=== PATIENT | female | born 1955 | race Caucasian/White ===

== ENCOUNTER 2017-07-07 08:53 | Emergency (ER) | payer OTHER, MEDICAID ==
[~2017-07-07] VITALS: Ht 167.6 cm; Wt 81.6 kg
[~2017-07-07 08:53] MED LIST: ARIP15TA6; GABA-497; QUET100T46; TRAZ100T2; [UNRECOGNIZED DRUG - CODE]; [UNRECOGNIZED DRUG - CODE]
[2017-07-07 09:41] VITALS: BP 127/76
[2017-07-07] MEDS ORDERED: methylPREDNISolone SOD SUCC 125 MG/2 ML VL IM ONE (10:00)
[2017-07-07] MEDS ORDERED: ONDANSETRON HCL 4 MG/2 ML VIAL IM ONE (10:00)
[2017-07-07] MEDS ORDERED: MORPHINE SULF INJ 2 MG/ML SYRINGE 1ML IM ONE (10:00)
== END 2017-07-07 10:43 | disposition home or self-care (01) ==
LOC: ER 08:53
DX: M16.12 Unilateral primary osteoarthritis, left hip (principal); G62.9 Polyneuropathy, unspecified; J45.909 Unspecified asthma, uncomplicated; Z86.73 Personal history of transient ischemic attack (TIA), and cerebral infarction without residual deficits; Z88.0 Allergy status to penicillin; Z88.6 Allergy status to analgesic agent
CPT/HCPCS: 73502; 96372; 99284; J2270; J2405; J2930

== ENCOUNTER 2017-07-11 10:37 | Inpatient (IN) | payer OTHER, MEDICAID ==
[~2017-07-11] VITALS: Ht 167.6 cm; Wt 81.6 kg
[2017-07-11 11:52] LABS: Hematocrit 36.7 % (36.0-46.0); Hemoglobin 12.3 g/dL (12.2-16.2); Mean Corpuscular Hemoglobin 31.4 pg (28.0-32.0); Mean Corpuscular Hgb Conc. 33.4 g/dL (32.0-36.0); Mean Corpuscular Volume 93.9 fL (80.0-100.0); Platelet Count (auto) 219 10^3/uL (140-450); Red Cell Distribution Width 13.1 % (11.8-14.3); White Blood Cell 20.5 10^3/uL (4.4-10.8)
[2017-07-11 11:58] LABS: Metamyelocytes % 0; Myelocytes % 0; Promyelocytes % 0; Reactive Lymphocytes 0
[2017-07-11 12:04] LABS: Platelet Estimate Adequate
[2017-07-11 12:05] LABS: RBC Morphology Normal
[2017-07-11 12:10] LABS: Albumin 2.8 g/dL (3.4-5.0); Alkaline Phosphatase 109 U/L (45-117); Anion Gap 12 (5-15); Aspartate Aminotransferase 51 U/L (15-37); BUN/Creatinine Ratio 17.1; Bilirubin, Total 0.5 mg/dL (0.2-1.0); Blood Urea Nitrogen 12 mg/dL (7-18); Calcium 7.9 mg/dL (8.5-10.1); Carbon Dioxide 22 mmol/L (21-32); Chloride 106 mmol/L (98-107); GFR African American 109 mL/min; GFR Non-African American 90 mL/min; Glucose 118 mg/dL (74-106); Magnesium 2.3 mg/dL (1.6-2.6); Potassium 3.3 mmol/L (3.5-5.1); Sodium 140 mmol/L (136-145); Total Protein 6.5 g/dL (6.4-8.2)
[2017-07-11] MEDS ORDERED: ALBUTEROL SULF 2.5 MG/0.5ML(0.5%) NEB SOLN HHN ONE (12:15)
[2017-07-11] MEDS ORDERED: IPRATROPIUM BROM 0.5 MG/2.5ML INH SOL HHN ONE (12:15)
[2017-07-11] MEDS ORDERED: methylPREDNISolone SOD SUCC 125 MG/2 ML VL IV ONE (12:15)
[2017-07-11] MEDS ORDERED: cefTRIAXone 1GM/10ml IVPUSH 10 ML IV ONE (12:45)
[2017-07-11] MEDS ORDERED: POTASSIUM CHL 20 Meq TABLET PO ONE (13:15)
[2017-07-11] MEDS ORDERED: AZITHROMYCIN 500MG/ 250ML 250 ML IV ONE (13:15)
[2017-07-11 13:20] LABS: Lactic Acid w/Reflex 2.9 mmol/L (0.4-2.0)
[2017-07-11 13:24] LABS: REFLEX LACTIC ACID YES OR NO YES
[2017-07-11 13:47] LABS: Temperature: 23.1 C (20.0-25.0)
[2017-07-11 14:44] LABS: Urine RBC None Seen /hpf (0 - 4)
[2017-07-11 14:57] LABS: Urine Bilirubin Negative (Negative); Urine Blood Negative /uL (Negative); Urine Color Yellow (Yellow); Urine Glucose Normal (Normal); Urine Ketone Negative (Negative); Urine Nitrite POSITIVE (Negative); Urine Squamous Epithelial Cell FEW /hpf (<5); Urine Urobilinogen Normal (Negative); Urine pH 5.5 (5.0-8.0)
[2017-07-11] MEDS ORDERED: IPRATROPIUM BROM 0.5 MG/2.5ML INH SOL ONE (15:54)
[2017-07-11] MEDS ORDERED: ALBUTEROL SULF 2.5 MG/0.5ML(0.5%) NEB SOLN ONE (15:54)
[2017-07-11] MEDS ORDERED: ALBUTEROL SULF 2.5 MG/0.5ML(0.5%) NEB SOLN NEB ONE (16:00)
[2017-07-11] MEDS ORDERED: IPRATROPIUM BROM 0.5 MG/2.5ML INH SOL NEB ONE (16:00)
[2017-07-11] MEDS ORDERED: SODIUM CHLORIDE 0.9% 1,000 ML IV ONE ×2 (16:15)
[2017-07-11] MEDS ORDERED: LORazepam 2MG/ML-1ML VIAL IV ONE (16:30)
[2017-07-11] MEDS ORDERED: TEMAZEPAM 15 MG CAP PO PRN (17:30)
[2017-07-11] MEDS ORDERED: ONDANSETRON HCL 4 MG/2 ML VIAL IV PRN (17:30)
[2017-07-11] MEDS ORDERED: MORPHINE SULF INJ 2 MG/ML SYRINGE 1ML IV PRN ×2 (17:30)
[2017-07-11] MEDS ORDERED: NITROGLYCERIN 0.4 MG SL TAB SL PRN (17:30)
[2017-07-11] MEDS ORDERED: DOCUSATE SOD 100 MG CAP PO PRN (17:30)
[2017-07-11] MEDS ORDERED: VANCOMYCIN PER PHARMACY 0 MG IV SCH (17:30)
[2017-07-11] MEDS ORDERED: ACETAMINOPHEN 325 MG TAB PO PRN (17:30)
[2017-07-11] MEDS ORDERED: HYDROcodone-ACET 5/325MG TAB PO PRN (17:30)
[2017-07-11] MEDS: IPRATROPIUM BROM 0.5 MG/2.5ML INH SOL NEB SCH ×2 (18:15→22:15)
[2017-07-11] MEDS: ALBUTEROL SULF 2.5 MG/0.5ML(0.5%) NEB SOLN NEB SCH ×2 (18:15→22:15)
[2017-07-11] MEDS: methylPREDNISolone SOD SUCC 40 MG/ML VL IV SCH (18:16)
[2017-07-11] MEDS ORDERED: VANCOMYCIN 1,250 MG in SODIUM CHL 0.9% 250 ML IV ONE (18:30)
[2017-07-11] MEDS: BOOST PLUS 8 ounce PO SCH (18:34)
[2017-07-11] MEDS ORDERED: LORazepam 0.5 MG TAB PO PRN (18:45)
[2017-07-11] MEDS ORDERED: ETOMIDATE (2MG/ML) 20ML VIAL IV ONE (21:22)
[2017-07-11] MEDS ORDERED: SUCCINYLCHOLINE CHLORIDE 20 MG/ML 10ML VIAL IV ONE (21:22)
[2017-07-11] MEDS ORDERED: PROPOFOL 100 ML IV ONE ×2 (21:24→23:31)
[2017-07-11 22:00] VITALS: BP 163/109
[2017-07-11] MEDS: fentaNYL Drip 2500mCg/250mlNS 250 ML IV SCH (22:35)
[2017-07-11] MEDS: PROPOFOL 100 ML IV SCH (22:35)
[2017-07-11] MEDS: MIDAZOLAM DRIP 50 mg/50mL 50 ML IV SCH (22:52)
[2017-07-11] MEDS: SODIUM CHLOR 0.9% PF (SALINE LOCK) 10ML VIAL IV SCH (23:01)
[2017-07-11] MEDS: VENLAFAXINE HCL 37.5mg XR cap PO SCH (23:16)
[2017-07-11] MEDS: MORPHINE SULF 30 mg ER tab PO SCH (23:16)
[2017-07-11 23:37] LABS: Allen Test Modified; Base Excess -2.1 mmol/L (-2.0-2.0); Blood 02Sat 88.3 % (96-100); Blood COHb 1.2 % (0.5-1.5); HCO3 23.5 mmol/L (22-26.0); HHb 11.6 % (0.0-5.0); MODE VENT - A/C; O2Hb 87.2 % (94.0-97.0); PCO2 43.4 mmHg (35.0-45.0); PCO2(T) 45.3 mmHg (35.0-45.0); PO2 58.1 mmHg (80.0-100.0); PO2(T) 62.3 mmHg (80.0-100.0); Room 1014-ERT; Sample Type Arterial; pH 7.352 (7.350-7.450)
[2017-07-12] VITALS (13 sets, daily range): BP systolic 103–140; BP diastolic 61–79
[2017-07-12] MEDS: GABAPENTIN 300 MG CAP PO SCH ×4 (00:22→22:06)
[2017-07-12] MEDS: FAMOTIDINE 20 MG TAB PO SCH ×3 (00:22→22:06)
[2017-07-12] MEDS: QUEtiapine FUMARATE 100 MG TAB PO SCH ×2 (00:22→22:06)
[2017-07-12] MEDS: methylPREDNISolone SOD SUCC 40 MG/ML VL IV SCH ×4 (00:27→18:03)
[2017-07-12] MEDS: traZODone HCL 50 MG TAB PO SCH ×2 (00:32→22:06)
[2017-07-12] MEDS: IPRATROPIUM BROM 0.5 MG/2.5ML INH SOL NEB SCH ×6 (02:15→22:25)
[2017-07-12] MEDS: ALBUTEROL SULF 2.5 MG/0.5ML(0.5%) NEB SOLN NEB SCH ×6 (02:15→22:25)
[2017-07-12] MEDS: SODIUM CHLOR 0.9% PF (SALINE LOCK) 10ML VIAL IV SCH ×3 (06:16→22:05)
[2017-07-12 06:18] LABS: Basophils # (auto) 0 uL; Basophils % (auto) 0.1 % (0.0-2.0); Eosinophils # (auto) 0 uL; Hematocrit 34.1 % (36.0-46.0); Hemoglobin 11.4 g/dL (12.2-16.2); Lymphocytes # (auto) 0.4 uL; Lymphocytes % (auto) 2.1 % (10.0-50.0); Mean Corpuscular Hemoglobin 31.4 pg (28.0-32.0); Mean Corpuscular Hgb Conc. 33.3 g/dL (32.0-36.0); Mean Corpuscular Volume 94.3 fL (80.0-100.0); Mean Platelet Volume 10.7 fL (6.9-10.8); Monocytes # (auto) 0.7 uL; Monocytes % (auto) 3.6 % (0.0-12.0); Neutrophils # (auto) 18.5 uL; Neutrophils % (auto) 94.2 % (37.0-80.0); Platelet Count (auto) 217 10^3/uL (140-450); Red Cell Distribution Width 13.2 % (11.8-14.3); White Blood Cell 19.6 10^3/uL (4.4-10.8)
[2017-07-12 06:50] LABS: Albumin 2.4 g/dL (3.4-5.0); Bilirubin, Total 0.3 mg/dL (0.2-1.0); Calcium 7.9 mg/dL (8.5-10.1); Potassium 3.9 mmol/L (3.5-5.1); Total Protein 5.8 g/dL (6.4-8.2)
[2017-07-12 07:36] LABS: Allen Test Yes; Base Excess -0.5 mmol/L (-2.0-2.0); Blood 02Sat 96.2 % (96-100); Blood COHb 0.2 % (0.5-1.5); HCO3 23.5 mmol/L (22-26.0); HHb 3.8 % (0.0-5.0); MODE VENT - PCV; PCO2 36.5 mmHg (35.0-45.0); PCO2(T) 36.5 mmHg (35.0-45.0); PO2 89.4 mmHg (80.0-100.0); PO2(T) 89.4 mmHg (80.0-100.0); Room 1014-ERT; Sample Type Arterial; pH 7.427 (7.350-7.450)
[2017-07-12] MEDS: BOOST PLUS 8 ounce PO SCH ×3 (08:00→18:47)
[2017-07-12] MEDS: cefTRIAXone 1GM/10ml IVPUSH 10 ML IV SCH (09:00)
[2017-07-12] MEDS: VENLAFAXINE HCL 37.5mg XR cap PO SCH ×2 (09:40→21:33)
[2017-07-12] MEDS: MORPHINE SULF 30 mg ER tab PO SCH ×2 (09:41→21:33)
[2017-07-12] MEDS ORDERED: VANCOMYCIN 1GM/250ML 250 ML IV ONE (10:30)
[2017-07-12] MEDS ORDERED: VANCOMYCIN PER PHARMACY 0 MG IV SCH (10:30)
[2017-07-12] MEDS ORDERED: MIDAZOLAM DRIP 50 mg/50mL 50 ML IV ONE (10:57)
[2017-07-12] MEDS: MULTIPLE VITAMIN TAB PO SCH (11:12)
[2017-07-12] MEDS ORDERED: AZITHROMYCIN 500MG/ 250ML 250 ML IV ONE (15:30)
[2017-07-12] MEDS: SODIUM CHLORIDE 0.9% 1,000 ML IV SCH (15:33)
[2017-07-12] MEDS ORDERED: VANCOMYCIN 1,250 MG in SODIUM CHL 0.9% 250 ML IV SCH (20:00)
[2017-07-12] MEDS: fentaNYL Drip 2500mCg/250mlNS 250 ML IV SCH (21:28)
[2017-07-12] MEDS ORDERED: QUEtiapine FUMARATE 100 MG TAB ONE (21:37)
[2017-07-12] MEDS: MIDAZOLAM DRIP 50 mg/50mL 50 ML IV SCH (22:41)
[2017-07-12] MEDS: PROPOFOL 100 ML IV SCH (23:27)
[2017-07-13] VITALS (12 sets, daily range): BP systolic 108–162; BP diastolic 58–87
[2017-07-13] MEDS: methylPREDNISolone SOD SUCC 40 MG/ML VL IV SCH ×4 (00:16→18:21)
[2017-07-13] MEDS: SODIUM CHLORIDE 0.9% 1,000 ML IV SCH ×3 (01:30→15:45)
[2017-07-13] MEDS: IPRATROPIUM BROM 0.5 MG/2.5ML INH SOL NEB SCH ×6 (02:20→22:10)
[2017-07-13] MEDS: ALBUTEROL SULF 2.5 MG/0.5ML(0.5%) NEB SOLN NEB SCH ×6 (02:20→22:10)
[2017-07-13 05:58] LABS: Base Excess -1.7 mmol/L (-2.0-2.0); Blood 02Sat 95.3 % (96-100); Blood COHb 0.3 % (0.5-1.5); Blood MetHb 0.3 % (0.0-1.5); HCO3 22.6 mmol/L (22-26.0); HHb 4.7 % (0.0-5.0); MODE VENT - PCV; O2Hb 94.7 % (94.0-97.0); PCO2 36.6 mmHg (35.0-45.0); PCO2(T) 36.6 mmHg (35.0-45.0); PIP 34; PO2 79.8 mmHg (80.0-100.0); PO2(T) 79.8 mmHg (80.0-100.0); Room 1014-ERT; Sample Type Arterial; pH 7.408 (7.350-7.450)
[2017-07-13] MEDS: SODIUM CHLOR 0.9% PF (SALINE LOCK) 10ML VIAL IV SCH ×3 (06:05→22:14)
[2017-07-13] MEDS: GABAPENTIN 300 MG CAP PO SCH ×3 (06:16→22:26)
[2017-07-13 06:28] LABS: Basophils # (auto) 0 uL; Basophils % (auto) 0.1 % (0.0-2.0); Eosinophils # (auto) 0 uL; Hematocrit 32.3 % (36.0-46.0); Hemoglobin 10.9 g/dL (12.2-16.2); Lymphocytes # (auto) 0.4 uL; Lymphocytes % (auto) 2.9 % (10.0-50.0); Mean Corpuscular Hemoglobin 31.7 pg (28.0-32.0); Mean Corpuscular Hgb Conc. 33.6 g/dL (32.0-36.0); Mean Corpuscular Volume 94.3 fL (80.0-100.0); Monocytes # (auto) 0.6 uL; Monocytes % (auto) 4.5 % (0.0-12.0); Neutrophils # (auto) 12.8 uL; Neutrophils % (auto) 92.5 % (37.0-80.0); Platelet Count (auto) 223 10^3/uL (140-450); Red Cell Distribution Width 13.3 % (11.8-14.3); White Blood Cell 13.8 10^3/uL (4.4-10.8)
[2017-07-13 06:46] LABS: Albumin 2.3 g/dL (3.4-5.0); Potassium 3.2 mmol/L (3.5-5.1)
[2017-07-13 06:49] LABS: Bilirubin, Total 0.3 mg/dL (0.2-1.0); Total Protein 5.9 g/dL (6.4-8.2)
[2017-07-13 07:10] LABS: B-Type Natriuretic Peptide 169.72 pg/mL (0-100)
[2017-07-13 07:30] LABS: Temperature: 22.7 C (20.0-25.0)
[2017-07-13] MEDS: BOOST PLUS 8 ounce PO SCH ×3 (08:30→18:19)
[2017-07-13] MEDS: cefTRIAXone 1GM/10ml IVPUSH 10 ML IV SCH (09:15)
[2017-07-13] MEDS: MORPHINE SULF 30 mg ER tab PO SCH (10:00)
[2017-07-13] MEDS: VENLAFAXINE HCL 37.5mg XR cap PO SCH (10:00)
[2017-07-13] MEDS: MULTIPLE VITAMIN TAB PO SCH (10:00)
[2017-07-13] MEDS: AZITHROMYCIN 500MG/ 250ML 250 ML IV SCH (10:30)
[2017-07-13] MEDS: FAMOTIDINE 20 MG TAB PO SCH ×2 (10:30→22:26)
[2017-07-13] MEDS: POTASSIUM CHL 20MEQ/50ML 50 ML IV SCH ×2 (16:45→18:19)
[2017-07-13] MEDS ORDERED: VANCOMYCIN 1,250 MG in D5W 5% 250 ML IV SCH (20:00)
[2017-07-13] MEDS: fentaNYL Drip 2500mCg/250mlNS 250 ML IV SCH (22:15)
[2017-07-14] VITALS (12 sets, daily range): BP systolic 113–140; BP diastolic 61–80
[2017-07-14] MEDS: methylPREDNISolone SOD SUCC 40 MG/ML VL IV SCH ×2 (00:24→06:22)
[2017-07-14] MEDS: PROPOFOL 100 ML IV SCH ×2 (01:30→21:45)
[2017-07-14] MEDS: IPRATROPIUM BROM 0.5 MG/2.5ML INH SOL NEB SCH ×5 (02:00→18:30)
[2017-07-14] MEDS: ALBUTEROL SULF 2.5 MG/0.5ML(0.5%) NEB SOLN NEB SCH ×5 (02:00→18:30)
[2017-07-14] MEDS: MIDAZOLAM DRIP 50 mg/50mL 50 ML IV SCH ×2 (02:48→19:54)
[2017-07-14] MEDS: SODIUM CHLOR 0.9% PF (SALINE LOCK) 10ML VIAL IV SCH ×2 (06:11→15:15)
[2017-07-14] MEDS: SODIUM CHLORIDE 0.9% 1,000 ML IV SCH (06:11)
[2017-07-14 06:21] LABS: Allen Test Modified; Base Excess -2.2 mmol/L (-2.0-2.0); Blood COHb 0.2 % (0.5-1.5); HCO3 22.8 mmol/L (22-26.0); MODE VENT - PCV; O2Hb 94.8 % (94.0-97.0); PCO2 39.8 mmHg (35.0-45.0); PCO2(T) 39.8 mmHg (35.0-45.0); PO2 81.6 mmHg (80.0-100.0); PO2(T) 81.6 mmHg (80.0-100.0); Room 1014-ERT; Sample Type Arterial; pH 7.376 (7.350-7.450)
[2017-07-14] MEDS: GABAPENTIN 300 MG CAP PO SCH (06:22)
[2017-07-14 06:27] LABS: Hemoglobin 10.4 g/dL (12.2-16.2); Mean Corpuscular Hemoglobin 30.8 pg (28.0-32.0); Mean Corpuscular Hgb Conc. 32.4 g/dL (32.0-36.0); Mean Corpuscular Volume 95.2 fL (80.0-100.0); Mean Platelet Volume 10.8 fL (6.9-10.8); Platelet Count (auto) 251 10^3/uL (140-450); Red Cell Distribution Width 13.4 % (11.8-14.3); White Blood Cell 17.2 10^3/uL (4.4-10.8)
[2017-07-14 06:44] LABS: Metamyelocytes % 0; Myelocytes % 0; Promyelocytes % 0; Reactive Lymphocytes 0
[2017-07-14 06:52] LABS: Albumin 2.3 g/dL (3.4-5.0); BUN/Creatinine Ratio 35.7; Calcium 8.1 mg/dL (8.5-10.1)
[2017-07-14 06:56] LABS: Bilirubin, Total 0.3 mg/dL (0.2-1.0); Total Protein 5.8 g/dL (6.4-8.2)
[2017-07-14] MEDS: FAMOTIDINE 20 MG TAB PO SCH (10:07)
[2017-07-14] MEDS: AZITHROMYCIN 500MG/ 250ML 250 ML IV SCH (10:07)
[2017-07-14] MEDS: cefTRIAXone 1GM/10ml IVPUSH 10 ML IV SCH (10:07)
[2017-07-14] MEDS: MULTIPLE VITAMIN TAB PO SCH (10:07)
[2017-07-14] MEDS: BOOST PLUS 8 ounce PO SCH ×3 (10:08→19:21)
[2017-07-14 13:20] LABS: Hypersegmented Neutrophils Present; Platelet Estimate Adequate; Stomatocytes Few
[2017-07-14] MEDS ORDERED: MEROPENEM 1GM IVPB 100 ML IV SCH (14:00)
[2017-07-14] MEDS ORDERED: methylPREDNISolone SOD SUCC 40 MG/ML VL IV SCH (22:00)
== END 2017-07-14 21:20 | disposition short-term general hospital (02) | DRG 871 ==
LOC: ER 10:37 → EDBD 10:37 → TELE 10:38
PROVIDERS: ADMIT Internal Medicine; ATTEND Internal Medicine
PROC: 5A09357 Assistance with Respiratory Ventilation, Less than 24 Consecutive Hours, Continuous Positive Airway Pressure (ICD-10-PCS; 2017-07-11)
PROC: 0BH17EZ Insertion of Endotracheal Airway into Trachea, Via Natural or Artificial Opening (ICD-10-PCS; principal; 2017-07-12)
PROC: 5A1945Z Respiratory Ventilation, 24-96 Consecutive Hours (ICD-10-PCS; 2017-07-12)
DX: A41.9 Sepsis, unspecified organism (principal); J96.01 Acute respiratory failure with hypoxia; Z99.11 Dependence on respirator [ventilator] status; J44.0 Chronic obstructive pulmonary disease with (acute) lower respiratory infection; J84.9 Interstitial pulmonary disease, unspecified; E44.0 Moderate protein-calorie malnutrition; J44.1 Chronic obstructive pulmonary disease with (acute) exacerbation; J45.901 Unspecified asthma with (acute) exacerbation; I50.32 Chronic diastolic (congestive) heart failure; N39.0 Urinary tract infection, site not specified; E87.5 Hyperkalemia; E83.51 Hypocalcemia; E88.09 Other disorders of plasma-protein metabolism, not elsewhere classified; G62.9 Polyneuropathy, unspecified; N18.2 Chronic kidney disease, stage 2 (mild); F17.210 Nicotine dependence, cigarettes, uncomplicated; E87.6 Hypokalemia; Z16.12 Extended spectrum beta lactamase (ESBL) resistance; B96.20 Unspecified Escherichia coli [E. coli] as the cause of diseases classified elsewhere; M81.0 Age-related osteoporosis without current pathological fracture; M19.90 Unspecified osteoarthritis, unspecified site; Z98.84 Bariatric surgery status; Z88.0 Allergy status to penicillin; Z88.8 Allergy status to other drugs, medicaments and biological substances; Z68.29 Body mass index [BMI] 29.0-29.9, adult
CPT/HCPCS: 36415; 36600; 51702; 71010; 80053; 81001; 82805; 83605; 83735; 83880; 84484; 85007; 85025; 85027; 87040; 87070; 87086; 87088; 87186; 87205; 94002; 94003; 94640; 94660; 96365; 96368; 96375; 99291; J0330; J2185; J2250; J2704; J3010; J7060

== ENCOUNTER 2018-04-21 10:32 | Inpatient (IN) | payer OTHER ==
[~2018-04-21] VITALS: Ht 167.6 cm; Wt 84.9 kg
[~2018-04-21 10:32] MED LIST changes: -GABA-497; +GABA300C10
[2018-04-21] MEDS ORDERED: SODIUM CHLORIDE 0.9% 1,000 ML IVB ONE (11:22)
[2018-04-21 12:51] LABS: Basophils # (auto) 0 uL; Basophils % (auto) 0.2 % (0.0-2.0); Eosinophils # (auto) 0 uL; Hematocrit 49.8 % (36.0-46.0); Hemoglobin 16.2 g/dL (12.2-16.2); Lymphocytes # (auto) 0.6 uL; Lymphocytes % (auto) 2.4 % (10.0-50.0); Mean Corpuscular Hemoglobin 31.2 pg (28.0-32.0); Mean Corpuscular Hgb Conc. 32.5 g/dL (32.0-36.0); Monocytes # (auto) 1.4 uL; Monocytes % (auto) 5.5 % (0.0-12.0); Neutrophils # (auto) 22.9 uL; Neutrophils % (auto) 91.9 % (37.0-80.0); Platelet Count (auto) 243 10^3/uL (140-450); Red Blood Cells 5.19 10^6/uL (4.0-5.20); Red Cell Distribution Width 13.1 % (11.8-14.3); White Blood Cell 24.9 10^3/uL (4.4-10.8)
[2018-04-21 13:05] LABS: Urine Bacteria MANY /hpf (None Seen); Urine Blood 3+ /uL (Negative); Urine Hyaline Cast FEW /lpf (0 - 2); Urine Mucus FEW (None Seen); Urine Specific Gravity 1.023 (1.001-1.035); Urine WBC 10 /hpf (0 - 5)
[2018-04-21 13:08] LABS: INR 1.07 (0.9-1.15); Partial Thromboplastin Time 28.2 sec (23.78-33.04); Prothrombin Time 11.4 sec (9.27-12.13)
[2018-04-21 13:10] LABS: Alcohol, Urine < 3.0 mg/dL (0-5); Amphetamine Screen, Urine NEGATIVE (NEGATIVE); Barbiturate Scree,Urine NEGATIVE (NEGATIVE); Benzodiazephine Screen, Urine POSITIVE (NEGATIVE); Cannabinoid Screen, Urine NEGATIVE (NEGATIVE); Cocaine Screen, Urine NEGATIVE (NEGATIVE); Opiate Scree,Urine POSITIVE (NEGATIVE); Phencyclidine Screen, Urine NEGATIVE (NEGATIVE)
[2018-04-21 13:11] LABS: Lactic Acid w/Reflex 4.1 mmol/L (0.4-2.0)
[2018-04-21 13:13] LABS: BUN/Creatinine Ratio 22.9; Calcium 8.5 mg/dL (8.5-10.1); Potassium 3.9 mmol/L (3.5-5.1)
[2018-04-21 13:24] LABS: Bilirubin, Total 0.8 mg/dL (0.2-1.0); Total Protein 7.1 g/dL (6.4-8.2)
[2018-04-21] MEDS ORDERED: cefTRIAXone 1GM/10ml IVPUSH 10 ML IV ONE (13:30)
[2018-04-21] MEDS ORDERED: SODIUM CHLORIDE 0.9% 1,000 ML IV ONE ×2 (13:45)
[2018-04-21] MEDS ORDERED: VANCOMYCIN PER PHARMACY 0 MG IV SCH ×2 (13:45→15:15)
[2018-04-21] MEDS ORDERED: AZITHROMYCIN 500MG/ 250ML 250 ML IV ONE (15:15)
[2018-04-21] MEDS ORDERED: ONDANSETRON HCL 4 MG/2 ML VIAL IV PRN (15:15)
[2018-04-21] MEDS ORDERED: MORPHINE SULF INJ 2 MG/ML SYRINGE 1ML IV PRN (15:15)
[2018-04-21] MEDS ORDERED: PANTOPRAZOLE 40 MG/10 ML VIAL IV ONE (15:15)
[2018-04-21] MEDS ORDERED: NITROGLYCERIN 0.4 MG SL TAB SL PRN (15:15)
[2018-04-21] MEDS ORDERED: HYDROcodone-ACET 5/325MG TAB PO PRN (15:15)
[2018-04-21] MEDS ORDERED: LORazepam 0.5 MG TAB PO PRN (15:15)
[2018-04-21] MEDS ORDERED: ERTAPENEM SOD INJ 1 GM in SODIUM CHL 0.9% 50 ML IV ONE (15:15)
[2018-04-21] MEDS ORDERED: ALBUTEROL SULF 2.5 MG/0.5ML(0.5%) NEB SOLN NEB PRN (15:15)
[2018-04-21] MEDS ORDERED: LACTULOSE 20Gm/30ML SOLN PO PRN (15:15)
[2018-04-21] MEDS ORDERED: TEMAZEPAM 15 MG CAP PO PRN (15:15)
[2018-04-21] MEDS: SODIUM CHLORIDE 0.9% 1,000 ML IV SCH (15:46)
[2018-04-21] MEDS ORDERED: VANCOMYCIN 1GM/250ML 250 ML IV ONE (16:00)
[2018-04-21] MEDS ORDERED: LORazepam 2MG/ML-1ML VIAL IV ONE (16:30)
[2018-04-21] MEDS ORDERED: SUCCINYLCHOLINE CHLORIDE 20 MG/ML 10ML VIAL IV ONE ×3 (17:38→18:30)
[2018-04-21] MEDS ORDERED: ETOMIDATE (2MG/ML) 20ML VIAL IV ONE ×2 (17:38→18:00)
[2018-04-21] MEDS: PROPOFOL 100 ML IV SCH (17:55)
[2018-04-21] MEDS ORDERED: MIDAZOLAM DRIP 50 mg/50mL 50 ML IV ONE (18:36)
[2018-04-21] MEDS: MIDAZOLAM DRIP 50 mg/50mL 50 ML IV SCH (18:45)
[2018-04-21] MEDS: MEROPENEM 1GM IVPB 100 ML IV SCH (18:56)
[2018-04-21 19:40] VITALS: BP 170/84
[2018-04-21] MEDS: IPRATROPIUM BROM 0.5 MG/2.5ML INH SOL NEB SCH (19:40)
[2018-04-21] MEDS: ALBUTEROL SULF 2.5 MG/0.5ML(0.5%) NEB SOLN NEB SCH (19:40)
[2018-04-21 20:06] VITALS: BP 108/78
[2018-04-21 20:24] LABS: Magnesium 1.8 mg/dL (1.6-2.6)
[2018-04-21] MEDS ORDERED: ENOXAPARIN SOD 80 MG/0.8ML SYRINGE SC ONE (20:30)
[2018-04-21] MEDS ORDERED: IOHEXOL 350 MG/ML 100ML IJ ONE (20:53)
[2018-04-21] MEDS: MORPHINE SULF INJ 2 MG/ML SYRINGE 1ML IV PRN (21:38)
[2018-04-21 21:43] VITALS: BP 127/72
[2018-04-22] VITALS (12 sets, daily range): BP systolic 92–127; BP diastolic 55–91
[2018-04-22] MEDS: IPRATROPIUM BROM 0.5 MG/2.5ML INH SOL NEB SCH ×5 (00:05→21:31)
[2018-04-22] MEDS: ALBUTEROL SULF 2.5 MG/0.5ML(0.5%) NEB SOLN NEB SCH ×4 (00:05→18:28)
[2018-04-22] MEDS: MEROPENEM 1GM IVPB 100 ML IV SCH ×3 (00:40→17:27)
[2018-04-22] MEDS: SODIUM CHLORIDE 0.9% 1,000 ML IV SCH ×3 (00:41→21:31)
[2018-04-22] MEDS: ACETAMINOPHEN 500 MG TAB PO PRN (01:27)
[2018-04-22] MEDS: MORPHINE SULF INJ 2 MG/ML SYRINGE 1ML IV PRN ×2 (01:31→05:26)
[2018-04-22] MEDS: VANCOMYCIN 1GM/250ML 250 ML IV SCH ×2 (04:30→15:13)
[2018-04-22 06:16] LABS: Basophils # (auto) 0 uL; Basophils % (auto) 0.1 % (0.0-2.0); Eosinophils # (auto) 0 uL; Hemoglobin 12.6 g/dL (12.2-16.2); Lymphocytes # (auto) 0.7 uL; Lymphocytes % (auto) 3.8 % (10.0-50.0); Mean Corpuscular Hemoglobin 32.1 pg (28.0-32.0); Mean Corpuscular Hgb Conc. 33.3 g/dL (32.0-36.0); Mean Corpuscular Volume 96.4 fL (80.0-100.0); Monocytes # (auto) 1.2 uL; Monocytes % (auto) 6.5 % (0.0-12.0); Neutrophils # (auto) 16.2 uL; Neutrophils % (auto) 89.6 % (37.0-80.0); Platelet Count (auto) 194 10^3/uL (140-450); Red Blood Cells 3.94 10^6/uL (4.0-5.20); Red Cell Distribution Width 13.6 % (11.8-14.3); White Blood Cell 18.1 10^3/uL (4.4-10.8)
[2018-04-22 06:54] LABS: Albumin 2.2 g/dL (3.4-5.0); BUN/Creatinine Ratio 25.4; Bilirubin, Total 0.4 mg/dL (0.2-1.0); Calcium 7.3 mg/dL (8.5-10.1); Potassium 3.1 mmol/L (3.5-5.1); Total Protein 5.5 g/dL (6.4-8.2)
[2018-04-22] MEDS: PROPOFOL 100 ML IV SCH ×4 (07:45→18:59)
[2018-04-22] MEDS: PANTOPRAZOLE 40 MG/10 ML VIAL IV SCH (08:41)
[2018-04-22] MEDS: AZITHROMYCIN 500MG/ 250ML 250 ML IV SCH (08:41)
[2018-04-22] MEDS: ENOXAPARIN SOD 40 MG/0.4 ML SYRINGE SC SCH (08:41)
[2018-04-22] MEDS ORDERED: ERTAPENEM SOD INJ 1 GM in SODIUM CHL 0.9% 50 ML IV SCH (10:00)
[2018-04-22] MEDS: MIDAZOLAM DRIP 50 mg/50mL 50 ML IV SCH ×3 (10:54→18:26)
[2018-04-22] MEDS ORDERED: POTASSIUM EFFERVESENT TAB 25 MEQ PO ONE (12:00)
[2018-04-22] MEDS ORDERED: POTASSIUM EFFERVESENT TAB 25 MEQ ONE (12:10)
[2018-04-22] MEDS: fentaNYL Drip 2500mCg/250mlNS 250 ML IV SCH (14:37)
[2018-04-22] MEDS: NOREPINEPHRINE 8 MG/250ML KIT 250 ML IV SCH (16:38)
[2018-04-22] MEDS ORDERED: PROPOFOL 100 ML IV ONE (21:10)
[2018-04-23] VITALS (82 sets, daily range): BP systolic 67–126; BP diastolic 37–68
[2018-04-23] MEDS: IPRATROPIUM BROM 0.5 MG/2.5ML INH SOL NEB SCH ×3 (00:29→18:12)
[2018-04-23] MEDS: ALBUTEROL SULF 2.5 MG/0.5ML(0.5%) NEB SOLN NEB SCH ×4 (00:29→18:12)
[2018-04-23] MEDS: MEROPENEM 1GM IVPB 100 ML IV SCH ×3 (01:57→17:28)
[2018-04-23] MEDS: ACETAMINOPHEN 500 MG TAB PO PRN (02:04)
[2018-04-23 03:08] LABS: Basophils # (auto) 0.1 uL; Basophils % (auto) 0.4 % (0.0-2.0); Eosinophils # (auto) 0.1 uL; Eosinophils % (auto) 0.4 % (0.0-7.0); Hematocrit 31.7 % (36.0-46.0); Hemoglobin 10.5 g/dL (12.2-16.2); Lymphocytes % (auto) 7.5 % (10.0-50.0); Mean Corpuscular Hemoglobin 31.5 pg (28.0-32.0); Mean Corpuscular Volume 95.5 fL (80.0-100.0); Monocytes # (auto) 0.9 uL; Monocytes % (auto) 6.7 % (0.0-12.0); Neutrophils # (auto) 11.2 uL; Platelet Count (auto) 176 10^3/uL (140-450); Red Blood Cells 3.33 10^6/uL (4.0-5.20); Red Cell Distribution Width 12.9 % (11.8-14.3); White Blood Cell 13.2 10^3/uL (4.4-10.8)
[2018-04-23 03:42] LABS: Albumin 1.7 g/dL (3.4-5.0); BUN/Creatinine Ratio 28.9; Calcium 7.1 mg/dL (8.5-10.1); Potassium 3.7 mmol/L (3.5-5.1)
[2018-04-23 03:44] LABS: Bilirubin, Total 0.3 mg/dL (0.2-1.0); Total Protein 4.8 g/dL (6.4-8.2)
[2018-04-23] MEDS: VANCOMYCIN 1GM/250ML 250 ML IV SCH ×3 (04:13→20:23)
[2018-04-23] MEDS ORDERED: PROPOFOL 100 ML IV ONE (04:41)
[2018-04-23] MEDS: SODIUM CHLORIDE 0.9% 1,000 ML IV SCH (09:19)
[2018-04-23] MEDS: MIDAZOLAM DRIP 50 mg/50mL 50 ML IV SCH ×2 (09:20→13:38)
[2018-04-23] MEDS: PROPOFOL 100 ML IV SCH ×3 (09:20→17:35)
[2018-04-23] MEDS: fentaNYL Drip 2500mCg/250mlNS 250 ML IV SCH ×2 (09:20→22:09)
[2018-04-23] MEDS: ENOXAPARIN SOD 40 MG/0.4 ML SYRINGE SC SCH (09:51)
[2018-04-23] MEDS: ALBUMIN 25% 100 ML IV SCH ×2 (09:51→17:28)
[2018-04-23] MEDS: PANTOPRAZOLE 40 MG/10 ML VIAL IV SCH (09:51)
[2018-04-23] MEDS: AZITHROMYCIN 500MG/ 250ML 250 ML IV SCH (09:51)
[2018-04-23] MEDS ORDERED: Nutren Pulmonary 1 Liter GT SCH (10:45)
[2018-04-23] MEDS ORDERED: MORPHINE SULFATE 4 MG/ML SYR/VIAL IV PRN (16:00)
[2018-04-23] MEDS ORDERED: SODIUM CHLORIDE 0.9% 1,000 ML IV SCH (16:15)
[2018-04-23] MEDS: NOREPINEPHRINE 8 MG/250ML KIT 250 ML IV SCH (16:38)
[2018-04-24] VITALS (98 sets, daily range): BP systolic 108–145; BP diastolic 38–74
[2018-04-24] MEDS: IPRATROPIUM BROM 0.5 MG/2.5ML INH SOL NEB SCH ×4 (00:26→18:01)
[2018-04-24] MEDS: ALBUTEROL SULF 2.5 MG/0.5ML(0.5%) NEB SOLN NEB SCH ×4 (00:26→18:01)
[2018-04-24] MEDS: ALBUMIN 25% 100 ML IV SCH (00:30)
[2018-04-24] MEDS: PROPOFOL 100 ML IV SCH ×3 (01:02→21:30)
[2018-04-24] MEDS: MEROPENEM 1GM IVPB 100 ML IV SCH ×3 (01:30→16:48)
[2018-04-24] MEDS: MIDAZOLAM DRIP 50 mg/50mL 50 ML IV SCH ×2 (01:41→21:00)
[2018-04-24 04:20] LABS: Basophils # (auto) 0.1 uL; Basophils % (auto) 0.5 % (0.0-2.0); Eosinophils # (auto) 0.2 uL; Eosinophils % (auto) 2.2 % (0.0-7.0); Hematocrit 28.7 % (36.0-46.0); Hemoglobin 9.5 g/dL (12.2-16.2); Lymphocytes # (auto) 0.8 uL; Lymphocytes % (auto) 7.5 % (10.0-50.0); Mean Corpuscular Hemoglobin 31.8 pg (28.0-32.0); Mean Corpuscular Hgb Conc. 33.2 g/dL (32.0-36.0); Mean Corpuscular Volume 95.9 fL (80.0-100.0); Monocytes # (auto) 0.8 uL; Monocytes % (auto) 7.3 % (0.0-12.0); Neutrophils # (auto) 8.8 uL; Neutrophils % (auto) 82.5 % (37.0-80.0); Platelet Count (auto) 150 10^3/uL (140-450); Red Cell Distribution Width 12.8 % (11.8-14.3); White Blood Cell 10.7 10^3/uL (4.4-10.8)
[2018-04-24] MEDS: VANCOMYCIN 1GM/250ML 250 ML IV SCH ×3 (04:22→20:02)
[2018-04-24 04:34] LABS: Albumin 2.6 g/dL (3.4-5.0); BUN/Creatinine Ratio 16.2; Bilirubin, Total 0.5 mg/dL (0.2-1.0); Calcium 7.8 mg/dL (8.5-10.1); Potassium 3.5 mmol/L (3.5-5.1); Total Protein 5.6 g/dL (6.4-8.2)
[2018-04-24] MEDS ORDERED: POTASSIUM EFFERVESENT TAB 25 MEQ GT ONE (10:15)
[2018-04-24] MEDS ORDERED: FUROSEMIDE 20 MG/2 ML VIAL IV ONE (10:30)
[2018-04-24] MEDS: PANTOPRAZOLE 40 MG/10 ML VIAL IV SCH (10:45)
[2018-04-24] MEDS: AZITHROMYCIN 500MG/ 250ML 250 ML IV SCH (10:47)
[2018-04-24] MEDS: ENOXAPARIN SOD 40 MG/0.4 ML SYRINGE SC SCH (10:48)
[2018-04-24] MEDS ORDERED: Jevity 1.2 Cal/Fiber 1 Liter GT SCH (14:00)
[2018-04-24] MEDS: fentaNYL Drip 2500mCg/250mlNS 250 ML IV SCH (15:55)
[2018-04-24] MEDS: NOREPINEPHRINE 8 MG/250ML KIT 250 ML IV SCH (16:38)
[2018-04-25] VITALS (98 sets, daily range): BP systolic 100–146; BP diastolic 48–96
[2018-04-25] MEDS: IPRATROPIUM BROM 0.5 MG/2.5ML INH SOL NEB SCH ×4 (00:09→18:08)
[2018-04-25] MEDS: ALBUTEROL SULF 2.5 MG/0.5ML(0.5%) NEB SOLN NEB SCH ×4 (00:09→18:08)
[2018-04-25] MEDS: MEROPENEM 1GM IVPB 100 ML IV SCH ×3 (01:00→17:00)
[2018-04-25 04:05] LABS: Basophils # (auto) 0 uL; Basophils % (auto) 0.2 % (0.0-2.0); Eosinophils # (auto) 0.4 uL; Eosinophils % (auto) 4.4 % (0.0-7.0); Hematocrit 28.8 % (36.0-46.0); Hemoglobin 9.6 g/dL (12.2-16.2); Lymphocytes # (auto) 0.7 uL; Lymphocytes % (auto) 7.7 % (10.0-50.0); Mean Corpuscular Hemoglobin 31.9 pg (28.0-32.0); Mean Corpuscular Hgb Conc. 33.3 g/dL (32.0-36.0); Mean Corpuscular Volume 95.8 fL (80.0-100.0); Monocytes # (auto) 0.8 uL; Monocytes % (auto) 9.1 % (0.0-12.0); Neutrophils # (auto) 6.8 uL; Neutrophils % (auto) 78.6 % (37.0-80.0); Platelet Count (auto) 156 10^3/uL (140-450); Red Cell Distribution Width 13.2 % (11.8-14.3); White Blood Cell 8.7 10^3/uL (4.4-10.8)
[2018-04-25] MEDS: VANCOMYCIN 1GM/250ML 250 ML IV SCH ×3 (04:06→20:00)
[2018-04-25 04:19] LABS: Albumin 2.1 g/dL (3.4-5.0); Calcium 7.5 mg/dL (8.5-10.1); Potassium 3.8 mmol/L (3.5-5.1)
[2018-04-25 04:22] LABS: Bilirubin, Total 0.5 mg/dL (0.2-1.0); Total Protein 5.4 g/dL (6.4-8.2)
[2018-04-25] MEDS: fentaNYL Drip 2500mCg/250mlNS 250 ML IV SCH ×2 (07:10→14:27)
[2018-04-25] MEDS: PANTOPRAZOLE 40 MG/10 ML VIAL IV SCH (10:00)
[2018-04-25] MEDS: ENOXAPARIN SOD 40 MG/0.4 ML SYRINGE SC SCH (10:03)
[2018-04-25] MEDS: AZITHROMYCIN 500MG/ 250ML 250 ML IV SCH (10:03)
[2018-04-25] MEDS: ACETAMINOPHEN 500 MG TAB PO PRN (15:00)
[2018-04-25] MEDS: FUROSEMIDE 40 MG/4 ML VIAL IV SCH (15:01)
[2018-04-25] MEDS: NOREPINEPHRINE 8 MG/250ML KIT 250 ML IV SCH (16:38)
[2018-04-25] MEDS: MIDAZOLAM DRIP 50 mg/50mL 50 ML IV SCH (18:29)
[2018-04-25] MEDS: PROPOFOL 100 ML IV SCH (20:00)
[2018-04-25] MEDS: SENNA 8.6 MG TAB PO SCH (21:49)
[2018-04-25] MEDS ORDERED: SENNA 8.6 MG TAB PO SCH (22:00)
[2018-04-26] VITALS (102 sets, daily range): BP systolic 132–182; BP diastolic 41–99
[2018-04-26] MEDS: IPRATROPIUM BROM 0.5 MG/2.5ML INH SOL NEB SCH ×4 (00:02→18:20)
[2018-04-26] MEDS: ALBUTEROL SULF 2.5 MG/0.5ML(0.5%) NEB SOLN NEB SCH ×4 (00:02→18:20)
[2018-04-26] MEDS: MEROPENEM 1GM IVPB 100 ML IV SCH ×2 (00:40→08:29)
[2018-04-26 04:20] LABS: Hematocrit 29.5 % (36.0-46.0); Hemoglobin 9.9 g/dL (12.2-16.2); Mean Corpuscular Hemoglobin 31.8 pg (28.0-32.0); Mean Corpuscular Hgb Conc. 33.5 g/dL (32.0-36.0); Mean Corpuscular Volume 94.9 fL (80.0-100.0); Platelet Count (auto) 209 10^3/uL (140-450); Red Blood Cells 3.11 10^6/uL (4.0-5.20); Red Cell Distribution Width 12.6 % (11.8-14.3); White Blood Cell 6.1 10^3/uL (4.4-10.8)
[2018-04-26] MEDS: VANCOMYCIN 1GM/250ML 250 ML IV SCH ×2 (04:25→08:31)
[2018-04-26 04:30] LABS: BUN/Creatinine Ratio 26.7; Calcium 7.8 mg/dL (8.5-10.1); Potassium 3.4 mmol/L (3.5-5.1)
[2018-04-26 04:31] LABS: Basophils % (manual) 0 (0.0-2.0); Blast Cells 0; Metamyelocytes % 0; Myelocytes % 0; Promyelocytes % 0; Reactive Lymphocytes 0
[2018-04-26 04:33] LABS: Bilirubin, Total 0.4 mg/dL (0.2-1.0); Total Protein 5.6 g/dL (6.4-8.2)
[2018-04-26 04:53] LABS: Band Neutrophils % (manual) 1; Eosinophils % (manual) 4 (0-7)
[2018-04-26 04:54] LABS: Lymphocytes % (manual) 12 (10.0-50.0); Monocytes % (manual) 7 (0-12)
[2018-04-26] MEDS ORDERED: POTASSIUM CHL 20MEQ/100ML 100 ML IV ONE (05:30)
[2018-04-26] MEDS: hydrALAZINE HCL 20 MG/ML VL IV PRN (08:15)
[2018-04-26] MEDS: FUROSEMIDE 40 MG/4 ML VIAL IV SCH (10:28)
[2018-04-26] MEDS: PANTOPRAZOLE 40 MG/10 ML VIAL IV SCH (10:28)
[2018-04-26] MEDS: ENOXAPARIN SOD 40 MG/0.4 ML SYRINGE SC SCH (10:29)
[2018-04-26] MEDS ORDERED: LEVOFLOXACIN 750MG 150 ML IV ONE (11:00)
[2018-04-26] MEDS ORDERED: cefTRIAXone 1GM/10ml IVPUSH 10 ML IV ONE (11:30)
[2018-04-26] MEDS ORDERED: AZITHROMYCIN 500MG/ 250ML 250 ML IV ONE (12:00)
[2018-04-26] MEDS: METOCLOPRAMIDE HCL 5MG/ml INJ 2ml VIAL IV SCH ×2 (12:01→18:00)
[2018-04-26] MEDS: ACETAMINOPHEN 500 MG TAB PO PRN (12:36)
[2018-04-26] MEDS: DEXMEDETOMIDINE HCL 400 MCG in D5W 5% 96 ML IV SCH (14:45)
[2018-04-26] MEDS: fentaNYL Drip 2500mCg/250mlNS 250 ML IV SCH (15:57)
[2018-04-26] MEDS: NOREPINEPHRINE 8 MG/250ML KIT 250 ML IV SCH (16:38)
[2018-04-26] MEDS: PROPOFOL 100 ML IV SCH (17:53)
[2018-04-26] MEDS: MIDAZOLAM DRIP 50 mg/50mL 50 ML IV SCH (18:29)
[2018-04-26] MEDS: SENNA 8.6 MG TAB PO SCH (21:53)
[2018-04-27] VITALS (102 sets, daily range): BP systolic 128–174; BP diastolic 51–102
[2018-04-27] MEDS: IPRATROPIUM BROM 0.5 MG/2.5ML INH SOL NEB SCH ×4 (00:22→17:32)
[2018-04-27] MEDS: ALBUTEROL SULF 2.5 MG/0.5ML(0.5%) NEB SOLN NEB SCH ×4 (00:22→17:32)
[2018-04-27 04:00] LABS: Basophils # (auto) 0 uL; Basophils % (auto) 0.6 % (0.0-2.0); Eosinophils # (auto) 0.1 uL; Hematocrit 32.6 % (36.0-46.0); Lymphocytes # (auto) 0.8 uL; Lymphocytes % (auto) 11.4 % (10.0-50.0); Mean Corpuscular Hemoglobin 31.8 pg (28.0-32.0); Mean Corpuscular Hgb Conc. 33.6 g/dL (32.0-36.0); Mean Corpuscular Volume 94.8 fL (80.0-100.0); Monocytes % (auto) 14.6 % (0.0-12.0); Neutrophils % (auto) 71.4 % (37.0-80.0); Platelet Count (auto) 297 10^3/uL (140-450); Red Blood Cells 3.44 10^6/uL (4.0-5.20); Red Cell Distribution Width 12.7 % (11.8-14.3)
[2018-04-27 04:11] LABS: Albumin 2.3 g/dL (3.4-5.0); Potassium 3.2 mmol/L (3.5-5.1)
[2018-04-27 04:13] LABS: BUN/Creatinine Ratio 32.4
[2018-04-27 04:15] LABS: Bilirubin, Total 0.4 mg/dL (0.2-1.0); Total Protein 6.3 g/dL (6.4-8.2)
[2018-04-27] MEDS: METOCLOPRAMIDE HCL 5MG/ml INJ 2ml VIAL IV SCH ×2 (06:29)
[2018-04-27] MEDS ORDERED: POTASSIUM EFFERVESENT TAB 25 MEQ GT ONE (09:30)
[2018-04-27] MEDS: cefTRIAXone 1GM/10ml IVPUSH 10 ML IV SCH (09:38)
[2018-04-27] MEDS: DEXMEDETOMIDINE HCL 400 MCG in D5W 5% 96 ML IV SCH (09:38)
[2018-04-27] MEDS: FUROSEMIDE 40 MG/4 ML VIAL IV SCH (09:39)
[2018-04-27] MEDS: PANTOPRAZOLE 40 MG/10 ML VIAL IV SCH (09:39)
[2018-04-27] MEDS: ENOXAPARIN SOD 40 MG/0.4 ML SYRINGE SC SCH (09:39)
[2018-04-27] MEDS ORDERED: LABETALOL HCL 5 MG/ML ML 20ML VIAL IV PRN (09:45)
[2018-04-27] MEDS ORDERED: METOCLOPRAMIDE HCL 5MG/ml INJ 2ml VIAL IV PRN (10:00)
[2018-04-27] MEDS ORDERED: HYDROcodone-ACET 5/325MG TAB PO PRN (10:00)
[2018-04-27] MEDS ORDERED: LEVOFLOXACIN 750MG 150 ML IV SCH (10:00)
[2018-04-27] MEDS ORDERED: AZITHROMYCIN 500MG/ 250ML 250 ML IV SCH (10:00)
[2018-04-27] MEDS ORDERED: MORPHINE SULFATE 4 MG/ML SYR/VIAL IV PRN (10:00)
[2018-04-27] MEDS ORDERED: MORPHINE SULF INJ 2 MG/ML SYRINGE 1ML IV PRN (10:00)
[2018-04-27] MEDS: fentaNYL Drip 2500mCg/250mlNS 250 ML IV SCH (14:27)
[2018-04-27] MEDS: NOREPINEPHRINE 8 MG/250ML KIT 250 ML IV SCH (16:38)
[2018-04-27] MEDS: PROPOFOL 100 ML IV SCH (17:53)
[2018-04-27] MEDS: MIDAZOLAM DRIP 50 mg/50mL 50 ML IV SCH (18:23)
[2018-04-27] MEDS: hydrALAZINE HCL 20 MG/ML VL IV PRN (18:24)
[2018-04-27] MEDS: SENNA 8.6 MG TAB PO SCH (22:00)
[2018-04-28] VITALS (62 sets, daily range): BP systolic 126–193; BP diastolic 64–104
[2018-04-28] MEDS: IPRATROPIUM BROM 0.5 MG/2.5ML INH SOL NEB SCH ×5 (00:12→23:48)
[2018-04-28] MEDS: ALBUTEROL SULF 2.5 MG/0.5ML(0.5%) NEB SOLN NEB SCH ×5 (00:12→23:48)
[2018-04-28 04:10] LABS: Hematocrit 35.6 % (36.0-46.0); Hemoglobin 11.8 g/dL (12.2-16.2); Mean Corpuscular Hemoglobin 31.4 pg (28.0-32.0); Mean Corpuscular Hgb Conc. 33.1 g/dL (32.0-36.0); Mean Corpuscular Volume 94.9 fL (80.0-100.0); Platelet Count (auto) 380 10^3/uL (140-450); Red Blood Cells 3.75 10^6/uL (4.0-5.20); Red Cell Distribution Width 13.1 % (11.8-14.3); White Blood Cell 6.2 10^3/uL (4.4-10.8)
[2018-04-28 04:13] LABS: Basophils % (manual) 0 (0.0-2.0); Blast Cells 0; Metamyelocytes % 0; Myelocytes % 0; Promyelocytes % 0; Reactive Lymphocytes 0
[2018-04-28 04:27] LABS: Albumin 2.5 g/dL (3.4-5.0); BUN/Creatinine Ratio 46.2; Calcium 8.5 mg/dL (8.5-10.1); Potassium 3.3 mmol/L (3.5-5.1)
[2018-04-28 04:30] LABS: Bilirubin, Total 0.5 mg/dL (0.2-1.0); Total Protein 6.7 g/dL (6.4-8.2)
[2018-04-28 04:58] LABS: Band Neutrophils % (manual) 2; Eosinophils % (manual) 2 (0-7); Lymphocytes % (manual) 13 (10.0-50.0); Monocytes % (manual) 10 (0-12)
[2018-04-28] MEDS ORDERED: POTASSIUM EFFERVESENT TAB 25 MEQ GT ONE ×2 (05:00→09:15)
[2018-04-28] MEDS: LEVOTHYROXINE SODIUM 100 MCG TAB PO SCH (06:51)
[2018-04-28] MEDS: DEXMEDETOMIDINE HCL 400 MCG in D5W 5% 96 ML IV SCH ×2 (06:51→23:36)
[2018-04-28] MEDS: ENOXAPARIN SOD 40 MG/0.4 ML SYRINGE SC SCH (09:20)
[2018-04-28] MEDS: FUROSEMIDE 40 MG/4 ML VIAL IV SCH (09:21)
[2018-04-28] MEDS: PANTOPRAZOLE 40 MG/10 ML VIAL IV SCH (09:21)
[2018-04-28] MEDS: cefTRIAXone 1GM/10ml IVPUSH 10 ML IV SCH (09:21)
[2018-04-28] MEDS: hydrALAZINE HCL 20 MG/ML VL IV PRN (09:22)
[2018-04-28] MEDS: PROPOFOL 100 ML IV SCH (12:08)
[2018-04-28] MEDS: fentaNYL Drip 2500mCg/250mlNS 250 ML IV SCH (12:08)
[2018-04-28] MEDS: NOREPINEPHRINE 8 MG/250ML KIT 250 ML IV SCH (12:08)
[2018-04-28] MEDS: LABETALOL HCL 5 MG/ML ML 20ML VIAL IV PRN (13:57)
[2018-04-28] MEDS: MIDAZOLAM DRIP 50 mg/50mL 50 ML IV SCH (18:03)
[2018-04-28] MEDS: SENNA 8.6 MG TAB PO SCH (22:17)
[2018-04-29] VITALS (76 sets, daily range): BP systolic 125–164; BP diastolic 46–102
[2018-04-29 04:00] LABS: Hemoglobin 11.8 g/dL (12.2-16.2); White Blood Cell 6.4 10^3/uL (4.4-10.8)
[2018-04-29 04:02] LABS: Hematocrit 35.9 % (36.0-46.0); Mean Corpuscular Hemoglobin 31.3 pg (28.0-32.0); Mean Corpuscular Hgb Conc. 32.8 g/dL (32.0-36.0); Mean Corpuscular Volume 95.5 fL (80.0-100.0); Platelet Count (auto) 473 10^3/uL (140-450); Red Blood Cells 3.76 10^6/uL (4.0-5.20)
[2018-04-29 04:05] LABS: Basophils % (manual) 0 (0.0-2.0); Blast Cells 0; Metamyelocytes % 0; Myelocytes % 0; Promyelocytes % 0; Reactive Lymphocytes 0
[2018-04-29 04:26] LABS: Albumin 2.8 g/dL (3.4-5.0); BUN/Creatinine Ratio 65.3; Bilirubin, Total 0.4 mg/dL (0.2-1.0); Calcium 8.7 mg/dL (8.5-10.1); Potassium 3.8 mmol/L (3.5-5.1); Total Protein 6.8 g/dL (6.4-8.2)
[2018-04-29 04:46] LABS: Band Neutrophils % (manual) 2; Eosinophils % (manual) 2 (0-7); Lymphocytes % (manual) 18 (10.0-50.0); Monocytes % (manual) 16 (0-12)
[2018-04-29] MEDS: ALBUTEROL SULF 2.5 MG/0.5ML(0.5%) NEB SOLN NEB SCH ×4 (06:24→23:57)
[2018-04-29] MEDS: IPRATROPIUM BROM 0.5 MG/2.5ML INH SOL NEB SCH ×4 (06:24→23:57)
[2018-04-29] MEDS: LEVOTHYROXINE SODIUM 100 MCG TAB PO SCH (06:45)
[2018-04-29] MEDS: PANTOPRAZOLE 40 MG/10 ML VIAL IV SCH (09:20)
[2018-04-29] MEDS: cefTRIAXone 1GM/10ml IVPUSH 10 ML IV SCH (09:20)
[2018-04-29] MEDS: ENOXAPARIN SOD 40 MG/0.4 ML SYRINGE SC SCH ×2 (09:20→12:16)
[2018-04-29] MEDS: fentaNYL Drip 2500mCg/250mlNS 250 ML IV SCH (09:21)
[2018-04-29] MEDS ORDERED: LORazepam 0.5 MG TAB PO PRN (09:45)
[2018-04-29] MEDS ORDERED: TEMAZEPAM 15 MG CAP PO PRN (09:45)
[2018-04-29] MEDS ORDERED: MIDAZOLAM DRIP 50 mg/50mL 50 ML IV SCH (18:29)
[2018-04-29] MEDS: LABETALOL HCL 5 MG/ML ML 20ML VIAL IV PRN (20:00)
[2018-04-29] MEDS: SENNA 8.6 MG TAB PO SCH (21:42)
[2018-04-30] VITALS (33 sets, daily range): BP systolic 129–156; BP diastolic 49–99
[2018-04-30 04:33] LABS: Mean Corpuscular Volume 95.8 fL (80.0-100.0)
[2018-04-30 04:36] LABS: Hematocrit 35.2 % (36.0-46.0); Hemoglobin 11.8 g/dL (12.2-16.2); Mean Corpuscular Hemoglobin 32.2 pg (28.0-32.0); Mean Corpuscular Hgb Conc. 33.6 g/dL (32.0-36.0); Platelet Count (auto) 500 10^3/uL (140-450); Red Blood Cells 3.68 10^6/uL (4.0-5.20); Red Cell Distribution Width 13.3 % (11.8-14.3); White Blood Cell 7.3 10^3/uL (4.4-10.8)
[2018-04-30 04:38] LABS: Band Neutrophils % (manual) 0; Basophils % (manual) 0 (0.0-2.0); Blast Cells 0; Metamyelocytes % 0; Myelocytes % 0; Promyelocytes % 0; Reactive Lymphocytes 0
[2018-04-30 04:43] LABS: BUN/Creatinine Ratio 68.8; Calcium 8.3 mg/dL (8.5-10.1); Potassium 3.7 mmol/L (3.5-5.1)
[2018-04-30 05:17] LABS: Eosinophils % (manual) 1 (0-7); Lymphocytes % (manual) 17 (10.0-50.0); Monocytes % (manual) 13 (0-12)
[2018-04-30] MEDS: LEVOTHYROXINE SODIUM 100 MCG TAB PO SCH (06:40)
[2018-04-30] MEDS: ALBUTEROL SULF 2.5 MG/0.5ML(0.5%) NEB SOLN NEB SCH ×3 (06:57→19:22)
[2018-04-30] MEDS: IPRATROPIUM BROM 0.5 MG/2.5ML INH SOL NEB SCH ×3 (06:57→19:22)
[2018-04-30] MEDS: ENOXAPARIN SOD 40 MG/0.4 ML SYRINGE SC SCH (10:38)
[2018-04-30] MEDS: PANTOPRAZOLE 40 MG/10 ML VIAL IV SCH (10:38)
[2018-04-30] MEDS: cefTRIAXone 1GM/10ml IVPUSH 10 ML IV SCH (10:38)
[2018-04-30] MEDS: SENNA 8.6 MG TAB PO SCH (22:19)
[2018-05-01] MEDS: ALBUTEROL SULF 2.5 MG/0.5ML(0.5%) NEB SOLN NEB SCH ×5 (00:41→23:28)
[2018-05-01] MEDS: IPRATROPIUM BROM 0.5 MG/2.5ML INH SOL NEB SCH ×5 (00:42→23:28)
[2018-05-01 06:08] VITALS: BP 116/68
[2018-05-01] MEDS: LEVOTHYROXINE SODIUM 100 MCG TAB PO SCH (06:55)
[2018-05-01 09:00] VITALS: BP 126/55
[2018-05-01] MEDS: ENOXAPARIN SOD 40 MG/0.4 ML SYRINGE SC SCH (09:53)
[2018-05-01] MEDS: cefTRIAXone 1GM/10ml IVPUSH 10 ML IV SCH (09:53)
[2018-05-01] MEDS ORDERED: MORPHINE SULFATE 4 MG/ML SYR/VIAL IV PRN (12:15)
[2018-05-01] MEDS ORDERED: MULTIPLE VITAMINS W/ MINERALS TAB PO ONE (12:15)
[2018-05-01] MEDS ORDERED: MORPHINE SULF INJ 2 MG/ML SYRINGE 1ML IV PRN (12:15)
[2018-05-01 13:00] VITALS: BP 147/66
[2018-05-01 17:00] VITALS: BP 133/69
[2018-05-01] MEDS: Ensure Enlive Chocolate 8oz Bottle PO SCH (18:23)
[2018-05-01 22:00] VITALS: BP 124/75
[2018-05-01] MEDS: SENNA 8.6 MG TAB PO SCH (22:14)
[2018-05-02 05:29] VITALS: BP 127/51
[2018-05-02] MEDS: IPRATROPIUM BROM 0.5 MG/2.5ML INH SOL NEB SCH ×4 (05:47→23:57)
[2018-05-02] MEDS: ALBUTEROL SULF 2.5 MG/0.5ML(0.5%) NEB SOLN NEB SCH ×4 (05:47→23:58)
[2018-05-02] MEDS: LEVOTHYROXINE SODIUM 100 MCG TAB PO SCH (07:12)
[2018-05-02 09:00] VITALS: BP 114/58
[2018-05-02] MEDS: ENOXAPARIN SOD 40 MG/0.4 ML SYRINGE SC SCH (09:34)
[2018-05-02] MEDS: cefTRIAXone 1GM/10ml IVPUSH 10 ML IV SCH (09:34)
[2018-05-02] MEDS: MULTIPLE VITAMINS W/ MINERALS TAB PO SCH (09:34)
[2018-05-02] MEDS: Ensure Enlive Chocolate 8oz Bottle PO SCH ×3 (09:35→18:52)
[2018-05-02 13:00] VITALS: BP 111/49
[2018-05-02 17:00] VITALS: BP 119/65
[2018-05-02] MEDS: HYDROcodone-ACET 5/325MG TAB PO PRN (19:56)
[2018-05-02] MEDS: SENNA 8.6 MG TAB PO SCH (21:29)
[2018-05-02] MEDS: NITROFURANTOIN (MONO) 100 mg CAP PO SCH (21:29)
[2018-05-03] MEDS: HYDROcodone-ACET 5/325MG TAB PO PRN (04:44)
[2018-05-03 05:39] VITALS: BP 106/62
[2018-05-03] MEDS: IPRATROPIUM BROM 0.5 MG/2.5ML INH SOL NEB SCH ×2 (05:54→11:51)
[2018-05-03] MEDS: ALBUTEROL SULF 2.5 MG/0.5ML(0.5%) NEB SOLN NEB SCH ×2 (05:54→11:51)
[2018-05-03] MEDS: LEVOTHYROXINE SODIUM 100 MCG TAB PO SCH (07:04)
[2018-05-03] MEDS: Ensure Enlive Chocolate 8oz Bottle PO SCH ×2 (08:06→12:13)
[2018-05-03 08:34] VITALS: BP 106/62
[2018-05-03 09:00] VITALS: BP 108/55
[2018-05-03] MEDS ORDERED: MULT-351 PO (11:09)
[2018-05-03] MEDS: NITROFURANTOIN (MONO) 100 mg CAP PO SCH (12:12)
[2018-05-03] MEDS: MULTIPLE VITAMINS W/ MINERALS TAB PO SCH (12:13)
[2018-05-03] MEDS: ENOXAPARIN SOD 40 MG/0.4 ML SYRINGE SC SCH (12:13)
[2018-05-03 13:00] VITALS: BP 135/66
[2018-05-03 13:16] VITALS: BP 108/55
== END 2018-05-03 15:40 | disposition home or self-care (01) | DRG 870 ==
LOC: ER 10:32 → EDUNIT# 10:32 → TELE 10:33 → ICU WEST 04-23 06:00 → TELE-CENTR 04-30 16:12 → CENTRAL 05-02 10:05
PROVIDERS: ADMIT Internal Medicine; ATTEND Internal Medicine
PROC: 5A1955Z Respiratory Ventilation, Greater than 96 Consecutive Hours (ICD-10-PCS; principal; 2018-04-21)
PROC: 0BH17EZ Insertion of Endotracheal Airway into Trachea, Via Natural or Artificial Opening (ICD-10-PCS; 2018-04-21)
PROC: 02HV33Z Insertion of Infusion Device into Superior Vena Cava, Percutaneous Approach (ICD-10-PCS; 2018-04-21)
DX: A41.9 Sepsis, unspecified organism (principal); G93.41 Metabolic encephalopathy; J96.00 Acute respiratory failure, unspecified whether with hypoxia or hypercapnia; E43 Unspecified severe protein-calorie malnutrition; N39.0 Urinary tract infection, site not specified; E87.3 Alkalosis; B96.20 Unspecified Escherichia coli [E. coli] as the cause of diseases classified elsewhere; J44.9 Chronic obstructive pulmonary disease, unspecified; E87.6 Hypokalemia; E86.0 Dehydration; F17.200 Nicotine dependence, unspecified, uncomplicated; G20 Parkinson's disease; G25.81 Restless legs syndrome; M81.0 Age-related osteoporosis without current pathological fracture; R65.20 Severe sepsis without septic shock; S00.83XA Contusion of other part of head, initial encounter; I50.9 Heart failure, unspecified; E66.9 Obesity, unspecified; F32.9 Major depressive disorder, single episode, unspecified; G47.00 Insomnia, unspecified; G62.9 Polyneuropathy, unspecified; L98.9 Disorder of the skin and subcutaneous tissue, unspecified; M19.90 Unspecified osteoarthritis, unspecified site; W19.XXXA Unspecified fall, initial encounter; Z88.0 Allergy status to penicillin; Z88.8 Allergy status to other drugs, medicaments and biological substances; I25.2 Old myocardial infarction; Z87.820 Personal history of traumatic brain injury; Z98.84 Bariatric surgery status; Z79.899 Other long term (current) drug therapy; Y92.89 Other specified places as the place of occurrence of the external cause; Z68.30 Body mass index [BMI] 30.0-30.9, adult
CPT/HCPCS: 31500; 36415; 36556; 36600; 51702; 70450; 70486; 71045; 71275; 72125; 80048; 80053; 80202; 80307; 81001; 82040; 82550; 82805; 82962; 83605; 83735; 83880; 84443; 84484; 85007; 85025; 85027; 85379; 85610; 85652; 85730; 87040; 87070; 87077; 87081; 87086; 87088; 87186; 87205; 87804; 93005; 93306; 94002; 94003; 94640; 96365; 96372; 96375; 99291; A4565; A6257; C9113; J0330; J0696; J2185; J2250; J2405; J2704; J3480; J7060; P9047

== ENCOUNTER 2018-07-11 07:55 | Emergency (ER) | payer OTHER ==
[~2018-07-11] VITALS: Ht 162.6 cm; Wt 77.1 kg
[~2018-07-11 07:55] MED LIST changes: +MULT-351 PO
[2018-07-11] MEDS ORDERED: SODIUM CHLORIDE 0.9% 500 ML IVB ONE ×2 (08:17→08:40)
[2018-07-11] MEDS ORDERED: SODIUM CHLORIDE 0.9% 1,000 ML IV ONE ×2 (08:17→08:40)
[2018-07-11 09:13] LABS: Basophils # (auto) 0.1 uL; Basophils % (auto) 0.8 % (0.0-2.0); Eosinophils # (auto) 0.1 uL; Eosinophils % (auto) 1.4 % (0.0-7.0); Hematocrit 44.3 % (36.0-46.0); Hemoglobin 14.5 g/dL (12.2-16.2); Lymphocytes # (auto) 0.6 uL; Lymphocytes % (auto) 6.4 % (10.0-50.0); Mean Corpuscular Hemoglobin 31.9 pg (28.0-32.0); Mean Corpuscular Hgb Conc. 32.7 g/dL (32.0-36.0); Mean Corpuscular Volume 97.6 fL (80.0-100.0); Monocytes # (auto) 0.7 uL; Monocytes % (auto) 7.3 % (0.0-12.0); Neutrophils # (auto) 7.9 uL; Neutrophils % (auto) 84.1 % (37.0-80.0); Platelet Count (auto) 191 10^3/uL (140-450); Red Blood Cells 4.54 10^6/uL (4.0-5.20); Red Cell Distribution Width 13.8 % (11.8-14.3); White Blood Cell 9.3 10^3/uL (4.4-10.8)
[2018-07-11 09:30] LABS: Albumin 3.5 g/dL (3.4-5.0); Anion Gap 8 (5-15); BUN/Creatinine Ratio 22.1; Blood Alcohol < 3.0 mg/dL (0-5); Blood Urea Nitrogen 17 mg/dL (7-18); Calcium 8.1 mg/dL (8.5-10.1); Carbon Dioxide 23 mmol/L (21-32); Chloride 110 mmol/L (98-107); GFR African American 97 mL/min; GFR Non-African American 80 mL/min; Glucose 109 mg/dL (74-106); Magnesium 2.5 mg/dL (1.6-2.6); Potassium 4.4 mmol/L (3.5-5.1); Sodium 141 mmol/L (136-145)
[2018-07-11 09:35] LABS: Alanine Aminotransferase 16 U/L (13-56); Alkaline Phosphatase 90 U/L (45-117); Aspartate Aminotransferase 14 U/L (15-37); Bilirubin, Total 0.2 mg/dL (0.2-1.0); Total Protein 6.8 g/dL (6.4-8.2)
[2018-07-11 13:50] LABS: Urine WBC None Seen /hpf (0 - 5)
[2018-07-11 14:33] LABS: Urine Bacteria NONE SEEN /hpf (None Seen); Urine Blood Negative /uL (Negative); Urine Specific Gravity 1.009 (1.001-1.035)
[2018-07-11 14:43] LABS: Alcohol, Urine < 3.0 mg/dL (0-5); Amphetamine Screen, Urine NEGATIVE (NEGATIVE); Barbiturate Scree,Urine NEGATIVE (NEGATIVE); Benzodiazephine Screen, Urine NEGATIVE (NEGATIVE); Cannabinoid Screen, Urine NEGATIVE (NEGATIVE); Cocaine Screen, Urine NEGATIVE (NEGATIVE); Opiate Scree,Urine POSITIVE (NEGATIVE); Phencyclidine Screen, Urine NEGATIVE (NEGATIVE)
[2018-07-11 15:10] VITALS: BP 137/74
== END 2018-07-11 17:53 | disposition home or self-care (01) ==
LOC: EDBD 07:55 → ER 07:55
DX: G92 Toxic encephalopathy (principal); G89.29 Other chronic pain; M25.562 Pain in left knee; M25.561 Pain in right knee; I10 Essential (primary) hypertension; J44.9 Chronic obstructive pulmonary disease, unspecified; K21.9 Gastro-esophageal reflux disease without esophagitis; F11.10 Opioid abuse, uncomplicated; Z88.0 Allergy status to penicillin; Z88.6 Allergy status to analgesic agent
CPT/HCPCS: 36415; 70450; 71045; 80053; 80307; 80320; 81001; 83735; 84443; 84484; 85025; 93005; 94761; 96360; 96361; 99284; J7030

== ENCOUNTER 2018-09-03 13:53 | Inpatient (IN) | payer OTHER ==
[~2018-09-03] VITALS: Ht 167.6 cm; Wt 89.0 kg
[2018-09-03 15:43] LABS: Basophils # (auto) 0 uL; Basophils % (auto) 0.1 % (0.0-2.0); Eosinophils # (auto) 0 uL; Hematocrit 42.3 % (36.0-46.0); Hemoglobin 14.1 g/dL (12.2-16.2); Lymphocytes # (auto) 0.7 uL; Lymphocytes % (auto) 4.4 % (10.0-50.0); Mean Corpuscular Hgb Conc. 33.4 g/dL (32.0-36.0); Mean Corpuscular Volume 95.6 fL (80.0-100.0); Monocytes % (auto) 6.2 % (0.0-12.0); Neutrophils # (auto) 14.2 uL; Neutrophils % (auto) 89.3 % (37.0-80.0); Nucleated Red Blood Cells % 0.1 %; Platelet Count (auto) 256 10^3/uL (140-450); Red Blood Cells 4.42 10^6/uL (4.0-5.20); Red Cell Distribution Width 15.2 % (11.8-14.3)
[2018-09-03 16:00] LABS: Albumin 3.1 g/dL (3.4-5.0); Anion Gap 8 (5-15); Blood Urea Nitrogen 10 mg/dL (7-18); Calcium 8.7 mg/dL (8.5-10.1); Carbon Dioxide 23 mmol/L (21-32); Chloride 110 mmol/L (98-107); Glucose 98 mg/dL (74-106); Magnesium 2.3 mg/dL (1.6-2.6); Potassium 3.5 mmol/L (3.5-5.1); Sodium 141 mmol/L (136-145)
[2018-09-03 16:05] LABS: Alanine Aminotransferase 7 U/L (13-56); Alkaline Phosphatase 98 U/L (45-117); Aspartate Aminotransferase 20 U/L (15-37); BUN/Creatinine Ratio 15.6; Bilirubin, Total 0.4 mg/dL (0.2-1.0); GFR African American 120 mL/min; GFR Non-African American 99 mL/min; Total Protein 7.3 g/dL (6.4-8.2)
[2018-09-03] MEDS ORDERED: SODIUM CHLORIDE 0.9% 1,000 ML IV ONE (16:24)
[2018-09-03] MEDS ORDERED: ALBUTEROL SULF 2.5 MG/0.5ML(0.5%) NEB SOLN HHN ONE (16:30)
[2018-09-03] MEDS ORDERED: LEVOFLOXACIN 500MG 100 ML IV ONE (16:30)
[2018-09-03] MEDS ORDERED: IPRATROPIUM BROM 0.5 MG/2.5ML INH SOL HHN ONE (16:30)
[2018-09-03] MEDS ORDERED: NITROGLYCERIN 0.4 MG SL TAB SL PRN (17:30)
[2018-09-03] MEDS ORDERED: MORPHINE SULFATE 4 MG/ML SYR/VIAL IV PRN ×2 (17:30)
[2018-09-03] MEDS ORDERED: VANCOMYCIN PER PHARMACY 0 MG IV SCH (17:30)
[2018-09-03] MEDS ORDERED: ALBUTEROL SULF 2.5 MG/0.5ML(0.5%) NEB SOLN NEB PRN (17:30)
[2018-09-03] MEDS ORDERED: OSELTAMIVIR 75 MG CAP PO ONE (17:30)
[2018-09-03] MEDS ORDERED: ACETAMINOPHEN 500 MG TAB PO PRN (17:30)
[2018-09-03] MEDS ORDERED: LACTULOSE 20Gm/30ML SOLN PO PRN (17:30)
[2018-09-03] MEDS ORDERED: PROMETHAZINE HCL 25 MG/ML 1ML IV PRN (17:30)
[2018-09-03] MEDS ORDERED: VANCOMYCIN 1GM/250ML 250 ML IV ONE (18:00)
[2018-09-03] MEDS: SODIUM CHLORIDE 0.9% 1,000 ML IV SCH (18:51)
[2018-09-03] MEDS: IPRATROPIUM BROM 0.5 MG/2.5ML INH SOL NEB SCH (19:00)
[2018-09-03] MEDS: ALBUTEROL SULF 2.5 MG/0.5ML(0.5%) NEB SOLN NEB SCH (19:00)
[2018-09-03] MEDS: traZODone HCL 50 MG TAB PO SCH (22:13)
[2018-09-03] MEDS: FEXOFENADINE HCL 60 MG TAB PO SCH (22:13)
[2018-09-03] MEDS: QUEtiapine FUMARATE 100 MG TAB PO SCH (22:13)
[2018-09-03] MEDS: GABAPENTIN 100 MG CAP PO SCH (22:13)
[2018-09-03] MEDS: methylPREDNISolone SOD SUCC 40 MG/ML VL IV SCH (23:22)
[2018-09-04] MEDS: IPRATROPIUM BROM 0.5 MG/2.5ML INH SOL NEB SCH ×5 (00:05→23:21)
[2018-09-04] MEDS: ALBUTEROL SULF 2.5 MG/0.5ML(0.5%) NEB SOLN NEB SCH ×5 (00:05→23:21)
[2018-09-04] MEDS: HYDROcodone-ACET 5/325MG TAB PO PRN ×3 (00:51→17:35)
[2018-09-04 06:09] LABS: Basophils # (auto) 0 uL; Basophils % (auto) 0.1 % (0.0-2.0); Eosinophils # (auto) 0 uL; Hematocrit 37.1 % (36.0-46.0); Hemoglobin 12.5 g/dL (12.2-16.2); Lymphocytes # (auto) 0.3 uL; Mean Corpuscular Hemoglobin 32.1 pg (28.0-32.0); Mean Corpuscular Hgb Conc. 33.6 g/dL (32.0-36.0); Mean Corpuscular Volume 95.5 fL (80.0-100.0); Monocytes # (auto) 0.3 uL; Monocytes % (auto) 1.8 % (0.0-12.0); Neutrophils # (auto) 15.3 uL; Neutrophils % (auto) 96.1 % (37.0-80.0); Platelet Count (auto) 237 10^3/uL (140-450); Red Blood Cells 3.88 10^6/uL (4.0-5.20); Red Cell Distribution Width 15.2 % (11.8-14.3); White Blood Cell 15.9 10^3/uL (4.4-10.8)
[2018-09-04 06:39] LABS: Cholesterol 126 mg/dL (< 200); Triglycerides 61 mg/dL (< 150)
[2018-09-04 06:41] LABS: HDL Cholesterol 74 mg/dL (40-59); LDL Cholesterol 51 mg/dL (< 100)
[2018-09-04] MEDS: methylPREDNISolone SOD SUCC 40 MG/ML VL IV SCH ×4 (08:01→23:43)
[2018-09-04] MEDS: GABAPENTIN 100 MG CAP PO SCH ×3 (08:01→21:33)
[2018-09-04] MEDS: VANCOMYCIN 1GM/250ML 250 ML IV SCH ×2 (08:01→19:00)
[2018-09-04] MEDS: LEVOTHYROXINE SODIUM 100 MCG TAB PO SCH (08:02)
[2018-09-04] MEDS: SODIUM CHLORIDE 0.9% 1,000 ML IV SCH ×2 (08:02→20:18)
[2018-09-04] MEDS ORDERED: LEVOFLOXACIN 500MG 100 ML IV SCH (10:00)
[2018-09-04] MEDS ORDERED: OSELTAMIVIR 75 MG CAP PO SCH (10:00)
[2018-09-04] MEDS ORDERED: LOPERAMIDE HCL 2 MG CAP PO ONE (10:45)
[2018-09-04] MEDS: PANTOPRAZOLE 40 MG TAB PO SCH (10:48)
[2018-09-04] MEDS: ENOXAPARIN SOD 40 MG/0.4 ML SYRINGE SC SCH (10:48)
[2018-09-04] MEDS: ABILIFY 15 MG PO SCH (10:51)
[2018-09-04] MEDS: FEXOFENADINE HCL 60 MG TAB PO SCH ×2 (10:53→21:33)
[2018-09-04] MEDS: LORazepam 0.5 MG TAB PO PRN (12:56)
[2018-09-04] MEDS: Ensure Enlive Strawberry 8oz Bottle PO SCH ×2 (12:56→19:01)
[2018-09-04] MEDS: CARBIDOPA W LEVODOPA 10/100mg TABLET PO SCH ×2 (14:01→21:33)
[2018-09-04 19:35] VITALS: BP 147/88
--- NOTE | 2018-09-04 19:45 | NUR ---
Telemetry admit from DOROTA العراقيLAMBERTO admitted to Telemetry unit after SBAR received. Patient oriented to Kitty aguilar RN, unit, room, bed, and unit policies regarding patient care and visiting hours. Patient now on continuous telemetry monitoring, tele box # 17 and telemetry reading on arrival to unit is SINUS TACHYCARDIA. Patient placed on bedside oxygen, weighed by bedscale and encouraged to call if they need something. All questions and concerns addressed, patient verbalized understanding. PATIENT IS A/OX4, ABLE TO ANSWER ALL QUESTIONS APPROPRIATELY. PATIENT ON 2L NC, WITH SPO2 AT 93%, WHEEZING NOTED TO UPPER LOBES AND DIMINISHED BREATH SOUNDS TO BILATERAL LOWER LOBES. PATIENT ABLE TO TURN AND REPOSITION SELF IN BED. BEDSIDE COMMODE AVAILABLE TO PATIENT. PATIENT HAS AN OPEN HOLE TO RIGHT ELBOW. PATIENT STATES, "I DON'T KNOW WHAT IT IS. I HAVE AN APPOINTMENT TO SEE A WINDOWS SERVER SUPPORT TECHNICIAN". WILL TAKE WOUND PHOTO FOR REFERENCE.. NO DRAINAGE NOTED TO SITE. POC DISCUSSED WITH PATIENT AND ALL QUESTIONS ANSWERED. WILL MONITOR Q1H PRN THROUGHOUT SHIFT, CALL LIGHT WITHIN REACH.
--- NOTE | 2018-09-04 19:50 | NUR ---
FEET PTS FEET VERY DIRTY. PATIENT STATES SHE HAS NOT SHOWERED IN 2 WEEKS DUE TO NOT FEELING WELL. VISIBLE DIRT ON FEET. NOTED CALLOUSES TO BILATERAL FEET. PATIENT GIVEN WASH TOWELS TO CLEAN UP
--- NOTE | 2018-09-04 21:30 | NUR ---
PHOTO OF RIGHT ELBOW TAKEN FOR REFERENCE WOUND FORM FILLED OUT AND PLACE IN WOUND BASKET
[2018-09-04] MEDS: QUEtiapine FUMARATE 100 MG TAB PO SCH (21:33)
[2018-09-04] MEDS: traZODone HCL 50 MG TAB PO SCH (21:33)
--- NOTE | 2018-09-04 21:50 | NUR ---
MRSA SWAB OF NARES TAKEN SENT TO LAB
[2018-09-04 22:00] VITALS: BP 138/84
[2018-09-04] MEDS: TEMAZEPAM 15 MG CAP PO PRN (23:55)
[2018-09-05] MEDS: HYDROcodone-ACET 5/325MG TAB PO PRN ×4 (00:48→20:33)
[2018-09-05] MEDS ORDERED: HYDR-531 PO (03:31)
[2018-09-05] MEDS ORDERED: VENL75CA3 PO (03:31)
[2018-09-05] MEDS ORDERED: LURA80TA PO (03:32)
[2018-09-05 05:00] VITALS: BP 137/71
[2018-09-05 05:59] LABS: Basophils # (auto) 0 uL; Basophils % (auto) 0.1 % (0.0-2.0); Eosinophils # (auto) 0 uL; Hematocrit 35.7 % (36.0-46.0); Lymphocytes # (auto) 0.4 uL; Mean Corpuscular Hemoglobin 32.6 pg (28.0-32.0); Mean Corpuscular Hgb Conc. 33.7 g/dL (32.0-36.0); Monocytes # (auto) 0.8 uL; Monocytes % (auto) 4.3 % (0.0-12.0); Neutrophils # (auto) 17.5 uL; Neutrophils % (auto) 93.6 % (37.0-80.0); Platelet Count (auto) 256 10^3/uL (140-450); Red Blood Cells 3.68 10^6/uL (4.0-5.20); Red Cell Distribution Width 15.4 % (11.8-14.3); White Blood Cell 18.7 10^3/uL (4.4-10.8)
[2018-09-05 06:20] LABS: BUN/Creatinine Ratio 28.6; Calcium 8.3 mg/dL (8.5-10.1); Potassium 3.6 mmol/L (3.5-5.1)
[2018-09-05] MEDS: methylPREDNISolone SOD SUCC 40 MG/ML VL IV SCH ×3 (06:23→18:57)
[2018-09-05] MEDS: GABAPENTIN 100 MG CAP PO SCH ×3 (06:24→22:12)
[2018-09-05] MEDS: LEVOTHYROXINE SODIUM 100 MCG TAB PO SCH (06:24)
[2018-09-05] MEDS: CARBIDOPA W LEVODOPA 10/100mg TABLET PO SCH ×3 (06:24→22:12)
--- NOTE | 2018-09-05 06:38 | NUR ---
CALLED LAB RE: PT HAD 0600 VANCO ORDERED PER PROTOCOL, "0700 VANCO TROUGH, IF GREATER THAN 20 HOLD VANCO FOR 0800 DOSE" NO 0800 DOSE ORDERED, ONLY A 0600 DOSE CALLED PHARM TO CHANGE VANCO SCHEDULED TIME
--- NOTE | 2018-09-05 07:19 | NUR ---
CLOSING NOTE REPORT ENDORSED TO DAY SHIFT RN PT SLEEPING. NO S/S OF DISTRESS NOTED CALL LIGHT WITHIN REACH
--- NOTE | 2018-09-05 07:20 | NUR ---
Open Shift Note Received report on patient, awake and lying in bed. Patient shows no signs of distress at this time. Discussed POC. Bed in lowest locked position, side rails up x2, and call light within reach. Will continue to monitor.
[2018-09-05] MEDS: IPRATROPIUM BROM 0.5 MG/2.5ML INH SOL NEB SCH ×4 (07:45→22:43)
[2018-09-05] MEDS: ALBUTEROL SULF 2.5 MG/0.5ML(0.5%) NEB SOLN NEB SCH ×4 (07:45→22:43)
[2018-09-05] MEDS ORDERED: VANCOMYCIN 1GM/250ML 250 ML IV SCH (08:00)
[2018-09-05] MEDS: Ensure Enlive Strawberry 8oz Bottle PO SCH ×3 (08:03→18:00)
[2018-09-05 08:57] VITALS: BP 149/85
[2018-09-05] MEDS: ABILIFY 15 MG PO SCH (10:00)
[2018-09-05] MEDS ORDERED: LEVOFLOXACIN 750MG 150 ML IV SCH (10:00)
[2018-09-05] MEDS: ENOXAPARIN SOD 40 MG/0.4 ML SYRINGE SC SCH (10:44)
[2018-09-05] MEDS: PANTOPRAZOLE 40 MG TAB PO SCH (10:44)
[2018-09-05] MEDS: FEXOFENADINE HCL 60 MG TAB PO SCH ×2 (10:44→22:12)
[2018-09-05] MEDS: NICOTINE 21MG/24 HR TOPICAL PATCH TD SCH (10:44)
[2018-09-05] MEDS ORDERED: AZITHROMYCIN 500MG/ 250ML 250 ML IV ONE (11:45)
[2018-09-05 12:44] VITALS: BP 147/86
--- NOTE | 2018-09-05 12:55 | NUR ---
RT NOTE: PT PLACED ONTO 6L MASK DUE TO C/O SOB AND SPO2 AT 88% ON 2L NC. PT C/O NOSE BEING TOO CONGESTED TO WEAR NC. RN WAS BEDSIDE. ALSO ASKED TO HAVE DR CAMPO PAGED TO SEE IF MUCOLYTICS COULD BE ORDERED FOR PT THICKENED SECRETIONS AND DIFFICULTY COUGHING THEM UP. ALSO FOR TXS TO BE CHANGED FROM Q6 TO Q4 DUE TO PT DISTRESS. WILL CONTINUE TO MONITOR.
[2018-09-05] MEDS: MEROPENEM 1GM IVPB 100 ML IV SCH ×2 (16:24→22:14)
[2018-09-05 17:01] VITALS: BP 144/84
[2018-09-05] MEDS: LATUDA 80 MG PO SCH (18:00)
[2018-09-05] MEDS: VANCOMYCIN 1GM/250ML 250 ML IV SCH (18:57)
[2018-09-05] MEDS: ACETYLCYSTEINE 10 %(100MG/ML) SOL 4ML NEB SCH ×2 (19:22→22:43)
--- NOTE | 2018-09-05 19:28 | NUR ---
End of Shift Endorsed care to [facility] nurse Tang.
--- NOTE | 2018-09-05 19:30 | NUR ---
OPENING NOTE REPORT RECEIVED FROM DAY SHIFT RN PATIENT IS A/OX4, AWAKE AT THIS TIME. PATIENT NOW ON 6L SIMPLE FACE MASK WITH SPO2 AT 90%. PATIENT NON COMPLIANT AND KEEPS REMOVING MASK TO GET UP AND USE COMMODE. EDUCATED PATIENT THAT THE OXYGEN LINE REACHES TO THE BEDSIDE COMMODE AND THERE IS NO NEED TO REMOVE THE MASK. PT VERBALIZED UNDERSTANDING. POC FOR TONIGHT DISCUSSED, ALL QUESTIONS ANSWERED. WILL MONITOR CLOSELY. CALL LIGHT WITHIN REACH.
--- NOTE | 2018-09-05 20:00 | NUR ---
SPUTUM SAMPLE OBTAINED AND SENT TO LAB PT STATES SHE FEELS "BETTER" AFTER HER BREATHING TREATMENT AND CAN NOW "COUGH UP" HER PHLEGM
[2018-09-05 22:00] VITALS: BP 131/74
[2018-09-05] MEDS: QUEtiapine FUMARATE 100 MG TAB PO SCH (22:12)
[2018-09-05] MEDS: traZODone HCL 50 MG TAB PO SCH (22:12)
[2018-09-05] MEDS: SODIUM CHLORIDE 0.9% 1,000 ML IV SCH (22:19)
--- NOTE | 2018-09-05 22:40 | NUR ---
TACHYCARDIA THONY TECH CALLED, PT HEART RATE SUSTAINING IN 130'S WENT TO CHECK ON PATIENT. PATIENT HAD JUST COME BACK FROM BEDSIDE COMMODE. PATIENT FOUND WITH FACE MASK OFF AND SHORT OF BREATH. PATIENT SATURATION IN 70'S. PATIENT IMMEDIATELY PLACED BACK ON FACE MASK AT 8L. RT ARRIVED TO BEGIN BREATHING TREATMENT AT THIS TIME. AFTER A FEW MINUTES, SPO2 UP TO 92%, HEART RATE IN 110'S. PT RE-EDUCATED TO KEEP FACE MASK ON AT ALL TIMES, PT VERBALIZED UNDERSTANDING.
[2018-09-05] MEDS: TEMAZEPAM 15 MG CAP PO PRN (22:57)
[2018-09-06] VITALS (13 sets, daily range): BP systolic 95–164; BP diastolic 55–111
[2018-09-06] MEDS: LORazepam 0.5 MG TAB PO PRN ×3 (00:55→14:45)
[2018-09-06] MEDS: ALBUTEROL SULF 2.5 MG/0.5ML(0.5%) NEB SOLN NEB SCH ×5 (02:32→18:25)
[2018-09-06] MEDS: IPRATROPIUM BROM 0.5 MG/2.5ML INH SOL NEB SCH ×5 (02:32→18:25)
[2018-09-06] MEDS: ACETYLCYSTEINE 10 %(100MG/ML) SOL 4ML NEB SCH ×5 (02:32→18:25)
[2018-09-06] MEDS: HYDROcodone-ACET 5/325MG TAB PO PRN ×3 (02:35→15:26)
[2018-09-06] MEDS: VANCOMYCIN 1GM/250ML 250 ML IV SCH ×2 (03:45→13:43)
--- NOTE | 2018-09-06 04:48 | NUR ---
TACHYCARDIA RECEIVED CALL FROM THONY TEST DESK OPERATOR. PATIENTS HEART RATE SUSTAINING 130'S WENT TO CHECK ON PATIENT. PATIENT JUST COMING BACK FROM BEDSIDE COMMODE. FACE MASK OFF AGAIN. RE-EDUCATED PATIENT TO LEAVE MASK ON AT ALL TIMES PT PLACED BACK ON MASK, EDUCATED TO TAKE DEEP BREATHS. HEART RATE BACK DOWN TO 110'S RANGE. SPO2 AT 92% ON 8L FACE MASK
[2018-09-06] MEDS: CARBIDOPA W LEVODOPA 10/100mg TABLET PO SCH ×3 (06:21→22:00)
[2018-09-06] MEDS: MEROPENEM 1GM IVPB 100 ML IV SCH ×3 (06:21→23:19)
[2018-09-06] MEDS: GABAPENTIN 100 MG CAP PO SCH (06:21)
[2018-09-06] MEDS: methylPREDNISolone SOD SUCC 40 MG/ML VL IV SCH ×3 (06:21→11:26)
[2018-09-06] MEDS: LEVOTHYROXINE SODIUM 100 MCG TAB PO SCH (06:21)
--- NOTE | 2018-09-06 07:15 | NUR ---
CLOSING NOTE REPORT ENDORSED TO DAY SHIFT RN PATIENT IS RESTING IN BED, EYES CLOSED, RR EVEN/EQUAL/UNLABORED. PT ON 10L SIMPLE FACE MASK. NO S/S OF DISTRESS NOTED AT THIS TIME. CALL LIGHT WITHIN REACH.
[2018-09-06] MEDS: Ensure Enlive Strawberry 8oz Bottle PO SCH ×3 (07:25→17:13)
--- NOTE | 2018-09-06 08:00 | NUR ---
Opening Shift Note Assumed care of patient, awake and alert. No S/S of distress/SOB or pain. Instructed on POC and to call for assist PRN, will continue to monitor for changes Q1hr and PRN. Face mask present and on patient at 10L. Patient instructed to continue to keep face mask on. Patient verbalizes understanding. Bed is in the lowest position and call light within reach.
[2018-09-06] MEDS: PANTOPRAZOLE 40 MG TAB PO SCH (09:20)
[2018-09-06] MEDS: ENOXAPARIN SOD 40 MG/0.4 ML SYRINGE SC SCH (09:21)
[2018-09-06] MEDS: FEXOFENADINE HCL 60 MG TAB PO SCH ×2 (09:21→22:00)
[2018-09-06] MEDS: NICOTINE 21MG/24 HR TOPICAL PATCH TD SCH (09:22)
[2018-09-06] MEDS: PATIENTS OWN MEDICATION (Venlafaxine Hydrochloride (Effexor Xr) 1 CAP) PO SCH (09:27)
[2018-09-06] MEDS: ABILIFY 15 MG PO SCH (09:27)
--- NOTE | 2018-09-06 09:30 | NUR ---
Patient instructed to have family bring in Venlafaxine Hydrochloride (Effexor) Patient verbalizes understanding
[2018-09-06] MEDS ORDERED: AZITHROMYCIN 500MG/ 250ML 250 ML IV SCH (10:00)
[2018-09-06] MEDS: SODIUM CHLORIDE 0.9% 1,000 ML IV SCH (11:26)
--- NOTE | 2018-09-06 12:10 | NUR ---
Dr. Corrales called Dr. Corrales notified of p02 level of 48 Dr. Corrales aware of ordered Gabapentin is different than home medication dose Lasix recommended to Dr. Corrales for patient
--- NOTE | 2018-09-06 13:30 | NUR ---
Respiratory note: BIPAP MASK TAKEN OFF BY DR. TAPIA DUE TO PATIENT HAVING HIGH ANXIETY. PT PLACED BACK ON NON REBREATHER MASK. SPO2 90% HR 122 B/S COARSE BILATERALLY. WILL CONTINUE TO MONITOR. RN AT BEDSIDE.
[2018-09-06] MEDS: GABAPENTIN 300 MG CAP PO SCH ×2 (13:56→22:00)
[2018-09-06] MEDS ORDERED: HYDROcodone-ACET 5/325MG TAB PO PRN (17:00)
[2018-09-06] MEDS ORDERED: MORPHINE SULFATE 4 MG/ML SYR/VIAL IV PRN ×2 (17:00)
[2018-09-06] MEDS ORDERED: cloNIDine HCL 0.1 MG TAB PO PRN (17:00)
[2018-09-06] MEDS: LATUDA 80 MG PO SCH (17:14)
--- NOTE | 2018-09-06 18:30 | NUR ---
RT NOTE PT RECEIVED ON A NRB. PT SPO2 88%. ABG WAS DRAWN AND RESULTS WE GIVEN TO ОЛЬГА CONNELLY AND KAVIN COLEMAN. PO2 WAS CRITICAL AT 48. PT HAS A BIPAP AT BEDSIDE BUT REFUSES TO WEAR IT. FOR PT SAFETY THEY SHOULD NOT STAY ON THE NRB FOR LONG PERIODS BUT DROPS IN SATS DRASTICALLY WHEN OFF. KAVIN COLEMAN TRYING TO FIND A BED FOR THE PT IN ICU OR [facility].
--- NOTE | 2018-09-06 18:45 | NUR ---
Kana VALE aware of [facility] p02 level of 48.2
--- NOTE | 2018-09-06 19:00 | NUR ---
Respiratory assessment Entered room with RT, KAVIN Rubin and primary day shift RN. Patient is currently on NRB mask at 15L, oxygen level ranging from 84-90%. Updated hospitalist on patients current condition. KAVIN Rubin educated patient on POC to administer Ativan IV to assist in patients anxiety level and patient will be placed on bipap. Patient verbalized understanding and agreed to POC. KAVIN Rubin left room with primary day shift RN. Patient states "I need to be fully sedated". Educated patient that Ativan is not to sedate but to assist in anxiety level. Patient verbalized understanding and still agrees to POC.
--- NOTE | 2018-09-06 19:10 | NUR ---
Order received from Kana DAIRY PROCESSING EQUIPMENT OPERATOR 1mg IV ativan [id number] PRN [place] 10 mg PO [id number] PRN
[2018-09-06] MEDS ORDERED: HYDROcodone-ACET 10/325MG TAB PO PRN (19:15)
[2018-09-06] MEDS ORDERED: LORazepam 2MG/ML-1ML VIAL IV PRN ×2 (19:15→19:30)
--- NOTE | 2018-09-06 19:22 | NUR ---
Clarifying IV order from Kana Roger NP clarifies order: 1mg Ativan Q6hrs PRN
--- NOTE | 2018-09-06 19:35 | NUR ---
OPENING SHIFT NOTE RECEIVED REPORT FROM DAYSHIFT RN. PATIENT LYING IN BED, APPEARS EXTREMELY ANXIOUS AND IS REQUESTING ATIVAN. PATIENT IN RESPIRATORY DISTRESS, ON NON REBREATHER MASK, O2 SATURATION AT 86%. WILL MEDICATE PER MEDICATION ORDERS. PATIENT STATES " I AM ANXIOUS AND CANNOT CATCH MY BREATH. I CANT WEAR THE MASK BECAUSE OF HOW ANXIOUS I GET." BREATH SOUNDS COURSE BILATERALLY. WILL INFORM MANAGER DIGITAL AND CONTINUE TO MONITOR PATIENT. BED LOCKED IN LOW POSITION, CALL LIGHT WITHIN REACH.
--- NOTE | 2018-09-06 19:42 | NUR ---
ATIVAN ADMINISTERED 1MG ATIVAN IV ADMINISTERED PER MEDICATION ORDER. WILL CONTINUE TO MONITOR PATIENT.
--- NOTE | 2018-09-06 20:15 | NUR ---
PATIENT REQUESTING ATIVAN PATIENT STATES "I CANNOT DO THIS ALL NIGHT I STILL FEEL VERY ANXIOUS, THE ATIVAN YOU GAVE ME DID NOT WORK. I STILL CANNOT BREATHE VERY WELL" INFORMED PATIENT ATIVAN CANNOT BE ADMINISTERED AGAIN IT WAS ADMINISTERED LESS THAN ONE HOUR AGO. VITAL SIGNS TAKEN. 02 84% ON NON RE BREATHER MASK. WILL INFORM TABULATING MACHINE MECHANIC AND CONTINUE TO MONITOR.
--- NOTE | 2018-09-06 20:22 | NUR ---
PATIENT REFUSING BIPAP INFORMED PATIENT BIPAP NEEDS TO BE APPLIED TO HELP WITH OXYGENATION. PATIENT REFUSING STATING "I AM NOT GOING TO PUT THAT ON, I AM TOO ANXIOUS AND NOT SEDATED ENOUGH" EDUCATED PATIENT ON IMPORTANCE OF BIPAP, CONTINUES TO REFUSE. ROTATING EQUIPMENT SPECIALIST FRITZ AND RT AT BEDSIDE WELL. WILL CONTINUE TO MONITOR.
--- NOTE | 2018-09-06 20:22 | NUR ---
RT NOTE PT WAS GIVEN MEDS TO HELP HER CALM DOWN. PT WAS TOLD THEY NEED TO GO ON BIPAP. PT IS STILL REFUSING. IF PT WILL NOT WEAR THE BIPAP, PT NEEDS TO BE INTUBATED. PT IS NOT OXYGENATING PROPERLY AND IS BREATHING AT AN INCREASINGLY HIGH RATE. PT IS AT RISK OF GOING INTO COMPLETE RESP FAILURE. FLOOR CHARGE KAVIN HU AND DIANA SUP AWARE AND ARE TRYING TO GET THE PT UPGRADED TO ICU OR [facility].
--- NOTE | 2018-09-06 20:22 | NUR ---
PT refusing Bipap Entered room with RT, primary RN at bedside obtained VS. Informed patient that bipap will now be applied as previously discussed. Patient is refusing stating "I am not going on that. I am not ready. I am not sedated enough". Educated patient that Ativan IV is used for anxiety to help with bipap and the medication is not to fully sedate her. Patient verbalized understanding and continues to refuse bipap. Educated patient again on importance of compliance with bipap due to her current respiratory effort and to avoid intubation. Patient remains non-complaint with POC and states "no I am not putting that thing on. I told you I am not sedated. Go ahead and intubate me".
[2018-09-06] MEDS ORDERED: ETOMIDATE (2MG/ML) 20ML VIAL IV ONE ×2 (20:54→21:15)
[2018-09-06] MEDS ORDERED: SUCCINYLCHOLINE CHLORIDE 20 MG/ML 10ML VIAL IV ONE ×2 (20:54→21:15)
--- NOTE | 2018-09-06 21:01 | NUR ---
HOSPITALIST AT BEDSIDE ASSESSING PATIENT, PREPARING FOR INTUBATION. CONTINUE CARE.
--- NOTE | 2018-09-06 21:03 | NUR ---
MEDS: Etomidate 20mg IVP & Succinylcholine 100mg IVP given for intubation.
--- NOTE | 2018-09-06 21:04 | NUR ---
INTUBATION: Pt intubated w/ 8.0 ETT, 23cm at lip by Yonis Monroe N.P. Xray paged for STAT CXR to confirm tube placement.
[2018-09-06] MEDS: NOREPINEPHRINE 8 MG/250ML KIT 250 ML IV SCH (21:14)
[2018-09-06] MEDS ORDERED: MIDAZOLAM DRIP 50 mg/50mL 50 ML IV ONE (21:14)
[2018-09-06] MEDS: MIDAZOLAM DRIP 50 mg/50mL 50 ML IV SCH ×2 (21:20→23:19)
--- NOTE | 2018-09-06 21:20 | NUR ---
SEDATION: Versed gtt started at 10mg/hr for sedation as pt becoming restless, bucking vent s/p intubation.
--- NOTE | 2018-09-06 21:24 | NUR ---
SEDATION: Versed gtt increased to 15mg/hr as pt continues to be restless, reaching for ETT.
--- NOTE | 2018-09-06 21:25 | NUR ---
NGT: 16 Fr NGT inserted into pt's right nare by Vilma Marrufo R.N. Positive placement confirmed via auscultation and aspiration of gastric contents. NGT secured at 65cm.
--- NOTE | 2018-09-06 21:29 | NUR ---
PARKER: 16 Fr parker catheter placed by Juani Jiménez R.N. as per order. Clear, yellow urine draining to gravity.
--- NOTE | 2018-09-06 21:33 | NUR ---
IV: 22 gauge IV inserted into pt's right inner arm. Good blood return noted and line flushes well. Line secured as occlusive dressing.
--- NOTE | 2018-09-06 21:39 | NUR ---
IVF: NS at 75 ml/hr infusion begun into pt's new 22 gauge IV in right inner arm.
[2018-09-06] MEDS: traZODone HCL 50 MG TAB PO SCH (22:00)
[2018-09-06] MEDS: QUEtiapine FUMARATE 100 MG TAB PO SCH (22:00)
--- NOTE | 2018-09-06 22:25 | NUR ---
TRANSFER: Pt transferred to ICU 107 using ACLS protocol. Pt's primary R.N., Diya Marrufo, provided report to Dora Marrufo R.N. following transport and settling of pt into room.
[2018-09-06] MEDS: PROPOFOL 100 ML IV SCH (22:35)
[2018-09-07] VITALS (98 sets, daily range): BP systolic 82–129; BP diastolic 40–75
[2018-09-07] MEDS: ALBUTEROL SULF 2.5 MG/0.5ML(0.5%) NEB SOLN NEB SCH ×7 (00:03→22:16)
[2018-09-07] MEDS: ACETYLCYSTEINE 10 %(100MG/ML) SOL 4ML NEB SCH ×7 (00:03→22:17)
[2018-09-07] MEDS: IPRATROPIUM BROM 0.5 MG/2.5ML INH SOL NEB SCH ×7 (00:03→22:16)
[2018-09-07] MEDS: methylPREDNISolone SOD SUCC 40 MG/ML VL IV SCH ×4 (00:18→23:31)
[2018-09-07] MEDS: VANCOMYCIN 1GM/250ML 250 ML IV SCH ×3 (00:18→19:41)
[2018-09-07] MEDS: fentaNYL Drip 2500mCg/250mlNS 250 ML IV SCH (01:21)
[2018-09-07] MEDS: MIDAZOLAM DRIP 50 mg/50mL 50 ML IV SCH ×3 (03:43→12:12)
[2018-09-07 04:12] LABS: Basophils # (auto) 0 uL; Basophils % (auto) 0.1 % (0.0-2.0); Eosinophils # (auto) 0 uL; Hematocrit 35.3 % (36.0-46.0); Hemoglobin 11.8 g/dL (12.2-16.2); Lymphocytes # (auto) 0.4 uL; Lymphocytes % (auto) 1.9 % (10.0-50.0); Mean Corpuscular Hemoglobin 32.4 pg (28.0-32.0); Mean Corpuscular Hgb Conc. 33.5 g/dL (32.0-36.0); Mean Corpuscular Volume 96.8 fL (80.0-100.0); Monocytes # (auto) 1.2 uL; Monocytes % (auto) 5.4 % (0.0-12.0); Neutrophils # (auto) 21.1 uL; Neutrophils % (auto) 92.6 % (37.0-80.0); Platelet Count (auto) 227 10^3/uL (140-450); Red Blood Cells 3.65 10^6/uL (4.0-5.20); Red Cell Distribution Width 14.6 % (11.8-14.3); White Blood Cell 22.8 10^3/uL (4.4-10.8)
[2018-09-07 04:23] LABS: Potassium 3.6 mmol/L (3.5-5.1)
[2018-09-07 04:25] LABS: BUN/Creatinine Ratio 26.7; Calcium 8.1 mg/dL (8.5-10.1)
[2018-09-07] MEDS: LEVOTHYROXINE SODIUM 100 MCG TAB PO SCH (05:36)
[2018-09-07] MEDS: GABAPENTIN 300 MG CAP PO SCH (05:36)
[2018-09-07] MEDS: CARBIDOPA W LEVODOPA 10/100mg TABLET PO SCH (05:36)
[2018-09-07] MEDS: PROPOFOL 100 ML IV SCH ×3 (06:13→16:16)
[2018-09-07] MEDS: MEROPENEM 1GM IVPB 100 ML IV SCH ×3 (06:41→23:31)
[2018-09-07] MEDS: Ensure Enlive Strawberry 8oz Bottle PO SCH (07:53)
[2018-09-07] MEDS: NICOTINE 21MG/24 HR TOPICAL PATCH TD SCH (07:54)
[2018-09-07] MEDS: ABILIFY 15 MG PO SCH (07:54)
[2018-09-07] MEDS: PANTOPRAZOLE 40 MG/10 ML VIAL IV SCH (07:54)
[2018-09-07] MEDS: ENOXAPARIN SOD 40 MG/0.4 ML SYRINGE SC SCH (07:54)
[2018-09-07] MEDS: PATIENTS OWN MEDICATION (Venlafaxine Hydrochloride (Effexor Xr) 1 CAP) PO SCH (07:54)
[2018-09-07] MEDS: AZITHROMYCIN 500MG/ 250ML 250 ML IV SCH (09:02)
[2018-09-07] MEDS ORDERED: POTASSIUM EFFERVESENT TAB 25 MEQ GT ONE (09:30)
[2018-09-07] MEDS ORDERED: FUROSEMIDE 40 MG/4 ML VIAL IV ONE (09:30)
[2018-09-07] MEDS: FEXOFENADINE HCL 60 MG TAB PO SCH ×2 (10:11→21:49)
[2018-09-07 10:45] LABS: INR 0.94 (0.9-1.15); Prothrombin Time 10.1 sec (9.27-12.13)
--- NOTE | 2018-09-07 11:17 | NUR ---
Dr. Corrales at bedside.
[2018-09-07] MEDS: ACETAMINOPHEN 650 mg PER 20 mL UD GT PRN ×2 (11:29→16:15)
--- NOTE | 2018-09-07 11:51 | NUR ---
PICC consent given by patient's nephew, Edy Galan [phone], over the phone and verified by ОЛЬГА Ayers and Dr. Corrales. Risk and benefit regarding the PICC line was discussed with the patient's nephew, Edy Galan by Dr. Corrales. Edy Galan verbalized understanding.
--- NOTE | 2018-09-07 11:54 | NUR ---
PASSWORD and contact information Edy Galan (neph) [phone] Password: Edith
--- NOTE | 2018-09-07 12:15 | NUR ---
NUTRITION ASSESSMENT NOTES Please refer to link notes of nutrition screen form filed under the intervention section of the plan of care for further details. Est. Needs: 1700 kcal to 2150 kcal (20-25 kcal/kgBW), 69 gms to 86 gms pro (0.8-1.0 gms/kgBW). Will continue to monitor pertinent labs and reassess nutrient needs prn Thank you. Addendum: 09/07/18 at [address] Amended: Links added.
--- NOTE | 2018-09-07 12:20 | NUR ---
Patient's nephew, Edy Galan at bedside. PICC line consent updated and signed by patient's nephew. POC reviewed with the patient's family member. Patient's family member verbalized understanding.
--- NOTE | 2018-09-07 13:04 | NUR ---
Respiratory note: VENTILATOR CHANGES MADE PER DR. UPTON. PATIENT'S VENTILATOR SETTINGS ARE NOW AC 14/550/+6/60%. PATIENT SPO2 IS MAINTAINING ABOVE 92%, RR 25, HR 84. WILL DRAW ABG WITHIN ONE HOUR OF VENTILATOR SETTING CHANGES, AND WILL CONTINUE TO MONITOR PATIENT.
--- NOTE | 2018-09-07 13:12 | NUR ---
Dr. Reyna at bedside.
[2018-09-07] MEDS: Jevity 1.2 Cal/Fiber 1 Liter GT SCH (13:21)
--- NOTE | 2018-09-07 13:22 | NUR ---
Jevity tube feeding initiated at 20ml/hr, goal is 45ml.
--- NOTE | 2018-09-07 14:11 | NUR ---
Radiology nurse at bedside for PICC line insertion.
--- NOTE | 2018-09-07 14:43 | NUR ---
PICC line placement Patient/Patient significant other educated on need for PICC line placement. All risks and benefits explained and all questions and concerns addressed prior to procedure. Noted past medical history and allergies with no contraindications. INR and Plt counts within acceptable range. 5 fr PICC line inserted via left basilic vein using [employer] US and Tip Location System. Sterile technique with maximum barrier precautions utilized. Blood return obtained from each of 3 lumens and each flushed easily with NS using proper technique. PICC secured with Stat-lock; biodisc and occlusive dressing applied. Stat portable chest x-ray obtained for PICC tip placement and 3CG technology used. *Baseline Arm Circumference 39cm. Internal length 46cm. External length 1cm. PICC lot # [id number]. Note: Placed easily
[2018-09-07] MEDS ORDERED: LIDOCAINE 1% (LOCAL ANESTH.) PF 5ml SDV ID ONE (14:45)
--- NOTE | 2018-09-07 15:47 | NUR ---
OK to use PICC line Xray completed. OK to use PICC line.
[2018-09-07] MEDS: NOREPINEPHRINE 8 MG/250ML KIT 250 ML IV SCH (21:14)
[2018-09-07] MEDS: SODIUM CHLOR 0.9% PF (SALINE LOCK) 10ML VIAL/SYR IV SCH (21:28)
[2018-09-08] VITALS (104 sets, daily range): BP systolic 93–132; BP diastolic 48–73
[2018-09-08] MEDS: PROPOFOL 100 ML IV SCH ×4 (01:10→23:35)
[2018-09-08] MEDS: ALBUTEROL SULF 2.5 MG/0.5ML(0.5%) NEB SOLN NEB SCH ×6 (02:27→22:30)
[2018-09-08] MEDS: ACETYLCYSTEINE 10 %(100MG/ML) SOL 4ML NEB SCH ×6 (02:27→22:29)
[2018-09-08] MEDS: IPRATROPIUM BROM 0.5 MG/2.5ML INH SOL NEB SCH ×6 (02:27→22:30)
[2018-09-08] MEDS: fentaNYL Drip 2500mCg/250mlNS 250 ML IV SCH (02:52)
[2018-09-08 03:52] LABS: Hematocrit 32.9 % (36.0-46.0); Hemoglobin 11.1 g/dL (12.2-16.2); Mean Corpuscular Hemoglobin 32.6 pg (28.0-32.0); Mean Corpuscular Hgb Conc. 33.8 g/dL (32.0-36.0); Mean Corpuscular Volume 96.5 fL (80.0-100.0); Platelet Count (auto) 228 10^3/uL (140-450); Red Blood Cells 3.41 10^6/uL (4.0-5.20); Red Cell Distribution Width 14.4 % (11.8-14.3); White Blood Cell 13.2 10^3/uL (4.4-10.8)
--- NOTE | 2018-09-08 04:00 | NUR ---
Patient bathe/linen change Patient given complete chlorhexidine bath. Skin integrity assessed for any changes. Linens changed. Patient repositioned for comfort.
[2018-09-08 04:07] LABS: Basophils % (manual) 0 (0.0-2.0); Blast Cells 0; Eosinophils % (manual) 0 (0-7); Lymphocytes % (manual) 0 (10.0-50.0); Metamyelocytes % 0; Myelocytes % 0; Promyelocytes % 0; Reactive Lymphocytes 0
[2018-09-08 04:22] LABS: BUN/Creatinine Ratio 35.8; Potassium 3.8 mmol/L (3.5-5.1)
[2018-09-08 05:26] LABS: Band Neutrophils % (manual) 1; Monocytes % (manual) 5 (0-12)
[2018-09-08] MEDS: VANCOMYCIN 1GM/250ML 250 ML IV SCH ×2 (06:19→15:59)
[2018-09-08] MEDS: LEVOTHYROXINE SODIUM 100 MCG TAB PO SCH (06:56)
[2018-09-08] MEDS: MEROPENEM 1GM IVPB 100 ML IV SCH ×3 (06:57→23:00)
[2018-09-08] MEDS: methylPREDNISolone SOD SUCC 40 MG/ML VL IV SCH ×2 (09:35→15:59)
[2018-09-08] MEDS: SODIUM CHLOR 0.9% PF (SALINE LOCK) 10ML VIAL/SYR IV SCH ×2 (09:35→21:39)
[2018-09-08] MEDS: AZITHROMYCIN 500MG/ 250ML 250 ML IV SCH (09:35)
[2018-09-08] MEDS: PANTOPRAZOLE 40 MG/10 ML VIAL IV SCH (09:35)
[2018-09-08] MEDS: ENOXAPARIN SOD 40 MG/0.4 ML SYRINGE SC SCH (09:36)
[2018-09-08] MEDS ORDERED: POTASSIUM EFFERVESENT TAB 25 MEQ GT ONE (10:45)
[2018-09-08] MEDS ORDERED: FUROSEMIDE 40 MG/4 ML VIAL IV ONE (10:45)
--- NOTE | 2018-09-08 11:00 | NUR ---
DR. TAPIA AT BEDSIDE MD UPDATED ON PATIENT STATUS. SEE NEW ORDERS.
--- NOTE | 2018-09-08 14:00 | NUR ---
CASH APPLICATIONS ASSOCIATE AT BEDSIDE MD UPDATED ON PATIENTS STATUS. NO NEW ORDERS AT THIS TIME.
--- NOTE | 2018-09-08 18:00 | NUR ---
Family updated on pt status Family of LAMBERTO العراقي updated on patient's status and condition. All questions and concerns addressed. Nephew verbalized understanding after pw obtained.
--- NOTE | 2018-09-08 18:36 | NUR ---
PATIENT REMAINS ON MECHANICAL VENTILATOR, TOLERATING WELL, ON FENT AND PROP GTT. SEE IV SPREADSHEET. NO OCCURRENCES THROUGHOUT SHIFT. REPORT TO BE GIVEN TO NOC NURSE.
[2018-09-08] MEDS: Jevity 1.2 Cal/Fiber 1 Liter GT SCH (19:02)
[2018-09-08] MEDS: NOREPINEPHRINE 8 MG/250ML KIT 250 ML IV SCH (21:14)
[2018-09-08] MEDS: MIDAZOLAM DRIP 50 mg/50mL 50 ML IV SCH (21:14)
[2018-09-09] VITALS (94 sets, daily range): BP systolic 94–148; BP diastolic 50–85
[2018-09-09] MEDS: methylPREDNISolone SOD SUCC 40 MG/ML VL IV SCH ×3 (00:10→16:04)
[2018-09-09] MEDS: ACETYLCYSTEINE 10 %(100MG/ML) SOL 4ML NEB SCH ×6 (02:10→22:00)
[2018-09-09] MEDS: ALBUTEROL SULF 2.5 MG/0.5ML(0.5%) NEB SOLN NEB SCH ×6 (02:10→22:16)
[2018-09-09] MEDS: IPRATROPIUM BROM 0.5 MG/2.5ML INH SOL NEB SCH ×6 (02:10→22:16)
[2018-09-09] MEDS: VANCOMYCIN 1GM/250ML 250 ML IV SCH ×3 (02:19→22:02)
[2018-09-09] MEDS: PROPOFOL 100 ML IV SCH ×5 (02:58→18:59)
[2018-09-09] MEDS: fentaNYL Drip 2500mCg/250mlNS 250 ML IV SCH ×2 (03:01→15:15)
[2018-09-09 04:05] LABS: Hematocrit 33.4 % (36.0-46.0); Hemoglobin 11.1 g/dL (12.2-16.2); Mean Corpuscular Hemoglobin 32.2 pg (28.0-32.0); Mean Corpuscular Hgb Conc. 33.3 g/dL (32.0-36.0); Mean Corpuscular Volume 96.6 fL (80.0-100.0); Platelet Count (auto) 282 10^3/uL (140-450); Red Blood Cells 3.46 10^6/uL (4.0-5.20); Red Cell Distribution Width 14.7 % (11.8-14.3); White Blood Cell 12.3 10^3/uL (4.4-10.8)
[2018-09-09 04:14] LABS: Band Neutrophils % (manual) 0; Basophils % (manual) 0 (0.0-2.0); Blast Cells 0; Eosinophils % (manual) 0 (0-7); Promyelocytes % 0; Reactive Lymphocytes 0
[2018-09-09 04:29] LABS: BUN/Creatinine Ratio 38.9; Calcium 7.7 mg/dL (8.5-10.1); Potassium 3.8 mmol/L (3.5-5.1)
[2018-09-09] MEDS: MIDAZOLAM DRIP 50 mg/50mL 50 ML IV SCH (04:43)
--- NOTE | 2018-09-09 05:00 | NUR ---
VERSED DRIP STARTED DIPRIVAN DRIP 50 MCG AND FENTANYL 200MCG INFUSING. PATIENT IS STILL AGITATED AND TRYING TO PULL OUT ETT. VERSED DRIP STARTED 2MG/HR FOR SEDATION
[2018-09-09 05:10] LABS: Lymphocytes % (manual) 4 (10.0-50.0); Metamyelocytes % 1; Monocytes % (manual) 4 (0-12); Myelocytes % 2
[2018-09-09] MEDS: MEROPENEM 1GM IVPB 100 ML IV SCH ×2 (06:37→15:05)
[2018-09-09] MEDS: LEVOTHYROXINE SODIUM 100 MCG TAB PO SCH (06:38)
--- NOTE | 2018-09-09 07:30 | NUR ---
REPORT REPORT RECEIVED FROM JENARO RNAROLDO.
--- NOTE | 2018-09-09 08:05 | NUR ---
ASSESSMENT PT RESTING IN BED WITH EYES CLOSED, SEDATED WHILE ON THE VENTILATOR. NO SPONTANEOUS MOVEMENT NOTED. PUPILS 3 AND BRISK. ETT 03/25 AT THE LIP, TV 550, AC 14, 40% FIO2 AND PEEP OF 6. LUNGS WITH WHEEZING THROUGHOUT. TELE SR WITH ELEVATED ST IN LEAD V. PALPABLE PULSES TO ALL EXTREMITIES. NON PITTING EDEMA NOTED TO BOTH HANDS. SCDS TO BLE. ABD SOFT WITH + BOWEL SOUNDS. RIGHT NARES NGT AT 66, WITH PLACEMENT VERIFIED AND NO RESIDUAL NOTED. JEVITY 1.2 AT 45 ML/HR, GOAL RATE. SOSA CATHETER DRAINING CLEAR YELLOW URINE. BANDAID TO RIGHT ELBOW OVER SKIN TEAR. DRY FLAKY SKIN NOTED TO FEET AND TOES. OPTIFOAM IN PLACE TO SACRUM AND SKIN UNDER IS CLEAR. TURNED TO THE LEFT.
[2018-09-09] MEDS: AZITHROMYCIN 500MG/ 250ML 250 ML IV SCH (08:39)
--- NOTE | 2018-09-09 10:15 | NUR ---
MD VISIT PT SEEN BY DR TAPIA. FIO2 DOWN TO 35%.
[2018-09-09] MEDS: SODIUM CHLOR 0.9% PF (SALINE LOCK) 10ML VIAL/SYR IV SCH ×2 (10:40→22:00)
[2018-09-09] MEDS: PANTOPRAZOLE 40 MG/10 ML VIAL IV SCH (10:40)
[2018-09-09] MEDS: ENOXAPARIN SOD 40 MG/0.4 ML SYRINGE SC SCH (10:40)
--- NOTE | 2018-09-09 11:33 | NUR ---
Nutrition Follow-up Notes Wt.: 86.5 kg as of yesterday. Pt's intubated, no immediate family member at bedside except for RT during rounds earlier. Pt's sedated with Propofol @ 25.83 ml/hr providing 683 kcal from Fat. Pt's currently NPO with EN support of Jevity 1.2 Esau @ 45 ml/hr providing 1296 kcal, 60 gms pro and 871 ml free water, tolerates feeding with 10 ml residuals noted by RN this morning. Pt with adequate EN support d/t mod initiation rate delivery of concentrated formula aeb 92% to 116% of est caloric needs (with Propofol on board) and 70% to 87% of est protein needs. Est. Needs: 1700 kcal to 2150 kcal (20-25 kcal/kgBW), 69 gms to 86 gms pro (0.8-1.0 gms/kgBW). Will continue to monitor pertinent labs and reassess nutrient needs prn Labs: Gluc 164 H, Cr 0.54 L, Ca 7.7 L; Alb 3.1 L Skin: Nate scale 13, mod risk, skin intact per rice farmer. GI: Pt had 5x 09/05/18 per rice farmer. PES: Increased nutrient needs r/t current/chronic medical condition aeb intubated, sedated, mild hypoalbuminemia, NPO with EN support. Altered nutrition related lab values r/t current/chronic medical condition aeb hyperchloremia, low Cr, elev. HDL, hypocalcemia and mild hypoalbuminemia Will continue to monitor NPO status, EN tolerance, skin status, pertinent labs and weight trend. F/u in 2 to 3 days. Rec.: 1.) If still NPO with EN support, consider gradual increase on feeding rate of Jevity 1.2 Esau to 65 ml/hr goal rate as tolerated if no longer on Propofol when medically appropriate. 2.) If Albumin level continues trending down, consider Prostat 1 pkt BID. 3.) Advance gradually to oral diet when medically appropriate. 4.) Refer to RD for further nutrition educ. and weight monitoring upon discharge. 5.) Continue current plan of care.
--- NOTE | 2018-09-09 17:30 | NUR ---
RECEIVED REPORT FROM JOSEFINA MCCONNELL, PT. IN BED ORALLY INTUBATED WITH ETT #8.0@ 23 CM LIP LEVEL, CONNECTED TO A MECHANICAL VENT @ ORDERED SETTINGS. NGT TORT NARE INTACT, ON CONTINUOUS FEEDS OF JEVITY 1.2 @ 45 ML/HR, TOLERATING WELL WITH LOW GT RESIDUALS. LT UPPER ARM TLC PICC INTACT, FENTANYL, VERSED AND PROPOFOL INFUSING WELL. SOSA INTACT AND DRAINING WELL.
--- NOTE | 2018-09-09 19:48 | NUR ---
REPORT REPORT GIVEN TO CAITLYN EASON RN.
--- NOTE | 2018-09-09 19:59 | NUR ---
MD/CT RESULTS CALLED AND NOTIFIED DR Frank UPTON OF CT CHEST RESULTS. CONTINUE PT ON MUCOMYST TREATMENTS.
--- NOTE | 2018-09-09 21:00 | NUR ---
VANCO THROUGH SPECIMEN SENT TO LAB, WITH RESULTS OF 15.6, 10 PM VANCO DOSE WAS GIVEN.
[2018-09-09] MEDS: NOREPINEPHRINE 8 MG/250ML KIT 250 ML IV SCH (21:14)
[2018-09-10] VITALS (104 sets, daily range): BP systolic 105–147; BP diastolic 56–83
--- NOTE | 2018-09-10 | NUR ---
REPORT GIVEN TO DIANA ROLON.
--- NOTE | 2018-09-10 00:05 | NUR ---
ASSUMED CARE, FULL ASSESSMENT DONE; SEE INTERVENTIONS. VITAL SIGNS STABLE. REPOSITIONING AND ORAL CARE DONE.
[2018-09-10] MEDS: MEROPENEM 1GM IVPB 100 ML IV SCH ×4 (00:07→23:00)
[2018-09-10] MEDS: MIDAZOLAM DRIP 50 mg/50mL 50 ML IV SCH (00:15)
[2018-09-10] MEDS: methylPREDNISolone SOD SUCC 40 MG/ML VL IV SCH ×3 (00:18→15:41)
[2018-09-10] MEDS: ALBUTEROL SULF 2.5 MG/0.5ML(0.5%) NEB SOLN NEB SCH ×6 (02:37→22:21)
[2018-09-10] MEDS: IPRATROPIUM BROM 0.5 MG/2.5ML INH SOL NEB SCH ×6 (02:38→22:21)
[2018-09-10] MEDS: ACETYLCYSTEINE 10 %(100MG/ML) SOL 4ML NEB SCH ×6 (02:38→22:21)
--- NOTE | 2018-09-10 03:00 | NUR ---
CARES FULL BATH AND LINEN CHANGE DONE, HAIR WASHED. NO NEW SKIN ISSUES ASSESSED. PT TOLERATING TUBE FEEDINGS WELL WITH NO RESIDUALS NOTED, CONTINUE AT GOAL RATE 45 ML/HR. TITRATING SEDATION TOLERATED. VITAL SIGNS STABLE. CONTINUE CARE.
[2018-09-10 03:52] LABS: Hematocrit 33.4 % (36.0-46.0); Hemoglobin 11.2 g/dL (12.2-16.2); Mean Corpuscular Hemoglobin 32.1 pg (28.0-32.0); Mean Corpuscular Hgb Conc. 33.5 g/dL (32.0-36.0); Platelet Count (auto) 269 10^3/uL (140-450); Red Blood Cells 3.48 10^6/uL (4.0-5.20); Red Cell Distribution Width 14.7 % (11.8-14.3); White Blood Cell 11.6 10^3/uL (4.4-10.8)
[2018-09-10] MEDS: PROPOFOL 100 ML IV SCH ×2 (04:01→18:23)
[2018-09-10] MEDS: fentaNYL Drip 2500mCg/250mlNS 250 ML IV SCH ×2 (04:01→22:21)
[2018-09-10 04:09] LABS: BUN/Creatinine Ratio 54.8; Calcium 7.7 mg/dL (8.5-10.1); Potassium 4.5 mmol/L (3.5-5.1)
[2018-09-10 04:12] LABS: Basophils % (manual) 0 (0.0-2.0); Blast Cells 0; Eosinophils % (manual) 0 (0-7); Promyelocytes % 0; Reactive Lymphocytes 0
[2018-09-10 04:54] LABS: Band Neutrophils % (manual) 1; Lymphocytes % (manual) 6 (10.0-50.0); Metamyelocytes % 2; Monocytes % (manual) 8 (0-12); Myelocytes % 2
[2018-09-10] MEDS: LEVOTHYROXINE SODIUM 100 MCG TAB PO SCH (06:45)
--- NOTE | 2018-09-10 07:11 | NUR ---
REPORT CARE ENDORSED TO ОЛЬГА GRAY.
[2018-09-10] MEDS: VANCOMYCIN 1GM/250ML 250 ML IV SCH ×2 (07:46→18:23)
[2018-09-10] MEDS ORDERED: HYDROcodone-ACET 10/325MG TAB PO PRN (08:30)
[2018-09-10] MEDS ORDERED: MORPHINE SULFATE 4 MG/ML SYR/VIAL IV PRN ×2 (08:30)
--- NOTE | 2018-09-10 09:03 | NUR ---
DR TAPIA AND DR UPTON AT BEDSIDE DRS EXAMINED PATIENT. DRS AWARE OF ABG, LABS, VS, IV DRIPS AND VENT SETTINGS. NEW ORDER TO CPAP PATIENT, GIVE LASIX PRIOR TO CPAP. DIPRIVAN TITRATED DOWN AT THIS TIME WELL FENTANYL.
[2018-09-10] MEDS ORDERED: FUROSEMIDE 40 MG/4 ML VIAL IV ONE (09:15)
--- NOTE | 2018-09-10 09:45 | NUR ---
DIPRIVAN AND FENTANYL OFF AT THIS TIME PATIENT AWAKE FOLLOWS COMMANDS
[2018-09-10] MEDS: AZITHROMYCIN 500MG/ 250ML 250 ML IV SCH (09:46)
[2018-09-10] MEDS: ENOXAPARIN SOD 40 MG/0.4 ML SYRINGE SC SCH (09:47)
[2018-09-10] MEDS: PANTOPRAZOLE 40 MG/10 ML VIAL IV SCH (09:47)
[2018-09-10] MEDS: SODIUM CHLOR 0.9% PF (SALINE LOCK) 10ML VIAL/SYR IV SCH ×2 (09:48→21:53)
[2018-09-10] MEDS ORDERED: ACETYLCYSTEINE 20%(200MG/ML) SOL 4ML ONE (10:25)
--- NOTE | 2018-09-10 11:03 | NUR ---
CPAP TRIAL INITIATED BY RT PER DR ORDER AT 1015, RT AT BEDSIDE DRAWING ABG NOW. PATIENT TOLERATING CPAP WELL, AWAKE, ALERT AND FOLLOWS COMMANDS.
--- NOTE | 2018-09-10 11:07 | NUR ---
DR TAPIA AWARE PATIENT ON CPAP AND AWARE RT IS AT BEDSIDE COMPLETING ABG, OK TO CALL DR UPTON WITH RESULTS
--- NOTE | 2018-09-10 11:30 | NUR ---
PAGED DR Frank UPTON REGARDING ABG RESULTS AWAITING CALL BACK
--- NOTE | 2018-09-10 11:58 | NUR ---
RN ASSESSING PATIENT AND NOTICED VENT ON AC MODE. RN CALLED RT AND PER RT, PATIENT WAS PLACED ON AC MODE. PATIENT AWAKE/ALERT FOLLOWING COMMANDS, RR MID 20'S, HR 90-105 SINUS. SPO2 92% AND TEMP WNL. WILL NOTIFY
--- NOTE | 2018-09-10 12:00 | NUR ---
PAGED DR UPTON SECOND TIME AWAITING CALL BACK
--- NOTE | 2018-09-10 12:05 | NUR ---
PAGED DR TAPIA, AWARE DR UPTON HAS NOT CALLED BACK, AWARE OF ABG RESULTS, VS AND THAT RT PLACED PATIENT ON AC MODE. FENTANYL ON AT 25 MCG/HR.
--- NOTE | 2018-09-10 12:57 | NUR ---
MD/ABG SPOKE WITH DR Frank UPTON AND MADE AWARE OF PT'S CPAP ABG AND THAT WHEN UNABLE TO CONTACT HIM, MARINA CONTACTED DR TAPIA. DR TAPIA STATED TO RE-SEDATE PT. DR UPTON ORDERS FOR CPAP TRIAL TOMORROW,.
--- NOTE | 2018-09-10 14:43 | NUR ---
assessment Patient is a 62 year old female on a vent. Per patients brother Abram prior to admission patient lived [place] [address]. [phone]. Patient has a fww and a cane for home use. I contacted patients brother Abram [phone] and notified him of patients admission. Patient has a history of drug use per Abram. I informed Abram he has a right to speak to a elementary school social worker regarding all care. I informed Abram he has a right to participate in any and all discharge planning. Abram is aware of visiting hours on the hospital floor. I informed Abram he has a right to privacy. Patient does not have a POA and advanced directive. I have offered Abram information on POA and advanced directives. I informed Abram the advantages and benefits of having an Advanced Directive. I informed Abrma patients post discharge needs to be determined prior to discharge and after extubation. Abram verbalized understanding. Addendum: 09/10/18 at 1445 by Dotty JOHN Amended: Links added.
--- NOTE | 2018-09-10 19:29 | NUR ---
REPORT GIVEN TO KALE ROLON
--- NOTE | 2018-09-10 19:59 | NUR ---
ASSESSMENT: ALERT AND ORIENTED TO NAME, NODES APPROPRIATELY, INTUBATED AND PN SEDATIVES, DIPRIVAN AT 30 MCG/KG/MIN, AND FENTANYL AT 150 MCG/HR. MOVES ALL EXTREMITIES EQUALLY AND REPOSITIONS SELF IN BED FREQUENTLY AT THIS TIME. APPEARS RESTLESS. VENT : AC 14/550/+5/30% FIO2 WITH SATS 94%. LUNGS CLEAR BILATERALLY. ETT 8 FR AT 21 CM AT LIP SINUS RHYTHM 86, NO ECTOPY. ABDOMEN - ROUND SOFT WITH B.S (+), OGT AT 65 AT LIP SOSA TO DD WITH CLEAR, YELLOW DRAINAGE. SKIN WARM AND DRY, SCD'S BILATERALLY. DISCUSSED PLAN OF CARE FOR THE NIGHT AND THE PLANS FOR CPAP AND EXTUBATION TOMORROW, NODES.
[2018-09-10] MEDS: NOREPINEPHRINE 8 MG/250ML KIT 250 ML IV SCH (21:14)
--- NOTE | 2018-09-10 22:00 | NUR ---
CALL RECEIVED FROM PT'S BROTHER ANGEL, STATES WILL VISIT WITH PT. IN A.M.
--- NOTE | 2018-09-10 23:00 | NUR ---
VERY RESTLESS, KICKING LEGS OUT OF BED, ATTEMPTING TO PULL ON TUBES. DIPRIVAN INCREASED TO 40 MCG/KG/MIN.
[2018-09-11] VITALS (88 sets, daily range): BP systolic 107–159; BP diastolic 52–95
--- NOTE | 2018-09-11 | NUR ---
RESTING QUIETLY AND CALMLY AT THIS TIME.
[2018-09-11] MEDS: methylPREDNISolone SOD SUCC 40 MG/ML VL IV SCH ×3 (00:14→17:07)
[2018-09-11] MEDS: ACETYLCYSTEINE 10 %(100MG/ML) SOL 4ML NEB SCH ×6 (02:23→22:26)
[2018-09-11] MEDS: IPRATROPIUM BROM 0.5 MG/2.5ML INH SOL NEB SCH ×6 (02:23→22:25)
[2018-09-11] MEDS: ALBUTEROL SULF 2.5 MG/0.5ML(0.5%) NEB SOLN NEB SCH ×6 (02:23→22:25)
[2018-09-11] MEDS: ACETYLCYSTEINE 20%(200MG/ML) SOL 4ML ONE ×2 (02:24→02:25)
--- NOTE | 2018-09-11 04:00 | NUR ---
COMPLETE BED BATH GIVEN
[2018-09-11 04:27] LABS: Hematocrit 33.8 % (36.0-46.0); Hemoglobin 11.4 g/dL (12.2-16.2); Mean Corpuscular Hemoglobin 32.1 pg (28.0-32.0); Mean Corpuscular Hgb Conc. 33.8 g/dL (32.0-36.0); Mean Corpuscular Volume 94.9 fL (80.0-100.0); Platelet Count (auto) 299 10^3/uL (140-450); Red Blood Cells 3.57 10^6/uL (4.0-5.20); Red Cell Distribution Width 14.3 % (11.8-14.3); White Blood Cell 9.2 10^3/uL (4.4-10.8)
[2018-09-11] MEDS: VANCOMYCIN 1GM/250ML 250 ML IV SCH ×2 (04:27→14:52)
[2018-09-11 04:29] LABS: Basophils % (manual) 0 (0.0-2.0); Blast Cells 0; Eosinophils % (manual) 0 (0-7); Metamyelocytes % 0; Myelocytes % 0; Promyelocytes % 0; Reactive Lymphocytes 0
[2018-09-11 04:35] LABS: BUN/Creatinine Ratio 59.1; Potassium 3.8 mmol/L (3.5-5.1)
[2018-09-11 05:30] LABS: Band Neutrophils % (manual) 3; Lymphocytes % (manual) 7 (10.0-50.0); Monocytes % (manual) 5 (0-12)
--- NOTE | 2018-09-11 06:08 | NUR ---
SEDATION: BOT PROPOFOL AND FENTANYL BEING WEAN DOWN FOR CPAP THIS AM, WAKES WHEN STIMULATED, FOLLOWS COMMANDS.
[2018-09-11] MEDS: LEVOTHYROXINE SODIUM 100 MCG TAB PO SCH (06:37)
[2018-09-11] MEDS: MEROPENEM 1GM IVPB 100 ML IV SCH ×3 (06:38→23:00)
[2018-09-11] MEDS: PROPOFOL 100 ML IV SCH (07:47)
[2018-09-11] MEDS: AZITHROMYCIN 500MG/ 250ML 250 ML IV SCH (10:02)
[2018-09-11] MEDS: PANTOPRAZOLE 40 MG/10 ML VIAL IV SCH (10:02)
[2018-09-11] MEDS: SODIUM CHLOR 0.9% PF (SALINE LOCK) 10ML VIAL/SYR IV SCH ×2 (10:04→22:00)
[2018-09-11] MEDS: ENOXAPARIN SOD 40 MG/0.4 ML SYRINGE SC SCH (10:04)
--- NOTE | 2018-09-11 10:14 | NUR ---
PT PLACED ON CPAP AT THIS TIME PER DR TAPIA'S ORDERS. PT IS ON PS 8 PEEP5, 35% FIO2. SPO2 95%, RR 20, vT >300ml. PT AWAKE AND FOLLOWS COMMANDS. NO RESPIRATORY DISTRESS NOTED.
--- NOTE | 2018-09-11 10:42 | NUR ---
HOSPITALIST AT BEDSIDE DR TAPIA UPDATED ON PATIENT'S STATUS AND CPAP IN PROCESS. ORDERS FOR LASIX 40 MG IV X1 RECEIVED AND WILL BE CARRIED OUT.
[2018-09-11] MEDS ORDERED: FUROSEMIDE 40 MG/4 ML VIAL IV ONE (10:45)
--- NOTE | 2018-09-11 11:10 | NUR ---
WEANING PARAMETERS ON CPAP : NIF -31 VC 1000ml RSBI 39 LEAK TEST 295 ABG OBTAINED AND RESULTS IN [facility]
--- NOTE | 2018-09-11 11:23 | NUR ---
pt extubated at this time and placed on 40% cool mist aerosol mask. no stridor or respiratory distress noted. spo2 95%.
[2018-09-11] MEDS: NOREPINEPHRINE 8 MG/250ML KIT 250 ML IV SCH (21:14)
[2018-09-11] MEDS: MIDAZOLAM DRIP 50 mg/50mL 50 ML IV SCH (21:14)
[2018-09-12] VITALS (36 sets, daily range): BP systolic 118–147; BP diastolic 53–77
[2018-09-12] MEDS: fentaNYL Drip 2500mCg/250mlNS 250 ML IV SCH (00:38)
[2018-09-12] MEDS: ACETYLCYSTEINE 10 %(100MG/ML) SOL 4ML NEB SCH ×7 (02:12→22:52)
[2018-09-12] MEDS: IPRATROPIUM BROM 0.5 MG/2.5ML INH SOL NEB SCH ×7 (02:12→22:52)
[2018-09-12] MEDS: ALBUTEROL SULF 2.5 MG/0.5ML(0.5%) NEB SOLN NEB SCH ×7 (02:12→22:52)
[2018-09-12 04:31] LABS: Hematocrit 35.9 % (36.0-46.0); Hemoglobin 11.8 g/dL (12.2-16.2); Mean Corpuscular Hemoglobin 31.9 pg (28.0-32.0); Mean Corpuscular Volume 96.7 fL (80.0-100.0); Platelet Count (auto) 348 10^3/uL (140-450); Red Blood Cells 3.71 10^6/uL (4.0-5.20); Red Cell Distribution Width 14.1 % (11.8-14.3); White Blood Cell 10.4 10^3/uL (4.4-10.8)
[2018-09-12 04:45] LABS: Basophils % (manual) 0 (0.0-2.0); Blast Cells 0; Eosinophils % (manual) 0 (0-7); Metamyelocytes % 0; Promyelocytes % 0; Reactive Lymphocytes 0
[2018-09-12 04:51] LABS: Potassium 3.3 mmol/L (3.5-5.1)
[2018-09-12 04:57] LABS: BUN/Creatinine Ratio 61.5; Calcium 8.1 mg/dL (8.5-10.1)
[2018-09-12] MEDS: LORazepam 0.5 MG TAB PO PRN (05:11)
[2018-09-12 05:45] LABS: Band Neutrophils % (manual) 1; Lymphocytes % (manual) 19 (10.0-50.0); Monocytes % (manual) 6 (0-12); Myelocytes % 1
[2018-09-12] MEDS: MEROPENEM 1GM IVPB 100 ML IV SCH (06:30)
[2018-09-12] MEDS: LEVOTHYROXINE SODIUM 100 MCG TAB PO SCH (06:30)
--- NOTE | 2018-09-12 07:49 | NUR ---
PHONE CALL RECEIVED FROM HOSPITALIST DR TAPIA UPDATED ON PATIENT'S STATUS AND MORNING LABS. ORDERS RECEIVED AND CARRIED OUT.
[2018-09-12] MEDS ORDERED: POTASSIUM CHL 20 Meq TABLET PO ONE (08:00)
--- NOTE | 2018-09-12 08:00 | NUR ---
DR TANNER AT BEDSIDE UPDATED ON PATIENT'S STATUS. "OK TO DOWNGRADE", NO OTHER ORDERS PROVIDED - WILL NOTIFY HOSPITALIST.
[2018-09-12] MEDS: methylPREDNISolone SOD SUCC 40 MG/ML VL IV SCH ×2 (08:07)
[2018-09-12] MEDS: AZITHROMYCIN 500MG/ 250ML 250 ML IV SCH (08:08)
[2018-09-12] MEDS: ENOXAPARIN SOD 40 MG/0.4 ML SYRINGE SC SCH (09:26)
[2018-09-12] MEDS: VANCOMYCIN 1GM/250ML 250 ML IV SCH ×2 (09:26)
[2018-09-12] MEDS: PANTOPRAZOLE 40 MG/10 ML VIAL IV SCH (09:26)
[2018-09-12] MEDS: SODIUM CHLOR 0.9% PF (SALINE LOCK) 10ML VIAL/SYR IV SCH ×2 (09:27→22:28)
--- NOTE | 2018-09-12 09:55 | NUR ---
BM/COMFORT PATIENT CLEANSED OF LARGE AMOUNT SOFT BROWN STOOL. COMPLETE BEDDING CHANGED AND GOWN. PATIENT TOLERATED WELL.
--- NOTE | 2018-09-12 10:02 | NUR ---
Family updated on pt status Family of LAMBERTO العراقي updated on patient's status and condition after password verification. All questions and concerns addressed. Sami verbalized understanding.
--- NOTE | 2018-09-12 10:37 | NUR ---
BM/COMFORT/HOSPITALIST PATIENT CLEANSED OF MODERATE SIZE SOFT BROWN BOWEL MOVEMENT. PATIENT TOLERATED WELL. HOSPITALIST AT BEDSIDE, UPDATED ON PATIENT'S STATUS. ORDERS WILL BE PLACED BY DR TAPIA.
[2018-09-12] MEDS ORDERED: TEMAZEPAM 15 MG CAP PO PRN (11:00)
[2018-09-12] MEDS ORDERED: VENLAFAXINE HCL 37.5mg XR cap PO ONE (11:00)
[2018-09-12] MEDS ORDERED: LORazepam 0.5 MG TAB PO PRN (11:00)
[2018-09-12] MEDS ORDERED: NICOTINE 21MG/24 HR TOPICAL PATCH TD ONE (11:00)
--- NOTE | 2018-09-12 11:37 | NUR ---
BM/COMFORT PATIENT INCONTINENT OF STOOL, ATTEMPT TO PLACE ON BEDPAN UNSUCCESSFUL - PATIENT PULLED BEDPAN OUT AND SMEARED STOOL ALL OVER HERSELF. BEDDING CHANGED - PATIENT HELPED WITH TURNING AND TOLERATED WELL. FALL PRECAUTIONS IN PLACE.
--- NOTE | 2018-09-12 12:24 | NUR ---
Family at bedside and updated on patient's status and condition. Patient sitting up in bed and conversing appropriately.
--- NOTE | 2018-09-12 12:52 | NUR ---
RECEIVED REPORT FROM MISTY ROLON IN ICU. WILL AWAIT PATIENT.
--- NOTE | 2018-09-12 12:52 | NUR ---
REPORT CALLED IN TO RECEIVING RN SPOKE WITH ОЛЬГА BARTH.
[2018-09-12] MEDS: GABAPENTIN 300 MG CAP PO SCH ×2 (12:59→22:28)
--- NOTE | 2018-09-12 13:00 | NUR ---
PT IS BEING TRANSFERRED TO MED SURG. ATTEMPT P.T. LATER.
--- NOTE | 2018-09-12 13:13 | NUR ---
ICU patient trans to floor LAMBERTO العراقي transferred to room 288B via gurney on cardiac sonographer and portable 02. All patient medications and personal belongings transferred with patient to receiving floor including one pair of glasses, dentures, purse and some clothing. Patient care transferred to ОЛЬГА Crane. All ordered medications prior to transfer given to patient with the exception of Effexor - spoke with pharmacists who will send it up to [facility]. Endorsed continued care and Effexor administration to receiving RNRosa Maria notified. Patient accompanied by family member Sami.
--- NOTE | 2018-09-12 13:29 | NUR ---
RECEIVED PATIENT TO THE FLOOR FROM ICU. PATIENT IS ACCOMPANIED BY NEPHEW, SHE IS AWAKE ALERT AND ORIENTED. NO SIGNS AND SYMPTOMS OF DISTRESS NOTED.
--- NOTE | 2018-09-12 17:00 | NUR ---
RECEIVED PATIENT FROM LARY (RN), SHE IS AWAKE ALERT AND ORIENTED. NO RESPIRATORY DISTRESS NOTED..
--- NOTE | 2018-09-12 19:47 | NUR ---
RECEIVED PATIENT FROM DAY SHIFT RN. PATIENT RESTING IN BED. NO S/S OF DISTRESS NOTED. DENIED PAIN FOR NOW. PATIENT HAD BM. CLEANED PATIENT, TOTAL BED LINEN CHANGED. PATIENT TOLERATED WELL. RT CAME FOR BREATHING TREATMENT. POC INSTRUCTED AND ENCOURAGED PATIENT TO CALL FOR SENIOR TAX MANAGER IF NEEDED. BED IN LOWEST POSITION WITH SIDE RAILS UP X 2. CALL RODAS WITHIN REACH. ALARM ON. CONTINUE TO MONITOR FOR CHANGES Q1H AND PRN.
--- NOTE | 2018-09-12 20:52 | NUR ---
PATIENT HAD SOFT AND SMALL BROWN BM. PARTIAL LINEN AND PATIENT GOWN CHANGED. PATIENT TOLERATED WELL. NO S/S OF DISTRESS NOTED. CONTINUE TO MONITOR.
--- NOTE | 2018-09-12 21:16 | NUR ---
PATIENT HAD BM AGAIN, STOOL SAMPLE COLLECTED AND SENT FOR C-DIFF PER PROTOCOL. CONTINUE TO MONITOR.
[2018-09-12] MEDS ORDERED: traZODone HCL 50 MG TAB PO SCH (22:00)
[2018-09-12] MEDS ORDERED: QUEtiapine FUMARATE 100 MG TAB PO SCH (22:00)
--- NOTE | 2018-09-12 22:28 | NUR ---
PATIENT HAD LOOSE BM AGAIN. CLEANED PATIENT, PARTIAL LINEN AND PATIENT GOWN CHANGED. PATIENT TOLERATED WELL. CONTINUE CARE.
--- NOTE | 2018-09-12 22:52 | NUR ---
Respiratory note: PT REFUSE NEXT SCHEDULED MED NEB AT THIS TIME
--- NOTE | 2018-09-13 02:40 | NUR ---
PATIENT SLEEPING. NO S/S OF DISTRESS NOTED. BED IN LOWEST POSITION. ALARM ON. SOSA CATH IN PLACE DRAINING GRAVITY. CALL RODAS WITHIN REACH. CONTINUE TO MONITOR.
[2018-09-13 05:00] VITALS: BP 131/76
--- NOTE | 2018-09-13 05:01 | NUR ---
PATIENT HAD BM. CLEANED PATIENT. PARTIAL LINEN CHANGED. PATIENT TOLERATED WELL. CONTINUE CARE.
[2018-09-13] MEDS: ACETYLCYSTEINE 10 %(100MG/ML) SOL 4ML NEB SCH ×3 (05:45→14:12)
[2018-09-13] MEDS: ALBUTEROL SULF 2.5 MG/0.5ML(0.5%) NEB SOLN NEB SCH ×3 (05:45→14:12)
[2018-09-13] MEDS: IPRATROPIUM BROM 0.5 MG/2.5ML INH SOL NEB SCH ×3 (05:45→14:12)
[2018-09-13] MEDS: GABAPENTIN 300 MG CAP PO SCH ×2 (06:00→13:33)
[2018-09-13] MEDS: LEVOTHYROXINE SODIUM 100 MCG TAB PO SCH (06:00)
[2018-09-13 06:19] LABS: Hematocrit 37.7 % (36.0-46.0); Hemoglobin 12.7 g/dL (12.2-16.2); Mean Corpuscular Hemoglobin 32.5 pg (28.0-32.0); Mean Corpuscular Hgb Conc. 33.6 g/dL (32.0-36.0); Mean Corpuscular Volume 96.5 fL (80.0-100.0); Platelet Count (auto) 381 10^3/uL (140-450); Red Cell Distribution Width 14.9 % (11.8-14.3); White Blood Cell 8.9 10^3/uL (4.4-10.8)
[2018-09-13 06:24] LABS: Band Neutrophils % (manual) 0; Basophils % (manual) 0 (0.0-2.0); Blast Cells 0; Myelocytes % 0; Promyelocytes % 0; Reactive Lymphocytes 0
--- NOTE | 2018-09-13 07:30 | NUR ---
Opening Shift Note Assumed care of patient, awake and alert, oriented x 4 and verbally responsive. Respiratory even and unlabored. No S/S of distress/SOB or pain. Skin is warm and dry to touch. Instructed on POC and to call for assist PRN, will continue to monitor for changes Q1hr and PRN.
[2018-09-13 08:11] LABS: Eosinophils % (manual) 2 (0-7); Lymphocytes % (manual) 31 (10.0-50.0); Metamyelocytes % 1; Monocytes % (manual) 12 (0-12)
[2018-09-13 09:00] VITALS: BP 109/74
[2018-09-13] MEDS: SODIUM CHLOR 0.9% PF (SALINE LOCK) 10ML VIAL/SYR IV SCH (09:09)
[2018-09-13] MEDS: ENOXAPARIN SOD 40 MG/0.4 ML SYRINGE SC SCH (09:11)
--- NOTE | 2018-09-13 09:22 | NUR ---
Parker catheter dc'd Order to discontinue parker catheter. Parker dc'd with clean technique following deflation of balloon. Patient tolerated well with no complaints of pain. Continue care.
[2018-09-13] MEDS ORDERED: LEVOFLOXACIN 500 MG TAB PO SCH (10:00)
[2018-09-13] MEDS ORDERED: VENLAFAXINE HCL 37.5mg XR cap PO SCH (10:00)
[2018-09-13] MEDS ORDERED: predniSONE 20 MG TAB PO SCH (10:00)
[2018-09-13] MEDS ORDERED: NICOTINE 21MG/24 HR TOPICAL PATCH TD SCH (10:00)
[2018-09-13] MEDS ORDERED: PANTOPRAZOLE 40 MG TAB PO SCH (10:00)
[2018-09-13 13:00] VITALS: BP 115/71
--- NOTE | 2018-09-13 13:30 | NUR ---
Patient urinated clear yellow urine.
--- NOTE | 2018-09-13 14:30 | NUR ---
Patient wants to go AMA, Dr. Corrales notified.
--- NOTE | 2018-09-13 14:35 | NUR ---
Charge nurse (Amaya) made aware of patient wants to leave AMA.
--- NOTE | 2018-09-13 14:59 | NUR ---
Patient wants to sign AMA explained the risks of going AMA that may lead to but not limited to worsening of condition and possibly . Patient is alert and oriented x 4 and verbally responsive and verbalized understanding.
== END 2018-09-13 14:40 | disposition left against medical advice (07) | DRG 870 ==
LOC: ER 13:53 → TELE 17:30 → TELE-WESTW 09-04 19:31 → ICU WEST 09-06 22:25 → TELE-WESTW 09-12 13:29
PROVIDERS: ADMIT Internal Medicine; ATTEND Internal Medicine
PROC: 5A09357 Assistance with Respiratory Ventilation, Less than 24 Consecutive Hours, Continuous Positive Airway Pressure (ICD-10-PCS; 2018-09-06)
PROC: 5A1955Z Respiratory Ventilation, Greater than 96 Consecutive Hours (ICD-10-PCS; principal; 2018-09-07)
PROC: 0BH17EZ Insertion of Endotracheal Airway into Trachea, Via Natural or Artificial Opening (ICD-10-PCS; 2018-09-07)
PROC: 02HV33Z Insertion of Infusion Device into Superior Vena Cava, Percutaneous Approach (ICD-10-PCS; 2018-09-07)
DX: A41.9 Sepsis, unspecified organism (principal); J18.1 Lobar pneumonia, unspecified organism; J96.01 Acute respiratory failure with hypoxia; I50.33 Acute on chronic diastolic (congestive) heart failure; J44.1 Chronic obstructive pulmonary disease with (acute) exacerbation; E44.0 Moderate protein-calorie malnutrition; J44.0 Chronic obstructive pulmonary disease with (acute) lower respiratory infection; K21.9 Gastro-esophageal reflux disease without esophagitis; M19.90 Unspecified osteoarthritis, unspecified site; E78.5 Hyperlipidemia, unspecified; E03.9 Hypothyroidism, unspecified; E66.9 Obesity, unspecified; G25.81 Restless legs syndrome; G62.9 Polyneuropathy, unspecified; I10 Essential (primary) hypertension; Z72.0 Tobacco use; F41.8 Other specified anxiety disorders; R45.1 Restlessness and agitation; F41.9 Anxiety disorder, unspecified; I11.0 Hypertensive heart disease with heart failure; T38.0X5A Adverse effect of glucocorticoids and synthetic analogues, initial encounter; Y92.89 Other specified places as the place of occurrence of the external cause; F32.9 Major depressive disorder, single episode, unspecified; Z96.653 Presence of artificial knee joint, bilateral; Z68.31 Body mass index [BMI] 31.0-31.9, adult; Z88.0 Allergy status to penicillin; Z88.8 Allergy status to other drugs, medicaments and biological substances
CPT/HCPCS: 36415; 36569; 36600; 71045; 71046; 71250; 80048; 80053; 80061; 80202; 82805; 83605; 83735; 83880; 84443; 84484; 85007; 85025; 85027; 85610; 87040; 87070; 87081; 87205; 87493; 87804; 93005; 94002; 94003; 94640; 94645; 94660; 96365; 96366; 96367; 96368; A4618; A6257; C9113; G0378; J0330; J1956; J2185; J2250; J2704

== ENCOUNTER 2019-02-16 21:37 | Emergency (ER) | payer OTHER ==
[~2019-02-16] VITALS: Ht 167.6 cm; Wt 81.6 kg
[~2019-02-16 21:37] MED LIST changes: +BACL10TA PO; +HYDR-531 PO; +LISI-275 PO; +LURA80TA PO; +SUMA100T2 PO; +VARE1TAB PO; +VENL75CA3 PO
[2019-02-16 22:14] LABS: Basophils # (auto) 0.1 uL; Basophils % (auto) 1.1 % (0.0-2.0); Eosinophils # (auto) 0.1 uL; Eosinophils % (auto) 1.5 % (0.0-7.0); Hemoglobin 13.1 g/dL (12.2-16.2); Lymphocytes # (auto) 0.9 uL; Mean Corpuscular Hemoglobin 32.4 pg (28.0-32.0); Mean Corpuscular Hgb Conc. 33.5 g/dL (32.0-36.0); Mean Corpuscular Volume 96.9 fL (80.0-100.0); Monocytes # (auto) 0.6 uL; Monocytes % (auto) 6.4 % (0.0-12.0); Neutrophils # (auto) 8.3 uL; Platelet Count (auto) 180 10^3/uL (140-450); Red Blood Cells 4.03 10^6/uL (4.0-5.20); Red Cell Distribution Width 12.8 % (11.8-14.3); White Blood Cell 10.1 10^3/uL (4.4-10.8)
[2019-02-16 22:32] LABS: Alanine Aminotransferase 21 U/L (13-56); Albumin 3.6 g/dL (3.4-5.0); Anion Gap 10 (5-15); Aspartate Aminotransferase 14 U/L (15-37); Blood Urea Nitrogen 14 mg/dL (7-18); Calcium 7.9 mg/dL (8.5-10.1); Carbon Dioxide 22 mmol/L (21-32); Chloride 113 mmol/L (98-107); GFR African American 108 mL/min; GFR Non-African American 89 mL/min; Glucose 106 mg/dL (74-106); Potassium 4.4 mmol/L (3.5-5.1); Sodium 145 mmol/L (136-145)
[2019-02-16 22:35] LABS: Alkaline Phosphatase 86 U/L (45-117); Bilirubin, Total 0.2 mg/dL (0.2-1.0); Total Protein 6.4 g/dL (6.4-8.2)
[2019-02-17 03:33] LABS: Urine Bacteria FEW /hpf (None Seen); Urine Blood Negative /uL (Negative); Urine Specific Gravity 1.005 (1.001-1.035); Urine WBC 2 /hpf (0 - 5)
[2019-02-17] MEDS ORDERED: methylPREDNISolone SOD SUCC 125 MG/2 ML VL IV ONE (04:00)
[2019-02-17] MEDS ORDERED: ALBUTEROL SULF 2.5 MG/0.5ML(0.5%) NEB SOLN NEB ONE (04:00)
[2019-02-17] MEDS ORDERED: IPRATROPIUM BROM 0.5 MG/2.5ML INH SOL NEB ONE (04:00)
[2019-02-17] MEDS ORDERED: ONDANSETRON HCL 4 MG/2 ML VIAL IV ONE (04:30)
[2019-02-17 06:35] VITALS: BP 142/91
== END 2019-02-17 07:16 | disposition home or self-care (01) ==
LOC: EDBD 21:37 → ER 21:39
DX: J44.1 Chronic obstructive pulmonary disease with (acute) exacerbation (principal); R10.9 Unspecified abdominal pain; K21.9 Gastro-esophageal reflux disease without esophagitis; E78.5 Hyperlipidemia, unspecified; I10 Essential (primary) hypertension; F17.210 Nicotine dependence, cigarettes, uncomplicated; Z86.39 Personal history of other endocrine, nutritional and metabolic disease; Z90.49 Acquired absence of other specified parts of digestive tract; Z87.440 Personal history of urinary (tract) infections; Z88.0 Allergy status to penicillin; Z79.899 Other long term (current) drug therapy
CPT/HCPCS: 36415; 71045; 80053; 81001; 84484; 85025; 93005; 94640; 94761; 96374; 96375; 99284; J2405; J2930; J7611; J7644

== ENCOUNTER 2019-05-19 16:05 | Inpatient (IN) | payer OTHER ==
[~2019-05-19] VITALS: Ht 167.6 cm; Wt 76.9 kg
[2019-05-19 16:48] LABS: Basophils # (auto) 0 uL; Basophils % (auto) 0.5 % (0.0-2.0); Eosinophils # (auto) 0.1 uL; Eosinophils % (auto) 1.6 % (0.0-7.0); Hematocrit 41.9 % (36.0-46.0); Hemoglobin 13.8 g/dL (12.2-16.2); Lymphocytes # (auto) 0.7 uL; Lymphocytes % (auto) 9.3 % (10.0-50.0); Mean Corpuscular Hemoglobin 30.7 pg (28.0-32.0); Mean Corpuscular Hgb Conc. 32.9 g/dL (32.0-36.0); Mean Corpuscular Volume 93.4 fL (80.0-100.0); Monocytes # (auto) 0.5 uL; Monocytes % (auto) 6.3 % (0.0-12.0); Neutrophils # (auto) 6.6 uL; Neutrophils % (auto) 82.3 % (37.0-80.0); Platelet Count (auto) 218 10^3/uL (140-450); Red Blood Cells 4.49 10^6/uL (4.0-5.20); Red Cell Distribution Width 13.8 % (11.8-14.3)
[2019-05-19 16:56] LABS: Albumin 3.6 g/dL (3.4-5.0); Anion Gap 9 (5-15); Blood Urea Nitrogen 13 mg/dL (7-18); Calcium 8.7 mg/dL (8.5-10.1); Carbon Dioxide 24 mmol/L (21-32); Chloride 107 mmol/L (98-107); Glucose 100 mg/dL (74-106); Magnesium 2.2 mg/dL (1.6-2.6); Potassium 3.8 mmol/L (3.5-5.1); Sodium 140 mmol/L (136-145)
[2019-05-19 17:00] LABS: Alanine Aminotransferase 27 U/L (13-56); Alkaline Phosphatase 91 U/L (45-117); Aspartate Aminotransferase 25 U/L (15-37); Bilirubin, Total 0.2 mg/dL (0.2-1.0); GFR African American 132 mL/min; GFR Non-African American 109 mL/min
[2019-05-19] MEDS ORDERED: NITROGLYCERIN 0.4 MG SL TAB SL PRN (19:45)
[2019-05-19 20:57] LABS: Urine Bacteria NONE SEEN /hpf (None Seen); Urine Blood Negative /uL (Negative); Urine Specific Gravity 1.016 (1.001-1.035); Urine WBC <1 /hpf (0 - 5)
[2019-05-19] MEDS ORDERED: ALBUTEROL SULF 2.5 MG/0.5ML(0.5%) NEB SOLN NEB PRN (21:00)
[2019-05-19] MEDS ORDERED: ONDANSETRON HCL 4 MG/2 ML VIAL IV PRN (21:00)
[2019-05-19] MEDS: ACETAMINOPHEN 325 MG TAB PO PRN (21:43)
[2019-05-19 22:10] VITALS: BP 156/71
--- NOTE | 2019-05-19 22:24 | NUR ---
Telemetry admit from LAMBERTO BOWER admitted to Telemetry unit after SBAR received. Patient oriented to MARIANA CHOU, primary RN, unit, room, bed, and unit policies regarding patient care and visiting hours. Patient now on continuous telemetry monitoring, tele box #73 and telemetry reading on arrival to unit is SR 80. Patient weighed by bedscale and encouraged to call if they need something. Bed locked in lowest position, side rails upx2, call light within reach. All questions and concerns addressed, patient verbalized understanding.
[2019-05-19] MEDS: HYDROcodone-ACET 5/325MG TAB PO PRN (22:35)
[2019-05-19] MEDS: LEVOFLOXACIN 750MG 150 ML IV SCH (22:35)
[2019-05-19] MEDS: GABAPENTIN 300 MG CAP PO SCH (22:36)
[2019-05-19] MEDS: LEVETIRACETAM 500 MG TAB PO SCH (22:36)
[2019-05-19] MEDS: QUEtiapine FUMARATE 100 MG TAB PO SCH (22:36)
[2019-05-19] MEDS: FAMOTIDINE 20 MG TAB PO SCH (22:36)
[2019-05-19] MEDS: MONTELUKAST SODIUM 10 MG TAB PO SCH (22:36)
[2019-05-19 23:35] VITALS: BP 156/73
[2019-05-20] MEDS ORDERED: TRAZ100T2 PO (00:52)
[2019-05-20] MEDS ORDERED: MORP15TA PO (00:52)
[2019-05-20] MEDS ORDERED: BACL20TA PO (00:52)
[2019-05-20] MEDS ORDERED: GABA-339 PO (00:52)
[2019-05-20] MEDS ORDERED: VENL150C2 PO (00:52)
[2019-05-20] MEDS ORDERED: QUET100T46 PO (00:52)
[2019-05-20] MEDS: HYDROcodone-ACET 5/325MG TAB PO PRN ×5 (03:22→20:25)
[2019-05-20 05:41] VITALS: BP 120/72
[2019-05-20] MEDS: GABAPENTIN 300 MG CAP PO SCH ×3 (06:07→21:58)
--- NOTE | 2019-05-20 06:16 | NUR ---
EKG completed as ordered, placed in chart.
[2019-05-20 06:50] LABS: Basophils # (auto) 0 uL; Basophils % (auto) 0.9 % (0.0-2.0); Eosinophils # (auto) 0.2 uL; Eosinophils % (auto) 3.8 % (0.0-7.0); Hematocrit 38.9 % (36.0-46.0); Hemoglobin 12.9 g/dL (12.2-16.2); Lymphocytes # (auto) 1.1 uL; Lymphocytes % (auto) 20.7 % (10.0-50.0); Mean Corpuscular Hemoglobin 30.7 pg (28.0-32.0); Mean Corpuscular Hgb Conc. 33.1 g/dL (32.0-36.0); Mean Corpuscular Volume 92.9 fL (80.0-100.0); Monocytes # (auto) 0.6 uL; Monocytes % (auto) 12.2 % (0.0-12.0); Neutrophils # (auto) 3.3 uL; Neutrophils % (auto) 62.4 % (37.0-80.0); Platelet Count (auto) 214 10^3/uL (140-450); Red Blood Cells 4.19 10^6/uL (4.0-5.20); Red Cell Distribution Width 13.9 % (11.8-14.3); White Blood Cell 5.3 10^3/uL (4.4-10.8)
[2019-05-20 06:54] LABS: INR 0.99 (0.9-1.15); Partial Thromboplastin Time 27.7 sec (23.64-32.05)
[2019-05-20] MEDS: LEVOTHYROXINE SODIUM 50 MCG TAB PO SCH (07:00)
[2019-05-20 07:03] LABS: Albumin 3.2 g/dL (3.4-5.0); Calcium 8.3 mg/dL (8.5-10.1); Potassium 3.3 mmol/L (3.5-5.1)
[2019-05-20 07:07] LABS: BUN/Creatinine Ratio 18.9; Bilirubin, Total 0.3 mg/dL (0.2-1.0); Phosphorus 3.2 mg/dL (2.5-4.90); Total Protein 6.5 g/dL (6.4-8.2)
--- NOTE | 2019-05-20 07:45 | NUR ---
PT AWAKE, ALERT, ORIENTED x4 REPORTS PAIN TO BLE, BACK, MEDICATED PER EMAR, TOLERATED WELL. PT DENIES SOB, CP. BED LOCKED, AND IN LOWEST POSITION, CALL LIGHT WITHIN REACH. WILL CONTINUE TO MONITOR.
--- NOTE | 2019-05-20 07:50 | NUR ---
Respiratory note: ASSESSED PT FOR PRN MEDNEB TX. HR 93, RR 14, POX 95% ON ROOM AIR. BREATH SOUNDS CLEAR THROUGHOUT. NO S/S OF RESPIRATORY DISTRESS NOTED. PT DENIES ANY SOB AT THIS TIME. MEDNEB TX NOT INDICATED. ADVISED PT TO CALL FOR RT IF NEEDED.
[2019-05-20 09:00] VITALS: BP 152/87
[2019-05-20] MEDS ORDERED: LISINOPRIL 5 MG TAB PO SCH (10:00)
[2019-05-20] MEDS: FAMOTIDINE 20 MG TAB PO SCH ×2 (10:02→21:58)
[2019-05-20] MEDS: LEVETIRACETAM 500 MG TAB PO SCH ×2 (10:02→21:57)
[2019-05-20] MEDS: ENOXAPARIN SOD 40 MG/0.4 ML SYRINGE SC SCH (10:02)
[2019-05-20 13:00] VITALS: BP 135/62
[2019-05-20] MEDS ORDERED: POTASSIUM CHL 20 Meq TABLET PO ONE (14:00)
[2019-05-20] MEDS ORDERED: hydrALAZINE HCL 20 MG/ML VL IV PRN (14:00)
[2019-05-20] MEDS ORDERED: ALBUTEROL SULF 2.5 MG/0.5ML(0.5%) NEB SOLN NEB PRN (14:00)
[2019-05-20] MEDS ORDERED: IPRATROPIUM BROM 0.5 MG/2.5ML INH SOL NEB PRN (14:00)
[2019-05-20] MEDS: SODIUM CHLORIDE 0.9% 1,000 ML IV SCH (15:11)
--- NOTE | 2019-05-20 15:41 | NUR ---
assessment re: high readmission and multiple falls Patient is a 63 year old female who is alert and oriented. Prior to admission patient lived at a room and board and was independent. Patient informed me she has a fww for home use. Patient informed me her PCP is Dr Hung. I informed patient she has a ss consult stating multiple admissions and frequent falls. Patient informed me she woke up and got out of bed fast and fell on her buttocks feeling light headed. Patients post discharge needs to be determined prior to discharge. Patient informed me she feels safe returning home on discharge. Patient did inform me she wants to return home on discharge. I informed patient she has a right to privacy. Patient does not have a POA and advanced directive. I have offered patient information on POA and advanced directives. I informed the patient the advantages and benefits of having an Advanced Directive. Patient refused advanced directive at this time. Patient verbalized understanding and agreed to discharge plan. Addendum: 05/20/19 at 1546 by Dotty JOHN Amended: Links added.
[2019-05-20 17:06] VITALS: BP 137/67
--- NOTE | 2019-05-20 18:30 | NUR ---
FLU A&B SPECIMEN COLLECTED; SENT TO LAB.
[2019-05-20] MEDS: LEVOFLOXACIN 750MG 150 ML IV SCH (21:57)
[2019-05-20] MEDS: MONTELUKAST SODIUM 10 MG TAB PO SCH (21:58)
[2019-05-20] MEDS: QUEtiapine FUMARATE 100 MG TAB PO SCH (22:04)
[2019-05-20] MEDS: TEMAZEPAM 15 MG CAP PO PRN (22:48)
[2019-05-20 22:54] VITALS: BP 99/56
[2019-05-21] VITALS (7 sets, daily range): BP systolic 98–123; BP diastolic 50–76
[2019-05-21] MEDS: HYDROcodone-ACET 5/325MG TAB PO PRN ×6 (00:25→21:53)
[2019-05-21 06:15] LABS: Basophils # (auto) 0.1 uL; Basophils % (auto) 1.5 % (0.0-2.0); Eosinophils # (auto) 0.2 uL; Eosinophils % (auto) 4.6 % (0.0-7.0); Hematocrit 39.2 % (36.0-46.0); Hemoglobin 13.1 g/dL (12.2-16.2); Lymphocytes # (auto) 1.5 uL; Lymphocytes % (auto) 31.5 % (10.0-50.0); Mean Corpuscular Hgb Conc. 33.3 g/dL (32.0-36.0); Mean Corpuscular Volume 93.2 fL (80.0-100.0); Monocytes # (auto) 0.5 uL; Monocytes % (auto) 11.3 % (0.0-12.0); Neutrophils # (auto) 2.4 uL; Neutrophils % (auto) 51.1 % (37.0-80.0); Nucleated Red Blood Cells % 0.1 %; Platelet Count (auto) 219 10^3/uL (140-450); Red Blood Cells 4.21 10^6/uL (4.0-5.20); Red Cell Distribution Width 14.1 % (11.8-14.3); White Blood Cell 4.7 10^3/uL (4.4-10.8)
[2019-05-21] MEDS: LEVOTHYROXINE SODIUM 50 MCG TAB PO SCH (06:32)
[2019-05-21] MEDS: GABAPENTIN 300 MG CAP PO SCH ×3 (06:32→21:54)
[2019-05-21 07:08] LABS: BUN/Creatinine Ratio 20.3; Calcium 8.2 mg/dL (8.5-10.1); Potassium 3.8 mmol/L (3.5-5.1)
[2019-05-21] MEDS: FAMOTIDINE 20 MG TAB PO SCH ×2 (09:29→21:54)
[2019-05-21] MEDS: LEVETIRACETAM 500 MG TAB PO SCH ×2 (09:29→21:54)
[2019-05-21] MEDS: LISINOPRIL 20 MG TAB PO SCH (09:30)
[2019-05-21] MEDS: ENOXAPARIN SOD 40 MG/0.4 ML SYRINGE SC SCH (09:30)
[2019-05-21] MEDS: SODIUM CHLORIDE 0.9% 1,000 ML IV SCH (09:30)
--- NOTE | 2019-05-21 10:25 | NUR ---
PATIENT ALERT AND ORIENTED. BRUISING TO THE RIGHT FACE WITH SWOLLEN EYE AND BRUISING TO THE LOWER EXTREMITIES RESULTED FROM A FALL AT BOARD AND CARE PREVIOUS TO ADMISSION
--- NOTE | 2019-05-21 14:46 | NUR ---
SOSA CATHETER DISCONTINUED
--- NOTE | 2019-05-21 19:20 | NUR ---
Opening Shift Note Assumed care of patient, awake and alert. No S/S of distress/SOB or pain. Instructed on POC and to call for assist PRN, will continue to monitor for changes Q1hr and PRN. Bed in low position and call light within reach
[2019-05-21] MEDS: LEVOFLOXACIN 750MG 150 ML IV SCH (21:53)
[2019-05-21] MEDS: QUEtiapine FUMARATE 100 MG TAB PO SCH (21:54)
[2019-05-21] MEDS: MONTELUKAST SODIUM 10 MG TAB PO SCH (21:54)
--- NOTE | 2019-05-21 22:38 | NUR ---
Respiratory note: ASSESSED PT FOR PRN MED NEB AT THIS TIME, PT SLEEPING AT THIS TIME, NO RESP DISTRESS NOTED, NO TX INDICATED. PULSE OX 93% ON RA, HR 84, RR 18, BILATERAL BS CRACKLES.
[2019-05-21] MEDS: TEMAZEPAM 15 MG CAP PO PRN (22:54)
[2019-05-22] VITALS (7 sets, daily range): BP systolic 87–121; BP diastolic 41–62
[2019-05-22] MEDS: SODIUM CHLORIDE 0.9% 1,000 ML IV SCH ×3 (06:22→23:45)
[2019-05-22] MEDS: GABAPENTIN 300 MG CAP PO SCH ×3 (06:35→21:04)
[2019-05-22] MEDS: LEVOTHYROXINE SODIUM 50 MCG TAB PO SCH (06:35)
[2019-05-22] MEDS: HYDROcodone-ACET 5/325MG TAB PO PRN ×4 (06:41→20:59)
--- NOTE | 2019-05-22 06:55 | NUR ---
REPORT GIVEN TO CORI ROLON
[2019-05-22] MEDS: LISINOPRIL 20 MG TAB PO SCH (09:24)
[2019-05-22] MEDS: LEVETIRACETAM 500 MG TAB PO SCH ×2 (09:29→21:05)
[2019-05-22] MEDS: FAMOTIDINE 20 MG TAB PO SCH ×2 (09:30→21:04)
[2019-05-22] MEDS: ENOXAPARIN SOD 40 MG/0.4 ML SYRINGE SC SCH (09:30)
--- NOTE | 2019-05-22 19:17 | NUR ---
Respiratory note: ASSESSED PT FOR PRN MED NEB AT THIS TIME, PT DENIES SOB AT THIS TIME, NO RESP DISTRESS NOTED, NO TX INDICATED,PULSE OX 93% ON RA, HR 77, RR 20, BILATERAL BS CLEAR.
[2019-05-22] MEDS: LEVOFLOXACIN 750MG 150 ML IV SCH (21:00)
[2019-05-22] MEDS: MONTELUKAST SODIUM 10 MG TAB PO SCH (21:04)
[2019-05-22] MEDS: QUEtiapine FUMARATE 100 MG TAB PO SCH (21:05)
[2019-05-22] MEDS: TEMAZEPAM 15 MG CAP PO PRN (22:11)
[2019-05-23 05:20] VITALS: BP 92/61
[2019-05-23] MEDS: GABAPENTIN 300 MG CAP PO SCH (06:46)
[2019-05-23] MEDS: LEVOTHYROXINE SODIUM 50 MCG TAB PO SCH (06:46)
--- NOTE | 2019-05-23 06:54 | NUR ---
report given to dayshift rn. endorsed care to dayshift rn about b/p 94/68. all questions and concerns answered.
[2019-05-23 07:44] LABS: BUN/Creatinine Ratio 16.7; Calcium 8.4 mg/dL (8.5-10.1); Potassium 3.9 mmol/L (3.5-5.1)
[2019-05-23 08:00] VITALS: BP 94/49
[2019-05-23 08:36] VITALS: BP 97/56
[2019-05-23] MEDS: ACETAMINOPHEN 325 MG TAB PO PRN (09:22)
[2019-05-23] MEDS: SODIUM CHLORIDE 0.9% 1,000 ML IV SCH (09:27)
[2019-05-23] MEDS: LEVETIRACETAM 500 MG TAB PO SCH (09:37)
[2019-05-23] MEDS: FAMOTIDINE 20 MG TAB PO SCH (09:37)
[2019-05-23] MEDS: ENOXAPARIN SOD 40 MG/0.4 ML SYRINGE SC SCH (09:37)
--- NOTE | 2019-05-23 10:36 | NUR ---
0663 05/23/19 I called [facility] [phone] and spoke with Flory to request home health agencies to reach out to. She said we can use [facility] (phone [phone]), [facility] (phone [phone]) or [facility] (phone [phone]). I also contacted [facility] inpatient case management department to request authorization to be provided for patient's admission. Unable to connect with a disease case manager rn after 2 phone call attempts. Provided message stating the above on voicemail at [phone].
--- NOTE | 2019-05-23 11:30 | NUR ---
EEG NOT COMPLETED. PATIENT STATES THEY WILL HAVE EEG DONE AN OUTPATIENT. ОЛЬГА BARTH NOTIFIED.
[2019-05-23] MEDS ORDERED: LEVO750T2 PO (11:39)
[2019-05-23] MEDS: HYDROcodone-ACET 5/325MG TAB PO PRN (11:56)
[2019-05-23 12:34] VITALS: BP 97/56
[2019-05-23 12:48] VITALS: BP 120/75
--- NOTE | 2019-05-23 13:04 | NUR ---
PATIENT DISCHARGED HOME. ALL IV ACCESS DISCONTINUED AND TELEMETRY BOX RETURNED TO THE TELEMETRY DEPARTMENT. ALL DISCHARGE INSTRUCTIONS GIVEN. ALL DISCHARGE PAPERWORK SIGNED.
--- NOTE | 2019-05-23 16:21 | NUR ---
I called [facility] and left message asking for other contracted home health vendors-[facility] can not accept the patient and the other 2 agencies do not service this area.
== END 2019-05-23 14:40 | disposition home or self-care (01) | DRG 193 ==
LOC: ER 16:05 → EDBD 16:05 → TELE 16:06 → TELE-WESTW 22:34
PROVIDERS: ADMIT Hospitalist; ATTEND Internal Medicine
DX: J18.1 Lobar pneumonia, unspecified organism (principal); G93.41 Metabolic encephalopathy; J96.01 Acute respiratory failure with hypoxia; J90 Pleural effusion, not elsewhere classified; J44.1 Chronic obstructive pulmonary disease with (acute) exacerbation; J44.0 Chronic obstructive pulmonary disease with (acute) lower respiratory infection; M19.90 Unspecified osteoarthritis, unspecified site; I10 Essential (primary) hypertension; E03.9 Hypothyroidism, unspecified; F31.9 Bipolar disorder, unspecified; F41.9 Anxiety disorder, unspecified; E78.5 Hyperlipidemia, unspecified; F17.210 Nicotine dependence, cigarettes, uncomplicated; G40.909 Epilepsy, unspecified, not intractable, without status epilepticus; K21.9 Gastro-esophageal reflux disease without esophagitis; Z96.611 Presence of right artificial shoulder joint; E11.42 Type 2 diabetes mellitus with diabetic polyneuropathy; Z96.612 Presence of left artificial shoulder joint; Z96.653 Presence of artificial knee joint, bilateral; Z79.899 Other long term (current) drug therapy; Z82.49 Family history of ischemic heart disease and other diseases of the circulatory system; Z83.3 Family history of diabetes mellitus; Z86.73 Personal history of transient ischemic attack (TIA), and cerebral infarction without residual deficits; Z90.710 Acquired absence of both cervix and uterus; Z90.49 Acquired absence of other specified parts of digestive tract
CPT/HCPCS: 36415; 70450; 71045; 74176; 80048; 80053; 80061; 81001; 82962; 83036; 83735; 83880; 84100; 84443; 84484; 85025; 85610; 85730; 87040; 87081; 87804; 93005; 94761; 96361; 96365; 97116; 97530; G0378; J1956

== ENCOUNTER 2019-06-10 00:59 | Emergency (ER) | payer OTHER ==
[~2019-06-10] VITALS: Ht 167.6 cm; Wt 90.7 kg
[~2019-06-10 00:59] MED LIST changes: -ARIP15TA6; -BACL10TA PO; +BACL20TA PO; +GABA-339 PO; -GABA300C10; +LEVO750T2 PO; -LISI-275 PO; +MORP15TA PO; -QUET100T46; +QUET100T46 PO; -TRAZ100T2; +TRAZ100T2 PO; +VENL150C2 PO; -VENL75CA3 PO; -[UNRECOGNIZED DRUG - CODE]
[2019-06-10 02:39] LABS: Basophils # (auto) 0.1 uL; Basophils % (auto) 1.1 % (0.0-2.0); Eosinophils # (auto) 0.3 uL; Eosinophils % (auto) 3.6 % (0.0-7.0); Hematocrit 40.8 % (36.0-46.0); Hemoglobin 13.3 g/dL (12.2-16.2); Lymphocytes # (auto) 1.5 uL; Lymphocytes % (auto) 22.3 % (10.0-50.0); Mean Corpuscular Hemoglobin 31.1 pg (28.0-32.0); Mean Corpuscular Hgb Conc. 32.7 g/dL (32.0-36.0); Mean Corpuscular Volume 95.2 fL (80.0-100.0); Monocytes # (auto) 0.7 uL; Monocytes % (auto) 10.7 % (0.0-12.0); Neutrophils # (auto) 4.3 uL; Neutrophils % (auto) 62.3 % (37.0-80.0); Nucleated Red Blood Cells % 0.2 %; Platelet Count (auto) 196 10^3/uL (140-450); Red Blood Cells 4.29 10^6/uL (4.0-5.20); Red Cell Distribution Width 14.5 % (11.8-14.3)
[2019-06-10 02:52] LABS: Albumin 3.6 g/dL (3.4-5.0); Anion Gap 6 (5-15); BUN/Creatinine Ratio 22.4; Blood Urea Nitrogen 15 mg/dL (7-18); Calcium 8.4 mg/dL (8.5-10.1); Carbon Dioxide 22 mmol/L (21-32); Chloride 113 mmol/L (98-107); GFR African American 114 mL/min; GFR Non-African American 94 mL/min; Glucose 98 mg/dL (74-106); Potassium 3.9 mmol/L (3.5-5.1); Sodium 141 mmol/L (136-145)
[2019-06-10 02:57] LABS: Alanine Aminotransferase 9 U/L (13-56); Alkaline Phosphatase 103 U/L (45-117); Aspartate Aminotransferase 17 U/L (15-37); Bilirubin, Total < 0.1 mg/dL (0.2-1.0); Total Protein 7.1 g/dL (6.4-8.2)
[2019-06-10 06:01] VITALS: BP 163/86
== END 2019-06-10 06:19 | disposition home or self-care (01) ==
LOC: EDBD 00:59 → ER 01:01
DX: J44.1 Chronic obstructive pulmonary disease with (acute) exacerbation (principal); I10 Essential (primary) hypertension; F17.210 Nicotine dependence, cigarettes, uncomplicated; Z90.49 Acquired absence of other specified parts of digestive tract; Z88.0 Allergy status to penicillin; Z79.899 Other long term (current) drug therapy
CPT/HCPCS: 36415; 36600; 71045; 80053; 82805; 83880; 84484; 85025; 85379; 93005

== ENCOUNTER 2019-06-18 17:59 | Inpatient (IN) | payer OTHER ==
[~2019-06-18] VITALS: Ht 170.2 cm; Wt 82.7 kg
[2019-06-18] MEDS ORDERED: SODIUM CHLORIDE 0.9% 1,000 ML IVB ONE (19:49)
[2019-06-18 20:32] LABS: Basophils # (auto) 0.1 uL; Basophils % (auto) 0.9 % (0.0-2.0); Eosinophils # (auto) 0.1 uL; Eosinophils % (auto) 0.9 % (0.0-7.0); Hematocrit 41.3 % (36.0-46.0); Hemoglobin 13.5 g/dL (12.2-16.2); Lymphocytes # (auto) 0.7 uL; Lymphocytes % (auto) 9.9 % (10.0-50.0); Mean Corpuscular Hemoglobin 30.6 pg (28.0-32.0); Mean Corpuscular Hgb Conc. 32.7 g/dL (32.0-36.0); Mean Corpuscular Volume 93.7 fL (80.0-100.0); Monocytes # (auto) 0.5 uL; Neutrophils # (auto) 5.6 uL; Neutrophils % (auto) 81.3 % (37.0-80.0); Nucleated Red Blood Cells % 0.1 %; Platelet Count (auto) 219 10^3/uL (140-450); Red Blood Cells 4.41 10^6/uL (4.0-5.20); Red Cell Distribution Width 14.6 % (11.8-14.3); White Blood Cell 6.8 10^3/uL (4.4-10.8)
[2019-06-18 20:47] LABS: INR 0.98 (0.9-1.15)
[2019-06-18 20:49] LABS: Albumin 3.8 g/dL (3.4-5.0); Anion Gap 8 (5-15); BUN/Creatinine Ratio 21.7; Blood Alcohol < 3.0 mg/dL (0-5); Blood Urea Nitrogen 20 mg/dL (7-18); Calcium 8.9 mg/dL (8.5-10.1); Carbon Dioxide 26 mmol/L (21-32); Chloride 107 mmol/L (98-107); GFR African American 79 mL/min; GFR Non-African American 65 mL/min; Glucose 93 mg/dL (74-106); Potassium 3.8 mmol/L (3.5-5.1); Sodium 141 mmol/L (136-145)
[2019-06-18 20:52] LABS: Alanine Aminotransferase 12 U/L (13-56); Alkaline Phosphatase 110 U/L (45-117); Aspartate Aminotransferase 20 U/L (15-37); Bilirubin, Total 0.3 mg/dL (0.2-1.0); Total Protein 7.4 g/dL (6.4-8.2)
[2019-06-18 21:10] LABS: Magnesium 2.4 mg/dL (1.6-2.6)
[2019-06-18 21:24] LABS: Urine Bacteria FEW /hpf (None Seen); Urine Blood Negative /uL (Negative); Urine Hyaline Cast FEW /lpf (0 - 2); Urine Specific Gravity 1.017 (1.001-1.035); Urine WBC 2 /hpf (0 - 5)
[2019-06-18 21:35] LABS: Alcohol, Urine < 3.0 mg/dL (0-5); Amphetamine Screen, Urine NEGATIVE (NEGATIVE); Barbiturate Scree,Urine NEGATIVE (NEGATIVE); Benzodiazephine Screen, Urine NEGATIVE (NEGATIVE); Cannabinoid Screen, Urine NEGATIVE (NEGATIVE); Cocaine Screen, Urine NEGATIVE (NEGATIVE); Opiate Scree,Urine POSITIVE (NEGATIVE); Phencyclidine Screen, Urine NEGATIVE (NEGATIVE)
[2019-06-18] MEDS: SODIUM CHLORIDE 0.9% 1,000 ML IV SCH (22:28)
[2019-06-18] MEDS ORDERED: ACETAMINOPHEN 325 MG TAB PO PRN (22:30)
[2019-06-18] MEDS ORDERED: MORPHINE SULFATE 4 MG/ML SYR/VIAL IV PRN (22:30)
[2019-06-18] MEDS ORDERED: ONDANSETRON HCL 4 MG/2 ML VIAL IV PRN (22:30)
[2019-06-18] MEDS ORDERED: DOCUSATE SOD 100 MG CAP PO PRN (22:30)
[2019-06-19] VITALS (8 sets, daily range): BP systolic 140–159; BP diastolic 72–105
--- NOTE | 2019-06-19 00:41 | NUR ---
MS admit from LAMBERTO BOWER admitted to tele/MS after SBAR received. Patient oriented to SOREN COTTRELL, RN primary RN, [facility], 290 room, B bed, and unit policies regarding patient care and visiting hours. Patient weighed by bedscale and encouraged to call if they need something. All questions and concerns addressed, patient verbalized understanding. Sitter at bedside.
--- NOTE | 2019-06-19 05:20 | NUR ---
Patient nauseous. Patient wanted medication for nausea. will administer zofran prn.
[2019-06-19] MEDS ORDERED: LEVOTHYROXINE SODIUM 112 MCG TAB PO SCH (08:00)
--- NOTE | 2019-06-19 08:01 | NUR ---
PT RESTING IN BED AND REPORTS NO PAIN, SITTER AT BEDSIDE. PT REPORTS SHE DOES NOT RECALL HER LAST BM OR WHY SHE IS IN HOSPITAL. PT KNOWS NAME, , PRESIDENT AND WHEREABOUTS. PT REPORTS NO SUICIDAL THOUGHTS OR THOUGHTS OF SELF HARM BUT DID REPORT BEING BIPOLAR. CALL LIGHT IN REACH, WILL CONTINUE TO MONITOR. Addendum: 06/19/19 at 0805 by CHANDANA BURTON RN 175 MLS CLEAR YELLOW URINE NOTED IN SOSA.
[2019-06-19] MEDS: LEVOTHYROXINE SODIUM 50 MCG TAB PO SCH (09:27)
[2019-06-19] MEDS: cefTRIAXone 1GM/50ML D5W 50 ML IV SCH (09:28)
--- NOTE | 2019-06-19 12:28 | NUR ---
PT HAD MODERATE AMOUNT OF BROWN FORMED BM IN THE RESTROOM PER STEAMTABLE ATTENDANT RAILROAD.
[2019-06-19] MEDS: SODIUM CHLORIDE 0.9% 1,000 ML IV SCH (16:34)
--- NOTE | 2019-06-19 19:40 | NUR ---
Opening Shift Note Assumed care of patient, awake and alert. No S/S of distress/SOB. Patient complain of lower leg pain. Ask for prn pain med. will administer. Mejia intact and draining to gravity. Instructed on POC and to call for assist PRN, will continue to monitor for changes Q1hr and PRN.
[2019-06-19] MEDS: HYDROcodone-ACET 5/325MG TAB PO PRN (20:57)
[2019-06-20 05:00] VITALS: BP 144/71
[2019-06-20] MEDS: HYDROcodone-ACET 5/325MG TAB PO PRN (05:11)
--- NOTE | 2019-06-20 08:00 | NUR ---
Morning note patient resting in bed with even and unlabored respirations, no distress noted. Instructed patient on POC, fall precautions and to call for assistance as needed. Patient verbalized understanding. Fall precautions in place with bed in lowest locked position with call light within reach. Will continue to monitor q1hr & PRN.
[2019-06-20 09:00] VITALS: BP 136/67
[2019-06-20] MEDS: LEVOTHYROXINE SODIUM 50 MCG TAB PO SCH (12:17)
[2019-06-20] MEDS: cefTRIAXone 1GM/50ML D5W 50 ML IV SCH (12:17)
[2019-06-20 13:00] VITALS: BP 149/65
--- NOTE | 2019-06-20 13:38 | NUR ---
Order received and read back to verify Updated Dr. Corrales that a Mejia catheter is in place. Order received and read back to verify.
--- NOTE | 2019-06-20 14:45 | NUR ---
was at bedside - Dr. Corrales
--- NOTE | 2019-06-20 14:47 | NUR ---
Mejia catheter discontinued Order to discontinue Mejia catheter. Mejia discontinued with clean technique following deflation of balloon. Patient tolerated well with no complaints of pain. Continue care. 450ml clear yellow urine emptied from catheter bag.
--- NOTE | 2019-06-20 16:13 | NUR ---
Discharge Discharge education and paperwork provided to the patient. Patient stated "I just want to get the hell out of here. You can take that paperwork and throw it away." Instructed the patient on the educational information and follow up appointment information contained in the packet. Patient verbalized understanding and took the paperwork. IV removed with clean technique, catheter intact. Dressing applied. Patient tolerated well, no trauma to site. Patient reports having all personal belongings. Respirations even and unlabored, no distress noted. Patient states "I rent a room and I have a caregiver." This RN asked patient if patient felt safe to return home. Patient stated "yes." Taxi voucher being provided to patient for transportation.
--- NOTE | 2019-06-20 16:14 | NUR ---
[facility] [employer] contacted for order picker ETA 15 minutes.
--- NOTE | 2019-06-20 16:27 | NUR ---
Patient taken to ER waiting area to wait for taxi cab patient taken to ER via wheelchair by staff member. Respirations even and unlabored, no distress. Patient reports having all personal belongings.
--- NOTE | 2019-06-20 16:47 | NUR ---
assessment Per consult patient picked up by EMS. Unknown if there is help at home. Home health would be helpful. Patient discharge home prior to being assessed. Addendum: 06/20/19 at 1648 by Dotty Singh Amended: Links added.
== END 2019-06-20 16:27 | disposition home health service (06) | DRG 917 ==
LOC: EDBD 17:59 → ER 17:59 → OVERFLOW 18:00 → WEST WING 23:34
PROVIDERS: ADMIT Hospitalist; ATTEND Internal Medicine
DX: T40.2X1A Poisoning by other opioids, accidental (unintentional), initial encounter (principal); G92 Toxic encephalopathy; N39.0 Urinary tract infection, site not specified; Z88.0 Allergy status to penicillin; G62.9 Polyneuropathy, unspecified; E03.9 Hypothyroidism, unspecified; I10 Essential (primary) hypertension; F31.9 Bipolar disorder, unspecified; F41.9 Anxiety disorder, unspecified; G43.909 Migraine, unspecified, not intractable, without status migrainosus; Z90.49 Acquired absence of other specified parts of digestive tract; Z83.3 Family history of diabetes mellitus; Z82.49 Family history of ischemic heart disease and other diseases of the circulatory system; Z86.73 Personal history of transient ischemic attack (TIA), and cerebral infarction without residual deficits; Y92.89 Other specified places as the place of occurrence of the external cause
CPT/HCPCS: 36415; 51702; 70450; 71045; 80053; 80307; 80320; 81001; 82962; 83605; 83735; 84484; 85025; 85610; 85730; 87040; 87081; 87086; G0378; J0696; J2405

== ENCOUNTER 2019-09-09 03:54 | Emergency (ER) | payer OTHER ==
[~2019-09-09] VITALS: Ht 167.6 cm; Wt 90.7 kg
[~2019-09-09 03:54] MED LIST changes: -HYDR-531 PO; -LEVO750T2 PO; -TRAZ100T2 PO; +TRAZ100T3 PO
[2019-09-09 06:28] LABS: Alanine Aminotransferase 9 U/L (13-56); Albumin 3.9 g/dL (3.4-5.0); Alkaline Phosphatase 134 U/L (45-117); Anion Gap 5 (5-15); Aspartate Aminotransferase 34 U/L (15-37); Bilirubin, Total 0.2 mg/dL (0.2-1.0); Blood Urea Nitrogen 12 mg/dL (7-18); Calcium 8.5 mg/dL (8.5-10.1); Carbon Dioxide 27 mmol/L (21-32); Chloride 107 mmol/L (98-107); GFR African American 100 mL/min; GFR Non-African American 82 mL/min; Glucose 105 mg/dL (74-106); Magnesium 3.1 mg/dL (1.6-2.6); Potassium 4.6 mmol/L (3.5-5.1); Sodium 139 mmol/L (136-145); Total Protein 7.5 g/dL (6.4-8.2)
[2019-09-09 08:53] LABS: Basophils # (auto) 0.1 uL; Basophils % (auto) 1.3 % (0.0-2.0); Eosinophils # (auto) 0 uL; Eosinophils % (auto) 0.7 % (0.0-7.0); Hematocrit 44.4 % (36.0-46.0); Hemoglobin 14.7 g/dL (12.2-16.2); Lymphocytes # (auto) 0.8 uL; Lymphocytes % (auto) 15.3 % (10.0-50.0); Mean Corpuscular Hemoglobin 31.8 pg (28.0-32.0); Mean Corpuscular Hgb Conc. 33.2 g/dL (32.0-36.0); Mean Corpuscular Volume 95.7 fL (80.0-100.0); Monocytes # (auto) 0.9 uL; Monocytes % (auto) 17.9 % (0.0-12.0); Neutrophils # (auto) 3.3 uL; Neutrophils % (auto) 64.8 % (37.0-80.0); Nucleated Red Blood Cells % 0.1 %; Platelet Count (auto) 221 10^3/uL (140-450); Red Blood Cells 4.64 10^6/uL (4.0-5.20); Red Cell Distribution Width 15.9 % (11.8-14.3); White Blood Cell 5.1 10^3/uL (4.4-10.8)
[2019-09-09 09:34] LABS: Urine Bacteria NONE SEEN /hpf (None Seen); Urine Blood Negative /uL (Negative); Urine WBC 6 /hpf (0 - 5)
[2019-09-09 12:20] VITALS: BP 132/74
== END 2019-09-09 12:23 | disposition home or self-care (01) ==
LOC: EDBD 03:54 → ER 03:56
DX: S86.912A Strain of unspecified muscle(s) and tendon(s) at lower leg level, left leg, initial encounter (principal); S86.911A Strain of unspecified muscle(s) and tendon(s) at lower leg level, right leg, initial encounter; N39.0 Urinary tract infection, site not specified; I10 Essential (primary) hypertension; J45.909 Unspecified asthma, uncomplicated; Z86.73 Personal history of transient ischemic attack (TIA), and cerebral infarction without residual deficits; Z90.89 Acquired absence of other organs; Z90.49 Acquired absence of other specified parts of digestive tract; Z88.0 Allergy status to penicillin; W19.XXXA Unspecified fall, initial encounter; Y93.89 Activity, other specified; Y99.8 Other external cause status; Y92.89 Other specified places as the place of occurrence of the external cause
CPT/HCPCS: 36415; 70450; 71045; 72192; 80053; 81001; 83735; 83880; 84484; 85025; 93005

== ENCOUNTER → 2020-04-08 | Emergency (ER) | payer OTHER ==
[~2020-04-08] VITALS: Ht 165.1 cm; Wt 86.2 kg
[~2020-04-08] MED LIST changes: +KETAMINE 50mg/ML 10ml Vial (500mg/10ml) IV ONE; +MIDAZOLAM HCL 5 MG/ML-1ML VIAL IV ONE; +ONDANSETRON HCL 4 MG/2 ML VIAL IV ONE; +fentaNYL CITRATE 100 MCG/2 ML VL IV ONE
[2020-04-09 03:14] LABS: Basophils # (auto) 0.1 10 ^3/uL (0-0.2); Basophils % (auto) 0.7 % (0.0-2.0); Eosinophils # (auto) 0.3 10 ^3/uL (0-0.8); Eosinophils % (auto) 1.8 % (0.0-7.0); Hemoglobin 11.7 g/dL (12.2-16.2); Lymphocytes # (auto) 1.1 10 ^3/uL (0.4-5.4); Lymphocytes % (auto) 8.3 % (10.0-50.0); Mean Corpuscular Hemoglobin 32.2 pg (28.0-32.0); Mean Corpuscular Hgb Conc. 32.5 g/dL (32.0-36.0); Mean Corpuscular Volume 99.2 fL (80.0-100.0); Monocytes # (auto) 0.9 10 ^3/uL (0-1.3); Monocytes % (auto) 6.8 % (0.0-12.0); Neutrophils # (auto) 11.2 10 ^3/uL (1.6-8.6); Neutrophils % (auto) 82.4 % (37.0-80.0); Platelet Count (auto) 205 10^3/uL (140-450); Red Blood Cells 3.63 10^6/uL (4.0-5.20); Red Cell Distribution Width 12.6 % (11.8-14.3); White Blood Cell 13.6 10^3/uL (4.4-10.8)
[2020-04-09 03:26] LABS: INR 0.97 (0.9-1.15); Partial Thromboplastin Time 23.9 sec (23.0-31.2)
[2020-04-09 03:32] LABS: Potassium 4.4 mmol/L (3.5-5.1)
[2020-04-09 03:39] LABS: Albumin 3.2 g/dL (3.4-5.0); Bilirubin, Total 0.3 mg/dL (0.2-1.0); Calcium 7.5 mg/dL (8.5-10.1); Total Protein 5.8 g/dL (6.4-8.2)
[2020-04-09 05:29] LABS: Urine Bacteria MOD /hpf (None Seen); Urine Blood Negative /uL (Negative); Urine Hyaline Cast MOD /lpf (0 - 2); Urine Mucus FEW (None Seen); Urine Specific Gravity 1.022 (1.001-1.035); Urine WBC 18 /hpf (0 - 5)
[2020-04-09 06:23] VITALS: BP 125/71
== END | disposition home or self-care (01) ==
LOC: EDUNIT# 22:37 → EDBD 22:49 → ER 22:54
DX: S82.241A Displaced spiral fracture of shaft of right tibia, initial encounter for closed fracture (principal); R62.50 Unspecified lack of expected normal physiological development in childhood; R62.7 Adult failure to thrive; W18.30XA Fall on same level, unspecified, initial encounter; Y93.89 Activity, other specified; Y92.89 Other specified places as the place of occurrence of the external cause; Y99.8 Other external cause status
CPT/HCPCS: 36415; 73590; 80053; 81001; 82140; 85025; 85610; 85730; 93005; J2250

== ENCOUNTER 2020-06-27 11:28 | Emergency (ER) | payer OTHER, MEDICAID ==
[~2020-06-27] VITALS: Ht 170.2 cm; Wt 81.6 kg
[~2020-06-27 11:28] MED LIST changes: -KETAMINE 50mg/ML 10ml Vial (500mg/10ml) IV ONE; -MIDAZOLAM HCL 5 MG/ML-1ML VIAL IV ONE; -ONDANSETRON HCL 4 MG/2 ML VIAL IV ONE; -fentaNYL CITRATE 100 MCG/2 ML VL IV ONE
[2020-06-27] MEDS ORDERED: LIDOCAINE W/ EPINEPHRINE 2% INJ 20ML VIAL ID ONE (15:15)
[2020-06-27 16:36] LABS: Basophils # (auto) 0.1 10 ^3/uL (0-0.2); Basophils % (auto) 0.5 % (0.0-2.0); Eosinophils # (auto) 0.1 10 ^3/uL (0-0.8); Eosinophils % (auto) 0.7 % (0.0-7.0); Hematocrit 40.2 % (36.0-46.0); Hemoglobin 13.1 g/dL (12.2-16.2); Lymphocytes # (auto) 0.8 10 ^3/uL (0.4-5.4); Lymphocytes % (auto) 6.5 % (10.0-50.0); Mean Corpuscular Hemoglobin 30.1 pg (28.0-32.0); Mean Corpuscular Volume 92.4 fL (80.0-100.0); Monocytes # (auto) 0.6 10 ^3/uL (0-1.3); Monocytes % (auto) 4.8 % (0.0-12.0); Neutrophils # (auto) 10.4 10 ^3/uL (1.6-8.6); Neutrophils % (auto) 87.5 % (37.0-80.0); Red Blood Cells 4.35 10^6/uL (4.0-5.20); White Blood Cell 11.9 10^3/uL (4.4-10.8)
[2020-06-27 16:37] LABS: Mean Corpuscular Hgb Conc. 32.6 g/dL (32.0-36.0); Platelet Count (auto) 359 10^3/uL (140-450); Red Cell Distribution Width 14.1 % (11.8-14.3)
[2020-06-27 16:56] LABS: Albumin 3.4 g/dL (3.4-5.0); Anion Gap 9 (5-15); Blood Urea Nitrogen 12 mg/dL (7-18); Calcium 8.6 mg/dL (8.5-10.1); Carbon Dioxide 25 mmol/L (21-32); Chloride 100 mmol/L (98-107); Glucose 81 mg/dL (74-106); Potassium 4.2 mmol/L (3.5-5.1); Sodium 134 mmol/L (136-145)
[2020-06-27 17:01] LABS: Alanine Aminotransferase 27 U/L (13-56); Alkaline Phosphatase 161 U/L (45-117); Aspartate Aminotransferase 32 U/L (15-37); BUN/Creatinine Ratio 23.1; Bilirubin, Total 0.5 mg/dL (0.2-1.0); GFR African American 152 mL/min; GFR Non-African American 125 mL/min; Total Protein 7.4 g/dL (6.4-8.2)
[2020-06-27 18:42] VITALS: BP 136/82
== END 2020-06-27 21:16 | disposition home or self-care (01) ==
LOC: EDUNIT# 11:28 → ER 11:28 → EDBD 11:28 → ER 21:16
DX: S01.81XA Laceration without foreign body of other part of head, initial encounter (principal); R56.9 Unspecified convulsions; X58.XXXA Exposure to other specified factors, initial encounter; Y93.89 Activity, other specified; Y92.89 Other specified places as the place of occurrence of the external cause; Y99.8 Other external cause status
CPT/HCPCS: 36415; 70450; 72125; 80053; 83880; 84484; 85025; 93005

== ENCOUNTER 2020-07-04 11:13 | Inpatient (IN) | payer OTHER, MEDICAID ==
[~2020-07-04] VITALS: Ht 165.1 cm; Wt 90.7 kg
[2020-07-04 12:02] LABS: Basophils # (auto) 0 10 ^3/uL (0-0.2); Basophils % (auto) 0.3 % (0.0-2.0); Eosinophils # (auto) 0 10 ^3/uL (0-0.8); Eosinophils % (auto) 0.2 % (0.0-7.0); Hematocrit 41.6 % (36.0-46.0); Hemoglobin 13.4 g/dL (12.2-16.2); Lymphocytes # (auto) 0.9 10 ^3/uL (0.4-5.4); Lymphocytes % (auto) 6.1 % (10.0-50.0); Mean Corpuscular Hemoglobin 29.9 pg (28.0-32.0); Mean Corpuscular Hgb Conc. 32.1 g/dL (32.0-36.0); Mean Corpuscular Volume 93.2 fL (80.0-100.0); Monocytes # (auto) 0.8 10 ^3/uL (0-1.3); Monocytes % (auto) 5.7 % (0.0-12.0); Neutrophils # (auto) 12.5 10 ^3/uL (1.6-8.6); Neutrophils % (auto) 87.7 % (37.0-80.0); Platelet Count (auto) 405 10^3/uL (140-450); Red Blood Cells 4.46 10^6/uL (4.0-5.20); Red Cell Distribution Width 14.8 % (11.8-14.3); White Blood Cell 14.3 10^3/uL (4.4-10.8)
[2020-07-04] MEDS ORDERED: SODIUM CHLORIDE 0.9% 1,000 ML IVB ONE (12:15)
[2020-07-04 12:25] LABS: Albumin 3.5 g/dL (3.4-5.0); Anion Gap 6 (5-15); Blood Urea Nitrogen 22 mg/dL (7-18); Calcium 8.5 mg/dL (8.5-10.1); Carbon Dioxide 24 mmol/L (21-32); Chloride 112 mmol/L (98-107); Glucose 98 mg/dL (74-106); Potassium 3.6 mmol/L (3.5-5.1); Sodium 142 mmol/L (136-145)
[2020-07-04 12:29] LABS: Urine Bacteria NONE SEEN /hpf (None Seen); Urine Blood Negative /uL (Negative); Urine Hyaline Cast MANY /lpf (0 - 2); Urine Mucus FEW (None Seen); Urine Specific Gravity 1.023 (1.001-1.035); Urine WBC 4 /hpf (0 - 5)
[2020-07-04 12:33] LABS: Alanine Aminotransferase 20 U/L (13-56); Alkaline Phosphatase 161 U/L (45-117); Aspartate Aminotransferase 14 U/L (15-37); BUN/Creatinine Ratio 34.9; Bilirubin, Total 0.2 mg/dL (0.2-1.0); Blood Alcohol < 3.0 mg/dL (0-5); GFR African American 122 mL/min; GFR Non-African American 100 mL/min; Total Protein 7.5 g/dL (6.4-8.2)
[2020-07-04 12:36] LABS: Blood Alcohol < 3.0 mg/dL (0-5); Magnesium 2.6 mg/dL (1.6-2.6)
[2020-07-04 12:41] LABS: Alcohol, Urine < 3.0 mg/dL (0-10); Amphetamine Screen, Urine NEGATIVE (NEGATIVE); Barbiturate Scree,Urine NEGATIVE (NEGATIVE); Benzodiazephine Screen, Urine NEGATIVE (NEGATIVE); Cannabinoid Screen, Urine NEGATIVE (NEGATIVE); Cocaine Screen, Urine NEGATIVE (NEGATIVE); Opiate Scree,Urine POSITIVE (NEGATIVE); Phencyclidine Screen, Urine NEGATIVE (NEGATIVE)
[2020-07-04 15:29] LABS: INR 0.97 (0.9-1.15)
[2020-07-04] MEDS ORDERED: NITROGLYCERIN 0.4 MG SL TAB SL PRN ×2 (17:00→20:15)
[2020-07-04] MEDS ORDERED: MORPHINE SULF INJ 2 MG/ML SYRINGE 1ML IV PRN ×3 (17:00→20:15)
[2020-07-04] MEDS ORDERED: HYDROcodone-ACET 5/325MG TAB PO PRN (20:15)
[2020-07-04] MEDS ORDERED: ALUM & MAG HYDROX-SIMETH LIQ(MAALOX) 30 ML PO PRN (20:15)
[2020-07-04] MEDS ORDERED: ACETAMINOPHEN 325 MG TAB PO PRN (20:15)
[2020-07-04] MEDS ORDERED: ONDANSETRON HCL 4 MG/2 ML VIAL IV PRN (20:15)
[2020-07-04] MEDS ORDERED: LORazepam 0.5 MG TAB PO PRN (20:15)
[2020-07-04] MEDS ORDERED: DOCUSATE SOD 100 MG CAP PO PRN (20:15)
[2020-07-04] MEDS ORDERED: SODIUM CHLORIDE 0.9% 1,000 ML IV SCH (20:30)
[2020-07-04] MEDS ORDERED: CLINDAMYCIN 600MG IV 50 ML IV ONE (20:30)
[2020-07-04] MEDS ORDERED: AZTREONAM 1GM INJ 1 GM in D5W 5% 50 ML IV ONE (21:00)
[2020-07-04] MEDS ORDERED: FAMOTIDINE (10MG/ML) 2ML VL IV SCH (22:00)
[2020-07-04] MEDS ORDERED: QUEtiapine FUMARATE 100 MG TAB PO SCH (22:00)
[2020-07-04] MEDS ORDERED: CLINDAMYCIN 600MG IV 50 ML IV SCH (22:00)
[2020-07-04 22:47] VITALS: BP 131/77
[2020-07-05] MEDS ORDERED: AZTREONAM 1GM INJ 1 GM in D5W 5% 50 ML IV SCH (06:00)
[2020-07-05] MEDS ORDERED: LEVOTHYROXINE SODIUM 50 MCG TAB PO SCH (07:00)
[2020-07-05] MEDS ORDERED: MULTIPLE VITAMINS W/ MINERALS TAB PO SCH (10:00)
== END 2020-07-05 01:30 | disposition left against medical advice (07) | DRG 917 ==
LOC: EDBD 11:13 → ER 11:13 → TELE 16:59
PROVIDERS: ADMIT Hospitalist; ATTEND Internal Medicine
DX: T40.2X1A Poisoning by other opioids, accidental (unintentional), initial encounter (principal); G92 Toxic encephalopathy; J69.0 Pneumonitis due to inhalation of food and vomit; G25.9 Extrapyramidal and movement disorder, unspecified; N17.9 Acute kidney failure, unspecified; T40.601A Poisoning by unspecified narcotics, accidental (unintentional), initial encounter; S00.83XA Contusion of other part of head, initial encounter; Z79.891 Long term (current) use of opiate analgesic; E03.9 Hypothyroidism, unspecified; F32.9 Major depressive disorder, single episode, unspecified; G20 Parkinson's disease; G43.909 Migraine, unspecified, not intractable, without status migrainosus; G62.9 Polyneuropathy, unspecified; G89.4 Chronic pain syndrome; Z53.29 Procedure and treatment not carried out because of patient's decision for other reasons; I10 Essential (primary) hypertension; J44.9 Chronic obstructive pulmonary disease, unspecified; Z20.828 Contact with and (suspected) exposure to other viral communicable diseases; W18.39XA Other fall on same level, initial encounter; K21.9 Gastro-esophageal reflux disease without esophagitis; K29.70 Gastritis, unspecified, without bleeding; Z82.49 Family history of ischemic heart disease and other diseases of the circulatory system; Z86.73 Personal history of transient ischemic attack (TIA), and cerebral infarction without residual deficits; Z87.891 Personal history of nicotine dependence; Z90.49 Acquired absence of other specified parts of digestive tract; Y93.89 Activity, other specified; Y92.89 Other specified places as the place of occurrence of the external cause; Y99.8 Other external cause status; Z88.0 Allergy status to penicillin
CPT/HCPCS: 36415; 36600; 70450; 70486; 71045; 72125; 80053; 80307; 80320; 81001; 82805; 82962; 83735; 84484; 85025; 85610; 85730; 87086; 87426; 93005; 96365; 96367; 96375; G0378; J3490; J7060

== ENCOUNTER 2020-09-25 14:24 | Inpatient (IN) | payer OTHER, MEDICAID ==
[~2020-09-25] VITALS: Ht 160 cm; Wt 87.8 kg
[2020-09-25] MEDS ORDERED: NITROGLYCERIN 0.4 MG SL TAB SL PRN ×2 (15:45→19:45)
[2020-09-25] MEDS ORDERED: MORPHINE SULF INJ 2 MG/ML SYRINGE 1ML IV PRN ×3 (15:45→19:45)
[2020-09-25 16:17] LABS: Urine Bacteria FEW /hpf (None Seen); Urine Blood Negative /uL (Negative); Urine Specific Gravity 1.014 (1.001-1.035); Urine WBC 1 /hpf (0 - 5)
[2020-09-25 16:24] LABS: Basophils # (auto) 0 10 ^3/uL (0-0.2); Basophils % (auto) 0.3 % (0.0-2.0); Eosinophils # (auto) 0.1 10 ^3/uL (0-0.8); Hematocrit 40.7 % (36.0-46.0); Hemoglobin 12.9 g/dL (12.2-16.2); Lymphocytes # (auto) 0.9 10 ^3/uL (0.4-5.4); Lymphocytes % (auto) 7.4 % (10.0-50.0); Mean Corpuscular Hemoglobin 31.7 pg (28.0-32.0); Mean Corpuscular Hgb Conc. 31.7 g/dL (32.0-36.0); Mean Corpuscular Volume 99.9 fL (80.0-100.0); Monocytes # (auto) 1.1 10 ^3/uL (0-1.3); Monocytes % (auto) 9.3 % (0.0-12.0); Neutrophils # (auto) 9.5 10 ^3/uL (1.6-8.6); Platelet Count (auto) 237 10^3/uL (140-450); Red Blood Cells 4.07 10^6/uL (4.0-5.20); Red Cell Distribution Width 15.1 % (11.8-14.3); White Blood Cell 11.5 10^3/uL (4.4-10.8)
[2020-09-25 16:28] LABS: Amphetamine Screen, Urine NEGATIVE (NEGATIVE); Barbiturate Scree,Urine NEGATIVE (NEGATIVE); Benzodiazephine Screen, Urine NEGATIVE (NEGATIVE); Cannabinoid Screen, Urine NEGATIVE (NEGATIVE); Cocaine Screen, Urine NEGATIVE (NEGATIVE); Phencyclidine Screen, Urine POSITIVE (NEGATIVE)
[2020-09-25 16:37] LABS: Opiate Scree,Urine POSITIVE (NEGATIVE)
[2020-09-25] MEDS ORDERED: LEVO150T10 PO (16:42)
[2020-09-25] MEDS ORDERED: TRAZ1TAB12 PO (16:43)
[2020-09-25] MEDS ORDERED: VARE1PAK12 PO (16:43)
[2020-09-25 16:44] LABS: Albumin 3.5 g/dL (3.4-5.0); Calcium 8.2 mg/dL (8.5-10.1); Potassium 4.2 mmol/L (3.5-5.1)
[2020-09-25] MEDS ORDERED: QUET50TA25 PO (16:44)
[2020-09-25 16:47] LABS: Bilirubin, Total 0.3 mg/dL (0.2-1.0)
[2020-09-25] MEDS ORDERED: CARB25TA75 PO (16:47)
[2020-09-25] MEDS ORDERED: OMEP-260 PO (16:49)
[2020-09-25] MEDS ORDERED: LISI-648 PO (16:49)
[2020-09-25] MEDS ORDERED: HYDR-4798 PO (16:49)
[2020-09-25] MEDS ORDERED: AMIT10TA6 PO (16:49)
[2020-09-25] MEDS ORDERED: MONT10TA34 PO (16:49)
[2020-09-25] MEDS ORDERED: LACTATED RINGER'S 1,000 ML IV ONE ×2 (17:45→18:45)
[2020-09-25] MEDS ORDERED: CLINDAMYCIN 600MG IV 50 ML IV ONE (18:45)
[2020-09-25] MEDS ORDERED: cefTRIAXone 1GM/50ML D5W 50 ML IV SCH (18:50)
[2020-09-25] MEDS ORDERED: ETOMIDATE (2MG/ML) 20ML VIAL IV ONE (19:00)
[2020-09-25] MEDS ORDERED: NOREPINEPHRINE 8 MG/250ML KIT 250 ML IV SCH (19:00)
[2020-09-25] MEDS ORDERED: SUCCINYLCHOLINE CHLORIDE 20 MG/ML 10ML VIAL IV ONE (19:00)
[2020-09-25] MEDS ORDERED: MIDAZOLAM DRIP 50 mg/50mL 50 ML IV SCH (19:00)
[2020-09-25] MEDS: fentaNYL Drip 2500mCg/250mlNS 250 ML IV SCH (19:26)
[2020-09-25] MEDS: MIDAZOLAM DRIP 50 mg/50mL 50 ML IV SCH (19:26)
[2020-09-25] MEDS ORDERED: AZTREONAM 1GM INJ 1 GM in D5W 5% 50 ML IV ONE (19:30)
[2020-09-25] MEDS: SODIUM CHLORIDE 0.9% 1,000 ML IV SCH (19:30)
[2020-09-25] MEDS: AZTREONAM 1GM INJ 1 GM in D5W 5% 50 ML IV SCH (19:36)
[2020-09-25] MEDS ORDERED: ONDANSETRON HCL 4 MG/2 ML VIAL IV PRN (19:45)
[2020-09-25] MEDS ORDERED: ALUM & MAG HYDROX-SIMETH LIQ(MAALOX) 30 ML PO PRN (19:45)
[2020-09-25] MEDS ORDERED: DOCUSATE SOD 100 MG CAP PO PRN (19:45)
[2020-09-25] MEDS ORDERED: LORazepam 0.5 MG TAB PO PRN (19:45)
[2020-09-25] MEDS ORDERED: HYDROcodone-ACET 5/325MG TAB PO PRN (19:45)
[2020-09-25] MEDS: ENOXAPARIN SOD 40 MG/0.4 ML SYRINGE SC SCH (20:09)
[2020-09-25 20:14] LABS: Cholesterol 186 mg/dL (< 200); HDL Cholesterol 57 mg/dL (40-59); LDL Cholesterol 105 mg/dL (< 100); Triglycerides 177 mg/dL (< 150)
[2020-09-25] MEDS: FAMOTIDINE (10MG/ML) 2ML VL IV SCH (21:29)
[2020-09-25 22:00] VITALS: BP 157/82
[2020-09-25] MEDS: CARBIDOPA W LEVODOPA 25/100mg TABLET PO SCH (22:00)
[2020-09-25] MEDS ORDERED: AMITRIPTYLINE HCL 10 MG TAB PO SCH (22:00)
[2020-09-25] MEDS ORDERED: QUEtiapine FUMARATE 100 MG TAB PO SCH (22:00)
[2020-09-25 22:53] LABS: Amphetamine Screen, Urine NEGATIVE (NEGATIVE); Barbiturate Scree,Urine NEGATIVE (NEGATIVE); Benzodiazephine Screen, Urine NEGATIVE (NEGATIVE); Cannabinoid Screen, Urine NEGATIVE (NEGATIVE); Cocaine Screen, Urine NEGATIVE (NEGATIVE); Opiate Scree,Urine POSITIVE (NEGATIVE); Phencyclidine Screen, Urine NEGATIVE (NEGATIVE)
[2020-09-25 23:03] LABS: Urine Amorphous Crystal FEW /hpf (None Seen); Urine Bacteria FEW /hpf (None Seen); Urine Blood Negative /uL (Negative); Urine Hyaline Cast FEW /lpf (0 - 2); Urine Mucus FEW (None Seen); Urine Specific Gravity 1.014 (1.001-1.035); Urine WBC 7 /hpf (0 - 5)
[2020-09-25 23:40] VITALS: BP 147/80
[2020-09-26] VITALS (85 sets, daily range): BP systolic 103–170; BP diastolic 62–82
[2020-09-26] MEDS: CLINDAMYCIN 600MG IV 50 ML IV SCH ×2 (02:08→11:44)
[2020-09-26] MEDS ORDERED: hydrALAZINE HCL 20 MG/ML VL IV ONE (02:45)
[2020-09-26] MEDS: SODIUM CHLORIDE 0.9% 1,000 ML IV SCH ×3 (02:46→14:45)
[2020-09-26] MEDS: AZTREONAM 1GM INJ 1 GM in D5W 5% 50 ML IV SCH ×3 (02:46→19:56)
[2020-09-26] MEDS: CARBIDOPA W LEVODOPA 25/100mg TABLET PO SCH (05:58)
[2020-09-26 06:42] LABS: Basophils # (auto) 0 10 ^3/uL (0-0.2); Basophils % (auto) 0.3 % (0.0-2.0); Eosinophils # (auto) 0.1 10 ^3/uL (0-0.8); Eosinophils % (auto) 1.4 % (0.0-7.0); Hematocrit 35.5 % (36.0-46.0); Hemoglobin 12.2 g/dL (12.2-16.2); Lymphocytes # (auto) 0.6 10 ^3/uL (0.4-5.4); Lymphocytes % (auto) 5.8 % (10.0-50.0); Mean Corpuscular Hemoglobin 32.3 pg (28.0-32.0); Mean Corpuscular Hgb Conc. 34.2 g/dL (32.0-36.0); Mean Corpuscular Volume 94.3 fL (80.0-100.0); Monocytes # (auto) 0.8 10 ^3/uL (0-1.3); Monocytes % (auto) 7.9 % (0.0-12.0); Neutrophils # (auto) 8.3 10 ^3/uL (1.6-8.6); Neutrophils % (auto) 84.6 % (37.0-80.0); Platelet Count (auto) 227 10^3/uL (140-450); Red Blood Cells 3.77 10^6/uL (4.0-5.20); White Blood Cell 9.7 10^3/uL (4.4-10.8)
[2020-09-26 06:55] LABS: Chloride 110 mmol/L (98-107); Potassium 3.1 mmol/L (3.5-5.1); Sodium 140 mmol/L (136-145)
[2020-09-26] MEDS ORDERED: LEVOTHYROXINE SODIUM 50 MCG TAB PO SCH (07:00)
[2020-09-26 07:01] LABS: INR 0.99 (0.9-1.15); Partial Thromboplastin Time 27.8 sec (23.0-31.2)
[2020-09-26 07:05] LABS: Alanine Aminotransferase 23 U/L (13-56); Albumin 3.1 g/dL (3.4-5.0); Alkaline Phosphatase 116 U/L (45-117); Anion Gap 6 (5-15); Aspartate Aminotransferase 17 U/L (15-37); BUN/Creatinine Ratio 36.8; Bilirubin, Total 0.4 mg/dL (0.2-1.0); Blood Urea Nitrogen 14 mg/dL (7-18); Calcium 7.7 mg/dL (8.5-10.1); Carbon Dioxide 24 mmol/L (21-32); GFR African American 217 mL/min; GFR Non-African American 180 mL/min; Glucose 114 mg/dL (74-106); Magnesium 1.8 mg/dL (1.6-2.6); Phosphorus 3.4 mg/dL (2.5-4.90); Total Protein 6.2 g/dL (6.4-8.2)
[2020-09-26] MEDS: ENOXAPARIN SOD 40 MG/0.4 ML SYRINGE SC SCH (09:14)
[2020-09-26] MEDS: FAMOTIDINE (10MG/ML) 2ML VL IV SCH ×2 (09:15→22:16)
[2020-09-26] MEDS ORDERED: POTASSIUM CHL 20MEQ/100ML 100 ML IV ONE ×2 (09:15→14:45)
[2020-09-26] MEDS ORDERED: MAGNESIUM SULFATE 1GM/100ML 100 ML IV ONE (09:15)
[2020-09-26] MEDS ORDERED: MULTIPLE VITAMINS W/ MINERALS TAB PO SCH (10:00)
[2020-09-26] MEDS ORDERED: MONTELUKAST SODIUM 10 MG TAB PO SCH (10:00)
[2020-09-26] MEDS ORDERED: LISINOPRIL 10 MG TAB PO SCH (10:00)
[2020-09-26] MEDS: MIDAZOLAM DRIP 50 mg/50mL 50 ML IV SCH (11:00)
[2020-09-26] MEDS: fentaNYL Drip 2500mCg/250mlNS 250 ML IV SCH ×2 (12:25→23:44)
[2020-09-26 14:45] LABS: Magnesium 2.2 mg/dL (1.6-2.6); Potassium 3.5 mmol/L (3.5-5.1)
[2020-09-26] MEDS ORDERED: FUROSEMIDE 40 MG/4 ML VIAL IV ONE (14:45)
[2020-09-26] MEDS ORDERED: MIDAZOLAM DRIP 50 mg/50mL 50 ML IV SCH (19:15)
[2020-09-27] VITALS (94 sets, daily range): BP systolic 115–209; BP diastolic 57–110
[2020-09-27] MEDS: AZTREONAM 1GM INJ 1 GM in D5W 5% 50 ML IV SCH ×2 (03:23→11:44)
[2020-09-27] MEDS: SODIUM CHLORIDE 0.9% 1,000 ML IV SCH ×3 (05:06→15:47)
[2020-09-27 06:03] LABS: Basophils # (auto) 0 10 ^3/uL (0-0.2); Basophils % (auto) 0.5 % (0.0-2.0); Eosinophils # (auto) 0.2 10 ^3/uL (0-0.8); Eosinophils % (auto) 2.3 % (0.0-7.0); Hemoglobin 12.3 g/dL (12.2-16.2); Lymphocytes # (auto) 1.2 10 ^3/uL (0.4-5.4); Lymphocytes % (auto) 12.1 % (10.0-50.0); Mean Corpuscular Hemoglobin 32.9 pg (28.0-32.0); Mean Corpuscular Hgb Conc. 34.3 g/dL (32.0-36.0); Mean Corpuscular Volume 95.9 fL (80.0-100.0); Monocytes % (auto) 10.7 % (0.0-12.0); Neutrophils # (auto) 7.1 10 ^3/uL (1.6-8.6); Neutrophils % (auto) 74.4 % (37.0-80.0); Nucleated Red Blood Cells % 0.1 %; Platelet Count (auto) 239 10^3/uL (140-450); Red Blood Cells 3.75 10^6/uL (4.0-5.20); Red Cell Distribution Width 15.1 % (11.8-14.3); White Blood Cell 9.5 10^3/uL (4.4-10.8)
[2020-09-27 06:15] LABS: Albumin 2.9 g/dL (3.4-5.0); Calcium 7.8 mg/dL (8.5-10.1); Potassium 3.4 mmol/L (3.5-5.1)
[2020-09-27 06:18] LABS: BUN/Creatinine Ratio 21.3; Bilirubin, Total 0.3 mg/dL (0.2-1.0); Total Protein 6.2 g/dL (6.4-8.2)
[2020-09-27] MEDS ORDERED: LABETALOL HCL 5 MG/ML 4ML SYRINGE IV PRN (08:15)
[2020-09-27] MEDS: ENOXAPARIN SOD 40 MG/0.4 ML SYRINGE SC SCH (09:47)
[2020-09-27] MEDS: FAMOTIDINE (10MG/ML) 2ML VL IV SCH ×2 (09:47→22:00)
[2020-09-27] MEDS ORDERED: METOPROLOL TARTRATE 25 MG TAB PO ONE (11:00)
[2020-09-27] MEDS: LABETALOL HCL 5 MG/ML 4ML SYRINGE IV PRN (11:54)
[2020-09-27] MEDS: fentaNYL Drip 2500mCg/250mlNS 250 ML IV SCH (12:54)
[2020-09-27] MEDS: POTASSIUM CHL 20MEQ/100ML 100 ML IV SCH ×2 (15:47→17:45)
[2020-09-27] MEDS: METOPROLOL TARTRATE 25 MG TAB PO SCH ×2 (22:00→23:00)
[2020-09-28] VITALS (101 sets, daily range): BP systolic 116–173; BP diastolic 57–104
[2020-09-28 05:06] LABS: Potassium 3.8 mmol/L (3.5-5.1)
[2020-09-28 05:10] LABS: BUN/Creatinine Ratio 28.9; Calcium 8.4 mg/dL (8.5-10.1)
[2020-09-28] MEDS: ENOXAPARIN SOD 40 MG/0.4 ML SYRINGE SC SCH (11:16)
[2020-09-28] MEDS: FAMOTIDINE (10MG/ML) 2ML VL IV SCH ×2 (11:17→21:11)
[2020-09-28] MEDS ORDERED: PPN PER PHARMACY 0 ML IV SCH (11:30)
[2020-09-28] MEDS ORDERED: TPN PER PHARMACY 0 ML IV SCH (12:00)
[2020-09-28 12:03] LABS: Albumin 2.6 g/dL (3.4-5.0); Magnesium 1.9 mg/dL (1.6-2.6)
[2020-09-28 12:09] LABS: Alanine Aminotransferase 23 U/L (13-56); Alkaline Phosphatase 100 U/L (45-117); Aspartate Aminotransferase 25 U/L (15-37); Bilirubin, Direct < 0.1 mg/dL (0-0.2); Bilirubin, Total 0.3 mg/dL (0.2-1.0); Phosphorus 3.6 mg/dL (2.5-4.90); Pre Albumin 17.3 mg/dL (20.0-40.0); Total Protein 6.2 g/dL (6.4-8.2); Triglycerides 97 mg/dL (< 150)
[2020-09-28] MEDS: MIDAZOLAM DRIP 50 mg/50mL 50 ML IV SCH (13:53)
[2020-09-28] MEDS: SODIUM CHLORIDE 0.9% 1,000 ML IV SCH (15:40)
[2020-09-28] MEDS ORDERED: TPN PER PHARMACY IV NR ×8 (20:00)
[2020-09-28] MEDS: LABETALOL HCL 5 MG/ML 4ML SYRINGE IV PRN (20:21)
[2020-09-28] MEDS: ACETAMINOPHEN 650 mg PER 20.3 mL UD GT PRN (20:21)
[2020-09-28] MEDS: traZODone HCL 50 MG TAB PO SCH (21:11)
[2020-09-28] MEDS: METOPROLOL TARTRATE 25 MG TAB PO SCH (21:11)
[2020-09-28] MEDS: QUEtiapine FUMARATE 100 MG TAB PO SCH (21:12)
[2020-09-28] MEDS: fentaNYL Drip 2500mCg/250mlNS 250 ML IV SCH (22:15)
[2020-09-29] VITALS (95 sets, daily range): BP systolic 95–156; BP diastolic 54–93
[2020-09-29] MEDS ORDERED: DEXTROSE (50%) 50ML SYRG IV SCH
[2020-09-29] MEDS: ACCU-CHEK COMFORT CURVE STRIP VI SCH ×4 (00:07→17:21)
[2020-09-29] MEDS: InsuLIN REG 1unit/0.01ml Soln (100units/ml) SC SCH ×4 (00:08→17:21)
[2020-09-29] MEDS: MIDAZOLAM DRIP 50 mg/50mL 50 ML IV SCH ×2 (01:00→12:33)
[2020-09-29] MEDS: LEVOTHYROXINE SODIUM 50 MCG TAB PO SCH (06:51)
[2020-09-29 07:29] LABS: Basophils # (auto) 0.1 10 ^3/uL (0-0.2); Basophils % (auto) 1.2 % (0.0-2.0); Eosinophils # (auto) 0.3 10 ^3/uL (0-0.8); Eosinophils % (auto) 4.7 % (0.0-7.0); Hematocrit 33.6 % (36.0-46.0); Hemoglobin 11.5 g/dL (12.2-16.2); Lymphocytes # (auto) 1.7 10 ^3/uL (0.4-5.4); Lymphocytes % (auto) 23.8 % (10.0-50.0); Mean Corpuscular Hemoglobin 32.5 pg (28.0-32.0); Mean Corpuscular Hgb Conc. 34.3 g/dL (32.0-36.0); Mean Corpuscular Volume 94.7 fL (80.0-100.0); Monocytes # (auto) 0.9 10 ^3/uL (0-1.3); Monocytes % (auto) 12.6 % (0.0-12.0); Neutrophils # (auto) 4.1 10 ^3/uL (1.6-8.6); Neutrophils % (auto) 57.7 % (37.0-80.0); Nucleated Red Blood Cells % 0.1 %; Platelet Count (auto) 223 10^3/uL (140-450); Red Blood Cells 3.55 10^6/uL (4.0-5.20); White Blood Cell 7.1 10^3/uL (4.4-10.8)
[2020-09-29 07:47] LABS: Albumin 2.4 g/dL (3.4-5.0); Potassium 3.4 mmol/L (3.5-5.1)
[2020-09-29 07:50] LABS: BUN/Creatinine Ratio 28.9; Bilirubin, Total 0.3 mg/dL (0.2-1.0); Phosphorus 4.1 mg/dL (2.5-4.90)
[2020-09-29] MEDS ORDERED: POTASSIUM CHL 20MEQ/100ML 100 ML IV ONE (09:15)
[2020-09-29] MEDS: FAMOTIDINE (10MG/ML) 2ML VL IV SCH ×2 (09:19→22:00)
[2020-09-29] MEDS: ENOXAPARIN SOD 40 MG/0.4 ML SYRINGE SC SCH (09:20)
[2020-09-29] MEDS: METOPROLOL TARTRATE 25 MG TAB PO SCH ×2 (09:20→22:00)
[2020-09-29] MEDS: SODIUM CHLORIDE 0.9% 1,000 ML IV SCH (12:31)
[2020-09-29 18:32] LABS: BUN/Creatinine Ratio 33.3; Calcium 7.9 mg/dL (8.5-10.1); Potassium 4.1 mmol/L (3.5-5.1)
[2020-09-29] MEDS ORDERED: FAT EMULSION IV NR ×7 (20:00)
[2020-09-29] MEDS ORDERED: POTASSIUM CHLORIDE IV NR ×7 (20:00)
[2020-09-29] MEDS ORDERED: CALCIUM GLUC IV NR ×7 (20:00)
[2020-09-29] MEDS ORDERED: [UNRECOGNIZED DRUG - OTHER] IV NR ×7 (20:00)
[2020-09-29] MEDS: fentaNYL Drip 2500mCg/250mlNS 250 ML IV SCH (20:28)
[2020-09-29] MEDS: QUEtiapine FUMARATE 100 MG TAB PO SCH (22:00)
[2020-09-29] MEDS: traZODone HCL 50 MG TAB PO SCH (22:00)
[2020-09-30] VITALS (104 sets, daily range): BP systolic 68–168; BP diastolic 31–88
[2020-09-30] MEDS ORDERED: NOREPINEPHRINE 8 MG/250ML KIT 250 ML IV ONE (00:08)
[2020-09-30] MEDS: ACCU-CHEK COMFORT CURVE STRIP VI SCH ×4 (00:22→17:32)
[2020-09-30] MEDS: NOREPINEPHRINE 8 MG/250ML KIT 250 ML IV SCH (00:23)
[2020-09-30] MEDS: MIDAZOLAM DRIP 50 mg/50mL 50 ML IV SCH ×2 (03:30→11:50)
[2020-09-30] MEDS: SODIUM CHLORIDE 0.9% 1,000 ML IV SCH ×2 (03:58→23:30)
[2020-09-30] MEDS: InsuLIN REG 1unit/0.01ml Soln (100units/ml) SC SCH ×4 (06:00→17:32)
[2020-09-30] MEDS: LEVOTHYROXINE SODIUM 50 MCG TAB PO SCH (06:45)
[2020-09-30 08:57] LABS: Albumin 2.4 g/dL (3.4-5.0); Calcium 8.4 mg/dL (8.5-10.1); Magnesium 2.2 mg/dL (1.6-2.6); Potassium 4.2 mmol/L (3.5-5.1)
[2020-09-30 09:00] LABS: BUN/Creatinine Ratio 33.3; Bilirubin, Total 0.3 mg/dL (0.2-1.0); Phosphorus 4.1 mg/dL (2.5-4.90); Total Protein 6.2 g/dL (6.4-8.2)
[2020-09-30] MEDS: fentaNYL Drip 2500mCg/250mlNS 250 ML IV SCH (09:43)
[2020-09-30] MEDS: FAMOTIDINE (10MG/ML) 2ML VL IV SCH ×2 (09:44→21:24)
[2020-09-30] MEDS: ENOXAPARIN SOD 40 MG/0.4 ML SYRINGE SC SCH (09:44)
[2020-09-30] MEDS: METOPROLOL TARTRATE 25 MG TAB PO SCH ×2 (09:45→21:25)
[2020-09-30 09:54] LABS: Basophils # (auto) 0 10 ^3/uL (0-0.2); Basophils % (auto) 0.7 % (0.0-2.0); Eosinophils # (auto) 0.2 10 ^3/uL (0-0.8); Eosinophils % (auto) 3.1 % (0.0-7.0); Hematocrit 35.8 % (36.0-46.0); Hemoglobin 12.1 g/dL (12.2-16.2); Lymphocytes % (auto) 15.2 % (10.0-50.0); Mean Corpuscular Hemoglobin 32.5 pg (28.0-32.0); Mean Corpuscular Hgb Conc. 33.7 g/dL (32.0-36.0); Mean Corpuscular Volume 96.5 fL (80.0-100.0); Monocytes % (auto) 13.8 % (0.0-12.0); Neutrophils # (auto) 4.6 10 ^3/uL (1.6-8.6); Neutrophils % (auto) 67.2 % (37.0-80.0); Nucleated Red Blood Cells % 0.2 %; Platelet Count (auto) 215 10^3/uL (140-450); Red Blood Cells 3.71 10^6/uL (4.0-5.20); White Blood Cell 6.9 10^3/uL (4.4-10.8)
[2020-09-30] MEDS ORDERED: TPN PER PHARMACY IV NR ×6 (20:00)
[2020-09-30] MEDS: traZODone HCL 50 MG TAB PO SCH (21:25)
[2020-09-30] MEDS: QUEtiapine FUMARATE 100 MG TAB PO SCH (21:25)
[2020-10-01] VITALS (101 sets, daily range): BP systolic 76–156; BP diastolic 44–90
[2020-10-01] MEDS: NOREPINEPHRINE 8 MG/250ML KIT 250 ML IV SCH
[2020-10-01] MEDS: ACCU-CHEK COMFORT CURVE STRIP VI SCH ×4 (00:21→16:58)
[2020-10-01] MEDS: MIDAZOLAM DRIP 50 mg/50mL 50 ML IV SCH ×2 (01:38→22:32)
[2020-10-01 04:17] LABS: Basophils # (auto) 0.1 10 ^3/uL (0-0.2); Basophils % (auto) 1.1 % (0.0-2.0); Eosinophils # (auto) 0.5 10 ^3/uL (0-0.8); Eosinophils % (auto) 6.2 % (0.0-7.0); Hematocrit 35.8 % (36.0-46.0); Lymphocytes # (auto) 1.3 10 ^3/uL (0.4-5.4); Lymphocytes % (auto) 17.9 % (10.0-50.0); Mean Corpuscular Hemoglobin 32.5 pg (28.0-32.0); Mean Corpuscular Hgb Conc. 33.5 g/dL (32.0-36.0); Mean Corpuscular Volume 96.9 fL (80.0-100.0); Monocytes # (auto) 0.8 10 ^3/uL (0-1.3); Monocytes % (auto) 10.2 % (0.0-12.0); Neutrophils # (auto) 4.8 10 ^3/uL (1.6-8.6); Neutrophils % (auto) 64.6 % (37.0-80.0); Nucleated Red Blood Cells % 0.1 %; Platelet Count (auto) 205 10^3/uL (140-450); Red Blood Cells 3.69 10^6/uL (4.0-5.20); Red Cell Distribution Width 13.9 % (11.8-14.3); White Blood Cell 7.4 10^3/uL (4.4-10.8)
[2020-10-01 04:50] LABS: Calcium 8.1 mg/dL (8.5-10.1); Potassium 4.2 mmol/L (3.5-5.1)
[2020-10-01 04:56] LABS: Albumin 2.4 g/dL (3.4-5.0); BUN/Creatinine Ratio 27.9; Bilirubin, Total 0.3 mg/dL (0.2-1.0); Magnesium 2.1 mg/dL (1.6-2.6); Phosphorus 4.5 mg/dL (2.5-4.90); Total Protein 6.2 g/dL (6.4-8.2)
[2020-10-01] MEDS: InsuLIN REG 1unit/0.01ml Soln (100units/ml) SC SCH ×4 (06:00→16:58)
[2020-10-01] MEDS: LEVOTHYROXINE SODIUM 50 MCG TAB PO SCH (06:42)
[2020-10-01] MEDS: fentaNYL Drip 2500mCg/250mlNS 250 ML IV SCH (08:56)
[2020-10-01] MEDS: ENOXAPARIN SOD 40 MG/0.4 ML SYRINGE SC SCH (09:07)
[2020-10-01] MEDS: FAMOTIDINE (10MG/ML) 2ML VL IV SCH ×2 (09:07→21:43)
[2020-10-01] MEDS: METOPROLOL TARTRATE 25 MG TAB PO SCH ×2 (10:00→21:44)
[2020-10-01] MEDS ORDERED: VANCOMYCIN PER PHARMACY 0 MG IV SCH (14:30)
[2020-10-01] MEDS: VANCOMYCIN 1GM/250ML 250 ML IV SCH (16:58)
[2020-10-01] MEDS: SODIUM CHLORIDE 0.9% 1,000 ML IV SCH (19:54)
[2020-10-01] MEDS ORDERED: TPN PER PHARMACY IV NR ×8 (20:00)
[2020-10-01] MEDS: ACETAMINOPHEN 650 mg PER 20.3 mL UD GT PRN (21:43)
[2020-10-01] MEDS: traZODone HCL 50 MG TAB PO SCH (21:43)
[2020-10-01] MEDS: QUEtiapine FUMARATE 100 MG TAB PO SCH (21:44)
[2020-10-02] VITALS (100 sets, daily range): BP systolic 87–154; BP diastolic 48–86
[2020-10-02] MEDS: ACCU-CHEK COMFORT CURVE STRIP VI SCH ×5 (00:25→23:22)
[2020-10-02 05:10] LABS: Basophils # (auto) 0.1 10 ^3/uL (0-0.2); Basophils % (auto) 1.3 % (0.0-2.0); Eosinophils # (auto) 0.3 10 ^3/uL (0-0.8); Eosinophils % (auto) 4.4 % (0.0-7.0); Hematocrit 33.1 % (36.0-46.0); Hemoglobin 11.3 g/dL (12.2-16.2); Lymphocytes # (auto) 1.4 10 ^3/uL (0.4-5.4); Mean Corpuscular Hemoglobin 32.6 pg (28.0-32.0); Mean Corpuscular Hgb Conc. 34.1 g/dL (32.0-36.0); Mean Corpuscular Volume 95.5 fL (80.0-100.0); Monocytes # (auto) 0.9 10 ^3/uL (0-1.3); Monocytes % (auto) 12.3 % (0.0-12.0); Neutrophils # (auto) 4.5 10 ^3/uL (1.6-8.6); Nucleated Red Blood Cells % 0.1 %; Platelet Count (auto) 219 10^3/uL (140-450); Red Blood Cells 3.47 10^6/uL (4.0-5.20); Red Cell Distribution Width 13.6 % (11.8-14.3); White Blood Cell 7.3 10^3/uL (4.4-10.8)
[2020-10-02 05:26] LABS: Albumin 2.4 g/dL (3.4-5.0); Calcium 8.1 mg/dL (8.5-10.1); Potassium 3.7 mmol/L (3.5-5.1)
[2020-10-02] MEDS: VANCOMYCIN 1GM/250ML 250 ML IV SCH ×2 (05:26→16:22)
[2020-10-02 05:29] LABS: BUN/Creatinine Ratio 31.1; Bilirubin, Total 0.3 mg/dL (0.2-1.0); Phosphorus 4.6 mg/dL (2.5-4.90); Total Protein 6.3 g/dL (6.4-8.2)
[2020-10-02] MEDS: InsuLIN REG 1unit/0.01ml Soln (100units/ml) SC SCH ×5 (06:00→23:21)
[2020-10-02] MEDS: LEVOTHYROXINE SODIUM 50 MCG TAB PO SCH (06:14)
[2020-10-02] MEDS: FAMOTIDINE (10MG/ML) 2ML VL IV SCH ×2 (09:31→21:01)
[2020-10-02] MEDS: levoFLOXacin 750MG 150 ML IV SCH (09:31)
[2020-10-02] MEDS: METOPROLOL TARTRATE 25 MG TAB PO SCH (09:31)
[2020-10-02] MEDS: ENOXAPARIN SOD 40 MG/0.4 ML SYRINGE SC SCH (09:32)
[2020-10-02] MEDS ORDERED: levoFLOXacin 500MG 100 ML IV SCH (10:00)
[2020-10-02] MEDS ORDERED: SODIUM CHLORIDE LOCK 0 ML ONE (11:13)
[2020-10-02] MEDS ORDERED: LIDOCAINE 2%HCL (LOCAL ANESTH.) INJ 20ML MDV ONE (11:13)
[2020-10-02] MEDS ORDERED: BENZOCAINE (DENTAL) 20 % SPRAY 60ML MT ONE (11:13)
[2020-10-02] MEDS ORDERED: MIDAZOLAM HCL 5 MG/ML-1ML VIAL ONE (11:14)
[2020-10-02] MEDS ORDERED: LIDOCAINE HCL 2% TOP JELLY 5ML TOP ONE (11:14)
[2020-10-02] MEDS ORDERED: EPINEPHrine HCL 1 MG/1 ML AMP ONE (11:14)
[2020-10-02] MEDS ORDERED: GLYCOPYRROLATE 0.2 MG/ML 1ML VIAL ONE (11:14)
[2020-10-02] MEDS ORDERED: fentaNYL CITRATE 100 MCG/2 ML VL ONE (11:15)
[2020-10-02] MEDS ORDERED: MIDAZOLAM HCL 1MG/1ML-2 ML VIAL ONE (11:33)
[2020-10-02] MEDS ORDERED: MIDAZOLAM HCL 1MG/1ML-2 ML VIAL IV ONE (12:15)
[2020-10-02] MEDS: SODIUM CHLORIDE 0.9% 1,000 ML IV SCH (18:37)
[2020-10-02] MEDS: fentaNYL Drip 2500mCg/250mlNS 250 ML IV SCH (19:00)
[2020-10-02] MEDS ORDERED: TPN PER PHARMACY IV NR ×7 (20:00)
[2020-10-02] MEDS: QUEtiapine FUMARATE 100 MG TAB PO SCH (21:05)
[2020-10-02] MEDS: traZODone HCL 50 MG TAB PO SCH (21:05)
[2020-10-02] MEDS: NOREPINEPHRINE 8 MG/250ML KIT 250 ML IV SCH ×2 (22:05)
[2020-10-03] VITALS (59 sets, daily range): BP systolic 116–170; BP diastolic 61–92
[2020-10-03] MEDS: VANCOMYCIN 1GM/250ML 250 ML IV SCH (05:00)
[2020-10-03] MEDS: ACCU-CHEK COMFORT CURVE STRIP VI SCH ×3 (05:13→18:00)
[2020-10-03] MEDS: InsuLIN REG 1unit/0.01ml Soln (100units/ml) SC SCH ×3 (05:13→18:00)
[2020-10-03] MEDS: LEVOTHYROXINE SODIUM 50 MCG TAB PO SCH (05:20)
[2020-10-03 05:22] LABS: Basophils # (auto) 0.1 10 ^3/uL (0-0.2); Basophils % (auto) 0.9 % (0.0-2.0); Eosinophils # (auto) 0.2 10 ^3/uL (0-0.8); Eosinophils % (auto) 2.7 % (0.0-7.0); Hemoglobin 10.9 g/dL (12.2-16.2); Lymphocytes # (auto) 0.9 10 ^3/uL (0.4-5.4); Lymphocytes % (auto) 10.9 % (10.0-50.0); Mean Corpuscular Hemoglobin 32.3 pg (28.0-32.0); Mean Corpuscular Hgb Conc. 33.9 g/dL (32.0-36.0); Mean Corpuscular Volume 95.3 fL (80.0-100.0); Monocytes % (auto) 12.4 % (0.0-12.0); Neutrophils # (auto) 6.1 10 ^3/uL (1.6-8.6); Neutrophils % (auto) 73.1 % (37.0-80.0); Nucleated Red Blood Cells % 0.2 %; Platelet Count (auto) 226 10^3/uL (140-450); Red Blood Cells 3.36 10^6/uL (4.0-5.20); Red Cell Distribution Width 13.4 % (11.8-14.3); White Blood Cell 8.3 10^3/uL (4.4-10.8)
[2020-10-03 05:47] LABS: Albumin 2.5 g/dL (3.4-5.0); Calcium 8.4 mg/dL (8.5-10.1); Potassium 3.5 mmol/L (3.5-5.1)
[2020-10-03 05:52] LABS: BUN/Creatinine Ratio 35.4; Bilirubin, Total 0.3 mg/dL (0.2-1.0); Phosphorus 3.7 mg/dL (2.5-4.90); Total Protein 6.6 g/dL (6.4-8.2)
[2020-10-03] MEDS: levoFLOXacin 750MG 150 ML IV SCH (10:33)
[2020-10-03] MEDS: FAMOTIDINE (10MG/ML) 2ML VL IV SCH ×2 (10:33→22:10)
[2020-10-03] MEDS: ENOXAPARIN SOD 40 MG/0.4 ML SYRINGE SC SCH (10:33)
[2020-10-03] MEDS: POTASSIUM CHL 20MEQ/100ML 100 ML IV SCH ×2 (12:13→13:51)
[2020-10-03] MEDS ORDERED: VANCOMYCIN 1GM/250ML 250 ML IV SCH (15:00)
[2020-10-03] MEDS ORDERED: TPN PER PHARMACY IV NR ×9 (20:00)
[2020-10-03] MEDS: CIPROFLOXACIN 400MG/200ML 200 ML IV SCH (22:09)
[2020-10-03] MEDS: traZODone HCL 50 MG TAB PO SCH (22:12)
[2020-10-03] MEDS: QUEtiapine FUMARATE 100 MG TAB PO SCH (22:12)
[2020-10-04] MEDS: ACCU-CHEK COMFORT CURVE STRIP VI SCH ×3 (00:37→12:17)
[2020-10-04] MEDS: InsuLIN REG 1unit/0.01ml Soln (100units/ml) SC SCH ×2 (00:43→06:00)
[2020-10-04 05:00] VITALS: BP 137/71
[2020-10-04 05:48] LABS: Potassium 3.4 mmol/L (3.5-5.1)
[2020-10-04 06:00] LABS: Albumin 2.6 g/dL (3.4-5.0); BUN/Creatinine Ratio 36.5; Bilirubin, Total 0.3 mg/dL (0.2-1.0); Calcium 8.7 mg/dL (8.5-10.1); Magnesium 2.1 mg/dL (1.6-2.6); Phosphorus 3.9 mg/dL (2.5-4.90); Total Protein 6.8 g/dL (6.4-8.2)
[2020-10-04] MEDS: LEVOTHYROXINE SODIUM 50 MCG TAB PO SCH (06:45)
[2020-10-04 09:00] VITALS: BP 134/75
[2020-10-04] MEDS: FAMOTIDINE (10MG/ML) 2ML VL IV SCH ×2 (10:00→22:37)
[2020-10-04] MEDS: ENOXAPARIN SOD 40 MG/0.4 ML SYRINGE SC SCH (10:00)
[2020-10-04] MEDS: CIPROFLOXACIN 400MG/200ML 200 ML IV SCH ×2 (10:00→22:37)
[2020-10-04] MEDS ORDERED: POTASSIUM EFFERVESENT TAB 25 MEQ PO ONE (12:45)
[2020-10-04 13:00] VITALS: BP 143/87
[2020-10-04] MEDS: ACETAMINOPHEN 650 mg PER 20.3 mL UD GT PRN (16:50)
[2020-10-04] MEDS ORDERED: TPN PER PHARMACY IV NR ×8 (20:00)
[2020-10-04 22:00] VITALS: BP 135/74
[2020-10-04] MEDS: traZODone HCL 50 MG TAB PO SCH (22:37)
[2020-10-04] MEDS: QUEtiapine FUMARATE 100 MG TAB PO SCH (22:38)
[2020-10-04] MEDS: levETIRAcetam 500 MG TAB PO SCH (22:38)
[2020-10-05 05:00] VITALS: BP 129/87
[2020-10-05] MEDS: LEVOTHYROXINE SODIUM 50 MCG TAB PO SCH (06:17)
[2020-10-05 09:00] VITALS: BP 136/78
[2020-10-05] MEDS: levETIRAcetam 500 MG TAB PO SCH ×2 (09:44→22:54)
[2020-10-05] MEDS: CIPROFLOXACIN 400MG/200ML 200 ML IV SCH (09:44)
[2020-10-05] MEDS: FAMOTIDINE (10MG/ML) 2ML VL IV SCH ×2 (09:44→22:53)
[2020-10-05] MEDS: ENOXAPARIN SOD 40 MG/0.4 ML SYRINGE SC SCH (09:44)
[2020-10-05 13:00] VITALS: BP 143/84
[2020-10-05] MEDS ORDERED: CARBIDOPA W LEVODOPA 10/100mg TABLET PO SCH (14:00)
[2020-10-05 17:00] VITALS: BP 104/59
[2020-10-05 21:00] VITALS: BP 123/95
[2020-10-05] MEDS: QUEtiapine FUMARATE 100 MG TAB PO SCH (22:53)
[2020-10-05] MEDS: CIPROFLOXACIN HCL 500 MG TAB PO SCH (22:54)
[2020-10-05] MEDS: traZODone HCL 50 MG TAB PO SCH (22:54)
[2020-10-06 05:00] VITALS: BP 133/72
[2020-10-06] MEDS: LEVOTHYROXINE SODIUM 50 MCG TAB PO SCH (06:41)
[2020-10-06 09:00] VITALS: BP 130/65
[2020-10-06] MEDS: FAMOTIDINE (10MG/ML) 2ML VL IV SCH (10:00)
[2020-10-06] MEDS: CIPROFLOXACIN HCL 500 MG TAB PO SCH ×2 (11:51→23:21)
[2020-10-06] MEDS: levETIRAcetam 500 MG TAB PO SCH ×2 (11:52→23:22)
[2020-10-06] MEDS: ENOXAPARIN SOD 40 MG/0.4 ML SYRINGE SC SCH (11:52)
[2020-10-06 12:27] LABS: BUN/Creatinine Ratio 30.3; Calcium 8.9 mg/dL (8.5-10.1); Potassium 3.9 mmol/L (3.5-5.1)
[2020-10-06 13:00] VITALS: BP 136/77
[2020-10-06 17:00] VITALS: BP 131/68
[2020-10-06 22:00] VITALS: BP 137/61
[2020-10-06] MEDS: traZODone HCL 50 MG TAB PO SCH (23:22)
[2020-10-06] MEDS: QUEtiapine FUMARATE 100 MG TAB PO SCH (23:24)
[2020-10-07] MEDS: FAMOTIDINE (10MG/ML) 2ML VL IV SCH ×3 (00:16→22:06)
[2020-10-07 05:34] VITALS: BP 118/74
[2020-10-07] MEDS: LEVOTHYROXINE SODIUM 50 MCG TAB PO SCH (06:37)
[2020-10-07 06:39] LABS: Potassium 3.5 mmol/L (3.5-5.1)
[2020-10-07 09:20] VITALS: BP 119/56
[2020-10-07] MEDS: HYDROcodone-ACET 10/325MG TAB PO PRN (11:54)
[2020-10-07] MEDS: CIPROFLOXACIN HCL 500 MG TAB PO SCH ×2 (11:54→22:06)
[2020-10-07] MEDS: levETIRAcetam 500 MG TAB PO SCH ×2 (11:55→22:07)
[2020-10-07] MEDS: ENOXAPARIN SOD 40 MG/0.4 ML SYRINGE SC SCH (11:55)
[2020-10-07 13:48] VITALS: BP 122/54
[2020-10-07 16:49] VITALS: BP 123/68
[2020-10-07 22:00] VITALS: BP 127/57
[2020-10-07] MEDS: QUEtiapine FUMARATE 100 MG TAB PO SCH (22:07)
[2020-10-07] MEDS: traZODone HCL 50 MG TAB PO SCH (22:07)
[2020-10-08 05:00] VITALS: BP 121/68
[2020-10-08] MEDS: LEVOTHYROXINE SODIUM 50 MCG TAB PO SCH (06:16)
[2020-10-08 06:57] LABS: Basophils # (auto) 0.1 10 ^3/uL (0-0.2); Basophils % (auto) 1.5 % (0.0-2.0); Eosinophils # (auto) 0.3 10 ^3/uL (0-0.8); Eosinophils % (auto) 4.7 % (0.0-7.0); Hematocrit 36.7 % (36.0-46.0); Hemoglobin 12.5 g/dL (12.2-16.2); Lymphocytes # (auto) 1.9 10 ^3/uL (0.4-5.4); Lymphocytes % (auto) 27.2 % (10.0-50.0); Mean Corpuscular Hemoglobin 32.1 pg (28.0-32.0); Mean Corpuscular Hgb Conc. 33.9 g/dL (32.0-36.0); Mean Corpuscular Volume 94.7 fL (80.0-100.0); Monocytes # (auto) 0.7 10 ^3/uL (0-1.3); Monocytes % (auto) 10.9 % (0.0-12.0); Neutrophils # (auto) 3.8 10 ^3/uL (1.6-8.6); Neutrophils % (auto) 55.7 % (37.0-80.0); Nucleated Red Blood Cells % 0.2 %; Platelet Count (auto) 364 10^3/uL (140-450); Red Blood Cells 3.88 10^6/uL (4.0-5.20); Red Cell Distribution Width 13.4 % (11.8-14.3); White Blood Cell 6.8 10^3/uL (4.4-10.8)
[2020-10-08] MEDS: levETIRAcetam 500 MG TAB PO SCH (08:44)
[2020-10-08] MEDS: FAMOTIDINE (10MG/ML) 2ML VL IV SCH (08:44)
[2020-10-08] MEDS: HYDROcodone-ACET 10/325MG TAB PO PRN ×2 (08:45→14:21)
[2020-10-08] MEDS: ENOXAPARIN SOD 40 MG/0.4 ML SYRINGE SC SCH (08:45)
[2020-10-08] MEDS: CIPROFLOXACIN HCL 500 MG TAB PO SCH (08:45)
[2020-10-08 08:46] VITALS: BP 108/74
[2020-10-08] MEDS ORDERED: KEP500T PO (13:05)
[2020-10-08] MEDS ORDERED: CIP500T PO (13:05)
[2020-10-08 13:25] VITALS: BP 108/52
== END 2020-10-08 17:05 | disposition home health service (06) | DRG 870 ==
LOC: EDBD 14:24 → ER 14:24 → TELE 14:25 → ICU WEST 09-26 04:13 → TELE-WESTW 10-03 16:57
PROVIDERS: ADMIT Hospitalist; ATTEND Internal Medicine
PROC: 5A1955Z Respiratory Ventilation, Greater than 96 Consecutive Hours (ICD-10-PCS; principal; 2020-09-25)
PROC: 02H633Z Insertion of Infusion Device into Right Atrium, Percutaneous Approach (ICD-10-PCS; 2020-09-25)
PROC: 0BH17EZ Insertion of Endotracheal Airway into Trachea, Via Natural or Artificial Opening (ICD-10-PCS; 2020-09-25)
PROC: 0B9B8ZZ Drainage of Left Lower Lobe Bronchus, Via Natural or Artificial Opening Endoscopic (ICD-10-PCS; 2020-10-02)
PROC: 0B968ZZ Drainage of Right Lower Lobe Bronchus, Via Natural or Artificial Opening Endoscopic (ICD-10-PCS; 2020-10-02)
DX: A41.9 Sepsis, unspecified organism (principal); R65.21 Severe sepsis with septic shock; J96.01 Acute respiratory failure with hypoxia; J96.02 Acute respiratory failure with hypercapnia; J69.0 Pneumonitis due to inhalation of food and vomit; G92 Toxic encephalopathy; J15.6 Pneumonia due to other Gram-negative bacteria; N39.0 Urinary tract infection, site not specified; F11.20 Opioid dependence, uncomplicated; E44.0 Moderate protein-calorie malnutrition; J44.0 Chronic obstructive pulmonary disease with (acute) lower respiratory infection; Z99.11 Dependence on respirator [ventilator] status; G25.9 Extrapyramidal and movement disorder, unspecified; T40.2X1A Poisoning by other opioids, accidental (unintentional), initial encounter; T51.0X1A Toxic effect of ethanol, accidental (unintentional), initial encounter; T40.991A Poisoning by other psychodysleptics [hallucinogens], accidental (unintentional), initial encounter; E03.9 Hypothyroidism, unspecified; G43.909 Migraine, unspecified, not intractable, without status migrainosus; E78.5 Hyperlipidemia, unspecified; I12.9 Hypertensive chronic kidney disease with stage 1 through stage 4 chronic kidney disease, or unspecified chronic kidney disease; G20 Parkinson's disease; K21.9 Gastro-esophageal reflux disease without esophagitis; Z20.822 Contact with and (suspected) exposure to COVID-19; F17.200 Nicotine dependence, unspecified, uncomplicated; Z96.611 Presence of right artificial shoulder joint; Z96.612 Presence of left artificial shoulder joint; Z96.653 Presence of artificial knee joint, bilateral; F31.9 Bipolar disorder, unspecified; R56.9 Unspecified convulsions; A49.01 Methicillin susceptible Staphylococcus aureus infection, unspecified site; F41.9 Anxiety disorder, unspecified; G89.4 Chronic pain syndrome; G62.9 Polyneuropathy, unspecified; E87.6 Hypokalemia; E11.22 Type 2 diabetes mellitus with diabetic chronic kidney disease; E66.9 Obesity, unspecified; Z68.37 Body mass index [BMI] 37.0-37.9, adult; Z88.8 Allergy status to other drugs, medicaments and biological substances; Z88.0 Allergy status to penicillin; Z79.899 Other long term (current) drug therapy; Z83.3 Family history of diabetes mellitus; Z82.49 Family history of ischemic heart disease and other diseases of the circulatory system; Z86.73 Personal history of transient ischemic attack (TIA), and cerebral infarction without residual deficits; Y92.89 Other specified places as the place of occurrence of the external cause; N18.9 Chronic kidney disease, unspecified; Z87.820 Personal history of traumatic brain injury
CPT/HCPCS: 31622; 36415; 36600; 51702; 70450; 71045; 74018; 80048; 80053; 80061; 80076; 80202; 80307; 81001; 82040; 82140; 82306; 82805; 82962; 83036; 83605; 83735; 84100; 84132; 84439; 84443; 84478; 84484; 85025; 85610; 85730; 87040; 87070; 87077; 87081; 87086; 87088; 87186; 87205; 87426; 87493; 92610; 93005; 93306; 94002; 94003; 94640; 95819; 97110; 97530; G0378; J0171; J0330; J0696; J1815; J1956; J2250; J3480; J3490; J7060; J7131

== ENCOUNTER 2020-11-23 17:23 | Inpatient (IN) | payer OTHER, MEDICAID ==
[~2020-11-23] VITALS: Ht 170.2 cm; Wt 95.4 kg
[~2020-11-23 17:23] MED LIST changes: +AMIT10TA6 PO; +CARB25TA75 PO; +CIP500T PO; -GABA-339 PO; +HYDR-4798 PO; +KEP500T PO; +LEVO150T10 PO; +LISI-716 PO; +MONT10TA42 PO; -MORP15TA PO; +OMEP-260 PO; -QUET100T46 PO; +QUET50TA25 PO; -SUMA100T2 PO; -TRAZ100T3 PO; +TRAZ1TAB12 PO; +VARE1PAK12 PO; -VARE1TAB PO; -[UNRECOGNIZED DRUG - CODE]
[2020-11-23] MEDS ORDERED: ONDANSETRON HCL 4 MG/2 ML VIAL IV ONE (18:30)
[2020-11-23] MEDS ORDERED: MORPHINE SULFATE 4 MG/ML SYR/VIAL IV ONE (18:30)
[2020-11-23 19:44] LABS: Basophils # (auto) 0.1 10 ^3/uL (0-0.2); Basophils % (auto) 0.9 % (0.0-2.0); Eosinophils # (auto) 0.4 10 ^3/uL (0-0.8); Eosinophils % (auto) 3.7 % (0.0-7.0); Hematocrit 36.6 % (36.0-46.0); Hemoglobin 12.2 g/dL (12.2-16.2); Lymphocytes # (auto) 0.9 10 ^3/uL (0.4-5.4); Lymphocytes % (auto) 9.6 % (10.0-50.0); Mean Corpuscular Hemoglobin 32.2 pg (28.0-32.0); Mean Corpuscular Hgb Conc. 33.4 g/dL (32.0-36.0); Mean Corpuscular Volume 96.2 fL (80.0-100.0); Monocytes # (auto) 0.7 10 ^3/uL (0-1.3); Monocytes % (auto) 7.3 % (0.0-12.0); Neutrophils # (auto) 7.7 10 ^3/uL (1.6-8.6); Neutrophils % (auto) 78.5 % (37.0-80.0); Nucleated Red Blood Cells % 0.1 %; Platelet Count (auto) 161 10^3/uL (140-450); Red Blood Cells 3.81 10^6/uL (4.0-5.20); Red Cell Distribution Width 13.2 % (11.8-14.3); White Blood Cell 9.8 10^3/uL (4.4-10.8)
[2020-11-23 19:50] LABS: Alanine Aminotransferase 21 U/L (13-56); Albumin 3.1 g/dL (3.4-5.0); Anion Gap 8 (5-15); Blood Urea Nitrogen 12 mg/dL (7-18); Calcium 7.5 mg/dL (8.5-10.1); Carbon Dioxide 22 mmol/L (21-32); Chloride 109 mmol/L (98-107); Glucose 91 mg/dL (74-106); Magnesium 2.1 mg/dL (1.6-2.6); Potassium 4.1 mmol/L (3.5-5.1); Sodium 139 mmol/L (136-145)
[2020-11-23 19:55] LABS: Alkaline Phosphatase 115 U/L (45-117); Aspartate Aminotransferase 23 U/L (15-37); BUN/Creatinine Ratio 23.1; Bilirubin, Total 0.3 mg/dL (0.2-1.0); GFR African American 151 mL/min; GFR Non-African American 125 mL/min
[2020-11-23] MEDS ORDERED: HYDROmorphone HCL 2 MG/ML VL IV ONE (21:15)
[2020-11-23 21:44] LABS: Urine Bacteria NONE SEEN /hpf (None Seen); Urine Blood Negative /uL (Negative); Urine Specific Gravity 1.011 (1.001-1.035); Urine WBC 1 /hpf (0 - 5)
[2020-11-23 23:00] LABS: INR 1.04 (0.9-1.15); Partial Thromboplastin Time 27.6 sec (23.0-31.2)
[2020-11-24] MEDS ORDERED: DOCUSATE SOD 100 MG CAP PO PRN (01:00)
[2020-11-24] MEDS ORDERED: ACETAMINOPHEN 325 MG TAB PO PRN (01:00)
[2020-11-24] MEDS ORDERED: NITROGLYCERIN 0.4 MG SL TAB SL PRN (01:00)
[2020-11-24] MEDS ORDERED: MORPHINE SULF INJ 2 MG/ML SYRINGE 1ML IV PRN (01:00)
[2020-11-24] MEDS ORDERED: ONDANSETRON HCL 4 MG/2 ML VIAL IV PRN (01:00)
[2020-11-24] MEDS ORDERED: IOHEXOL 350 MG/ML 100ML IJ ONE (01:04)
[2020-11-24] MEDS ORDERED: BACLOFEN 10 MG TAB PO PRN (01:30)
[2020-11-24] MEDS: MORPHINE SULFATE 4 MG/ML SYR/VIAL IV PRN ×5 (02:17→22:10)
[2020-11-24 04:37] VITALS: BP 124/80
[2020-11-24 05:00] VITALS: BP 124/80
[2020-11-24] MEDS: D5W/SOD CHL 0.45% 1,000 ML IV SCH ×2 (05:37→15:23)
[2020-11-24] MEDS: HYDROcodone-ACET 5/325MG TAB PO PRN ×3 (05:38→23:29)
[2020-11-24 08:32] VITALS: BP 173/83
[2020-11-24] MEDS: LABETALOL HCL 5 MG/ML 4ML SYRINGE IV PRN (08:50)
[2020-11-24 09:22] LABS: Basophils # (auto) 0 10 ^3/uL (0-0.2); Basophils % (auto) 0.2 % (0.0-2.0); Eosinophils # (auto) 0 10 ^3/uL (0-0.8); Eosinophils % (auto) 0.1 % (0.0-7.0); Hematocrit 38.6 % (36.0-46.0); Lymphocytes # (auto) 0.5 10 ^3/uL (0.4-5.4); Lymphocytes % (auto) 5.7 % (10.0-50.0); Mean Corpuscular Hemoglobin 32.1 pg (28.0-32.0); Mean Corpuscular Hgb Conc. 33.7 g/dL (32.0-36.0); Mean Corpuscular Volume 95.2 fL (80.0-100.0); Monocytes # (auto) 0.6 10 ^3/uL (0-1.3); Monocytes % (auto) 6.5 % (0.0-12.0); Neutrophils # (auto) 8.5 10 ^3/uL (1.6-8.6); Neutrophils % (auto) 87.5 % (37.0-80.0); Nucleated Red Blood Cells % 0.1 %; Platelet Count (auto) 164 10^3/uL (140-450); Red Blood Cells 4.05 10^6/uL (4.0-5.20); Red Cell Distribution Width 13.1 % (11.8-14.3); White Blood Cell 9.7 10^3/uL (4.4-10.8)
[2020-11-24 09:37] LABS: INR 0.98 (0.9-1.15); Partial Thromboplastin Time 26.7 sec (23.0-31.2)
[2020-11-24 09:49] LABS: Potassium 3.8 mmol/L (3.5-5.1)
[2020-11-24 09:53] LABS: Albumin 3.3 g/dL (3.4-5.0); BUN/Creatinine Ratio 25.6; Calcium 8.2 mg/dL (8.5-10.1)
[2020-11-24 09:56] LABS: Bilirubin, Total 0.4 mg/dL (0.2-1.0); Total Protein 6.5 g/dL (6.4-8.2)
[2020-11-24] MEDS ORDERED: ENOXAPARIN SOD 100 MG/1 ML SYRINGE SC SCH (10:00)
[2020-11-24] MEDS: FAMOTIDINE (10MG/ML) 2ML VL IV SCH ×2 (10:46→21:38)
[2020-11-24] MEDS: ZINC SULFATE 220mg CAP or TAB PO SCH (10:47)
[2020-11-24] MEDS: MULTIPLE VITAMIN TAB PO SCH (10:47)
[2020-11-24] MEDS: ASCORBIC ACID 500 MG TAB PO SCH ×2 (10:47→21:37)
[2020-11-24 13:00] VITALS: BP 143/74
[2020-11-24] MEDS ORDERED: LEVOTHYROXINE SODIUM 100 MCG TAB PO ONE (14:00)
[2020-11-24] MEDS: CARBIDOPA W LEVODOPA 10/100mg TABLET PO SCH ×2 (14:01→21:38)
[2020-11-24] MEDS: GABAPENTIN 300 MG CAP PO SCH ×2 (14:01→21:37)
[2020-11-24] MEDS: SUMAtriptan SUCCINATE 25 MG TAB PO PRN ×2 (14:02→20:22)
[2020-11-24 17:00] VITALS: BP 150/74
[2020-11-24 23:56] LABS: Alcohol, Urine < 3.0 mg/dL (0-10); Amphetamine Screen, Urine NEGATIVE (NEGATIVE); Barbiturate Scree,Urine NEGATIVE (NEGATIVE); Benzodiazephine Screen, Urine NEGATIVE (NEGATIVE); Cannabinoid Screen, Urine NEGATIVE (NEGATIVE); Cocaine Screen, Urine NEGATIVE (NEGATIVE); Opiate Scree,Urine POSITIVE (NEGATIVE); Phencyclidine Screen, Urine NEGATIVE (NEGATIVE)
[2020-11-25] VITALS (17 sets, daily range): BP systolic 137–183; BP diastolic 77–110
[2020-11-25] MEDS: MORPHINE SULFATE 4 MG/ML SYR/VIAL IV PRN ×4 (02:12→18:26)
[2020-11-25] MEDS: D5W/SOD CHL 0.45% 1,000 ML IV SCH (03:40)
[2020-11-25] MEDS: LEVOTHYROXINE SODIUM 100 MCG TAB PO SCH (05:50)
[2020-11-25] MEDS: CARBIDOPA W LEVODOPA 10/100mg TABLET PO SCH ×3 (05:50→21:16)
[2020-11-25] MEDS: GABAPENTIN 300 MG CAP PO SCH ×3 (05:50→21:15)
[2020-11-25] MEDS ORDERED: CLINDAMYCIN 900MG IV 50 ML IV ONE ×2 (07:32→10:00)
[2020-11-25] MEDS ORDERED: BUPIVACAINE 0.5% P/F INJ 10 ML VIAL ONE (07:57)
[2020-11-25] MEDS ORDERED: SUCCINYLCHOLINE CHLORIDE 20 MG/ML 10ML VIAL IV ONE (07:57)
[2020-11-25] MEDS ORDERED: KETAMINE HCL 10 ML ONE (07:58)
[2020-11-25] MEDS ORDERED: MORPHINE SULF(PF) 0.5MG/ML 10ML VIAL ONE (07:58)
[2020-11-25] MEDS ORDERED: MIDAZOLAM HCL 1MG/1ML-2 ML VIAL ONE ×2 (07:58→08:18)
[2020-11-25] MEDS ORDERED: fentaNYL CITRATE 100 MCG/2 ML VL ONE (07:58)
[2020-11-25] MEDS ORDERED: PHENYLEPHRINE HCL 10 MG/ML VL ONE (07:59)
[2020-11-25] MEDS ORDERED: GLYCOPYRROLATE 0.2 MG/ML 1ML VIAL ONE (07:59)
[2020-11-25] MEDS ORDERED: ONDANSETRON HCL 4 MG/2 ML VIAL ONE (07:59)
[2020-11-25 08:14] LABS: Basophils # (auto) 0.1 10 ^3/uL (0-0.2); Basophils % (auto) 0.9 % (0.0-2.0); Eosinophils # (auto) 0.1 10 ^3/uL (0-0.8); Eosinophils % (auto) 1.7 % (0.0-7.0); Hematocrit 37.2 % (36.0-46.0); Hemoglobin 12.7 g/dL (12.2-16.2); Lymphocytes # (auto) 0.9 10 ^3/uL (0.4-5.4); Lymphocytes % (auto) 10.6 % (10.0-50.0); Mean Corpuscular Hemoglobin 32.7 pg (28.0-32.0); Mean Corpuscular Hgb Conc. 34.1 g/dL (32.0-36.0); Mean Corpuscular Volume 95.7 fL (80.0-100.0); Monocytes # (auto) 0.8 10 ^3/uL (0-1.3); Monocytes % (auto) 10.3 % (0.0-12.0); Neutrophils # (auto) 6.3 10 ^3/uL (1.6-8.6); Neutrophils % (auto) 76.5 % (37.0-80.0); Nucleated Red Blood Cells % 0.1 %; Platelet Count (auto) 154 10^3/uL (140-450); Red Blood Cells 3.89 10^6/uL (4.0-5.20); Red Cell Distribution Width 12.9 % (11.8-14.3); White Blood Cell 8.2 10^3/uL (4.4-10.8)
[2020-11-25 08:25] LABS: Alanine Aminotransferase 11 U/L (13-56); Albumin 3.1 g/dL (3.4-5.0); Anion Gap 8 (5-15); Aspartate Aminotransferase 17 U/L (15-37); Blood Urea Nitrogen 8 mg/dL (7-18); Calcium 8.1 mg/dL (8.5-10.1); Carbon Dioxide 25 mmol/L (21-32); Chloride 105 mmol/L (98-107); GFR African American 205 mL/min; GFR Non-African American 169 mL/min; Glucose 112 mg/dL (74-106); Potassium 3.7 mmol/L (3.5-5.1); Sodium 138 mmol/L (136-145)
[2020-11-25 08:28] LABS: Alkaline Phosphatase 102 U/L (45-117); Bilirubin, Total 0.4 mg/dL (0.2-1.0); Total Protein 6.4 g/dL (6.4-8.2)
[2020-11-25] MEDS ORDERED: ROPIVACAINE 0.5% (5MG/ML) 20ML AMPULE IJ ONE (08:50)
[2020-11-25] MEDS ORDERED: ONDANSETRON HCL 4 MG/2 ML VIAL IV PRN ×2 (09:45)
[2020-11-25] MEDS ORDERED: DexAMETHasone SOD PHOS 10MG/1ML VIAL INJ IV PRN (09:45)
[2020-11-25] MEDS ORDERED: HYDROmorphone HCL 2 MG/ML VL IV PRN (09:45)
[2020-11-25] MEDS ORDERED: NALBUPHINE HCL 10 MG/1ml INJECTION SUBCUT ONE (09:45)
[2020-11-25] MEDS: ZINC SULFATE 220mg CAP or TAB PO SCH (10:44)
[2020-11-25] MEDS: FAMOTIDINE (10MG/ML) 2ML VL IV SCH ×2 (10:44→21:15)
[2020-11-25] MEDS: MULTIPLE VITAMIN TAB PO SCH (10:44)
[2020-11-25] MEDS: ASCORBIC ACID 500 MG TAB PO SCH ×2 (10:44→21:16)
[2020-11-25] MEDS: SODIUM CHLORIDE 0.9% 1,000 ML IV SCH ×2 (10:44→17:06)
[2020-11-25] MEDS: LABETALOL HCL 5 MG/ML 4ML SYRINGE IV PRN (10:46)
[2020-11-25] MEDS: HYDROcodone-ACET 10/325MG TAB PO PRN ×3 (11:27→21:17)
[2020-11-25] MEDS ORDERED: cloNIDine HCL 0.1 MG TAB PO PRN (12:00)
[2020-11-25] MEDS ORDERED: LISINOPRIL 10 MG TAB PO ONE (12:00)
[2020-11-25] MEDS ORDERED: CLINDAMYCIN 600 MG/4 ML VL IM SCH (14:00)
[2020-11-25] MEDS ORDERED: CLINDAMYCIN 600MG IV 50 ML IV SCH (14:00)
[2020-11-25] MEDS: CLINDAMYCIN 600MG IV 50 ML IV SCH ×2 (14:09→21:39)
[2020-11-25] MEDS: SODIUM CHLOR 0.9% PF (SALINE LOCK) 10ML VIAL/SYR IV SCH ×2 (14:10→21:16)
[2020-11-25] MEDS: SUMAtriptan SUCCINATE 25 MG TAB PO PRN (17:05)
[2020-11-25] MEDS: HYDROmorphone HCL 2 MG/ML VL IV PRN (22:42)
[2020-11-26] VITALS (13 sets, daily range): BP systolic 120–164; BP diastolic 66–100
[2020-11-26] MEDS: SODIUM CHLORIDE 0.9% 1,000 ML IV SCH ×4 (01:30→22:01)
[2020-11-26] MEDS: LABETALOL HCL 5 MG/ML 4ML SYRINGE IV PRN (02:27)
[2020-11-26] MEDS: HYDROcodone-ACET 10/325MG TAB PO PRN ×4 (02:35→18:51)
[2020-11-26] MEDS: GABAPENTIN 300 MG CAP PO SCH ×3 (05:39→21:44)
[2020-11-26] MEDS: CARBIDOPA W LEVODOPA 10/100mg TABLET PO SCH ×3 (05:39→21:44)
[2020-11-26] MEDS: SODIUM CHLOR 0.9% PF (SALINE LOCK) 10ML VIAL/SYR IV SCH ×3 (05:39→21:37)
[2020-11-26] MEDS: LEVOTHYROXINE SODIUM 100 MCG TAB PO SCH (06:38)
[2020-11-26] MEDS: HYDROmorphone HCL 2 MG/ML VL IV PRN ×3 (09:26→20:57)
[2020-11-26] MEDS: FAMOTIDINE (10MG/ML) 2ML VL IV SCH (10:00)
[2020-11-26] MEDS ORDERED: PANTOPRAZOLE 40 MG TAB PO ONE (10:30)
[2020-11-26] MEDS ORDERED: levETIRAcetam 500 MG TAB PO ONE ×2 (10:30→10:45)
[2020-11-26] MEDS ORDERED: VENLAFAXINE HCL 37.5mg XR cap PO ONE (10:45)
[2020-11-26] MEDS: ZINC SULFATE 220mg CAP or TAB PO SCH (11:01)
[2020-11-26] MEDS: MULTIPLE VITAMIN TAB PO SCH (11:02)
[2020-11-26] MEDS: ASCORBIC ACID 500 MG TAB PO SCH ×2 (11:02→21:44)
[2020-11-26] MEDS: LISINOPRIL 10 MG TAB PO SCH (11:03)
[2020-11-26] MEDS: ENOXAPARIN SOD 40 MG/0.4 ML SYRINGE SC SCH (11:04)
[2020-11-26] MEDS: SUMAtriptan SUCCINATE 25 MG TAB PO PRN (15:51)
[2020-11-26] MEDS: MONTELUKAST SODIUM 10 MG TAB PO SCH (21:45)
[2020-11-26] MEDS: QUEtiapine FUMARATE 100 MG TAB PO SCH (21:47)
[2020-11-26] MEDS: traZODone HCL 50 MG TAB PO SCH (21:47)
[2020-11-26] MEDS: levETIRAcetam 500 MG TAB PO SCH (21:48)
[2020-11-26] MEDS: VENLAFAXINE HCL 37.5mg XR cap PO SCH (21:55)
[2020-11-26] MEDS: TEMAZEPAM 15 MG CAP PO PRN (23:13)
[2020-11-27] MEDS: HYDROcodone-ACET 10/325MG TAB PO PRN ×4 (00:23→21:45)
[2020-11-27 04:58] VITALS: BP 147/71
[2020-11-27] MEDS: SODIUM CHLOR 0.9% PF (SALINE LOCK) 10ML VIAL/SYR IV SCH ×3 (06:01→21:35)
[2020-11-27] MEDS: CARBIDOPA W LEVODOPA 10/100mg TABLET PO SCH ×3 (06:10→21:44)
[2020-11-27] MEDS: GABAPENTIN 300 MG CAP PO SCH ×3 (06:11→21:44)
[2020-11-27] MEDS: SODIUM CHLORIDE 0.9% 1,000 ML IV SCH (06:13)
[2020-11-27] MEDS: LEVOTHYROXINE SODIUM 100 MCG TAB PO SCH (06:50)
[2020-11-27 07:16] LABS: Basophils # (auto) 0.1 10 ^3/uL (0-0.2); Basophils % (auto) 0.8 % (0.0-2.0); Eosinophils # (auto) 0.2 10 ^3/uL (0-0.8); Eosinophils % (auto) 3.5 % (0.0-7.0); Hematocrit 31.4 % (36.0-46.0); Hemoglobin 10.7 g/dL (12.2-16.2); Lymphocytes # (auto) 1.2 10 ^3/uL (0.4-5.4); Mean Corpuscular Hemoglobin 32.4 pg (28.0-32.0); Mean Corpuscular Hgb Conc. 33.9 g/dL (32.0-36.0); Mean Corpuscular Volume 95.7 fL (80.0-100.0); Monocytes % (auto) 14.4 % (0.0-12.0); Neutrophils # (auto) 4.6 10 ^3/uL (1.6-8.6); Neutrophils % (auto) 64.3 % (37.0-80.0); Nucleated Red Blood Cells % 0.1 %; Platelet Count (auto) 142 10^3/uL (140-450); Red Blood Cells 3.28 10^6/uL (4.0-5.20); Red Cell Distribution Width 12.9 % (11.8-14.3); White Blood Cell 7.1 10^3/uL (4.4-10.8)
[2020-11-27 07:31] LABS: Calcium 7.9 mg/dL (8.5-10.1); Potassium 3.5 mmol/L (3.5-5.1)
[2020-11-27 07:33] LABS: BUN/Creatinine Ratio 23.1
[2020-11-27 08:47] VITALS: BP 130/77
[2020-11-27] MEDS: HYDROmorphone HCL 2 MG/ML VL IV PRN ×3 (09:55→19:47)
[2020-11-27] MEDS: ASCORBIC ACID 500 MG TAB PO SCH ×2 (09:59→21:44)
[2020-11-27] MEDS: MULTIPLE VITAMIN TAB PO SCH (10:00)
[2020-11-27] MEDS: VENLAFAXINE HCL 37.5mg XR cap PO SCH ×2 (10:01→21:43)
[2020-11-27] MEDS: LISINOPRIL 10 MG TAB PO SCH (10:02)
[2020-11-27] MEDS: levETIRAcetam 500 MG TAB PO SCH ×2 (10:02→21:44)
[2020-11-27] MEDS: ENOXAPARIN SOD 40 MG/0.4 ML SYRINGE SC SCH (10:03)
[2020-11-27] MEDS: ZINC SULFATE 220mg CAP or TAB PO SCH (10:03)
[2020-11-27] MEDS: PANTOPRAZOLE 40 MG TAB PO SCH (10:10)
[2020-11-27] MEDS: SUMAtriptan SUCCINATE 25 MG TAB PO PRN (11:41)
[2020-11-27 12:40] VITALS: BP 148/69
[2020-11-27 17:00] VITALS: BP 145/78
[2020-11-27] MEDS: LATUDA 80 MG TAB PO SCH (17:53)
[2020-11-27] MEDS: QUEtiapine FUMARATE 100 MG TAB PO SCH (21:35)
[2020-11-27] MEDS: traZODone HCL 50 MG TAB PO SCH (21:43)
[2020-11-27] MEDS: MONTELUKAST SODIUM 10 MG TAB PO SCH (21:44)
[2020-11-27 22:00] VITALS: BP 140/74
[2020-11-27] MEDS: TEMAZEPAM 15 MG CAP PO PRN (22:51)
[2020-11-28 05:00] VITALS: BP 145/69
[2020-11-28] MEDS: LEVOTHYROXINE SODIUM 100 MCG TAB PO SCH (06:28)
[2020-11-28] MEDS: GABAPENTIN 300 MG CAP PO SCH ×3 (06:28→21:27)
[2020-11-28] MEDS: CARBIDOPA W LEVODOPA 10/100mg TABLET PO SCH ×3 (06:28→21:43)
[2020-11-28] MEDS: SODIUM CHLOR 0.9% PF (SALINE LOCK) 10ML VIAL/SYR IV SCH ×3 (06:28→20:32)
[2020-11-28] MEDS: HYDROcodone-ACET 10/325MG TAB PO PRN ×4 (06:29→22:30)
[2020-11-28 09:26] VITALS: BP 130/72
[2020-11-28] MEDS: VENLAFAXINE HCL 37.5mg XR cap PO SCH ×2 (10:00→21:27)
[2020-11-28] MEDS: ASCORBIC ACID 500 MG TAB PO SCH ×2 (10:00→21:28)
[2020-11-28] MEDS: ENOXAPARIN SOD 40 MG/0.4 ML SYRINGE SC SCH (10:00)
[2020-11-28] MEDS: LISINOPRIL 10 MG TAB PO SCH (10:00)
[2020-11-28] MEDS: ZINC SULFATE 220mg CAP or TAB PO SCH (10:00)
[2020-11-28] MEDS: PANTOPRAZOLE 40 MG TAB PO SCH (10:00)
[2020-11-28] MEDS: levETIRAcetam 500 MG TAB PO SCH ×2 (10:00→21:27)
[2020-11-28] MEDS: MULTIPLE VITAMIN TAB PO SCH (10:00)
[2020-11-28] MEDS: HYDROmorphone HCL 2 MG/ML VL IV PRN ×3 (10:30→20:33)
[2020-11-28] MEDS: SUMAtriptan SUCCINATE 25 MG TAB PO PRN ×2 (10:41→16:39)
[2020-11-28 13:00] VITALS: BP 139/83
[2020-11-28 17:07] VITALS: BP 134/84
[2020-11-28] MEDS ORDERED: LATUDA 20 MG TAB PO SCH (18:00)
[2020-11-28] MEDS: LATUDA 80 MG TAB PO SCH (18:00)
[2020-11-28] MEDS: traZODone HCL 50 MG TAB PO SCH (21:27)
[2020-11-28] MEDS: QUEtiapine FUMARATE 100 MG TAB PO SCH (21:27)
[2020-11-28] MEDS: MONTELUKAST SODIUM 10 MG TAB PO SCH (21:27)
[2020-11-28 22:00] VITALS: BP 113/58
[2020-11-28] MEDS: TEMAZEPAM 15 MG CAP PO PRN (23:43)
[2020-11-29] MEDS: HYDROmorphone HCL 2 MG/ML VL IV PRN ×3 (01:13→18:44)
[2020-11-29 05:00] VITALS: BP 99/48
[2020-11-29] MEDS: HYDROcodone-ACET 10/325MG TAB PO PRN ×2 (05:23→11:00)
[2020-11-29] MEDS: CARBIDOPA W LEVODOPA 10/100mg TABLET PO SCH ×3 (06:24→22:05)
[2020-11-29] MEDS: LEVOTHYROXINE SODIUM 100 MCG TAB PO SCH (06:24)
[2020-11-29] MEDS: SODIUM CHLOR 0.9% PF (SALINE LOCK) 10ML VIAL/SYR IV SCH ×3 (06:24→22:08)
[2020-11-29] MEDS: GABAPENTIN 300 MG CAP PO SCH ×3 (06:24→22:06)
[2020-11-29 08:50] VITALS: BP 134/69
[2020-11-29 08:51] LABS: Hematocrit 32.5 % (36.0-46.0); Hemoglobin 10.8 g/dL (12.2-16.2)
[2020-11-29] MEDS: ZINC SULFATE 220mg CAP or TAB PO SCH (09:36)
[2020-11-29] MEDS: VENLAFAXINE HCL 37.5mg XR cap PO SCH (09:37)
[2020-11-29] MEDS: MULTIPLE VITAMIN TAB PO SCH (09:37)
[2020-11-29] MEDS: levETIRAcetam 500 MG TAB PO SCH ×2 (09:37→22:07)
[2020-11-29] MEDS: PANTOPRAZOLE 40 MG TAB PO SCH (09:38)
[2020-11-29] MEDS: ASCORBIC ACID 500 MG TAB PO SCH ×2 (09:38→22:06)
[2020-11-29] MEDS: LISINOPRIL 10 MG TAB PO SCH (09:39)
[2020-11-29] MEDS: ENOXAPARIN SOD 40 MG/0.4 ML SYRINGE SC SCH (09:39)
[2020-11-29] MEDS ORDERED: oxyCODONE ER 10 MG TAB PO ONE ×2 (11:45→12:15)
[2020-11-29] MEDS ORDERED: VENLAFAXINE HCL 37.5mg XR cap PO ONE (11:45)
[2020-11-29 13:00] VITALS: BP 123/72
[2020-11-29] MEDS: SUMAtriptan SUCCINATE 25 MG TAB PO PRN (13:00)
[2020-11-29 16:36] VITALS: BP 143/87
[2020-11-29] MEDS: LATUDA 80 MG TAB PO SCH (17:52)
[2020-11-29] MEDS ORDERED: LATUDA 80 MG TAB PO SCH (18:00)
[2020-11-29] MEDS: traZODone HCL 50 MG TAB PO SCH (21:50)
[2020-11-29] MEDS ORDERED: oxyCODONE ER 10 MG TAB PO SCH (22:00)
[2020-11-29] MEDS: QUEtiapine FUMARATE 100 MG TAB PO SCH (22:00)
[2020-11-29] MEDS ORDERED: ALBUTEROL SULF HFA 90MCG INH 200DOSE IN SCH (22:00)
[2020-11-29] MEDS ORDERED: traZODone HCL 50 MG TAB ONE (22:03)
[2020-11-29] MEDS: MONTELUKAST SODIUM 10 MG TAB PO SCH (22:06)
[2020-11-29 22:11] VITALS: BP 137/99
[2020-11-30] MEDS ORDERED: VENLAFAXINE HCL 37.5mg XR cap PO SCH (07:00)
== END 2020-11-29 22:55 | DRG 480 ==
LOC: EDBD 17:23 → ER 17:23 → TELE 11-24 00:55 → TELE-WESTW 11-24 04:14 → WEST WING 11-27 19:30
PROVIDERS: ADMIT Nurse Practitioner Family; ATTEND Internal Medicine
PROC: 0QS734Z Reposition Left Upper Femur with Internal Fixation Device, Percutaneous Approach (ICD-10-PCS; principal; 2020-11-25 08:08)
DX: S72.22XA Displaced subtrochanteric fracture of left femur, initial encounter for closed fracture (principal); J96.01 Acute respiratory failure with hypoxia; E87.1 Hypo-osmolality and hyponatremia; N17.9 Acute kidney failure, unspecified; Y93.89 Activity, other specified; F41.9 Anxiety disorder, unspecified; G25.81 Restless legs syndrome; G43.909 Migraine, unspecified, not intractable, without status migrainosus; N18.9 Chronic kidney disease, unspecified; J45.909 Unspecified asthma, uncomplicated; W01.0XXA Fall on same level from slipping, tripping and stumbling without subsequent striking against object, initial encounter; E03.9 Hypothyroidism, unspecified; G40.909 Epilepsy, unspecified, not intractable, without status epilepticus; K21.9 Gastro-esophageal reflux disease without esophagitis; Z20.822 Contact with and (suspected) exposure to COVID-19; F32.9 Major depressive disorder, single episode, unspecified; G62.9 Polyneuropathy, unspecified; G89.4 Chronic pain syndrome; I12.9 Hypertensive chronic kidney disease with stage 1 through stage 4 chronic kidney disease, or unspecified chronic kidney disease; Y92.89 Other specified places as the place of occurrence of the external cause; Z82.0 Family history of epilepsy and other diseases of the nervous system; Z82.49 Family history of ischemic heart disease and other diseases of the circulatory system; Z83.3 Family history of diabetes mellitus; Z87.891 Personal history of nicotine dependence; Z88.0 Allergy status to penicillin; Z90.49 Acquired absence of other specified parts of digestive tract
CPT/HCPCS: 36415; 51702; 71045; 71275; 72192; 73502; 80048; 80053; 80307; 81001; 83735; 83880; 84443; 84484; 85014; 85018; 85025; 85379; 85610; 85730; 86850; 86900; 86901; 87426; 93005; 93970; 96374; 96375; 97110; 97116; 97163; 97530; C1713; G0378; J0330; J2250; J2405; J3490; J7060

== ENCOUNTER 2020-12-30 09:05 | Inpatient (IN) | payer OTHER, MEDICAID ==
[~2020-12-30] VITALS: Ht 175.3 cm; Wt 89.8 kg
[2020-12-30] VITALS (8 sets, daily range): BP systolic 136–192; BP diastolic 68–98
[~2020-12-30 09:05] MED LIST changes: -CIP500T PO
[2020-12-30] MEDS ORDERED: NALOXONE HCL 0.4 MG/ML VIAL IV ONE (09:21)
[2020-12-30] MEDS ORDERED: NALOXONE HCL 1MG/ML 2ML SYRINGE IV ONE (10:00)
[2020-12-30] MEDS ORDERED: SODIUM CHLORIDE 0.9% 1,000 ML IV ONE (10:15)
[2020-12-30 10:29] LABS: Basophils # (auto) 0.1 10 ^3/uL (0-0.2); Basophils % (auto) 1.2 % (0.0-2.0); Eosinophils # (auto) 0.1 10 ^3/uL (0-0.8); Eosinophils % (auto) 1.9 % (0.0-7.0); Hematocrit 38.6 % (36.0-46.0); Hemoglobin 13.1 g/dL (12.2-16.2); Lymphocytes # (auto) 1.2 10 ^3/uL (0.4-5.4); Lymphocytes % (auto) 15.9 % (10.0-50.0); Mean Corpuscular Hemoglobin 32.1 pg (28.0-32.0); Mean Corpuscular Hgb Conc. 33.8 g/dL (32.0-36.0); Monocytes # (auto) 0.6 10 ^3/uL (0-1.3); Monocytes % (auto) 8.7 % (0.0-12.0); Neutrophils # (auto) 5.3 10 ^3/uL (1.6-8.6); Neutrophils % (auto) 72.3 % (37.0-80.0); Nucleated Red Blood Cells % 0.1 %; Platelet Count (auto) 235 10^3/uL (140-450); Red Blood Cells 4.07 10^6/uL (4.0-5.20); Red Cell Distribution Width 13.6 % (11.8-14.3); White Blood Cell 7.3 10^3/uL (4.4-10.8)
[2020-12-30 10:44] LABS: Albumin 3.2 g/dL (3.4-5.0); Anion Gap 9 (5-15); Blood Urea Nitrogen 9 mg/dL (7-18); Calcium 7.2 mg/dL (8.5-10.1); Carbon Dioxide 21 mmol/L (21-32); Chloride 115 mmol/L (98-107); Glucose 93 mg/dL (74-106); Sodium 145 mmol/L (136-145)
[2020-12-30 10:47] LABS: Urine Bacteria NONE SEEN /hpf (None Seen); Urine Blood Negative /uL (Negative); Urine Hyaline Cast MANY /lpf (0 - 2); Urine Mucus FEW (None Seen); Urine Specific Gravity 1.043 (1.001-1.035); Urine WBC 17 /hpf (0 - 5)
[2020-12-30 10:48] LABS: Acetaminophen 16.3 ug/mL (10-30); INR 1.14 (0.9-1.15); Partial Thromboplastin Time 26.5 sec (23.0-31.2); Salicylate 2.1 mg/dL (2.8-20.0)
[2020-12-30 10:48] LABS: Alcohol, Urine < 3.0 mg/dL (0-10); Barbiturate Scree,Urine NEGATIVE (NEGATIVE); Benzodiazephine Screen, Urine NEGATIVE (NEGATIVE); Cocaine Screen, Urine NEGATIVE (NEGATIVE); Phencyclidine Screen, Urine NEGATIVE (NEGATIVE)
[2020-12-30 10:51] LABS: Alanine Aminotransferase 14 U/L (13-56); Alkaline Phosphatase 138 U/L (45-117); Aspartate Aminotransferase 17 U/L (15-37); BUN/Creatinine Ratio 24.3; Bilirubin, Total 0.3 mg/dL (0.2-1.0); GFR African American 224 mL/min; GFR Non-African American 185 mL/min; Total Protein 6.3 g/dL (6.4-8.2)
[2020-12-30 10:56] LABS: Amphetamine Screen, Urine NEGATIVE (NEGATIVE); Cannabinoid Screen, Urine NEGATIVE (NEGATIVE); Opiate Scree,Urine POSITIVE (NEGATIVE)
[2020-12-30 10:56] LABS: Potassium 2.7 mmol/L (3.5-5.1)
[2020-12-30] MEDS ORDERED: POTASSIUM CHL 20MEQ/100ML 100 ML IV ONE ×3 (11:00→13:30)
[2020-12-30] MEDS ORDERED: ACETAMINOPHEN 500 MG TAB PO PRN (12:45)
[2020-12-30] MEDS ORDERED: NITROGLYCERIN 0.4 MG SL TAB SL PRN (12:45)
[2020-12-30] MEDS ORDERED: NALOXONE HCL 2 MG in SODIUM CHLORIDE 0.9% 1,000 ML IV ONE ×2 (12:45→13:15)
[2020-12-30] MEDS ORDERED: MORPHINE SULF INJ 2 MG/ML SYRINGE 1ML IV PRN (12:45)
[2020-12-30] MEDS: ENOXAPARIN SOD 40 MG/0.4 ML SYRINGE SC SCH (13:15)
[2020-12-30] MEDS: PANTOPRAZOLE 40 MG/10 ML VIAL INJ IV SCH (13:15)
[2020-12-30] MEDS: cefTRIAXone 1GM/50ML D5W 50 ML IV SCH (13:16)
[2020-12-30] MEDS ORDERED: POTASSIUM CHLORIDE 20 MEQ, LIDOCAINE 1% (LOCAL ANESTH.) 2 ML in SODIUM CHL 0.9% 100 ML IV ONE (13:30)
[2020-12-30] MEDS ORDERED: ACETYLCYSTEINE 10 %(100MG/ML) SOL 4ML NEB ONE (16:30)
[2020-12-30] MEDS: ALBUTEROL SULF 2.5 MG/0.5ML(0.5%) NEB SOLN NEB SCH ×2 (18:00→18:34)
[2020-12-30] MEDS: IPRATROPIUM BROM 0.5 MG/2.5ML INH SOL NEB SCH ×2 (18:00→18:34)
[2020-12-30] MEDS: ACETYLCYSTEINE 10 %(100MG/ML) SOL 4ML NEB SCH (18:34)
[2020-12-30] MEDS: ONDANSETRON HCL 4 MG/2 ML VIAL IV PRN (20:30)
[2020-12-30] MEDS ORDERED: hydrALAZINE HCL 20 MG/ML VL IV ONE (23:00)
[2020-12-31] VITALS (34 sets, daily range): BP systolic 151–191; BP diastolic 63–99
[2020-12-31] MEDS ORDERED: dilTIAZem 25 MG/5 ML VIAL IV ONE (01:15)
[2020-12-31] MEDS ORDERED: ACETAMINOPHEN 650 MG RECT SUPP PR ONE (05:12)
[2020-12-31] MEDS ORDERED: ENALAPRILAT 1.25 MG/ML-1ML VIAL IV ONE ×2 (05:12→05:15)
[2020-12-31] MEDS ORDERED: ACETAMINOPHEN 650 MG RECT SUPP PR PRN (05:15)
[2020-12-31] MEDS: ALBUTEROL SULF 2.5 MG/0.5ML(0.5%) NEB SOLN NEB SCH ×3 (08:19→19:18)
[2020-12-31] MEDS: IPRATROPIUM BROM 0.5 MG/2.5ML INH SOL NEB SCH ×3 (08:19→19:18)
[2020-12-31] MEDS: ACETYLCYSTEINE 10 %(100MG/ML) SOL 4ML NEB SCH ×3 (08:19→19:19)
[2020-12-31] MEDS: ENOXAPARIN SOD 40 MG/0.4 ML SYRINGE SC SCH (09:19)
[2020-12-31] MEDS: PANTOPRAZOLE 40 MG/10 ML VIAL INJ IV SCH (09:19)
[2020-12-31] MEDS: cefTRIAXone 1GM/50ML D5W 50 ML IV SCH (09:20)
[2020-12-31] MEDS: LABETALOL HCL 5 MG/ML 4ML SYRINGE IV PRN ×3 (12:38→22:46)
[2020-12-31 12:56] LABS: Basophils # (auto) 0.1 10 ^3/uL (0-0.2); Basophils % (auto) 0.5 % (0.0-2.0); Eosinophils # (auto) 0 10 ^3/uL (0-0.8); Hematocrit 38.5 % (36.0-46.0); Hemoglobin 12.7 g/dL (12.2-16.2); Lymphocytes # (auto) 0.9 10 ^3/uL (0.4-5.4); Lymphocytes % (auto) 4.6 % (10.0-50.0); Mean Corpuscular Hemoglobin 31.2 pg (28.0-32.0); Mean Corpuscular Hgb Conc. 33.1 g/dL (32.0-36.0); Mean Corpuscular Volume 94.2 fL (80.0-100.0); Monocytes # (auto) 0.9 10 ^3/uL (0-1.3); Monocytes % (auto) 4.9 % (0.0-12.0); Neutrophils # (auto) 16.8 10 ^3/uL (1.6-8.6); Platelet Count (auto) 259 10^3/uL (140-450); Red Blood Cells 4.08 10^6/uL (4.0-5.20); Red Cell Distribution Width 13.6 % (11.8-14.3); White Blood Cell 18.6 10^3/uL (4.4-10.8)
[2020-12-31 13:08] LABS: Albumin 3.3 g/dL (3.4-5.0); BUN/Creatinine Ratio 19.2; Calcium 8.6 mg/dL (8.5-10.1); Potassium 3.3 mmol/L (3.5-5.1)
[2020-12-31 13:11] LABS: Bilirubin, Total 0.3 mg/dL (0.2-1.0); Total Protein 6.9 g/dL (6.4-8.2)
[2020-12-31] MEDS ORDERED: POTASSIUM CHLORIDE 20 MEQ, LIDOCAINE 1% (LOCAL ANESTH.) 2 ML in SODIUM CHL 0.9% 100 ML IV ONE (14:00)
[2020-12-31] MEDS ORDERED: levETIRAcetam 500 MG/5ML INJ IV ONE (22:07)
[2020-12-31] MEDS ORDERED: LABETALOL HCL 5 MG/ML ML 20ML VIAL IV ONE (22:48)
[2021-01-01] VITALS (24 sets, daily range): BP systolic 131–163; BP diastolic 48–98
[2021-01-01 05:39] LABS: Basophils # (auto) 0.1 10 ^3/uL (0-0.2); Basophils % (auto) 0.7 % (0.0-2.0); Eosinophils # (auto) 0.1 10 ^3/uL (0-0.8); Eosinophils % (auto) 0.7 % (0.0-7.0); Hematocrit 38.9 % (36.0-46.0); Lymphocytes # (auto) 1.5 10 ^3/uL (0.4-5.4); Lymphocytes % (auto) 11.1 % (10.0-50.0); Mean Corpuscular Hemoglobin 32.3 pg (28.0-32.0); Mean Corpuscular Hgb Conc. 33.6 g/dL (32.0-36.0); Mean Corpuscular Volume 96.1 fL (80.0-100.0); Monocytes # (auto) 1.2 10 ^3/uL (0-1.3); Monocytes % (auto) 8.7 % (0.0-12.0); Neutrophils # (auto) 10.5 10 ^3/uL (1.6-8.6); Neutrophils % (auto) 78.8 % (37.0-80.0); Nucleated Red Blood Cells % 0.1 %; Platelet Count (auto) 243 10^3/uL (140-450); Red Blood Cells 4.04 10^6/uL (4.0-5.20); Red Cell Distribution Width 13.7 % (11.8-14.3); White Blood Cell 13.3 10^3/uL (4.4-10.8)
[2021-01-01 05:55] LABS: Albumin 3.3 g/dL (3.4-5.0); BUN/Creatinine Ratio 32.6; Potassium 3.5 mmol/L (3.5-5.1)
[2021-01-01 05:58] LABS: Bilirubin, Total 0.4 mg/dL (0.2-1.0); Total Protein 6.8 g/dL (6.4-8.2)
[2021-01-01] MEDS: LABETALOL HCL 5 MG/ML 4ML SYRINGE IV PRN (06:11)
[2021-01-01] MEDS: IPRATROPIUM BROM 0.5 MG/2.5ML INH SOL NEB SCH ×3 (06:26→18:57)
[2021-01-01] MEDS: ALBUTEROL SULF 2.5 MG/0.5ML(0.5%) NEB SOLN NEB SCH ×3 (06:26→18:57)
[2021-01-01] MEDS: ACETYLCYSTEINE 10 %(100MG/ML) SOL 4ML NEB SCH ×3 (06:26→18:57)
[2021-01-01] MEDS: cefTRIAXone 1GM/50ML D5W 50 ML IV SCH (09:21)
[2021-01-01] MEDS: PANTOPRAZOLE 40 MG/10 ML VIAL INJ IV SCH (09:49)
[2021-01-01] MEDS: ENOXAPARIN SOD 40 MG/0.4 ML SYRINGE SC SCH (09:49)
[2021-01-02] VITALS (21 sets, daily range): BP systolic 122–151; BP diastolic 53–84
[2021-01-02] MEDS: IPRATROPIUM BROM 0.5 MG/2.5ML INH SOL NEB SCH ×3 (06:51→19:25)
[2021-01-02] MEDS: ALBUTEROL SULF 2.5 MG/0.5ML(0.5%) NEB SOLN NEB SCH ×3 (06:51→19:25)
[2021-01-02] MEDS: ACETYLCYSTEINE 10 %(100MG/ML) SOL 4ML NEB SCH ×3 (06:52→19:25)
[2021-01-02] MEDS: cefTRIAXone 1GM/50ML D5W 50 ML IV SCH (09:52)
[2021-01-02] MEDS: PANTOPRAZOLE 40 MG/10 ML VIAL INJ IV SCH (09:52)
[2021-01-02] MEDS: ENOXAPARIN SOD 40 MG/0.4 ML SYRINGE SC SCH (09:53)
[2021-01-02] MEDS: ACETAMINOPHEN 325 MG TAB PO PRN ×2 (16:26→22:00)
[2021-01-02] MEDS: ONDANSETRON HCL 4 MG/2 ML VIAL IV PRN (20:56)
[2021-01-03] VITALS: BP 140/71
[2021-01-03 04:00] VITALS: BP 142/83
[2021-01-03] MEDS: ACETAMINOPHEN 325 MG TAB PO PRN ×2 (04:16→09:53)
[2021-01-03 05:22] LABS: Basophils # (auto) 0.1 10 ^3/uL (0-0.2); Basophils % (auto) 1.7 % (0.0-2.0); Eosinophils # (auto) 0.1 10 ^3/uL (0-0.8); Eosinophils % (auto) 2.1 % (0.0-7.0); Hematocrit 35.3 % (36.0-46.0); Hemoglobin 11.8 g/dL (12.2-16.2); Lymphocytes # (auto) 1.2 10 ^3/uL (0.4-5.4); Lymphocytes % (auto) 20.3 % (10.0-50.0); Mean Corpuscular Hemoglobin 31.2 pg (28.0-32.0); Mean Corpuscular Hgb Conc. 33.4 g/dL (32.0-36.0); Mean Corpuscular Volume 93.5 fL (80.0-100.0); Monocytes # (auto) 0.4 10 ^3/uL (0-1.3); Monocytes % (auto) 7.6 % (0.0-12.0); Neutrophils % (auto) 68.3 % (37.0-80.0); Nucleated Red Blood Cells % 0.1 %; Platelet Count (auto) 235 10^3/uL (140-450); Red Blood Cells 3.78 10^6/uL (4.0-5.20); Red Cell Distribution Width 13.2 % (11.8-14.3); White Blood Cell 5.8 10^3/uL (4.4-10.8)
[2021-01-03 05:51] LABS: Potassium 3.3 mmol/L (3.5-5.1)
[2021-01-03 05:59] LABS: Calcium 8.2 mg/dL (8.5-10.1)
[2021-01-03] MEDS: ACETYLCYSTEINE 10 %(100MG/ML) SOL 4ML NEB SCH ×2 (06:20→12:00)
[2021-01-03] MEDS: IPRATROPIUM BROM 0.5 MG/2.5ML INH SOL NEB SCH ×2 (06:20→12:00)
[2021-01-03] MEDS: ALBUTEROL SULF 2.5 MG/0.5ML(0.5%) NEB SOLN NEB SCH ×2 (06:20→12:00)
[2021-01-03 08:00] VITALS: BP 147/64
[2021-01-03] MEDS: PANTOPRAZOLE 40 MG/10 ML VIAL INJ IV SCH (09:33)
[2021-01-03] MEDS: cefTRIAXone 1GM/50ML D5W 50 ML IV SCH (09:33)
[2021-01-03] MEDS: ENOXAPARIN SOD 40 MG/0.4 ML SYRINGE SC SCH (09:33)
[2021-01-03 10:08] VITALS: BP 135/81
[2021-01-03] MEDS ORDERED: LEVE100012 PO (11:29)
[2021-01-03 12:57] VITALS: BP 138/81
[2021-01-03 13:08] VITALS: BP 151/73
== END 2021-01-03 14:27 | disposition home or self-care (01) | DRG 917 ==
LOC: ER 09:05 → EDBD 09:05 → TELE 12:50 → DOU IN ICU 20:12 → TELE-WESTW 01-03 10:11
PROVIDERS: ADMIT Nurse Practitioner Acute Care; ATTEND Internal Medicine Pulmonary Disease
PROC: 05HF33Z Insertion of Infusion Device into Left Cephalic Vein, Percutaneous Approach (ICD-10-PCS; principal; 2020-12-30)
DX: T40.601A Poisoning by unspecified narcotics, accidental (unintentional), initial encounter (principal); G92 Toxic encephalopathy; J96.01 Acute respiratory failure with hypoxia; N39.0 Urinary tract infection, site not specified; E66.9 Obesity, unspecified; E87.6 Hypokalemia; F41.9 Anxiety disorder, unspecified; G20 Parkinson's disease; G25.81 Restless legs syndrome; T40.605A Adverse effect of unspecified narcotics, initial encounter; Z68.35 Body mass index [BMI] 35.0-35.9, adult; Z88.0 Allergy status to penicillin; Z88.8 Allergy status to other drugs, medicaments and biological substances; Z20.822 Contact with and (suspected) exposure to COVID-19; G40.909 Epilepsy, unspecified, not intractable, without status epilepticus; Y92.89 Other specified places as the place of occurrence of the external cause; F31.9 Bipolar disorder, unspecified
CPT/HCPCS: 36415; 36600; 70450; 71045; 80048; 80053; 80307; 80320; 80329; 81001; 82140; 82805; 82962; 84132; 84443; 84484; 85025; 85379; 85610; 85730; 87040; 87077; 87081; 87086; 87186; 87426; 92610; 93005; 93970; 94640; 95819; 96361; 96365; 96375; 97110; 97116; 97530; 99291; C9113; G0378; J0696; J2001; J2405; J3480; J3490; J7060

== ENCOUNTER 2021-03-01 18:38 | Inpatient (IN) | payer OTHER, MEDICAID ==
[~2021-03-01] VITALS: Ht 167.6 cm; Wt 80.5 kg
[~2021-03-01 18:38] MED LIST changes: -KEP500T PO; +LEVE100012 PO
[2021-03-01 20:00] VITALS: BP 126/72
[2021-03-01 22:00] VITALS: BP 126/72
[2021-03-01] MEDS ORDERED: hydrALAZINE HCL 20 MG/ML VL IV PRN (23:15)
[2021-03-01] MEDS ORDERED: MORPHINE SULF INJ 2 MG/ML SYRINGE 1ML IV PRN (23:15)
[2021-03-01] MEDS ORDERED: ACETAMINOPHEN 325 MG TAB PO PRN (23:15)
[2021-03-01] MEDS ORDERED: NITROGLYCERIN 0.4 MG SL TAB SL PRN (23:15)
[2021-03-01] MEDS ORDERED: ONDANSETRON HCL 4 MG/2 ML VIAL IV PRN (23:15)
[2021-03-01] MEDS ORDERED: DOCUSATE SOD 100 MG CAP PO PRN (23:15)
[2021-03-01] MEDS ORDERED: SUMA100T2 PO (23:51)
[2021-03-01] MEDS: HYDROcodone-ACET 5/325MG TAB PO PRN (23:52)
[2021-03-02 05:00] VITALS: BP 143/74
[2021-03-02 06:02] LABS: Basophils # (auto) 0.1 10 ^3/uL (0-0.2); Basophils % (auto) 1.2 % (0.0-2.0); Eosinophils # (auto) 0.2 10 ^3/uL (0-0.8); Eosinophils % (auto) 3.2 % (0.0-7.0); Hematocrit 34.8 % (36.0-46.0); Hemoglobin 11.8 g/dL (12.2-16.2); Lymphocytes # (auto) 1.3 10 ^3/uL (0.4-5.4); Lymphocytes % (auto) 22.7 % (10.0-50.0); Mean Corpuscular Hemoglobin 31.8 pg (28.0-32.0); Mean Corpuscular Hgb Conc. 33.8 g/dL (32.0-36.0); Mean Corpuscular Volume 94.1 fL (80.0-100.0); Monocytes # (auto) 0.6 10 ^3/uL (0-1.3); Neutrophils # (auto) 3.5 10 ^3/uL (1.6-8.6); Neutrophils % (auto) 62.9 % (37.0-80.0); Nucleated Red Blood Cells % 0.1 %; White Blood Cell 5.6 10^3/uL (4.4-10.8)
[2021-03-02 06:18] LABS: Potassium 3.7 mmol/L (3.5-5.1)
[2021-03-02 06:29] LABS: BUN/Creatinine Ratio 32.4; Bilirubin, Total 0.4 mg/dL (0.2-1.0); Calcium 8.1 mg/dL (8.5-10.1); Total Protein 5.6 g/dL (6.4-8.2)
[2021-03-02] MEDS: HYDROcodone-ACET 5/325MG TAB PO PRN (06:53)
[2021-03-02] MEDS: LEVOTHYROXINE SODIUM 50 MCG TAB PO SCH (06:53)
[2021-03-02 09:00] VITALS: BP_SYST 126; BP_SYST 91; BP_DIAS 50; BP_DIAS 62
[2021-03-02] MEDS: levETIRAcetam 500 MG TAB PO SCH ×2 (09:39→21:48)
[2021-03-02] MEDS: FAMOTIDINE (10MG/ML) 2ML VL IV SCH ×2 (09:39→21:48)
[2021-03-02] MEDS: ZINC SULFATE 220mg CAP or TAB PO SCH (09:39)
[2021-03-02] MEDS: MULTIPLE VITAMIN TAB PO SCH (09:40)
[2021-03-02] MEDS: ASCORBIC ACID 500 MG TAB PO SCH ×2 (09:40→21:48)
[2021-03-02] MEDS: ENOXAPARIN SOD 40 MG/0.4 ML SYRINGE SC SCH (09:40)
[2021-03-02 13:00] VITALS: BP 119/81
[2021-03-02 16:06] LABS: INR 1.12 (0.9-1.15)
[2021-03-02] MEDS: HYDROmorphone HCL 2 MG/ML VL IV PRN ×3 (16:23→21:36)
[2021-03-02 16:52] VITALS: BP 121/86
[2021-03-02] MEDS: SUMAtriptan SUCCINATE 25 MG TAB PO PRN (19:37)
[2021-03-02] MEDS: AMITRIPTYLINE HCL 25 MG TAB PO SCH (21:48)
[2021-03-02 22:00] VITALS: BP 138/70
[2021-03-03] MEDS: HYDROmorphone HCL 2 MG/ML VL IV PRN ×7 (01:31→21:17)
[2021-03-03] MEDS: SUMAtriptan SUCCINATE 25 MG TAB PO PRN ×2 (02:45→16:56)
[2021-03-03 05:00] VITALS: BP 136/68
[2021-03-03] MEDS: LEVOTHYROXINE SODIUM 50 MCG TAB PO SCH (06:29)
[2021-03-03 08:46] VITALS: BP 158/78
[2021-03-03] MEDS: FAMOTIDINE (10MG/ML) 2ML VL IV SCH ×2 (09:04→21:16)
[2021-03-03] MEDS: ZINC SULFATE 220mg CAP or TAB PO SCH (09:05)
[2021-03-03] MEDS: ASCORBIC ACID 500 MG TAB PO SCH ×2 (09:06→21:17)
[2021-03-03] MEDS: MULTIPLE VITAMIN TAB PO SCH (09:06)
[2021-03-03] MEDS: levETIRAcetam 500 MG TAB PO SCH ×2 (09:06→21:17)
[2021-03-03] MEDS: ENOXAPARIN SOD 40 MG/0.4 ML SYRINGE SC SCH (09:07)
[2021-03-03 13:09] VITALS: BP 159/74
[2021-03-03 17:13] VITALS: BP 103/52
[2021-03-03] MEDS: AMITRIPTYLINE HCL 25 MG TAB PO SCH (21:16)
[2021-03-03 22:00] VITALS: BP 134/70
[2021-03-03] MEDS: LORazepam 0.5 MG TAB PO PRN (23:42)
[2021-03-04] MEDS: HYDROmorphone HCL 2 MG/ML VL IV PRN ×5 (02:39→20:39)
[2021-03-04 05:00] VITALS: BP 136/71
[2021-03-04] MEDS: LEVOTHYROXINE SODIUM 50 MCG TAB PO SCH (07:13)
[2021-03-04] MEDS: levETIRAcetam 500 MG TAB PO SCH ×2 (07:57→20:38)
[2021-03-04] MEDS: ZINC SULFATE 220mg CAP or TAB PO SCH (07:57)
[2021-03-04] MEDS: FAMOTIDINE (10MG/ML) 2ML VL IV SCH (07:57)
[2021-03-04] MEDS: ASCORBIC ACID 500 MG TAB PO SCH (07:58)
[2021-03-04] MEDS: ENOXAPARIN SOD 40 MG/0.4 ML SYRINGE SC SCH (07:58)
[2021-03-04] MEDS: MULTIPLE VITAMIN TAB PO SCH (07:58)
[2021-03-04 09:00] VITALS: BP 123/75
[2021-03-04] MEDS: SUMAtriptan SUCCINATE 25 MG TAB PO PRN (11:18)
[2021-03-04 13:00] VITALS: BP 127/69
[2021-03-04] MEDS ORDERED: VENLAFAXINE HCL 37.5mg XR cap PO ONE (14:30)
[2021-03-04 17:00] VITALS: BP 131/88
[2021-03-04] MEDS: AMITRIPTYLINE HCL 25 MG TAB PO SCH (20:37)
[2021-03-04] MEDS: VENLAFAXINE HCL 37.5mg XR cap PO SCH (20:37)
[2021-03-04] MEDS: CARBIDOPA W LEVODOPA 10/100mg TABLET PO SCH (20:38)
[2021-03-04] MEDS: MONTELUKAST SODIUM 10 MG TAB PO SCH (20:38)
[2021-03-04] MEDS: GABAPENTIN 300 MG CAP PO SCH (20:39)
[2021-03-04 21:38] VITALS: BP 143/82
[2021-03-05] MEDS: HYDROmorphone HCL 2 MG/ML VL IV PRN ×5 (02:55→20:25)
[2021-03-05 05:01] VITALS: BP 159/78
[2021-03-05] MEDS: LEVOTHYROXINE SODIUM 50 MCG TAB PO SCH (06:11)
[2021-03-05] MEDS: HYDROcodone-ACET 5/325MG TAB PO PRN (06:11)
[2021-03-05] MEDS: GABAPENTIN 300 MG CAP PO SCH ×3 (06:11→20:54)
[2021-03-05] MEDS: CARBIDOPA W LEVODOPA 10/100mg TABLET PO SCH ×3 (06:11→20:55)
[2021-03-05] MEDS: levETIRAcetam 500 MG TAB PO SCH ×2 (08:10→20:55)
[2021-03-05] MEDS: VENLAFAXINE HCL 37.5mg XR cap PO SCH ×2 (08:10→20:54)
[2021-03-05] MEDS: MULTIPLE VITAMIN TAB PO SCH (08:10)
[2021-03-05] MEDS: ENOXAPARIN SOD 40 MG/0.4 ML SYRINGE SC SCH (08:11)
[2021-03-05] MEDS: FAMOTIDINE 20 MG TAB PO SCH (08:11)
[2021-03-05 09:00] VITALS: BP 131/84
[2021-03-05 13:00] VITALS: BP 145/79
[2021-03-05] MEDS: SUMAtriptan SUCCINATE 25 MG TAB PO PRN (13:35)
[2021-03-05 17:00] VITALS: BP 139/82
[2021-03-05] MEDS: MONTELUKAST SODIUM 10 MG TAB PO SCH (20:54)
[2021-03-05] MEDS: AMITRIPTYLINE HCL 25 MG TAB PO SCH (20:55)
[2021-03-05] MEDS: LORazepam 0.5 MG TAB PO PRN (21:41)
[2021-03-05 22:00] VITALS: BP 132/83
[2021-03-06] MEDS: HYDROmorphone HCL 2 MG/ML VL IV PRN ×4 (04:33→18:34)
[2021-03-06 05:00] VITALS: BP 106/63
[2021-03-06] MEDS: GABAPENTIN 300 MG CAP PO SCH ×3 (06:19→21:55)
[2021-03-06] MEDS: LEVOTHYROXINE SODIUM 50 MCG TAB PO SCH (06:19)
[2021-03-06] MEDS: CARBIDOPA W LEVODOPA 10/100mg TABLET PO SCH ×3 (06:19→21:55)
[2021-03-06 09:00] VITALS: BP 129/75
[2021-03-06] MEDS: FAMOTIDINE 20 MG TAB PO SCH (09:19)
[2021-03-06] MEDS: ENOXAPARIN SOD 40 MG/0.4 ML SYRINGE SC SCH (09:19)
[2021-03-06] MEDS: VENLAFAXINE HCL 37.5mg XR cap PO SCH ×2 (09:20→21:55)
[2021-03-06] MEDS: levETIRAcetam 500 MG TAB PO SCH ×2 (09:20→21:55)
[2021-03-06] MEDS: MULTIPLE VITAMIN TAB PO SCH (09:20)
[2021-03-06 12:55] VITALS: BP 105/67
[2021-03-06] MEDS: SUMAtriptan SUCCINATE 25 MG TAB PO PRN (15:25)
[2021-03-06] MEDS ORDERED: OXYCODONE W/ ACETAMINOPHEN 5/325MG TABLET PO PRN (16:30)
[2021-03-06 16:56] VITALS: BP 118/73
[2021-03-06] MEDS: OXYCODONE W/ ACETAMINOPHEN 5/325MG TABLET PO PRN (20:14)
[2021-03-06] MEDS: AMITRIPTYLINE HCL 25 MG TAB PO SCH (21:55)
[2021-03-06] MEDS: MONTELUKAST SODIUM 10 MG TAB PO SCH (21:55)
[2021-03-06] MEDS: LORazepam 0.5 MG TAB PO PRN (21:56)
[2021-03-06 22:00] VITALS: BP 107/79
[2021-03-07] MEDS: OXYCODONE W/ ACETAMINOPHEN 5/325MG TABLET PO PRN ×4 (02:25→16:08)
[2021-03-07 05:00] VITALS: BP 112/72
[2021-03-07] MEDS: GABAPENTIN 300 MG CAP PO SCH ×3 (06:15→21:09)
[2021-03-07] MEDS: CARBIDOPA W LEVODOPA 10/100mg TABLET PO SCH ×3 (06:15→21:09)
[2021-03-07] MEDS: LEVOTHYROXINE SODIUM 50 MCG TAB PO SCH (06:16)
[2021-03-07 09:00] VITALS: BP 114/52
[2021-03-07] MEDS: ENOXAPARIN SOD 40 MG/0.4 ML SYRINGE SC SCH (09:29)
[2021-03-07] MEDS: FAMOTIDINE 20 MG TAB PO SCH (09:29)
[2021-03-07] MEDS: levETIRAcetam 500 MG TAB PO SCH ×2 (09:29→21:09)
[2021-03-07] MEDS: MULTIPLE VITAMIN TAB PO SCH (09:29)
[2021-03-07] MEDS: VENLAFAXINE HCL 37.5mg XR cap PO SCH ×2 (09:29→21:08)
[2021-03-07 13:00] VITALS: BP 101/57
[2021-03-07] MEDS: HYDROmorphone HCL 2 MG/ML VL IV PRN ×2 (13:16→19:54)
[2021-03-07 17:00] VITALS: BP 110/69
[2021-03-07] MEDS: MONTELUKAST SODIUM 10 MG TAB PO SCH (21:09)
[2021-03-07] MEDS: AMITRIPTYLINE HCL 25 MG TAB PO SCH (21:09)
[2021-03-07] MEDS: LORazepam 0.5 MG TAB PO PRN (21:10)
[2021-03-07 22:00] VITALS: BP 128/77
[2021-03-08 05:00] VITALS: BP_SYST 123; BP_SYST 129; BP_DIAS 75; BP_DIAS 81
[2021-03-08] MEDS: LEVOTHYROXINE SODIUM 50 MCG TAB PO SCH (06:26)
[2021-03-08] MEDS: OXYCODONE W/ ACETAMINOPHEN 5/325MG TABLET PO PRN ×3 (06:26→20:21)
[2021-03-08] MEDS: CARBIDOPA W LEVODOPA 10/100mg TABLET PO SCH ×3 (06:26→21:54)
[2021-03-08] MEDS: GABAPENTIN 300 MG CAP PO SCH ×3 (06:26→21:54)
[2021-03-08 09:00] VITALS: BP 103/54
[2021-03-08] MEDS: ENOXAPARIN SOD 40 MG/0.4 ML SYRINGE SC SCH (10:00)
[2021-03-08] MEDS: FAMOTIDINE 20 MG TAB PO SCH (10:00)
[2021-03-08] MEDS: MULTIPLE VITAMIN TAB PO SCH (10:00)
[2021-03-08] MEDS: VENLAFAXINE HCL 37.5mg XR cap PO SCH ×2 (10:00→21:55)
[2021-03-08] MEDS: levETIRAcetam 500 MG TAB PO SCH ×2 (10:00→21:55)
[2021-03-08 13:00] VITALS: BP 109/61
[2021-03-08] MEDS ORDERED: SENNA 8.6 MG TAB PO PRN (15:15)
[2021-03-08] MEDS: HYDROmorphone HCL 2 MG/ML VL IV PRN ×2 (16:00→23:05)
[2021-03-08 17:00] VITALS: BP 123/69
[2021-03-08] MEDS: AMITRIPTYLINE HCL 25 MG TAB PO SCH (21:54)
[2021-03-08] MEDS: MONTELUKAST SODIUM 10 MG TAB PO SCH (21:55)
[2021-03-08 22:00] VITALS: BP_SYST 104; BP_SYST 125; BP_DIAS 57; BP_DIAS 72
[2021-03-08] MEDS: LORazepam 0.5 MG TAB PO PRN (22:22)
[2021-03-09 05:00] VITALS: BP 118/60
[2021-03-09] MEDS: LEVOTHYROXINE SODIUM 50 MCG TAB PO SCH (06:09)
[2021-03-09] MEDS: GABAPENTIN 300 MG CAP PO SCH ×3 (06:09→21:24)
[2021-03-09] MEDS: CARBIDOPA W LEVODOPA 10/100mg TABLET PO SCH ×3 (06:09→21:24)
[2021-03-09] MEDS: OXYCODONE W/ ACETAMINOPHEN 5/325MG TABLET PO PRN ×3 (06:10→18:46)
[2021-03-09 09:00] VITALS: BP 93/48
[2021-03-09] MEDS: levETIRAcetam 500 MG TAB PO SCH ×2 (09:29→21:23)
[2021-03-09] MEDS: VENLAFAXINE HCL 37.5mg XR cap PO SCH ×2 (09:29→21:23)
[2021-03-09] MEDS: FAMOTIDINE 20 MG TAB PO SCH (09:29)
[2021-03-09] MEDS: MULTIPLE VITAMIN TAB PO SCH (09:29)
[2021-03-09] MEDS: ENOXAPARIN SOD 40 MG/0.4 ML SYRINGE SC SCH (09:30)
[2021-03-09 10:38] VITALS: BP 105/64
[2021-03-09] MEDS: HYDROmorphone HCL 2 MG/ML VL IV PRN ×3 (10:38→22:58)
[2021-03-09 12:48] VITALS: BP 100/60
[2021-03-09 16:53] VITALS: BP 130/78
[2021-03-09] MEDS: AMITRIPTYLINE HCL 25 MG TAB PO SCH (21:24)
[2021-03-09] MEDS: MONTELUKAST SODIUM 10 MG TAB PO SCH (21:24)
[2021-03-09] MEDS: LORazepam 0.5 MG TAB PO PRN (21:25)
[2021-03-10 05:00] VITALS: BP 103/68
[2021-03-10] MEDS: OXYCODONE W/ ACETAMINOPHEN 5/325MG TABLET PO PRN ×2 (05:37→11:45)
[2021-03-10] MEDS: CARBIDOPA W LEVODOPA 10/100mg TABLET PO SCH (05:37)
[2021-03-10] MEDS: LEVOTHYROXINE SODIUM 50 MCG TAB PO SCH (05:37)
[2021-03-10] MEDS: GABAPENTIN 300 MG CAP PO SCH (05:37)
[2021-03-10] MEDS: levETIRAcetam 500 MG TAB PO SCH (08:40)
[2021-03-10] MEDS: VENLAFAXINE HCL 37.5mg XR cap PO SCH (08:40)
[2021-03-10] MEDS: MULTIPLE VITAMIN TAB PO SCH (08:40)
[2021-03-10] MEDS: LORazepam 0.5 MG TAB PO PRN (08:41)
[2021-03-10] MEDS: ENOXAPARIN SOD 40 MG/0.4 ML SYRINGE SC SCH (08:41)
[2021-03-10] MEDS: HYDROmorphone HCL 2 MG/ML VL IV PRN (08:41)
[2021-03-10] MEDS: FAMOTIDINE 20 MG TAB PO SCH (08:41)
== END 2021-03-10 11:48 | DRG 535 ==
LOC: WEST WING 21:01
PROVIDERS: ADMIT Family Medicine; ATTEND Hospitalist
DX: S72.22XA Displaced subtrochanteric fracture of left femur, initial encounter for closed fracture (principal); J96.00 Acute respiratory failure, unspecified whether with hypoxia or hypercapnia; E44.0 Moderate protein-calorie malnutrition; F31.9 Bipolar disorder, unspecified; G20 Parkinson's disease; G25.81 Restless legs syndrome; I10 Essential (primary) hypertension; E66.01 Morbid (severe) obesity due to excess calories; E03.9 Hypothyroidism, unspecified; Z96.649 Presence of unspecified artificial hip joint; F41.9 Anxiety disorder, unspecified; E78.5 Hyperlipidemia, unspecified; F17.210 Nicotine dependence, cigarettes, uncomplicated; G40.909 Epilepsy, unspecified, not intractable, without status epilepticus; G43.909 Migraine, unspecified, not intractable, without status migrainosus; G89.29 Other chronic pain; Z20.822 Contact with and (suspected) exposure to COVID-19; W18.39XA Other fall on same level, initial encounter; Z82.0 Family history of epilepsy and other diseases of the nervous system; Z82.49 Family history of ischemic heart disease and other diseases of the circulatory system; Z83.3 Family history of diabetes mellitus; Z86.73 Personal history of transient ischemic attack (TIA), and cerebral infarction without residual deficits; Z88.0 Allergy status to penicillin; Z68.29 Body mass index [BMI] 29.0-29.9, adult; Y93.89 Activity, other specified; Y92.89 Other specified places as the place of occurrence of the external cause; Y99.8 Other external cause status
CPT/HCPCS: 36415; 72170; 73502; 80053; 82542; 84443; 85025; 85610; 86850; 86900; 86901; 97110; 97116; 97163; 97530; G0378; J3490

== ENCOUNTER 2021-04-03 12:06 | Inpatient (IN) | payer OTHER, MEDICAID ==
[~2021-04-03] VITALS: Ht 167.6 cm; Wt 82.0 kg
[~2021-04-03 12:06] MED LIST changes: -BACL20TA PO; +SUMA100T2 PO; -VARE1PAK12 PO
[2021-04-03 13:28] LABS: Basophils # (auto) 0.1 10 ^3/uL (0-0.2); Basophils % (auto) 0.9 % (0.0-2.0); Eosinophils # (auto) 0.2 10 ^3/uL (0-0.8); Eosinophils % (auto) 1.7 % (0.0-7.0); Hemoglobin 11.5 g/dL (12.2-16.2); Lymphocytes # (auto) 2.1 10 ^3/uL (0.4-5.4); Lymphocytes % (auto) 21.6 % (10.0-50.0); Mean Corpuscular Hemoglobin 32.1 pg (28.0-32.0); Mean Corpuscular Hgb Conc. 31.8 g/dL (32.0-36.0); Mean Corpuscular Volume 100.9 fL (80.0-100.0); Monocytes # (auto) 1.2 10 ^3/uL (0-1.3); Monocytes % (auto) 12.5 % (0.0-12.0); Neutrophils # (auto) 6.3 10 ^3/uL (1.6-8.6); Neutrophils % (auto) 63.3 % (37.0-80.0); Nucleated Red Blood Cells % 0.1 %; Red Blood Cells 3.57 10^6/uL (4.0-5.20); Red Cell Distribution Width 14.3 % (11.8-14.3); White Blood Cell 9.9 10^3/uL (4.4-10.8)
[2021-04-03] MEDS ORDERED: SODIUM CHLORIDE 0.9% 500 ML IV ONE (13:45)
[2021-04-03 15:00] LABS: Albumin 2.7 g/dL (3.4-5.0); Anion Gap 7 (5-15); Carbon Dioxide 21 mmol/L (21-32); Chloride 113 mmol/L (98-107); Glucose 86 mg/dL (74-106); Potassium 3.4 mmol/L (3.5-5.1); Sodium 141 mmol/L (136-145)
[2021-04-03 15:06] LABS: Alanine Aminotransferase 47 U/L (13-56); Alkaline Phosphatase 165 U/L (45-117); Aspartate Aminotransferase 185 U/L (15-37); Bilirubin, Total 0.5 mg/dL (0.2-1.0); GFR African American 77 mL/min; GFR Non-African American 64 mL/min; Total Protein 6.1 g/dL (6.4-8.2)
[2021-04-03 15:07] LABS: BUN/Creatinine Ratio 20.4; Blood Urea Nitrogen 19 mg/dL (7-18)
[2021-04-03] MEDS ORDERED: POTASSIUM EFFERVESENT TAB 25 MEQ PO ONE (17:15)
[2021-04-03] MEDS ORDERED: ACETAMINOPHEN 500 MG TAB PO PRN (18:30)
[2021-04-03] MEDS ORDERED: MORPHINE SULFATE INJECTION 2 MG/ML SYRG IV PRN (18:30)
[2021-04-03] MEDS ORDERED: NITROGLYCERIN 0.4 MG SL TAB SL PRN (18:30)
[2021-04-03 19:43] LABS: Folate (Folic Acid) > 24.00 ng/mL (5.38-24)
[2021-04-04] VITALS (7 sets, daily range): BP systolic 106–142; BP diastolic 56–75
[2021-04-04] MEDS: traMADol HCL 50 MG TAB PO PRN ×4 (00:49→22:07)
[2021-04-04 02:05] LABS: Amphetamine Screen, Urine NEGATIVE (NEGATIVE); Barbiturate Scree,Urine NEGATIVE (NEGATIVE); Benzodiazephine Screen, Urine NEGATIVE (NEGATIVE); Cannabinoid Screen, Urine NEGATIVE (NEGATIVE); Cocaine Screen, Urine NEGATIVE (NEGATIVE); Opiate Scree,Urine POSITIVE (NEGATIVE); Phencyclidine Screen, Urine NEGATIVE (NEGATIVE)
[2021-04-04 02:08] LABS: Urine Bacteria FEW /hpf (None Seen); Urine Blood Negative /uL (Negative); Urine Hyaline Cast FEW /lpf (0 - 2); Urine Mucus FEW (None Seen); Urine Specific Gravity 1.018 (1.001-1.035); Urine WBC 31 /hpf (0 - 5); Urine WBC Clumps PRESENT /hpf (None Seen)
[2021-04-04 06:29] LABS: Basophils # (auto) 0.1 10 ^3/uL (0-0.2); Basophils % (auto) 1.1 % (0.0-2.0); Eosinophils # (auto) 0.2 10 ^3/uL (0-0.8); Eosinophils % (auto) 2.2 % (0.0-7.0); Hematocrit 33.1 % (36.0-46.0); Hemoglobin 11.4 g/dL (12.2-16.2); Lymphocytes # (auto) 1.4 10 ^3/uL (0.4-5.4); Lymphocytes % (auto) 18.8 % (10.0-50.0); Mean Corpuscular Hemoglobin 33.3 pg (28.0-32.0); Mean Corpuscular Hgb Conc. 34.5 g/dL (32.0-36.0); Mean Corpuscular Volume 96.7 fL (80.0-100.0); Monocytes # (auto) 0.8 10 ^3/uL (0-1.3); Monocytes % (auto) 10.2 % (0.0-12.0); Neutrophils # (auto) 5.1 10 ^3/uL (1.6-8.6); Neutrophils % (auto) 67.7 % (37.0-80.0); Nucleated Red Blood Cells % 0.1 %; Red Blood Cells 3.42 10^6/uL (4.0-5.20); Red Cell Distribution Width 14.1 % (11.8-14.3); White Blood Cell 7.6 10^3/uL (4.4-10.8)
[2021-04-04 06:46] LABS: Calcium 8.1 mg/dL (8.5-10.1); Potassium 3.5 mmol/L (3.5-5.1)
[2021-04-04 06:49] LABS: BUN/Creatinine Ratio 40.5
[2021-04-04] MEDS: LISINOPRIL 10 MG TAB PO SCH (09:20)
[2021-04-04] MEDS: PANTOPRAZOLE 40 MG TAB PO SCH (09:20)
[2021-04-04] MEDS: MONTELUKAST SODIUM 10 MG TAB PO SCH (09:21)
[2021-04-05 00:28] LABS: Free T3 3.97 pg/mL (2.3-4.2); Free T4 (Free Thyroxine) 1.8 ng/dL (0.89-1.76)
[2021-04-05] MEDS: traMADol HCL 50 MG TAB PO PRN ×4 (04:02→22:30)
[2021-04-05 05:00] VITALS: BP 109/55
[2021-04-05 09:00] VITALS: BP 148/70
[2021-04-05] MEDS: PANTOPRAZOLE 40 MG TAB PO SCH (09:09)
[2021-04-05] MEDS: MONTELUKAST SODIUM 10 MG TAB PO SCH (09:09)
[2021-04-05] MEDS: ONDANSETRON HCL 4 MG/2 ML VIAL IV PRN ×3 (09:10→22:12)
[2021-04-05] MEDS: LISINOPRIL 10 MG TAB PO SCH (09:10)
[2021-04-05 10:11] LABS: Basophils # (auto) 0 10 ^3/uL (0-0.2); Basophils % (auto) 0.3 % (0.0-2.0); Eosinophils # (auto) 0 10 ^3/uL (0-0.8); Eosinophils % (auto) 0.2 % (0.0-7.0); Hematocrit 37.3 % (36.0-46.0); Hemoglobin 12.5 g/dL (12.2-16.2); Lymphocytes # (auto) 0.7 10 ^3/uL (0.4-5.4); Lymphocytes % (auto) 9.1 % (10.0-50.0); Mean Corpuscular Hgb Conc. 33.4 g/dL (32.0-36.0); Mean Corpuscular Volume 95.7 fL (80.0-100.0); Monocytes # (auto) 0.5 10 ^3/uL (0-1.3); Neutrophils # (auto) 6.6 10 ^3/uL (1.6-8.6); Neutrophils % (auto) 84.4 % (37.0-80.0); Nucleated Red Blood Cells % 0.1 %; Red Cell Distribution Width 13.8 % (11.8-14.3); White Blood Cell 7.9 10^3/uL (4.4-10.8)
[2021-04-05] MEDS ORDERED: levoFLOXacin 500MG 100 ML IV ONE (10:15)
[2021-04-05 10:35] LABS: BUN/Creatinine Ratio 26.3; Calcium 8.4 mg/dL (8.5-10.1)
[2021-04-05] MEDS ORDERED: ALBUTEROL SULF 2.5 MG/0.5ML(0.5%) NEB SOLN NEB PRN (10:45)
[2021-04-05] MEDS: POTASSIUM CHL 20MEQ/100ML 100 ML IV SCH ×3 (10:45→20:51)
[2021-04-05 13:00] VITALS: BP 113/59
[2021-04-05] MEDS: CARBIDOPA W LEVODOPA 25/100mg TABLET PO SCH ×2 (14:00→22:14)
[2021-04-05 17:00] VITALS: BP 116/44
[2021-04-05] MEDS ORDERED: LEVO-28 PO (19:14)
[2021-04-05] MEDS ORDERED: POTASSIUM CHL 20 Meq TABLET PO ONE (19:15)
[2021-04-05 22:00] VITALS: BP 133/65
[2021-04-05] MEDS ORDERED: traZODone HCL 50 MG TAB PO SCH (22:00)
[2021-04-05] MEDS: levETIRAcetam 500 MG TAB PO SCH (22:13)
[2021-04-06] MEDS: POTASSIUM CHL 20MEQ/100ML 100 ML IV SCH (01:37)
[2021-04-06] MEDS: traMADol HCL 50 MG TAB PO PRN ×2 (04:16→10:23)
[2021-04-06 05:00] VITALS: BP 121/59
[2021-04-06 05:58] LABS: Calcium 8.5 mg/dL (8.5-10.1); Potassium 3.5 mmol/L (3.5-5.1)
[2021-04-06 06:01] LABS: BUN/Creatinine Ratio 13.3
[2021-04-06] MEDS: CARBIDOPA W LEVODOPA 25/100mg TABLET PO SCH (06:32)
[2021-04-06 06:43] LABS: Basophils # (auto) 0 10 ^3/uL (0-0.2); Basophils % (auto) 0.4 % (0.0-2.0); Eosinophils # (auto) 0 10 ^3/uL (0-0.8); Eosinophils % (auto) 0.6 % (0.0-7.0); Hematocrit 31.9 % (36.0-46.0); Hemoglobin 10.7 g/dL (12.2-16.2); Lymphocytes # (auto) 0.9 10 ^3/uL (0.4-5.4); Lymphocytes % (auto) 15.9 % (10.0-50.0); Mean Corpuscular Hemoglobin 31.6 pg (28.0-32.0); Mean Corpuscular Hgb Conc. 33.7 g/dL (32.0-36.0); Mean Corpuscular Volume 93.8 fL (80.0-100.0); Monocytes # (auto) 0.7 10 ^3/uL (0-1.3); Monocytes % (auto) 11.4 % (0.0-12.0); Neutrophils # (auto) 4.1 10 ^3/uL (1.6-8.6); Neutrophils % (auto) 71.7 % (37.0-80.0); Nucleated Red Blood Cells % 0.1 %; Red Cell Distribution Width 13.5 % (11.8-14.3); White Blood Cell 5.7 10^3/uL (4.4-10.8)
[2021-04-06] MEDS ORDERED: LEVOTHYROXINE SODIUM 100 MCG TAB PO SCH (07:00)
[2021-04-06 09:00] VITALS: BP 119/58
[2021-04-06] MEDS ORDERED: SUMAtriptan SUCCINATE 25 MG TAB PO SCH (10:00)
[2021-04-06] MEDS ORDERED: levoFLOXacin 500 MG TAB PO SCH (10:00)
[2021-04-06] MEDS: LISINOPRIL 10 MG TAB PO SCH (10:04)
[2021-04-06] MEDS: MONTELUKAST SODIUM 10 MG TAB PO SCH (10:04)
[2021-04-06] MEDS: PANTOPRAZOLE 40 MG TAB PO SCH (10:04)
[2021-04-06] MEDS: levETIRAcetam 500 MG TAB PO SCH (10:10)
[2021-04-06] MEDS ORDERED: VENLAFAXINE HCL 37.5MG TABLET PO SCH (22:00)
== END 2021-04-06 13:25 | disposition left against medical advice (07) | DRG 690 ==
LOC: EDBD 12:06 → ER 12:06 → TELE 18:19 → TELE-CENTR 23:37
PROVIDERS: ADMIT Nurse Practitioner Acute Care; ATTEND Internal Medicine
DX: N39.0 Urinary tract infection, site not specified (principal); E44.0 Moderate protein-calorie malnutrition; F31.32 Bipolar disorder, current episode depressed, moderate; J84.10 Pulmonary fibrosis, unspecified; E87.6 Hypokalemia; Z20.822 Contact with and (suspected) exposure to COVID-19; G20 Parkinson's disease; E05.80 Other thyrotoxicosis without thyrotoxic crisis or storm; E03.9 Hypothyroidism, unspecified; E78.5 Hyperlipidemia, unspecified; Z53.29 Procedure and treatment not carried out because of patient's decision for other reasons; F41.9 Anxiety disorder, unspecified; I10 Essential (primary) hypertension; K21.9 Gastro-esophageal reflux disease without esophagitis; Z96.611 Presence of right artificial shoulder joint; G40.909 Epilepsy, unspecified, not intractable, without status epilepticus; Z96.612 Presence of left artificial shoulder joint; Z96.649 Presence of unspecified artificial hip joint; J44.9 Chronic obstructive pulmonary disease, unspecified; R29.6 Repeated falls; Z96.653 Presence of artificial knee joint, bilateral; Z98.84 Bariatric surgery status; Z90.49 Acquired absence of other specified parts of digestive tract; Z79.899 Other long term (current) drug therapy; Z68.29 Body mass index [BMI] 29.0-29.9, adult; Z88.0 Allergy status to penicillin; Z80.8 Family history of malignant neoplasm of other organs or systems; Z82.0 Family history of epilepsy and other diseases of the nervous system; Z82.49 Family history of ischemic heart disease and other diseases of the circulatory system; Z83.3 Family history of diabetes mellitus; Z86.73 Personal history of transient ischemic attack (TIA), and cerebral infarction without residual deficits
CPT/HCPCS: 36415; 71045; 73502; 74176; 74181; 80048; 80053; 80307; 81001; 82306; 82746; 83605; 83735; 84425; 84439; 84443; 84481; 84484; 85025; 87040; 87081; 87426; 93005; 96360; 97116; 97163; 97530; G0378; J1956; J2405; J3480

== ENCOUNTER 2021-07-21 13:10 | Inpatient (IN) | payer OTHER, MEDICAID ==
[~2021-07-21] VITALS: Ht 172.7 cm; Wt 80.6 kg
[~2021-07-21 13:10] MED LIST changes: -AMIT10TA6 PO; +LEVO-28 PO; +MONT-8 PO; -MONT10TA42 PO; -QUET50TA25 PO; -VENL150C2 PO; +VENL150C3 PO
[2021-07-21] MEDS ORDERED: SODIUM CHLORIDE 0.9% 1,000 ML IV ONE (14:00)
[2021-07-21] MEDS ORDERED: ETOMIDATE (2MG/ML) 20ML VIAL IV ONE ×2 (15:48→16:00)
[2021-07-21] MEDS ORDERED: SUCCINYLCHOLINE CHLORIDE 20 MG/ML 10ML VIAL IV ONE ×2 (15:48→16:00)
[2021-07-21] MEDS ORDERED: MIDAZOLAM DRIP 50 mg/50mL 50 ML IV ONE (15:49)
[2021-07-21] MEDS ORDERED: MIDAZOLAM HCL 5 MG/ML-1ML VIAL IV ONE (16:00)
[2021-07-21] MEDS: MIDAZOLAM DRIP 50 mg/50mL 50 ML IV SCH (16:01)
[2021-07-21 16:09] LABS: Basophils # (auto) 0 10 ^3/uL (0-0.2); Basophils % (auto) 0.1 % (0.0-2.0); Eosinophils # (auto) 0 10 ^3/uL (0-0.8); Hematocrit 46.8 % (36.0-46.0); Hemoglobin 15.3 g/dL (12.2-16.2); Lymphocytes # (auto) 0.2 10 ^3/uL (0.4-5.4); Lymphocytes % (auto) 1.3 % (10.0-50.0); Mean Corpuscular Hemoglobin 32.2 pg (28.0-32.0); Mean Corpuscular Hgb Conc. 32.8 g/dL (32.0-36.0); Monocytes # (auto) 0.6 10 ^3/uL (0-1.3); Monocytes % (auto) 3.2 % (0.0-12.0); Neutrophils # (auto) 16.9 10 ^3/uL (1.6-8.6); Neutrophils % (auto) 95.4 % (37.0-80.0); Red Blood Cells 4.77 10^6/uL (4.0-5.20); Red Cell Distribution Width 14.4 % (11.8-14.3); White Blood Cell 17.7 10^3/uL (4.4-10.8)
[2021-07-21] MEDS ORDERED: fentaNYL Drip 2500mCg/250mlNS 250 ML IV ONE (16:18)
[2021-07-21 16:21] VITALS: BP 188/98
[2021-07-21 16:23] LABS: INR 1.08 (0.9-1.15); Partial Thromboplastin Time 27.3 sec (23.6-33.0)
[2021-07-21] MEDS: fentaNYL Drip 2500mCg/250mlNS 250 ML IV SCH (16:23)
[2021-07-21 16:24] LABS: Albumin 2.6 g/dL (3.4-5.0); Anion Gap 8 (5-15); Blood Alcohol < 3.0 mg/dL (0-5); Blood Urea Nitrogen 29 mg/dL (7-18); Calcium 8.5 mg/dL (8.5-10.1); Carbon Dioxide 22 mmol/L (21-32); Chloride 116 mmol/L (98-107); Glucose 81 mg/dL (74-106); Potassium 3.8 mmol/L (3.5-5.1); Sodium 146 mmol/L (136-145)
[2021-07-21 16:27] LABS: Lactic Acid w/Reflex 2.7 mmol/L (0.4-2.0)
[2021-07-21 16:28] LABS: Alanine Aminotransferase 29 U/L (13-56); Alkaline Phosphatase 185 U/L (45-117); Aspartate Aminotransferase 99 U/L (15-37); BUN/Creatinine Ratio 49.2; Bilirubin, Total 0.7 mg/dL (0.2-1.0); GFR African American 131 mL/min; GFR Non-African American 108 mL/min
[2021-07-21 16:30] LABS: Magnesium 2.5 mg/dL (1.6-2.6)
[2021-07-21 16:39] LABS: Creatine Kinase IFCC 524 U/L (26-192)
[2021-07-21 16:45] LABS: CRP High Sensitivity > 19.0 mg/dL (< 0.3)
[2021-07-21] MEDS ORDERED: DexAMETHasone INJECTION 10 MG in D5W 5% 50 ML IV ONE (17:00)
[2021-07-21] MEDS ORDERED: PIPERACILLIN-TAZOB 3.375GM 100 ML IV ONE (17:00)
[2021-07-21 17:02] LABS: Urine Bacteria NONE SEEN /hpf (None Seen); Urine Blood Negative /uL (Negative); Urine Specific Gravity 1.014 (1.001-1.035); Urine WBC 4 /hpf (0 - 5)
[2021-07-21 18:20] VITALS: BP 84/57
[2021-07-21] MEDS ORDERED: DexAMETHasone SOD PHOS 10MG/1ML VIAL INJ IV ONE (19:30)
[2021-07-21] MEDS ORDERED: ACETAMINOPHEN 650 MG RECT SUPP PR PRN (21:30)
[2021-07-21] MEDS ORDERED: ONDANSETRON HCL 4 MG/2 ML VIAL IV PRN (21:30)
[2021-07-21 22:04] VITALS: BP 110/42
[2021-07-21] MEDS ORDERED: levETIRAcetam 500 MG/5ML INJ IV ONE (22:22)
[2021-07-21] MEDS: SODIUM CHLOR 0.9% PF (SALINE LOCK) 10ML VIAL/SYR IV SCH (22:36)
[2021-07-21] MEDS: FAMOTIDINE (10MG/ML) 2ML VL IV SCH (22:36)
[2021-07-21] MEDS: HEPARIN SODIUM (PORCINE) 5000 UNITS/ML 1ML VIAL SC SCH (22:37)
[2021-07-22] MEDS ORDERED: NITROGLYCERIN 0.4 MG SL TAB SL PRN
[2021-07-22] MEDS ORDERED: MORPHINE SULFATE INJECTION 2 MG/ML SYRG IV PRN
[2021-07-22] MEDS ORDERED: IPRATROPIUM BROM 0.5 MG/2.5ML INH SOL ONE (00:15)
[2021-07-22] MEDS ORDERED: ALBUTEROL SULF 2.5 MG/0.5ML(0.5%) NEB SOLN ONE (00:15)
[2021-07-22] MEDS: SODIUM CHLOR 0.9% PF (SALINE LOCK) 10ML VIAL/SYR IV SCH ×3 (06:07→22:29)
[2021-07-22 06:55] VITALS: BP 111/43
[2021-07-22 08:18] LABS: Basophils # (auto) 0.1 10 ^3/uL (0-0.2); Basophils % (auto) 0.4 % (0.0-2.0); Eosinophils # (auto) 0 10 ^3/uL (0-0.8); Hematocrit 39.4 % (36.0-46.0); Hemoglobin 12.8 g/dL (12.2-16.2); Lymphocytes # (auto) 0.3 10 ^3/uL (0.4-5.4); Lymphocytes % (auto) 2.1 % (10.0-50.0); Mean Corpuscular Hemoglobin 32.1 pg (28.0-32.0); Mean Corpuscular Hgb Conc. 32.4 g/dL (32.0-36.0); Mean Corpuscular Volume 99.1 fL (80.0-100.0); Monocytes # (auto) 0.5 10 ^3/uL (0-1.3); Monocytes % (auto) 3.4 % (0.0-12.0); Neutrophils % (auto) 94.1 % (37.0-80.0); Red Blood Cells 3.98 10^6/uL (4.0-5.20); Red Cell Distribution Width 14.6 % (11.8-14.3); White Blood Cell 15.9 10^3/uL (4.4-10.8)
[2021-07-22 08:44] LABS: Albumin 2.1 g/dL (3.4-5.0); Calcium 8.2 mg/dL (8.5-10.1); Potassium 4.4 mmol/L (3.5-5.1)
[2021-07-22 08:48] LABS: BUN/Creatinine Ratio 68.3; Bilirubin, Total 0.4 mg/dL (0.2-1.0); Total Protein 5.2 g/dL (6.4-8.2)
[2021-07-22] MEDS: HEPARIN SODIUM (PORCINE) 5000 UNITS/ML 1ML VIAL SC SCH ×2 (09:48→22:55)
[2021-07-22] MEDS: FAMOTIDINE (10MG/ML) 2ML VL IV SCH ×2 (09:48→22:52)
[2021-07-22] MEDS: DexAMETHasone SOD PHOS 10MG/1ML VIAL INJ IV SCH (09:48)
[2021-07-22] MEDS: FUROSEMIDE 40 MG/4 ML VIAL IV SCH (09:48)
[2021-07-22] MEDS ORDERED: AZITHROMYCIN 500MG/ 250ML 250 ML IV SCH (10:00)
[2021-07-22 10:26] VITALS: BP 101/57
[2021-07-22] MEDS ORDERED: NOREPINEPHRINE 8 MG/250ML KIT 250 ML IV ONE (13:17)
[2021-07-22] MEDS: NOREPINEPHRINE 8 MG/250ML KIT 250 ML IV SCH (13:27)
[2021-07-22 14:25] VITALS: BP 107/61
[2021-07-22] MEDS: levoFLOXacin 500MG 100 ML IV SCH (15:18)
[2021-07-22] MEDS: MIDAZOLAM DRIP 50 mg/50mL 50 ML IV SCH (16:07)
[2021-07-22] MEDS: fentaNYL Drip 2500mCg/250mlNS 250 ML IV SCH (16:33)
[2021-07-22 16:36] LABS: Alcohol, Urine < 3.0 mg/dL (0-10); Benzodiazephine Screen, Urine POSITIVE (NEGATIVE); Cannabinoid Screen, Urine NEGATIVE (NEGATIVE); Cocaine Screen, Urine NEGATIVE (NEGATIVE); Opiate Scree,Urine NEGATIVE (NEGATIVE); Phencyclidine Screen, Urine NEGATIVE (NEGATIVE)
[2021-07-22 16:43] LABS: Amphetamine Screen, Urine NEGATIVE (NEGATIVE); Barbiturate Scree,Urine NEGATIVE (NEGATIVE)
[2021-07-22 18:19] VITALS: BP 110/60
[2021-07-22] MEDS ORDERED: LORazepam 2MG/ML-1ML VIAL IV PRN (21:00)
[2021-07-22 21:14] VITALS: BP 104/56
[2021-07-22] MEDS ORDERED: levETIRAcetam 500 MG/5ML INJ IV ONE (23:04)
[2021-07-23] VITALS (10 sets, daily range): BP systolic 98–128; BP diastolic 54–74
[2021-07-23] MEDS: SODIUM CHLOR 0.9% PF (SALINE LOCK) 10ML VIAL/SYR IV SCH ×3 (06:12→20:50)
[2021-07-23] MEDS: FAMOTIDINE (10MG/ML) 2ML VL IV SCH ×2 (10:00→20:43)
[2021-07-23] MEDS: HEPARIN SODIUM (PORCINE) 5000 UNITS/ML 1ML VIAL SC SCH ×2 (10:00→20:45)
[2021-07-23] MEDS: levoFLOXacin 500MG 100 ML IV SCH (10:00)
[2021-07-23] MEDS: FUROSEMIDE 40 MG/4 ML VIAL IV SCH (10:00)
[2021-07-23] MEDS: DexAMETHasone SOD PHOS 10MG/1ML VIAL INJ IV SCH (10:00)
[2021-07-23] MEDS: NOREPINEPHRINE 8 MG/250ML KIT 250 ML IV SCH (13:32)
[2021-07-23] MEDS: MIDAZOLAM DRIP 50 mg/50mL 50 ML IV SCH ×2 (16:00→20:44)
[2021-07-23] MEDS: fentaNYL Drip 2500mCg/250mlNS 250 ML IV SCH (16:30)
[2021-07-24] VITALS (9 sets, daily range): BP systolic 111–136; BP diastolic 63–79
[2021-07-24] MEDS: MIDAZOLAM DRIP 50 mg/50mL 50 ML IV SCH ×2 (00:01→14:44)
[2021-07-24] MEDS: SODIUM CHLOR 0.9% PF (SALINE LOCK) 10ML VIAL/SYR IV SCH ×3 (05:55→22:30)
[2021-07-24 08:28] LABS: Basophils # (auto) 0 10 ^3/uL (0-0.2); Basophils % (auto) 0.2 % (0.0-2.0); Eosinophils # (auto) 0 10 ^3/uL (0-0.8); Lymphocytes # (auto) 0.4 10 ^3/uL (0.4-5.4); Monocytes # (auto) 1.1 10 ^3/uL (0-1.3); Red Blood Cells 3.75 10^6/uL (4.0-5.20); Red Cell Distribution Width 14.2 % (11.8-14.3)
[2021-07-24 08:36] LABS: Hematocrit 36.5 % (36.0-46.0); Hemoglobin 12.2 g/dL (12.2-16.2); Lymphocytes % (auto) 3.1 % (10.0-50.0); Mean Corpuscular Hemoglobin 32.5 pg (28.0-32.0); Mean Corpuscular Hgb Conc. 33.3 g/dL (32.0-36.0); Mean Corpuscular Volume 97.5 fL (80.0-100.0); Monocytes % (auto) 9.4 % (0.0-12.0); Neutrophils # (auto) 9.9 10 ^3/uL (1.6-8.6); Neutrophils % (auto) 87.3 % (37.0-80.0); Nucleated Red Blood Cells % 0.1 %; White Blood Cell 11.3 10^3/uL (4.4-10.8)
[2021-07-24 08:43] LABS: Albumin 2.1 g/dL (3.4-5.0); Calcium 8.5 mg/dL (8.5-10.1)
[2021-07-24 08:46] LABS: Bilirubin, Total 0.2 mg/dL (0.2-1.0); Total Protein 6.1 g/dL (6.4-8.2)
[2021-07-24] MEDS: DexAMETHasone SOD PHOS 10MG/1ML VIAL INJ IV SCH (10:04)
[2021-07-24] MEDS: levoFLOXacin 500MG 100 ML IV SCH (10:05)
[2021-07-24] MEDS: FUROSEMIDE 40 MG/4 ML VIAL IV SCH (10:05)
[2021-07-24] MEDS: FAMOTIDINE (10MG/ML) 2ML VL IV SCH ×2 (10:05→22:30)
[2021-07-24] MEDS: HEPARIN SODIUM (PORCINE) 5000 UNITS/ML 1ML VIAL SC SCH ×2 (10:05→22:30)
[2021-07-24] MEDS: fentaNYL Drip 2500mCg/250mlNS 250 ML IV SCH (11:35)
[2021-07-24] MEDS: ALBUTEROL SULF 2.5 MG/0.5ML(0.5%) NEB SOLN NEB SCH ×2 (11:58→18:00)
[2021-07-24] MEDS: IPRATROPIUM BROM 0.5 MG/2.5ML INH SOL NEB SCH ×2 (11:58→18:00)
[2021-07-24] MEDS: methylPREDNISolone SOD SUCC 40 MG/ML VL IV SCH ×2 (13:00→18:08)
[2021-07-24] MEDS: NOREPINEPHRINE 8 MG/250ML KIT 250 ML IV SCH (13:15)
[2021-07-25 02:03] VITALS: BP 128/72
[2021-07-25] MEDS: SODIUM CHLOR 0.9% PF (SALINE LOCK) 10ML VIAL/SYR IV SCH ×3 (06:10→22:00)
[2021-07-25] MEDS: methylPREDNISolone SOD SUCC 40 MG/ML VL IV SCH ×4 (06:10→17:23)
[2021-07-25] MEDS: ALBUTEROL SULF 2.5 MG/0.5ML(0.5%) NEB SOLN NEB SCH ×4 (06:30→18:00)
[2021-07-25] MEDS: IPRATROPIUM BROM 0.5 MG/2.5ML INH SOL NEB SCH ×4 (06:30→18:00)
[2021-07-25 07:50] VITALS: BP 137/77
[2021-07-25] MEDS: FUROSEMIDE 40 MG/4 ML VIAL IV SCH (08:52)
[2021-07-25] MEDS: FAMOTIDINE (10MG/ML) 2ML VL IV SCH ×2 (08:53→23:30)
[2021-07-25] MEDS: levoFLOXacin 500MG 100 ML IV SCH (08:59)
[2021-07-25] MEDS: HEPARIN SODIUM (PORCINE) 5000 UNITS/ML 1ML VIAL SC SCH ×2 (09:02→22:00)
[2021-07-25 10:04] VITALS: BP 81/77
[2021-07-25] MEDS: NOREPINEPHRINE 8 MG/250ML KIT 250 ML IV SCH (13:15)
[2021-07-25 14:15] VITALS: BP 130/70
[2021-07-25] MEDS: fentaNYL Drip 2500mCg/250mlNS 250 ML IV SCH (16:33)
[2021-07-25] MEDS: MIDAZOLAM DRIP 50 mg/50mL 50 ML IV SCH (17:19)
[2021-07-25 18:49] VITALS: BP 157/87
[2021-07-25 21:38] VITALS: BP_SYST 113; BP_DIAS 171; BP_DIAS 69
[2021-07-25] MEDS ORDERED: levETIRAcetam 500 MG/5ML INJ IV ONE (23:36)
[2021-07-26 02:36] VITALS: BP 149/72
[2021-07-26] MEDS: SODIUM CHLOR 0.9% PF (SALINE LOCK) 10ML VIAL/SYR IV SCH ×3 (06:00→21:54)
[2021-07-26] MEDS: methylPREDNISolone SOD SUCC 40 MG/ML VL IV SCH ×5 (06:00→23:38)
[2021-07-26 06:52] LABS: Basophils # (auto) 0 10 ^3/uL (0-0.2); Basophils % (auto) 0.2 % (0.0-2.0); Eosinophils # (auto) 0 10 ^3/uL (0-0.8); Hematocrit 36.9 % (36.0-46.0); Hemoglobin 12.5 g/dL (12.2-16.2); Lymphocytes # (auto) 0.2 10 ^3/uL (0.4-5.4); Lymphocytes % (auto) 2.3 % (10.0-50.0); Mean Corpuscular Hemoglobin 32.8 pg (28.0-32.0); Mean Corpuscular Hgb Conc. 33.9 g/dL (32.0-36.0); Mean Corpuscular Volume 96.9 fL (80.0-100.0); Monocytes # (auto) 0.6 10 ^3/uL (0-1.3); Neutrophils # (auto) 8.5 10 ^3/uL (1.6-8.6); Neutrophils % (auto) 91.5 % (37.0-80.0); Red Blood Cells 3.81 10^6/uL (4.0-5.20); Red Cell Distribution Width 13.8 % (11.8-14.3); White Blood Cell 9.3 10^3/uL (4.4-10.8)
[2021-07-26 06:56] VITALS: BP 141/71
[2021-07-26] MEDS: IPRATROPIUM BROM 0.5 MG/2.5ML INH SOL NEB SCH ×4 (06:56→23:00)
[2021-07-26] MEDS: ALBUTEROL SULF 2.5 MG/0.5ML(0.5%) NEB SOLN NEB SCH ×4 (06:56→23:01)
[2021-07-26 07:05] LABS: Calcium 8.3 mg/dL (8.5-10.1)
[2021-07-26] MEDS: levoFLOXacin 500MG 100 ML IV SCH (09:27)
[2021-07-26] MEDS: FUROSEMIDE 40 MG/4 ML VIAL IV SCH (09:27)
[2021-07-26] MEDS: FAMOTIDINE (10MG/ML) 2ML VL IV SCH ×2 (09:28→21:53)
[2021-07-26] MEDS: HEPARIN SODIUM (PORCINE) 5000 UNITS/ML 1ML VIAL SC SCH ×2 (09:34→21:54)
[2021-07-26 11:04] VITALS: BP 127/66
[2021-07-26] MEDS: NOREPINEPHRINE 8 MG/250ML KIT 250 ML IV SCH (13:00)
[2021-07-26 14:43] VITALS: BP 127/71
[2021-07-26] MEDS: MIDAZOLAM DRIP 50 mg/50mL 50 ML IV SCH (15:51)
[2021-07-26] MEDS: fentaNYL Drip 2500mCg/250mlNS 250 ML IV SCH (16:57)
[2021-07-26] MEDS ORDERED: PROPOFOL 100 ML IV SCH (17:45)
[2021-07-26 18:40] VITALS: BP 128/69
[2021-07-26 21:55] VITALS: BP 144/81
[2021-07-27 02:45] VITALS: BP 136/60
[2021-07-27] MEDS: SODIUM CHLOR 0.9% PF (SALINE LOCK) 10ML VIAL/SYR IV SCH ×3 (05:26→22:24)
[2021-07-27] MEDS: IPRATROPIUM BROM 0.5 MG/2.5ML INH SOL NEB SCH ×4 (06:21→19:25)
[2021-07-27] MEDS: ALBUTEROL SULF 2.5 MG/0.5ML(0.5%) NEB SOLN NEB SCH ×4 (06:21→19:24)
[2021-07-27 06:23] VITALS: BP 137/78
[2021-07-27] MEDS: methylPREDNISolone SOD SUCC 40 MG/ML VL IV SCH ×3 (06:45→17:22)
[2021-07-27] MEDS: levoFLOXacin 500MG 100 ML IV SCH (10:00)
[2021-07-27] MEDS: HEPARIN SODIUM (PORCINE) 5000 UNITS/ML 1ML VIAL SC SCH ×2 (10:00→22:31)
[2021-07-27] MEDS: FUROSEMIDE 40 MG/4 ML VIAL IV SCH (10:00)
[2021-07-27] MEDS: FAMOTIDINE (10MG/ML) 2ML VL IV SCH ×2 (10:00→22:24)
[2021-07-27 10:18] VITALS: BP 164/87
[2021-07-27] MEDS: NOREPINEPHRINE 8 MG/250ML KIT 250 ML IV SCH (13:15)
[2021-07-27 15:13] VITALS: BP 144/87
[2021-07-27] MEDS: MIDAZOLAM DRIP 50 mg/50mL 50 ML IV SCH (16:00)
[2021-07-27] MEDS: fentaNYL Drip 2500mCg/250mlNS 250 ML IV SCH (16:30)
[2021-07-27 17:56] VITALS: BP 136/75
[2021-07-27 21:55] VITALS: BP 149/80
[2021-07-27] MEDS ORDERED: levETIRAcetam 500 MG/5ML INJ IV ONE (22:22)
[2021-07-28] MEDS: methylPREDNISolone SOD SUCC 40 MG/ML VL IV SCH ×5 (00:06→23:47)
[2021-07-28] MEDS: IPRATROPIUM BROM 0.5 MG/2.5ML INH SOL NEB SCH ×4 (01:05→18:54)
[2021-07-28] MEDS: ALBUTEROL SULF 2.5 MG/0.5ML(0.5%) NEB SOLN NEB SCH ×4 (01:05→18:53)
[2021-07-28 02:00] VITALS: BP 143/68
[2021-07-28 06:10] VITALS: BP 114/62
[2021-07-28] MEDS: SODIUM CHLOR 0.9% PF (SALINE LOCK) 10ML VIAL/SYR IV SCH ×3 (06:44→22:00)
[2021-07-28 10:10] VITALS: BP 142/83
[2021-07-28] MEDS: FAMOTIDINE (10MG/ML) 2ML VL IV SCH ×2 (10:25→23:47)
[2021-07-28] MEDS: levoFLOXacin 500MG 100 ML IV SCH (10:25)
[2021-07-28] MEDS: FUROSEMIDE 40 MG/4 ML VIAL IV SCH (10:25)
[2021-07-28] MEDS: HEPARIN SODIUM (PORCINE) 5000 UNITS/ML 1ML VIAL SC SCH ×2 (10:26→23:47)
[2021-07-28] MEDS: NOREPINEPHRINE 8 MG/250ML KIT 250 ML IV SCH (14:35)
[2021-07-28 15:10] VITALS: BP 157/89
[2021-07-28] MEDS: MIDAZOLAM DRIP 50 mg/50mL 50 ML IV SCH (16:00)
[2021-07-28] MEDS: fentaNYL Drip 2500mCg/250mlNS 250 ML IV SCH (16:30)
[2021-07-28 21:43] VITALS: BP 144/83
[2021-07-28] MEDS ORDERED: levETIRAcetam 500 MG/5ML INJ IV ONE (22:37)
[2021-07-29] VITALS (7 sets, daily range): BP systolic 128–147; BP diastolic 72–83
[2021-07-29] MEDS: ALBUTEROL SULF 2.5 MG/0.5ML(0.5%) NEB SOLN NEB SCH ×4 (06:00→19:03)
[2021-07-29] MEDS: IPRATROPIUM BROM 0.5 MG/2.5ML INH SOL NEB SCH ×4 (06:00→19:03)
[2021-07-29] MEDS: SODIUM CHLOR 0.9% PF (SALINE LOCK) 10ML VIAL/SYR IV SCH ×3 (06:00→22:20)
[2021-07-29 06:19] LABS: Albumin 2.9 g/dL (3.4-5.0); BUN/Creatinine Ratio 88.7; Calcium 8.5 mg/dL (8.5-10.1); Potassium 3.7 mmol/L (3.5-5.1)
[2021-07-29 06:27] LABS: Basophils # (auto) 0 10 ^3/uL (0-0.2); Basophils % (auto) 0.1 % (0.0-2.0); Bilirubin, Total 0.5 mg/dL (0.2-1.0); Eosinophils # (auto) 0 10 ^3/uL (0-0.8); Hematocrit 41.9 % (36.0-46.0); Hemoglobin 13.6 g/dL (12.2-16.2); Lymphocytes # (auto) 0.4 10 ^3/uL (0.4-5.4); Lymphocytes % (auto) 3.1 % (10.0-50.0); Mean Corpuscular Hemoglobin 31.4 pg (28.0-32.0); Mean Corpuscular Hgb Conc. 32.4 g/dL (32.0-36.0); Mean Corpuscular Volume 96.8 fL (80.0-100.0); Monocytes # (auto) 0.3 10 ^3/uL (0-1.3); Monocytes % (auto) 2.9 % (0.0-12.0); Neutrophils # (auto) 10.8 10 ^3/uL (1.6-8.6); Neutrophils % (auto) 93.9 % (37.0-80.0); Nucleated Red Blood Cells % 0.2 %; Red Blood Cells 4.32 10^6/uL (4.0-5.20); White Blood Cell 11.5 10^3/uL (4.4-10.8)
[2021-07-29] MEDS: methylPREDNISolone SOD SUCC 40 MG/ML VL IV SCH ×4 (06:36→23:15)
[2021-07-29] MEDS: HEPARIN SODIUM (PORCINE) 5000 UNITS/ML 1ML VIAL SC SCH ×2 (10:00→22:21)
[2021-07-29] MEDS: FAMOTIDINE (10MG/ML) 2ML VL IV SCH ×2 (10:00→22:19)
[2021-07-29] MEDS: FUROSEMIDE 40 MG/4 ML VIAL IV SCH (10:00)
[2021-07-29] MEDS: levoFLOXacin 500MG 100 ML IV SCH (12:00)
[2021-07-30] MEDS: ALBUTEROL SULF 2.5 MG/0.5ML(0.5%) NEB SOLN NEB SCH ×3 (01:04→11:11)
[2021-07-30] MEDS: IPRATROPIUM BROM 0.5 MG/2.5ML INH SOL NEB SCH ×3 (01:04→11:11)
[2021-07-30] MEDS: SODIUM CHLOR 0.9% PF (SALINE LOCK) 10ML VIAL/SYR IV SCH ×2 (06:57→14:00)
[2021-07-30] MEDS: methylPREDNISolone SOD SUCC 40 MG/ML VL IV SCH ×3 (06:57→18:00)
[2021-07-30 09:23] VITALS: BP 151/78
[2021-07-30] MEDS: FUROSEMIDE 40 MG/4 ML VIAL IV SCH (09:40)
[2021-07-30] MEDS: levoFLOXacin 500MG 100 ML IV SCH (09:41)
[2021-07-30] MEDS: FAMOTIDINE (10MG/ML) 2ML VL IV SCH (09:41)
[2021-07-30] MEDS: HEPARIN SODIUM (PORCINE) 5000 UNITS/ML 1ML VIAL SC SCH (09:41)
[2021-07-30 12:42] VITALS: BP 122/66
[2021-07-30 16:28] VITALS: BP 137/68
[2021-07-30] MEDS ORDERED: CIPR-173 PO (17:13)
== END 2021-07-30 19:30 | disposition home or self-care (01) | DRG 870 ==
LOC: EDBD 13:10 → EDSEX 13:10 → ER 13:10 → TELE 23:59 → TELE-CENTR 23:59
PROVIDERS: ADMIT Nurse Practitioner Family; ATTEND Internal Medicine
PROC: 5A1955Z Respiratory Ventilation, Greater than 96 Consecutive Hours (ICD-10-PCS; principal; 2021-07-21)
PROC: 0BH17EZ Insertion of Endotracheal Airway into Trachea, Via Natural or Artificial Opening (ICD-10-PCS; 2021-07-21)
PROC: 05HY33Z Insertion of Infusion Device into Upper Vein, Percutaneous Approach (ICD-10-PCS; 2021-07-21)
PROC: 05HD33Z Insertion of Infusion Device into Right Cephalic Vein, Percutaneous Approach (ICD-10-PCS; 2021-07-29)
PROC: B54MZZA Ultrasonography of Right Upper Extremity Veins, Guidance (ICD-10-PCS; 2021-07-29)
DX: A41.9 Sepsis, unspecified organism (principal); J18.9 Pneumonia, unspecified organism; J96.01 Acute respiratory failure with hypoxia; G92.9 Unspecified toxic encephalopathy; J44.0 Chronic obstructive pulmonary disease with (acute) lower respiratory infection; E87.0 Hyperosmolality and hypernatremia; J44.1 Chronic obstructive pulmonary disease with (acute) exacerbation; Z99.11 Dependence on respirator [ventilator] status; E88.09 Other disorders of plasma-protein metabolism, not elsewhere classified; E03.9 Hypothyroidism, unspecified; E66.9 Obesity, unspecified; E78.5 Hyperlipidemia, unspecified; F17.200 Nicotine dependence, unspecified, uncomplicated; G40.909 Epilepsy, unspecified, not intractable, without status epilepticus; Z96.653 Presence of artificial knee joint, bilateral; Z96.611 Presence of right artificial shoulder joint; Z96.612 Presence of left artificial shoulder joint; F32.A Depression, unspecified; F41.9 Anxiety disorder, unspecified; K21.9 Gastro-esophageal reflux disease without esophagitis; M19.90 Unspecified osteoarthritis, unspecified site; R29.6 Repeated falls; Z20.822 Contact with and (suspected) exposure to COVID-19; J20.8 Acute bronchitis due to other specified organisms; J84.10 Pulmonary fibrosis, unspecified; Z68.29 Body mass index [BMI] 29.0-29.9, adult; Z80.8 Family history of malignant neoplasm of other organs or systems; Z74.01 Bed confinement status; Z86.73 Personal history of transient ischemic attack (TIA), and cerebral infarction without residual deficits; Z82.0 Family history of epilepsy and other diseases of the nervous system; Z82.49 Family history of ischemic heart disease and other diseases of the circulatory system; Z83.3 Family history of diabetes mellitus; Z88.0 Allergy status to penicillin
CPT/HCPCS: 31500; 36415; 36556; 36600; 70450; 71045; 71275; 80048; 80053; 80307; 80320; 81001; 82550; 82728; 82805; 82962; 83605; 83735; 83880; 84484; 85025; 85379; 85610; 85730; 86141; 87040; 87070; 87077; 87081; 87186; 87205; 87426; 92610; 93005; 93306; 93970; 94003; 94640; 95819; 96365; 99291; G0378; J0330; J1100; J1956; J2250; J2543; J3490; J7060

== ENCOUNTER 2022-01-01 21:58 | Inpatient (IN) | payer OTHER, MEDICAID ==
[~2022-01-01] VITALS: Ht 165.1 cm; Wt 88.0 kg
[~2022-01-01 21:58] MED LIST changes: +CIPR-173 PO; -LEVO-28 PO
[2022-01-01] MEDS ORDERED: SODIUM CHLORIDE 0.9% 500 ML IV ONE (23:30)
[2022-01-01] MEDS ORDERED: PIPERACILLIN-TAZO 4.5GM 100 ML IV ONE ×2 (23:30→23:47)
[2022-01-01 23:49] LABS: Basophils # (auto) 0 10 ^3/uL (0-0.2); Eosinophils # (auto) 0 10 ^3/uL (0-0.8); Lymphocytes # (auto) 0.3 10 ^3/uL (0.4-5.4); Mean Corpuscular Volume 90.5 fL (80.0-100.0); Monocytes # (auto) 0.2 10 ^3/uL (0-1.3); Monocytes % (auto) 2.2 % (0.0-12.0)
[2022-01-02] VITALS (35 sets, daily range): BP systolic 78–138; BP diastolic 42–79
[2022-01-02] MEDS ORDERED: levoFLOXacin 750MG 150 ML IV ONE
[2022-01-02 00:01] LABS: Basophils % (auto) 0.2 % (0.0-2.0); Hematocrit 41.3 % (36.0-46.0); Lymphocytes % (auto) 2.6 % (10.0-50.0); Mean Corpuscular Hemoglobin 30.7 pg (28.0-32.0); Mean Corpuscular Hgb Conc. 33.9 g/dL (32.0-36.0); Neutrophils # (auto) 10.4 10 ^3/uL (1.6-8.6); Nucleated Red Blood Cells % 0.3 %; Red Blood Cells 4.56 10^6/uL (4.0-5.20); White Blood Cell 10.9 10^3/uL (4.4-10.8)
[2022-01-02 00:09] LABS: Albumin 2.3 g/dL (3.4-5.0); Calcium 7.8 mg/dL (8.5-10.1)
[2022-01-02 00:13] LABS: Lactic Acid w/Reflex 7.7 mmol/L (0.4-2.0)
[2022-01-02 00:18] LABS: BUN/Creatinine Ratio 11.7; Bilirubin, Total 0.3 mg/dL (0.2-1.0); Total Protein 5.3 g/dL (6.4-8.2)
[2022-01-02 00:41] LABS: Potassium 2.6 mmol/L (3.5-5.1)
[2022-01-02] MEDS ORDERED: VANCOMYCIN 1GM/250ML 250 ML IV ONE (02:45)
[2022-01-02] MEDS ORDERED: MIDAZOLAM HCL 2MG/2ML 2ml VIAL (1mg/ml) ONE ×3 (02:51→13:36)
[2022-01-02] MEDS ORDERED: MIDAZOLAM HCL 2MG/2ML 2ml VIAL (1mg/ml) IV ONE (03:00)
[2022-01-02] MEDS: POTASSIUM CHL 20MEQ/100ML 100 ML IV SCH ×5 (03:38→14:45)
[2022-01-02] MEDS ORDERED: SODIUM CHLORIDE 0.9% 2,000 ML IV ONE (04:00)
[2022-01-02] MEDS: D5W/SOD CHL 0.45%/KCL 20MEQ 1,000 ML IV SCH ×2 (04:00→14:00)
[2022-01-02] MEDS ORDERED: NOREPINEPHRINE 8 MG/250ML KIT 250 ML IV SCH (04:00)
[2022-01-02] MEDS ORDERED: NOREPINEPHRINE 8 MG/250ML KIT 250 ML IV PRN (06:15)
[2022-01-02 06:27] LABS: Urine Bacteria MOD /hpf (None Seen); Urine Blood Negative /uL (Negative); Urine Hyaline Cast MANY /lpf (0 - 2); Urine Mucus FEW (None Seen); Urine Specific Gravity 1.022 (1.001-1.035); Urine WBC 5 /hpf (0 - 5)
[2022-01-02] MEDS ORDERED: HYDROmorphone HCL 2 MG/ML VL/or syr IV ONE (06:30)
[2022-01-02] MEDS ORDERED: HYDROmorphone HCL 2 MG/ML VL/or syr IM ONE (08:00)
[2022-01-02] MEDS ORDERED: LACTATED RINGER'S 1,000 ML IV ONE (09:45)
[2022-01-02] MEDS ORDERED: SODIUM CHLORIDE 0.9% 1,000 ML IV ONE ×2 (09:45→10:00)
[2022-01-02] MEDS ORDERED: ROCURONIUM 10MG/ML 10ML VIAL IV ONE (12:02)
[2022-01-02] MEDS ORDERED: metroNIDAZOLE 500MG/100ML 100 ML IV ONE ×2 (12:05)
[2022-01-02 12:06] LABS: INR 2.44 (0.9-1.15); Partial Thromboplastin Time 37.2 sec (23.6-33.0)
[2022-01-02] MEDS ORDERED: fentaNYL CITRATE 100 MCG/2 ML VL ONE ×2 (12:07→15:29)
[2022-01-02] MEDS ORDERED: HYDROmorphone HCL 2 MG/ML VL/or syr ONE ×2 (12:07→13:37)
[2022-01-02] MEDS ORDERED: ETOMIDATE (2MG/ML) 20ML VIAL IV ONE (12:08)
[2022-01-02] MEDS ORDERED: DexAMETHasone SOD PHOS 10MG/1ML VIAL INJ ONE (12:08)
[2022-01-02] MEDS ORDERED: ePHEDrine SULFATE 50 MG/ML AMP ONE (12:08)
[2022-01-02] MEDS ORDERED: LIDOCAINE 2% (LOCAL ANESTH.) PF 5ml SDV ONE (12:08)
[2022-01-02] MEDS ORDERED: GLYCOPYRROLATE 0.2 MG/ML 1ML VIAL ONE (12:08)
[2022-01-02] MEDS ORDERED: PHENYLEPHRINE HCL 10 MG/ML VL ONE (12:08)
[2022-01-02 12:32] LABS: Albumin 1.6 g/dL (3.4-5.0); BUN/Creatinine Ratio 15.1; Bilirubin, Total 0.3 mg/dL (0.2-1.0); Calcium 6.3 mg/dL (8.5-10.1); Total Protein 4.4 g/dL (6.4-8.2)
[2022-01-02 12:35] LABS: Potassium 2.8 mmol/L (3.5-5.1)
[2022-01-02] MEDS ORDERED: POVIDONE IODINE 10 % TOPICAL OINT 30GM TOP ONE (13:26)
[2022-01-02] MEDS ORDERED: MIDAZOLAM DRIP 50 mg/50mL 50 ML IV ONE (14:00)
[2022-01-02] MEDS ORDERED: metroNIDAZOLE 500MG/100ML 100 ML IV SCH (14:00)
[2022-01-02] MEDS ORDERED: MEROPENEM 1GM IVPB 100 ML IV SCH (14:00)
[2022-01-02] MEDS ORDERED: fentaNYL CITRATE 100 MCG/2 ML VL IV PRN (14:00)
[2022-01-02] MEDS ORDERED: MIDAZOLAM HCL 2MG/2ML 2ml VIAL (1mg/ml) IV PRN (14:00)
[2022-01-02] MEDS: MIDAZOLAM DRIP 50 mg/50mL 50 ML IV SCH ×2 (14:19→20:05)
[2022-01-02] MEDS: fentaNYL Drip 2500mCg/250mlNS 250 ML IV SCH (14:35)
[2022-01-02] MEDS: MIDAZOLAM HCL 5 MG/ML-1ML VIAL ONE ×2 (16:01→16:11)
[2022-01-02] MEDS: NOREPINEPHRINE 8 MG/250ML KIT 250 ML IV SCH ×2 (16:37→20:55)
[2022-01-02] MEDS: PROPOFOL 100 ML IV SCH (17:26)
[2022-01-02] MEDS: metroNIDAZOLE 500MG/100ML 100 ML IV SCH (21:00)
[2022-01-02] MEDS: CEFEPIME 1GM/ 50ML 50 ML IV SCH (22:25)
[2022-01-03] VITALS (98 sets, daily range): BP systolic 86–168; BP diastolic 45–97
[2022-01-03] MEDS: D5W/SOD CHL 0.45%/KCL 20MEQ 1,000 ML IV SCH ×3 (03:00→21:57)
[2022-01-03 03:58] LABS: Basophils # (auto) 0 10 ^3/uL (0-0.2); Basophils % (auto) 0.1 % (0.0-2.0); Eosinophils # (auto) 0 10 ^3/uL (0-0.8); Hemoglobin 9.8 g/dL (12.2-16.2)
[2022-01-03] MEDS: fentaNYL Drip 2500mCg/250mlNS 250 ML IV SCH (04:00)
[2022-01-03] MEDS: MIDAZOLAM DRIP 50 mg/50mL 50 ML IV SCH (04:00)
[2022-01-03 04:06] LABS: BUN/Creatinine Ratio 23.7; Potassium 3.3 mmol/L (3.5-5.1)
[2022-01-03 04:07] LABS: Hematocrit 29.9 % (36.0-46.0); Lymphocytes # (auto) 0.8 10 ^3/uL (0.4-5.4); Lymphocytes % (auto) 2.8 % (10.0-50.0); Mean Corpuscular Hemoglobin 30.9 pg (28.0-32.0); Mean Corpuscular Hgb Conc. 32.8 g/dL (32.0-36.0); Mean Corpuscular Volume 94.2 fL (80.0-100.0); Monocytes % (auto) 3.8 % (0.0-12.0); Neutrophils % (auto) 93.3 % (37.0-80.0); Red Blood Cells 3.17 10^6/uL (4.0-5.20); Red Cell Distribution Width 14.3 % (11.8-14.3); White Blood Cell 26.8 10^3/uL (4.4-10.8)
[2022-01-03 04:09] LABS: Calcium 5.9 mg/dL (8.5-10.1)
[2022-01-03] MEDS: metroNIDAZOLE 500MG/100ML 100 ML IV SCH ×3 (05:18→20:57)
[2022-01-03] MEDS: CEFEPIME 1GM/ 50ML 50 ML IV SCH ×3 (06:00→21:56)
[2022-01-03] MEDS ORDERED: DexAMETHasone SOD PHOS 4 MG/1ML SDV INJ IM ONE (13:00)
[2022-01-03] MEDS ORDERED: DexAMETHasone SOD PHOS 4 MG/1ML SDV INJ IV ONE (13:00)
[2022-01-03] MEDS: PROPOFOL 100 ML IV SCH (13:03)
[2022-01-03 13:34] LABS: Hematocrit 30.6 % (36.0-46.0); Mean Corpuscular Hemoglobin 30.9 pg (28.0-32.0); Mean Corpuscular Hgb Conc. 32.6 g/dL (32.0-36.0); Mean Corpuscular Volume 94.9 fL (80.0-100.0); Red Blood Cells 3.23 10^6/uL (4.0-5.20); White Blood Cell 26.7 10^3/uL (4.4-10.8)
[2022-01-03 13:59] LABS: Basophils % (manual) 0 (0.0-2.0); Blast Cells 0; Eosinophils % (manual) 0 (0-7); Myelocytes % 0; Promyelocytes % 0; Reactive Lymphocytes 0
[2022-01-03] MEDS ORDERED: ACETAMINOPHEN 650 MG RECT SUPP PR PRN (16:45)
[2022-01-03 17:03] LABS: Band Neutrophils % (manual) 55; Lymphocytes % (manual) 1 (10.0-50.0); Metamyelocytes % 2; Monocytes % (manual) 4 (0-12)
[2022-01-03] MEDS ORDERED: MORPHINE SULFATE INJ 2 MG/ml SYRG IV PRN (17:45)
[2022-01-03] MEDS ORDERED: METOPROLOL TARTRATE 1MG/1ML-5ML VIAL IV SCH (18:00)
[2022-01-03] MEDS ORDERED: POTASSIUM CHLORIDE 40 MEQ, LIDOCAINE 1% (LOCAL ANESTH.) 4 ML in SODIUM CHL 0.9% 250 ML IV ONE (18:30)
[2022-01-03] MEDS ORDERED: METOPROLOL TARTRATE 1MG/1ML-5ML VIAL IV PRN ×2 (18:37→20:15)
[2022-01-03] MEDS: POTASSIUM CHL 20MEQ/100ML 100 ML IV SCH ×2 (18:57→20:13)
[2022-01-03] MEDS: MORPHINE SULFATE 4 MG/ML SYR/VIAL IV PRN (21:00)
[2022-01-04] VITALS (82 sets, daily range): BP systolic 94–132; BP diastolic 56–104
[2022-01-04] MEDS: MORPHINE SULFATE 4 MG/ML SYR/VIAL IV PRN ×5 (01:00→20:58)
[2022-01-04 04:06] LABS: Basophils # (auto) 0.1 10 ^3/uL (0-0.2); Basophils % (auto) 0.5 % (0.0-2.0); Eosinophils # (auto) 0 10 ^3/uL (0-0.8); Hematocrit 25.8 % (36.0-46.0); Hemoglobin 8.6 g/dL (12.2-16.2); Lymphocytes # (auto) 0.3 10 ^3/uL (0.4-5.4); Lymphocytes % (auto) 1.4 % (10.0-50.0); Mean Corpuscular Hemoglobin 30.9 pg (28.0-32.0); Mean Corpuscular Hgb Conc. 33.2 g/dL (32.0-36.0); Mean Corpuscular Volume 92.9 fL (80.0-100.0); Monocytes # (auto) 0.5 10 ^3/uL (0-1.3); Monocytes % (auto) 2.3 % (0.0-12.0); Neutrophils # (auto) 19.8 10 ^3/uL (1.6-8.6); Neutrophils % (auto) 95.8 % (37.0-80.0); Red Blood Cells 2.78 10^6/uL (4.0-5.20); Red Cell Distribution Width 13.7 % (11.8-14.3); White Blood Cell 20.7 10^3/uL (4.4-10.8)
[2022-01-04 04:20] LABS: Albumin 1.4 g/dL (3.4-5.0); Calcium 6.4 mg/dL (8.5-10.1); Magnesium 1.5 mg/dL (1.6-2.6); Potassium 4.4 mmol/L (3.5-5.1)
[2022-01-04 04:22] LABS: BUN/Creatinine Ratio 33.9
[2022-01-04 04:24] LABS: Bilirubin, Total 0.2 mg/dL (0.2-1.0); Phosphorus 2.1 mg/dL (2.5-4.90)
[2022-01-04 04:39] LABS: INR 1.33 (0.9-1.15)
[2022-01-04] MEDS: metroNIDAZOLE 500MG/100ML 100 ML IV SCH ×3 (04:54→20:58)
[2022-01-04] MEDS: CEFEPIME 1GM/ 50ML 50 ML IV SCH ×3 (06:14→21:06)
[2022-01-04] MEDS: NOREPINEPHRINE 8 MG/250ML KIT 250 ML IV SCH (09:39)
[2022-01-04] MEDS: D5W/SOD CHL 0.45%/KCL 20MEQ 1,000 ML IV SCH (09:39)
[2022-01-04] MEDS: MAGNESIUM SULFATE 1GM/100ML 100 ML IV SCH ×3 (11:04→13:51)
[2022-01-04] MEDS ORDERED: FUROSEMIDE 20 MG/2 ML VIAL IV ONE (12:15)
[2022-01-04] MEDS ORDERED: PANTOPRAZOLE 40 MG/10 ML VIAL INJ IV ONE (12:15)
[2022-01-04] MEDS ORDERED: POTASSIUM PHOSPHATE 26.4 MEQ in SODIUM CHL 0.9% 100 ML IV ONE (14:00)
[2022-01-04] MEDS: PANTOPRAZOLE 40 MG/10 ML VIAL INJ IV SCH (22:55)
[2022-01-05] MEDS: MORPHINE SULFATE 4 MG/ML SYR/VIAL IV PRN ×6 (01:04→21:24)
[2022-01-05] MEDS: metroNIDAZOLE 500MG/100ML 100 ML IV SCH ×3 (05:41→21:22)
[2022-01-05] MEDS: CEFEPIME 1GM/ 50ML 50 ML IV SCH ×3 (05:43→21:23)
[2022-01-05 07:20] LABS: Calcium 6.9 mg/dL (8.5-10.1); Magnesium 2.3 mg/dL (1.6-2.6); Potassium 4.1 mmol/L (3.5-5.1)
[2022-01-05 07:22] LABS: BUN/Creatinine Ratio 34.1; Phosphorus 2.2 mg/dL (2.5-4.90)
[2022-01-05 08:00] VITALS: BP 134/70
[2022-01-05 08:24] LABS: Basophils # (auto) 0.2 10 ^3/uL (0-0.2); Basophils % (auto) 1.9 % (0.0-2.0); Eosinophils # (auto) 0 10 ^3/uL (0-0.8); Eosinophils % (auto) 0.2 % (0.0-7.0); Hematocrit 27.5 % (36.0-46.0); Hemoglobin 9.1 g/dL (12.2-16.2); Lymphocytes # (auto) 0.8 10 ^3/uL (0.4-5.4); Lymphocytes % (auto) 7.4 % (10.0-50.0); Mean Corpuscular Hemoglobin 30.9 pg (28.0-32.0); Mean Corpuscular Hgb Conc. 32.9 g/dL (32.0-36.0); Monocytes # (auto) 0.4 10 ^3/uL (0-1.3); Monocytes % (auto) 4.1 % (0.0-12.0); Neutrophils # (auto) 9.2 10 ^3/uL (1.6-8.6); Neutrophils % (auto) 86.4 % (37.0-80.0); Red Blood Cells 2.92 10^6/uL (4.0-5.20); Red Cell Distribution Width 13.7 % (11.8-14.3); White Blood Cell 10.7 10^3/uL (4.4-10.8)
[2022-01-05] MEDS: FUROSEMIDE 20 MG/2 ML VIAL IV SCH (09:57)
[2022-01-05] MEDS: PANTOPRAZOLE 40 MG/10 ML VIAL INJ IV SCH ×2 (09:57→21:22)
[2022-01-05 12:00] VITALS: BP 127/68
[2022-01-05] MEDS ORDERED: NEUTRA-PHOS TABLET PO ONE (12:30)
[2022-01-05 16:00] VITALS: BP 120/74
[2022-01-05 22:00] VITALS: BP 125/67
[2022-01-06] MEDS: MORPHINE SULFATE 4 MG/ML SYR/VIAL IV PRN ×6 (01:54→22:29)
[2022-01-06 05:00] VITALS: BP 149/79
[2022-01-06] MEDS: metroNIDAZOLE 500MG/100ML 100 ML IV SCH ×3 (05:52→21:58)
[2022-01-06] MEDS: CEFEPIME 1GM/ 50ML 50 ML IV SCH ×2 (05:54→16:29)
[2022-01-06 09:00] VITALS: BP 148/83
[2022-01-06] MEDS: PANTOPRAZOLE 40 MG/10 ML VIAL INJ IV SCH ×2 (10:15→21:58)
[2022-01-06] MEDS: FUROSEMIDE 20 MG/2 ML VIAL IV SCH (10:15)
[2022-01-06 13:00] VITALS: BP 138/83
[2022-01-06 17:00] VITALS: BP 149/82
[2022-01-06 22:00] VITALS: BP 150/73
[2022-01-07] MEDS: CEFEPIME 1GM/ 50ML 50 ML IV SCH ×4 (01:16→22:15)
[2022-01-07] MEDS: MORPHINE SULFATE 4 MG/ML SYR/VIAL IV PRN ×4 (04:48→21:00)
[2022-01-07] MEDS: metroNIDAZOLE 500MG/100ML 100 ML IV SCH ×3 (04:53→21:43)
[2022-01-07 05:00] VITALS: BP 145/79
[2022-01-07 06:36] LABS: Potassium 3.8 mmol/L (3.5-5.1)
[2022-01-07 06:46] LABS: Calcium 7.5 mg/dL (8.5-10.1); Magnesium 2.1 mg/dL (1.6-2.6)
[2022-01-07 09:00] VITALS: BP 134/61
[2022-01-07] MEDS: FUROSEMIDE 20 MG/2 ML VIAL IV SCH (11:01)
[2022-01-07] MEDS: PANTOPRAZOLE 40 MG/10 ML VIAL INJ IV SCH ×2 (11:02→22:15)
[2022-01-07 13:00] VITALS: BP 132/79
[2022-01-07 17:00] VITALS: BP 136/85
[2022-01-07 22:00] VITALS: BP 150/81
[2022-01-08] MEDS: MORPHINE SULFATE 4 MG/ML SYR/VIAL IV PRN ×6 (01:26→22:53)
[2022-01-08 05:00] VITALS: BP 140/78
[2022-01-08] MEDS: metroNIDAZOLE 500MG/100ML 100 ML IV SCH ×3 (05:20→21:11)
[2022-01-08] MEDS: CEFEPIME 1GM/ 50ML 50 ML IV SCH ×3 (06:00→22:00)
[2022-01-08 08:00] VITALS: BP 156/92
[2022-01-08 12:00] VITALS: BP 151/91
[2022-01-08] MEDS: FUROSEMIDE 20 MG/2 ML VIAL IV SCH (12:02)
[2022-01-08] MEDS: PANTOPRAZOLE 40 MG/10 ML VIAL INJ IV SCH ×2 (12:03→22:00)
[2022-01-08 16:30] VITALS: BP 152/88
[2022-01-09] MEDS: MORPHINE SULFATE 4 MG/ML SYR/VIAL IV PRN ×4 (05:00→23:25)
[2022-01-09] MEDS: metroNIDAZOLE 500MG/100ML 100 ML IV SCH ×3 (05:02→20:23)
[2022-01-09] MEDS: CEFEPIME 1GM/ 50ML 50 ML IV SCH ×3 (06:00→21:46)
[2022-01-09 09:00] VITALS: BP 143/87
[2022-01-09] MEDS: PANTOPRAZOLE 40 MG/10 ML VIAL INJ IV SCH ×2 (09:29→21:46)
[2022-01-09] MEDS: FUROSEMIDE 20 MG/2 ML VIAL IV SCH (09:30)
[2022-01-09] MEDS ORDERED: GASTROGRAFIN 120 ML SOL ONE (10:16)
[2022-01-09 12:58] VITALS: BP 137/83
[2022-01-09] MEDS: HYDROmorphone HCL 2 MG/ML VL/or syr IV PRN ×2 (13:45→20:22)
[2022-01-09 17:25] VITALS: BP 137/90
[2022-01-09 22:00] VITALS: BP 155/82
[2022-01-10] MEDS: metroNIDAZOLE 500MG/100ML 100 ML IV SCH ×3 (04:32→21:32)
[2022-01-10] MEDS: MORPHINE SULFATE 4 MG/ML SYR/VIAL IV PRN ×4 (04:36→20:19)
[2022-01-10 05:00] VITALS: BP 138/82
[2022-01-10] MEDS: CEFEPIME 1GM/ 50ML 50 ML IV SCH ×3 (05:48→22:25)
[2022-01-10 06:04] LABS: Hemoglobin 10.4 g/dL (12.2-16.2)
[2022-01-10 06:07] LABS: Hematocrit 32.1 % (36.0-46.0); Mean Corpuscular Hgb Conc. 32.3 g/dL (32.0-36.0); Mean Corpuscular Volume 92.7 fL (80.0-100.0); Red Blood Cells 3.46 10^6/uL (4.0-5.20); Red Cell Distribution Width 13.7 % (11.8-14.3); White Blood Cell 9.3 10^3/uL (4.4-10.8)
[2022-01-10 06:13] LABS: Albumin 1.6 g/dL (3.4-5.0); Calcium 7.5 mg/dL (8.5-10.1); Magnesium 2.2 mg/dL (1.6-2.6)
[2022-01-10 06:17] LABS: BUN/Creatinine Ratio 24.4; Bilirubin, Total 0.3 mg/dL (0.2-1.0); Total Protein 5.2 g/dL (6.4-8.2)
[2022-01-10 06:26] LABS: Basophils % (manual) 0 (0.0-2.0); Blast Cells 0; Myelocytes % 0; Promyelocytes % 0; Reactive Lymphocytes 0
[2022-01-10 08:21] LABS: Band Neutrophils % (manual) 5; Eosinophils % (manual) 1 (0-7); Lymphocytes % (manual) 6 (10.0-50.0); Metamyelocytes % 1; Monocytes % (manual) 7 (0-12)
[2022-01-10 09:00] VITALS: BP 138/82
[2022-01-10] MEDS: PANTOPRAZOLE 40 MG/10 ML VIAL INJ IV SCH ×2 (10:14→22:25)
[2022-01-10] MEDS: FUROSEMIDE 20 MG/2 ML VIAL IV SCH (10:29)
[2022-01-10 13:00] VITALS: BP 136/91
[2022-01-10] MEDS: METOCLOPRAMIDE HCL 10 MG TAB PO SCH ×2 (15:54→22:25)
[2022-01-10 17:00] VITALS: BP 136/90
[2022-01-10 22:00] VITALS: BP 154/85
[2022-01-11] MEDS: MORPHINE SULFATE 4 MG/ML SYR/VIAL IV PRN ×4 (02:32→20:16)
[2022-01-11] MEDS: metroNIDAZOLE 500MG/100ML 100 ML IV SCH ×3 (05:00→23:05)
[2022-01-11 05:18] VITALS: BP 131/68
[2022-01-11 05:49] LABS: Calcium 7.3 mg/dL (8.5-10.1)
[2022-01-11 05:51] LABS: BUN/Creatinine Ratio 29.7
[2022-01-11] MEDS: METOCLOPRAMIDE HCL 10 MG TAB PO SCH ×3 (06:02→22:27)
[2022-01-11] MEDS: CEFEPIME 1GM/ 50ML 50 ML IV SCH ×2 (06:03→13:44)
[2022-01-11 06:17] LABS: Potassium 2.9 mmol/L (3.5-5.1)
[2022-01-11 06:35] LABS: Basophils # (auto) 0.1 10 ^3/uL (0-0.2); Basophils % (auto) 0.6 % (0.0-2.0); Eosinophils # (auto) 0.1 10 ^3/uL (0-0.8); Eosinophils % (auto) 0.9 % (0.0-7.0); Hematocrit 33.6 % (36.0-46.0); Lymphocytes # (auto) 0.6 10 ^3/uL (0.4-5.4); Lymphocytes % (auto) 6.6 % (10.0-50.0); Mean Corpuscular Hemoglobin 30.2 pg (28.0-32.0); Mean Corpuscular Hgb Conc. 29.8 g/dL (32.0-36.0); Mean Corpuscular Volume 101.5 fL (80.0-100.0); Monocytes # (auto) 0.7 10 ^3/uL (0-1.3); Monocytes % (auto) 7.6 % (0.0-12.0); Neutrophils # (auto) 7.9 10 ^3/uL (1.6-8.6); Neutrophils % (auto) 84.3 % (37.0-80.0); Nucleated Red Blood Cells % 0.1 %; Red Blood Cells 3.31 10^6/uL (4.0-5.20); Red Cell Distribution Width 14.6 % (11.8-14.3); White Blood Cell 9.4 10^3/uL (4.4-10.8)
[2022-01-11] MEDS ORDERED: POTASSIUM CHL 20 Meq TABLET PO ONE (07:00)
[2022-01-11 08:57] VITALS: BP 126/82
[2022-01-11] MEDS: POTASSIUM CHL 20MEQ/100ML 100 ML IV SCH ×2 (10:58→13:27)
[2022-01-11] MEDS: PANTOPRAZOLE 40 MG/10 ML VIAL INJ IV SCH ×2 (10:59→22:27)
[2022-01-11] MEDS: FUROSEMIDE 20 MG/2 ML VIAL IV SCH (10:59)
[2022-01-11 13:00] VITALS: BP 119/71
[2022-01-11] MEDS ORDERED: POTASSIUM CHL 20MEQ/100ML 100 ML IV ONE (13:30)
[2022-01-11] MEDS ORDERED: POTASSIUM CHL 20MEQ/100ML 100 ML IV SCH (13:30)
[2022-01-11] MEDS: HYDROmorphone HCL 2 MG/ML VL/or syr IV PRN ×2 (13:44→18:26)
[2022-01-11 17:02] VITALS: BP 138/61
[2022-01-11 22:00] VITALS: BP 132/90
[2022-01-12] MEDS: HYDROmorphone HCL 2 MG/ML VL/or syr IV PRN ×3 (00:29→16:31)
[2022-01-12] MEDS: CEFEPIME 1GM/ 50ML 50 ML IV SCH ×4 (00:42→22:02)
[2022-01-12] MEDS: metroNIDAZOLE 500MG/100ML 100 ML IV SCH ×3 (04:46→20:35)
[2022-01-12] MEDS: MORPHINE SULFATE 4 MG/ML SYR/VIAL IV PRN ×3 (04:46→20:03)
[2022-01-12 05:00] VITALS: BP 125/84
[2022-01-12] MEDS: METOCLOPRAMIDE HCL 10 MG TAB PO SCH ×3 (06:00→22:02)
[2022-01-12 08:02] LABS: BUN/Creatinine Ratio 22.9; Calcium 7.7 mg/dL (8.5-10.1); Potassium 3.6 mmol/L (3.5-5.1)
[2022-01-12 09:00] VITALS: BP 132/77
[2022-01-12] MEDS: FUROSEMIDE 20 MG/2 ML VIAL IV SCH (10:24)
[2022-01-12] MEDS: PANTOPRAZOLE 40 MG/10 ML VIAL INJ IV SCH ×2 (10:25→22:02)
[2022-01-12 13:00] VITALS: BP 131/76
[2022-01-12 17:09] VITALS: BP 131/75
[2022-01-12 22:39] VITALS: BP 135/75
[2022-01-13] MEDS: HYDROmorphone HCL 2 MG/ML VL/or syr IV PRN ×2 (02:23→09:28)
[2022-01-13] MEDS: metroNIDAZOLE 500MG/100ML 100 ML IV SCH ×2 (04:36→13:00)
[2022-01-13 05:00] VITALS: BP 136/81
[2022-01-13] MEDS: CEFEPIME 1GM/ 50ML 50 ML IV SCH ×2 (05:36→14:00)
[2022-01-13] MEDS: METOCLOPRAMIDE HCL 10 MG TAB PO SCH ×2 (05:36→14:40)
[2022-01-13 07:20] LABS: BUN/Creatinine Ratio 33.3; Calcium 7.3 mg/dL (8.5-10.1); Potassium 3.1 mmol/L (3.5-5.1)
[2022-01-13 07:29] LABS: Hematocrit 28.7 % (36.0-46.0); Hemoglobin 9.6 g/dL (12.2-16.2); Mean Corpuscular Hemoglobin 30.7 pg (28.0-32.0); Mean Corpuscular Hgb Conc. 33.4 g/dL (32.0-36.0); Mean Corpuscular Volume 91.8 fL (80.0-100.0); Red Blood Cells 3.12 10^6/uL (4.0-5.20); Red Cell Distribution Width 13.5 % (11.8-14.3); White Blood Cell 9.3 10^3/uL (4.4-10.8)
[2022-01-13 07:54] LABS: Basophils % (manual) 0 (0.0-2.0); Blast Cells 0; Eosinophils % (manual) 0 (0-7); Myelocytes % 0; Promyelocytes % 0; Reactive Lymphocytes 0
[2022-01-13 09:00] VITALS: BP 134/77
[2022-01-13] MEDS: FUROSEMIDE 20 MG/2 ML VIAL IV SCH (09:27)
[2022-01-13] MEDS: PANTOPRAZOLE 40 MG/10 ML VIAL INJ IV SCH (09:28)
[2022-01-13] MEDS ORDERED: POTASSIUM CHL 20MEQ/100ML 100 ML IV SCH (09:30)
[2022-01-13 09:50] LABS: Band Neutrophils % (manual) 2; Lymphocytes % (manual) 11 (10.0-50.0); Metamyelocytes % 2; Monocytes % (manual) 5 (0-12)
[2022-01-13 13:17] VITALS: BP 129/69
[2022-01-13] MEDS ORDERED: HYDROcodone-ACET 10/325MG TAB PO PRN (13:45)
[2022-01-13] MEDS ORDERED: POTASSIUM EFFERVESENT TAB 25 MEQ PO ONE (14:30)
[2022-01-13 17:00] VITALS: BP 144/78
== END 2022-01-13 17:12 | DRG 853 ==
LOC: ER 21:58 → EDBD 21:58 → OVERFLOW 01-02 11:58 → ICU WEST 01-02 16:30 → TELE-CENTR 01-04 21:00 → CENTRAL 01-05 12:08
PROVIDERS: ADMIT Registered Nurse; ATTEND Internal Medicine Pulmonary Disease
PROC: 0BH17EZ Insertion of Endotracheal Airway into Trachea, Via Natural or Artificial Opening (ICD-10-PCS; 2022-01-02)
PROC: 5A1945Z Respiratory Ventilation, 24-96 Consecutive Hours (ICD-10-PCS; 2022-01-02)
PROC: 05H933Z Insertion of Infusion Device into Right Brachial Vein, Percutaneous Approach (ICD-10-PCS; 2022-01-02)
PROC: B54MZZA Ultrasonography of Right Upper Extremity Veins, Guidance (ICD-10-PCS; 2022-01-02)
PROC: 0DQ80ZZ Repair Small Intestine, Open Approach (ICD-10-PCS; principal; 2022-01-02 12:10)
DX: A41.9 Sepsis, unspecified organism (principal); K63.1 Perforation of intestine (nontraumatic); K65.9 Peritonitis, unspecified; E46 Unspecified protein-calorie malnutrition; E87.0 Hyperosmolality and hypernatremia; N39.0 Urinary tract infection, site not specified; D68.69 Other thrombophilia; E66.01 Morbid (severe) obesity due to excess calories; E87.6 Hypokalemia; I48.91 Unspecified atrial fibrillation; N18.2 Chronic kidney disease, stage 2 (mild); Z96.611 Presence of right artificial shoulder joint; D64.9 Anemia, unspecified; Z96.612 Presence of left artificial shoulder joint; E11.22 Type 2 diabetes mellitus with diabetic chronic kidney disease; I12.9 Hypertensive chronic kidney disease with stage 1 through stage 4 chronic kidney disease, or unspecified chronic kidney disease; F32.A Depression, unspecified; Z20.822 Contact with and (suspected) exposure to COVID-19; J44.9 Chronic obstructive pulmonary disease, unspecified; R56.9 Unspecified convulsions; K21.9 Gastro-esophageal reflux disease without esophagitis; F41.9 Anxiety disorder, unspecified; Z68.35 Body mass index [BMI] 35.0-35.9, adult; Z88.0 Allergy status to penicillin; Z80.8 Family history of malignant neoplasm of other organs or systems; Z82.0 Family history of epilepsy and other diseases of the nervous system; Z82.49 Family history of ischemic heart disease and other diseases of the circulatory system; Z83.3 Family history of diabetes mellitus; Z86.73 Personal history of transient ischemic attack (TIA), and cerebral infarction without residual deficits; Z87.891 Personal history of nicotine dependence; Z90.49 Acquired absence of other specified parts of digestive tract; Z71.3 Dietary counseling and surveillance
CPT/HCPCS: 36415; 36600; 71045; 71250; 74176; 74250; 80048; 80053; 81001; 82805; 83605; 83690; 83735; 83880; 84100; 84484; 85007; 85025; 85027; 85610; 85730; 86850; 86900; 86901; 87040; 87070; 87081; 87205; 87493; 93005; 93306; 94003; 96365; 96368; 96375; 97110; 97116; 97163; 97530; 99291; C9113; G0378; J1100; J1956; J2001; J2185; J2250; J2543; J3480; J3490